=== PATIENT | female | born 1970 | race Caucasian/White ===

== ENCOUNTER → 2022-03-20 | Outpatient (CLI) | payer OTHER, SELFPAY ==
[2022-03-20 12:05] LABS: Absolute Lymphocyte Count 1.81 X10^3/uL (0.83-4.51); Absolute Neutrophil Count 2.8 X10^3/uL (2.0-7.7); Basophil# 0.01 X10^3/uL; Basophil% 0.2 % (0-1); Eosinophil# 0.06 X10^3/uL; Eosinophils% 1.2 % (0-5); Hematocrit 36.7 % (37-47); Hemoglobin 11.5 g/dL (12.0-15.0); Lymphocyte # 1.81 X10^3/ul (0.83-4.51); Lymphocyte % 35.5 % (19-41); Mean Corp Hgb Conc 31.3 g/dL (32-36); Mean Corpuscular Hgb 27.9 pg (27.0-32.0); Mean Corpuscular Volume 89.1 fL (81-99); Mean Platelet Vol. 12.2 fl (6.2-12.0); Monocyte% 7.8 % (0-10); NRBC Flagged by Analyzer 0 % (0-5); Neutrophil # 2.78 X10^3/uL (2.7-7.7); Neutrophil % 54.5 % (47-70); Platelet Count 174 K/mm3 (150-450); RBC Distribution Width SD 45.6 fl (35.1-43.9); Red Blood Count 4.12 M/mm3 (4.2-5.4); White Blood Count 5.1 K/mm3 (4.4-11.0)
[2022-03-20 12:14] LABS: Erythrocyte Sedimentation Rate 3 mm/hr (0-30)
[2022-03-20 12:29] LABS: ALB/GLOB Ratio 1.1 RATIO (0.9-2.4); AST(SGOT) 20 U/L (15-37); Alanine Aminotransfer ALT/SGPT 39 U/L (13-56); Albumin, Serum 3.8 g/dL (3.2-5.0); Alkaline Phosphatase 63 U/L (45-117); Anion Gap 7 (5-15); BUN 18 mg/dL (7-18); BUN/Creat Ratio 26.1 RATIO (10-20); CRP < 2.90 mg/L (0.0-3.0); Calcium,Total 8.7 mg/dL (8.5-10.1); Chloride 109 mmol/L (98-107); Creatinine, Serum 0.69 mg/dL (0.55-1.02); EST Glomerular Filtration Rate 96 mL/min (>60); Est Glom Filt Rate - Afr Amer 116 mL/min (>60); Globulin 3.5 g/dL (2.2-4.2); Glucose 93 mg/dL (74-106); Potassium 3.8 mmol/L (3.5-5.1); Protein, Total 7.3 g/dL (6.4-8.2); Rheumatoid Factor < 10.0 IU/mL (<15); Sodium Level 141 mmol/L (136-145)
[2022-03-20 13:03] LABS: Hepatitis B Surface Antibody Non-Reactive; Hepatitis B Surface Antigen Non-Reactive (Nonreactive); Hepatitis C Antibody Non-Reactive (Nonreactive)
[2022-03-21 15:42] LABS: ANTINUCLEAR ANTIBODIES DIRECT Negative (Negative)
[2022-03-23 08:40] LABS: CCP IgG Antibodies 2 units (0-19)
== END | disposition home or self-care (01) ==
LOC: MTLAB 09:49
PROVIDERS: PCP Internal Medicine; Referring Provider Internal Medicine Rheumatology; Visit Provider Internal Medicine Rheumatology
DX: M06.4 Inflammatory polyarthropathy (principal); E11.9 Type 2 diabetes mellitus without complications; I10 Essential (primary) hypertension; E78.5 Hyperlipidemia, unspecified; K21.9 Gastro-esophageal reflux disease without esophagitis; F41.9 Anxiety disorder, unspecified
CPT/HCPCS: 36415; 80053; 85025; 85652; 86038; 86140; 86200; 86431; 86706; 86803; 87340

== ENCOUNTER → 2022-08-07 | Outpatient (CLI) | payer OTHER, SELFPAY ==
[2022-08-07 17:42] LABS: Absolute Lymphocyte Count 1.93 X10^3/uL (0.83-4.51); Absolute Neutrophil Count 3.5 X10^3/uL (2.0-7.7); Basophil# 0.01 X10^3/uL; Basophil% 0.2 % (0-1); Eosinophil# 0.06 X10^3/uL; Hematocrit 33.4 % (37-47); Hemoglobin 10.6 g/dL (12.0-15.0); Lymphocyte # 1.93 X10^3/ul (0.83-4.51); Lymphocyte % 32.8 % (19-41); Mean Corp Hgb Conc 31.7 g/dL (32-36); Mean Corpuscular Hgb 29.5 pg (27.0-32.0); Mean Platelet Vol. 11.6 fl (6.2-12.0); Monocyte# 0.43 X10^3/uL; Monocyte% 7.3 % (0-10); NRBC Flagged by Analyzer 0 % (0-5); Neutrophil # 3.45 X10^3/uL (2.7-7.7); Neutrophil % 58.5 % (47-70); Platelet Count 198 K/mm3 (150-450); RBC Distribution Width CV 15.2 % (11.6-14.6); RBC Distribution Width SD 51.9 fl (35.1-43.9); Red Blood Count 3.59 M/mm3 (4.2-5.4); White Blood Count 5.9 K/mm3 (4.4-11.0)
[2022-08-07 18:05] LABS: ALB/GLOB Ratio 1.1 RATIO (0.9-2.4); AST(SGOT) 20 U/L (15-37); Alanine Aminotransfer ALT/SGPT 35 U/L (13-56); Albumin, Serum 3.6 g/dL (3.2-5.0); Alkaline Phosphatase 66 U/L (45-117); Anion Gap 4 (5-15); BUN 19 mg/dL (7-18); BUN/Creat Ratio 26.9 RATIO (10-20); Calcium,Total 9.2 mg/dL (8.5-10.1); Chloride 108 mmol/L (98-107); Creatinine, Serum 0.71 mg/dL (0.55-1.02); EST Glomerular Filtration Rate 93 mL/min (>60); Est Glom Filt Rate - Afr Amer 113 mL/min (>60); Globulin 3.2 g/dL (2.2-4.2); Glucose 116 mg/dL (74-106); Potassium 3.6 mmol/L (3.5-5.1); Protein, Total 6.8 g/dL (6.4-8.2); Sodium Level 140 mmol/L (136-145)
== END | disposition home or self-care (01) ==
LOC: MTLAB 16:21
PROVIDERS: PCP Internal Medicine; Referring Provider Internal Medicine Rheumatology; Visit Provider Internal Medicine Rheumatology
DX: M06.4 Inflammatory polyarthropathy (principal); Z79.899 Other long term (current) drug therapy
CPT/HCPCS: 36415; 80053; 85025

== ENCOUNTER → 2024-04-22 | Outpatient (CLI) | payer OTHER, SELFPAY ==
[2024-04-22 16:17] LABS: Absolute Lymphocyte Count 2.55 X10^3/uL (0.83-4.51); Absolute Neutrophil Count 2.8 X10^3/uL (2.0-7.7); Eosinophil# 0.08 X10^3/uL; Eosinophils% 1.4 % (0-5); Hematocrit 39.1 % (37-47); Hemoglobin 12.8 g/dL (12.0-15.0); Lymphocyte # 2.55 X10^3/ul (0.83-4.51); Lymphocyte % 43.5 % (19-41); Mean Corp Hgb Conc 32.7 g/dL (32-36); Mean Corpuscular Hgb 28.6 pg (27.0-32.0); Mean Corpuscular Volume 87.3 fL (81-99); Mean Platelet Vol. 11.6 fl (6.2-12.0); Monocyte# 0.47 X10^3/uL; NRBC Flagged by Analyzer 0 % (0-5); Neutrophil # 2.75 X10^3/uL (2.7-7.7); Neutrophil % 46.9 % (47-70); Platelet Count 183 K/mm3 (150-450); RBC Distribution Width CV 13.5 % (11.6-14.6); RBC Distribution Width SD 43.4 fl (35.1-43.9); Red Blood Count 4.48 M/mm3 (4.2-5.4); White Blood Count 5.9 K/mm3 (4.4-11.0)
[2024-04-22 16:48] LABS: Vitamin D,25 Hydroxy 45.3 ng/mL
[2024-04-22 17:33] LABS: ALB/GLOB Ratio 1.1 RATIO (0.9-2.4); AST(SGOT) 56 U/L (15-37); Alanine Aminotransfer ALT/SGPT 83 U/L (13-56); Albumin, Serum 3.9 g/dL (3.2-5.0); Alkaline Phosphatase 77 U/L (45-117); Anion Gap 3 (5-15); BUN 14 mg/dL (7-18); BUN/Creat Ratio 15.2 RATIO (10-20); Calcium,Total 9.3 mg/dL (8.5-10.1); Chloride 107 mmol/L (98-107); Creatinine, Serum 0.92 mg/dL (0.55-1.02); EST Glomerular Filtration Rate 68 mL/min (>60); Est Glom Filt Rate - Afr Amer 83 mL/min (>60); Estradiol 14.4 pg/mL; Follicle Stimulating Hormone 63.2 mIU/mL; Globulin 3.6 g/dL (2.2-4.2); Glucose 139 mg/dL (74-106); Potassium 3.9 mmol/L (3.5-5.1); Protein, Total 7.5 g/dL (6.4-8.2); Sodium Level 139 mmol/L (136-145); T4 Free Direct 0.82 ng/dL (0.76-1.46); Thyroid Stim Hormone (TSH) 1.29 uIU/mL (0.358-3.74)
== END | disposition home or self-care (01) ==
LOC: LAB 15:57
PROVIDERS: PCP Internal Medicine; Referring Provider Nurse Practitioner Family; Visit Provider Nurse Practitioner Family
DX: Z00.00 Encounter for general adult medical examination without abnormal findings (principal); D64.9 Anemia, unspecified; Z13.220 Encounter for screening for lipoid disorders; Z13.29 Encounter for screening for other suspected endocrine disorder; E28.39 Other primary ovarian failure; E55.9 Vitamin D deficiency, unspecified
CPT/HCPCS: 36415; 80053; 82306; 82670; 83001; 84439; 84443; 85025

== ENCOUNTER → 2025-03-10 | Outpatient (CLI) | payer OTHER, SELFPAY ==
[2025-03-10 16:49] LABS: Absolute Lymphocyte Count 2.57 X10^3/uL (0.83-4.51); Absolute Neutrophil Count 3.3 X10^3/uL (2.0-7.7); Basophil# 0.01 X10^3/uL; Basophil% 0.2 % (0-1); Eosinophil# 0.07 X10^3/uL; Eosinophils% 1.1 % (0-5); Hematocrit 36.3 % (37-47); Hemoglobin 11.8 g/dL (12.0-15.0); Lymphocyte # 2.57 X10^3/ul (0.83-4.51); Lymphocyte % 39.9 % (19-41); Mean Corp Hgb Conc 32.5 g/dL (32-36); Mean Corpuscular Hgb 28.2 pg (27.0-32.0); Mean Corpuscular Volume 86.6 fL (81-99); Mean Platelet Vol. 11.6 fl (6.2-12.0); Monocyte# 0.45 X10^3/uL; NRBC Flagged by Analyzer 0 % (0-5); Neutrophil # 3.32 X10^3/uL (2.7-7.7); Neutrophil % 51.5 % (47-70); Platelet Count 210 K/mm3 (150-450); RBC Distribution Width CV 13.2 % (11.6-14.6); RBC Distribution Width SD 41.2 fl (35.1-43.9); Red Blood Count 4.19 M/mm3 (4.2-5.4); White Blood Count 6.4 K/mm3 (4.4-11.0)
[2025-03-10 18:13] LABS: ALB/GLOB Ratio 1.6 RATIO (0.9-2.4); AST(SGOT) 28 U/L (<=31); Alanine Aminotransfer ALT/SGPT 41 U/L (<=34); Albumin, Serum 4.2 g/dL (3.5-5.0); Alkaline Phosphatase 82 U/L (35-104); Anion Gap 11 (5-15); BUN 16 mg/dL (4-19); BUN/Creat Ratio 19.5 RATIO (10-20); Calcium,Total 9.2 mg/dL (7.6-11.0); Carbon Dioxide 23.3 mmol/L (21.0-32.0); Chloride 105 mmol/L (98-108); Creatinine, Serum 0.82 mg/dL (0.70-1.20); EST Glomerular Filtration Rate 86 (>60); Globulin 2.6 g/dL (2.2-4.2); Glucose 133 mg/dL (70-99); Potassium 3.6 mmol/L (3.3-5.1); Protein, Total 6.8 g/dL (5.9-8.4); Sodium Level 139 mmol/L (133-145); Total Bilirubin 0.41 mg/dL (0.00-1.30); Vitamin B12 399 pg/mL (180-914)
[2025-03-11 13:10] LABS: Hemoglobin A1c 7.1 % (<=5.6)
[2025-03-16 10:08] LABS: HPV APTIMA, High Risk Negative (Negative)
== END | disposition home or self-care (01) ==
PROVIDERS: PCP Internal Medicine; Referring Provider Nurse Practitioner Family; Visit Provider Nurse Practitioner Family
DX: Z12.4 Encounter for screening for malignant neoplasm of cervix (principal); R53.83 Other fatigue; Z78.0 Asymptomatic menopausal state
CPT/HCPCS: 36415; 80053; 82306; 82607; 83036; 85025; 87624; 88175; G0145

== ENCOUNTER → 2025-04-09 | Outpatient (CLI) | payer OTHER, SELFPAY ==
--- OUTSIDE RECORDS SUMMARY | 2025-04-09 10:17 | XMS RPT_ITS | CCD ---
Author Organization [facility] Care Team Providers Care Check Processing Clerk Name Role Phone [place], Erica Unavailable Unavailable [place], Erica S Unavailable Unavailable [place], Erica S Unavailable Unavailable Unavailable Unavailable Primary Care Provider Unavailabl e [place] DO, Erica S. Primary Care Provider [place] DO, Erica S. Primary Care Provider [phone] ROYAL, ERICA S. Referring Unavailable ROYAL, ERICA S. Primary Care Unavailable ROYAL, ERICA S. Admitting Unavailable ROYAL, ERICA S. Primary Care Unavailable ROYAL, ERICA S. Admitting Unavailable ROYAL, ERICA S. Referring Unavailable ALECIA ESPARZA Attending Unavailable DIONNE ESCOBAR Referring Unavailable DIONNE ESCOBAR Attending Unavailable ROYAL, ERICA S. Primary Care Unavailable ROYAL, ERICA S. Primary Care Unavailable ROYAL, ERICA S. Admitting Unavailable ROYAL, ERICA S. Referring Unavailable ROYAL, ERICA S. Primary Care Unavailable ROYAL, ERICA S. Admitting Unavailable ROYAL, ERICA S. Referring Unavailable ROYAL, ERICA S. Primary Care Unavailable ROYAL, ERICA S. Admitting Unavailable ROYAL, ERICA S. Referring Unavailable JESSICA JOHNSON Attending Unavailable ALIREZA WEEKS MD Attending Unavailable [place] DO, Erica S Primary Care Provider [phone] [place], Erica Unavailable Cortez Armendariz Unavailable [phone] Arielle Barton Unavailable Brenda Amor Unavailable Unavailable Zack Jacobo Unavailable [place] DO, Erica S. Primary Care Provider ERICA SANFORD. Primary Care Unavailable DIONNE ESCOBAR Attending Unavailable DIONNE ESCOBAR Attending Unavailable ERICA SANFORD. Primary Care Unavailable [place], Dr. Erica Mcwilliams Primary Care Unavailabl e [place], Dr. Erica Mcwilliams Attending Unavailabl e [place], Dr. Erica Mcwilliams Attending Unavailabl e [place], Dr. Erica Mcwilliams Primary Care Unavailabl e Yelena Lopez, Dr. Rodas Admitting Unava ilable Yelena Lopez, Dr. Rodas Referring Unava ilable Marcello, Dr. Cort[place] Hansen Attending Un available [place], Dr. Erica Mcwilliams Primary Care Unavailabl e [place], Dr. Erica Mcwilliams Primary Care Unavailabl e [place], Dr. Erica Mcwilliams Attending Unavailabl e [place], Dr. Erica Mcwilliams Referring Unavailabl e [place], Dr. Erica Mcwilliams Primary Care Unavailabl e Adi Monge Attending Unavailable Adi Monge Referring Unavailable [place], Dr. Erica Mcwilliams Primary Care Unavailabl e [place], Dr. Erica Mcwilliams Attending Unavailabl e [place], Dr. Erica Mcwilliams Referring Unavailabl e [place], Dr. Erica Mcwilliams Primary Care Unavailabl e [place], Dr. Erica Mcwilliams Attending Unavailabl e [place], Dr. Erica Mcwilliams Referring Unavailabl e [place], Dr. Erica Mcwilliams Primary Care Unavailabl e [place], Dr. Adi Barrett Attending Unavailable [place], Dr. Erica Mcwilliams Referring Unavailabl e [place], Dr. Erica Mcwilliams Primary Care Unavailabl e Zack Jacobo Attending Unavailable [place], Dr. Erica Mcwilliams Referring Unavailabl e [place], Dr. Erica Mcwilliams Primary Care Unavailabl e MD ALIREZA WEEKS Attending Unavailable [place] Erica BAILON Primary Care Provider ERICA SANFORD Primary Care Unavailable SELF, SELF Referring Unavailable XANDER NUNEZ JR. Attending Unavaila ble XANDER NUNEZ JR. Attending Unavaila ble ERICA SANFORD Primary Care Unavailable SELF, SELF Referring Unavailable Erica Sanford DO Primary Care Provider [phone] ERICA SANFORD Primary Care Unavailable ERICA SANFORD Primary Care Unavailable ROYAL, ERICA S Primary Care Unavailable KAMRAN MORIN Attending Unavailable XANDER NUNEZ Referring Unavailable ROYAL, ERICA S Primary Care Unavailable ROYAL, ERICA S Primary Care Unavailable ROYAL, ERICA S Referring Unavailable ROYAL, ERICA S Primary Care Unavailable [place] DO, Erica S Primary Care Provider [phone] ROYAL, ERICA S Attending Unavailable ROYAL, ERICA S Primary Care Unavailable ROYAL, ERICA S Attending Unavailable ROYAL, ERICA S Primary Care Unavailable ROYAL, ERICA S Attending Unavailable ROYAL, ERICA S Referring Unavailable ROYAL, ERICA S Primary Care Unavailable Royal LORENZ, Dr. Maldonado Primary Care Provider Dr. Erica Sanford MD Referring Provider Julio TRANSLATOR DEAF-C, Ashlee Attending Provider [phone] Julio TRANSLATOR DEAF-C, Ashlee Referring Provider [phone] Julio, Ashlee Referring Unavailable Barkman, Ashlee Attending Unavailable [place], Erica Primary Care Unavailable [place], Erica Primary Care Unavailable Barkman, Ashlee Referring Unavailable Barkman, Ashlee Attending Unavailable [place], Erica Primary Care Unavailable Barkman, Ashlee Attending Unavailable Barkman, Ashlee Referring Unavailable Barkman, Ashlee Attending Unavailable [place], Erica Referring Unavailable [place], Erica Primary Care Unavailable Barkman, Ashlee Attending Unavailable [place], Erica Referring Unavailable [place], Erica Primary Care Unavailable Allergies Allergy Classification Reported Allergen(s) Allergy Type Date of Onset Reaction(s) Facility Penicillins (antibiotic) (4 sources) Penicillins; Translations: [Penicillins] Drug Allergy Unknown [facility] (20 sources) Penicillins; Translations: [Penicillins] Allergy to drug (finding) 3 Unknown [facility] (10 sources) Penicillins Propensity to adverse reactions to drug Unknown [facility] (9 sources) Penicillins Propensity to adverse reactions to drug 3 Unknown [facility] (2 sources) Penicillins Propensity to adverse reactions to drug 3 [facility] (1 source) Penicillins Drug Allergy 3 Unknown [facility] (2 sources) Penicillins Propensity to adverse reactions 5 PT UNSURE OF REACTION [facility] (1 source) Penicillins Drug allergy (disorder) [facility] Repository Medications Current Medications Medication Drug Class(es) Dates Sig (Normalized) Sig (Original) Apple Cider Vinegar (9 sources) take 1 capsule by mo uth once daily APPLE CIDER VINEGAR ORAL Take 1 capsule by mouth daily . 0 Active Ascorbic Acid (16 sources) Vitamin C ASCORBIC ACID OR AL Take by mouth daily . 0 Active Vitamin C TABS R efills: 0 Active Vitamin C TABS R efills: 0 DO Active atorvastatin 10 mg oral tablet (20 sources) HMG-CoA Reductase Inhibitor Start: 12-23-2024 End: 01-27-2026 take 1 tablet by mouth once daily Atorvastatin (Lipitor) 10 mg tablet Active 10 mg PO daily March 10, 2025 12:00am Start: 12-29-2023 End: 07-01-2024 take 1 tablet by mouth once daily atorvastatin (Lipitor) 10 mg tablet Indications: Mixed hyperlipidemia TAKE 1 TABLET BY MOUTH EVERY DAY 90 tablet 1 12/29/2023 07/01/2024 Discontinued (Med List Cleanup) Start: 01-03-2022 End: 05-30-2023 take 1 tablet by mouth once daily Atorvastatin Calcium 10 MG Oral Tablet TAKE 1 TABLET BY MOUTH EVERY DAY Quantity: 90 Refills: 1 Ordered: 31-Oct-2022 Erica Sanford DO Start : 03-Jan-2022 Active cholecalciferol 0.01 mg oral tablet (12 sources) Vitamin D cholecalciferol, vitamin D3, 400 unit Tab Take 1,000 Units by mouth daily . 0 Active cholecalciferol 5500 unt / vitamin k2 0.2 mg oral tablet (8 sources) Vitamin D Start: 04-22-2024 End: 03-10-2025 take 137.5-200 ug by mouth once daily Vitamin D3-Vitamin K2 (Dosokap) 137.5-200 mcg tablet Active 1 {tbl} PO daily March 10, 2025 12:00am vitamin D3-vitam in K2 (DosoKap) 137.5-200 mcg tablet Take by mouth. Active diclofenac sodium 0.01 mg/mg topical gel (11 sources) Nonsteroidal Anti-inflammatory Drug Start: 07-15-2023 End: 07-01-2024 diclofenac sodium (Voltaren) 1 % gel gel Indications: osteoarthritis Apply 1 Application topically 4 times a day as needed (Pain). 100 g 1 07/15/2023 07/01/2024 Discontinued (Med List Cleanup) Start: 01-16-2023 Diclofenac Sod ium 1 % External Gel apply 2 gram topically QID for pain Quantity: 1 Refills: 1 Ordered: 17-Jan-2023 Zack Jacobo MD Start : 16-Jan-2023 Active DICLOFENAC SODIU M 1% GEL ; Apply topically to affected area 4 times a day, As Needed Quantity: 0 Refills: 1 Ordered: 06-Feb-2023 Marion Barksdale Generic Substitution Allowed Comments: Source=Surescripts, Medication=DICLOFENAC SODIUM 1% GEL, OriginatingSource=[email or web address] OriginatingProvider=ZACK JACOBO, Duration=30, Refills=1, Date Last Modified/Filled=17-Jan-2023 Comment on above: Source=Surescripts, Medication=DICLOFENAC SODIUM 1% GEL, OriginatingSource=[email or web address] OriginatingProvider=ZACK JACOBO, Duration=30, Refills=1, Date Last Modified/Filled=17-Jan-2023 escitalopram 20 mg oral tablet (20 sources) Serotonin Reuptake Inhibitor Start: 2024 take 1 tablet by mouth once daily escitalopram (Lexapro) 20 mg tablet Indications: Depression, major, single episode, mild (CMS-HCC) Take 1 tablet (20 mg) by mouth once daily. 100 tablet 1 12/23/2024 Active Start: 04-22-2024 End: 12-23-2024 take 1 tablet by mouth once daily Escitalopram Oxalate 20 mg tablet Active 20 mg PO DAILY April 22, 2024 12:00am Start: 01-03-2022 End: 12-04-2023 take 1 tablet by mouth once daily escitalopram (Lexapro) 20 mg tablet Indications: Depression, major, single episode, mild (CMS-HCC) Take 1 tablet (20 mg) by mouth once daily. 90 tablet 1 12/04/2023 Active Start: 12-07-2021 take 1 tablet by sally th once daily Escitalopram Oxalate 10 MG Oral Tablet TAKE 1 TABLET BY MOUTH EVERY DAY Quantity: 90 Refills: 2 Ordered: 07-Dec-2021 Erica Sanford DO Start : 07-Dec-2021 Active Start: 04-17-2020 take 1 tablet by sally th once daily Escitalopram Oxalate 10 MG Oral Tablet TAKE 1 TABLET BY MOUTH EVERY DAY Quantity: 30 Refills: 5 Ordered: 10-Jun-2021 Erica Sanford DO Start : 17-Apr-2020 Active ESCITALOPRAM OXA LATE ORAL Take by mouth daily . 0 Active lisinopril 10 mg oral tablet (20 sources) Angiotensin Converting Enzyme Inhibitor Start: 12-23-2024 End: 01-27-2026 take 1 tablet by mouth once daily Lisinopril 10 mg tablet Active 10 mg PO daily March 10, 2025 12:00am Start: 01-03-2022 End: 12-04-2023 take 1 tablet by mouth once daily lisinopril 10 mg tablet Indications: Hypertension, unspecified type Take 1 tablet (10 mg) by mouth once daily. 90 tablet 1 05/30/2023 12/04/2023 Discontinued (Med List Cleanup) magnesium gluconate 550 mg oral tablet (12 sources) magnesium 30 mg tablet Take 250 mg by mouth daily . 0 Active melatonin 10 mg oral tablet (4 sources) melatonin 10 mg tablet Take by mouth once daily. Active meloxicam 15 mg oral tablet (20 sources) Nonsteroidal Anti-inflammatory Drug Start: take 1 tablet by mouth once daily meloxicam (Mobic) 15 mg tablet Indications: Polyarthropathy Take 1 tablet (15 mg) by mouth once daily. 30 tablet 1 12/23/2024 Active Start: 12-29-2023 End: 12-23-2024 take 1 tablet by mouth once daily meloxicam (Mobic) 15 mg tablet Indications: Polyarthropathy Take 1 tablet (15 mg) by mouth once daily. 30 tablet 1 11/01/2024 12/23/2024 Discontinued (Reorder) Start: 06-25-2023 take 1 tablet by sally th once daily meloxicam (Mobic) 15 mg tablet Indications: Polyarthropathy TAKE 1 TABLET BY MOUTH EVERY DAY 30 tablet 5 06/25/2023 Active Start: 04-16-2021 End: 06-14-2023 take 1 tablet by mouth once daily meloxicam (Mobic) 15 mg tablet Indications: Polyarthropathy Take 1 tablet (15 mg) by mouth once daily. 30 tablet 0 05/15/2023 06/14/2023 Active Meloxicam TABS T DONNIE 1 TABLET DAILY. Quantity: 0 Refills: 0 Ordered: 16-Oct-2020 DO Active Meloxicam TABS T DONNIE 1 TABLET DAILY. Refills: 0 DO Active Meloxicam TABS T DONNIE 1 TABLET DAILY. Refills: 0 Active 24 hr metFORMIN hydrochloride 500 mg extended release oral tablet (20 sources) Biguanide Start: 05-30-2023 End: 12-04-2023 take 1 tablet by mouth once daily metFORMIN XR 500 mg 24 hr tablet Indications: Type 2 diabetes mellitus with hyperglycemia, without long-term current use of insulin ([facility]) Take 1 tablet (500 mg) by mouth once daily. 90 tablet 1 05/30/2023 12/04/2023 Discontinued (Med List Cleanup) Start: 01-03-2022 End: 05-30-2023 take 1 tablet by mouth once daily metFORMIN HCl ER 500 MG Oral Tablet Extended Release 24 Hour TAKE 1 TABLET BY MOUTH EVERY DAY Quantity: 90 Refills: 1 Ordered: 31-Oct-2022 Erica Sanford DO Start : 03-Jan-2022 Active take 1 tablet by sally th once daily at breakfast metFORMIN (FORTAMET) 500 MG (OSM) 24 hr tablet Take 500 mg by mouth daily with breakfast . 0 Active Comment on above: Source=Surescripts, Medication=METFORMIN HCL ER 500 MG TABLET, OriginatingSource=[employer] OriginatingProvider=ERICA SANFORD, Duration=90, Refills=1, Date Last Modified/Filled=29-Nov-2022 Multiple Vitamin (Multi-Vitamin) tablet (2 sources) take 1 tablet by mouth once daily Multiple Vitamin (Multi-Vitamin) tablet Take 1 tablet by mouth daily. Active multivitamin (THERAGRAN) per tablet (9 sources) take 1 tablet by mouth once daily multivitamin (THERAGRAN) per tablet Take 1 tablet by mouth daily . 0 Active multivitamin tablet (8 sources) multivitamin tablet Take by mouth once daily. Active multivitamin tab let Take by mouth once daily. 0 Active MULTIVITAMIN WITH IRON ORAL (14 sources) MULTIVITAMIN WIT H IRON ORAL Take by mouth . 0 Active multivitamin with minerals (Daily Multivitamin-Minerals ) tablet (6 sources) take 1 tablet by mouth once daily multivitamin with minerals (Daily Multivitamin-Minerals) tablet Take 1 tablet by mouth daily (Airborne Everyday) . 0 Active multivitamin with minerals tablet (8 sources) take 1 tablet by mouth once daily multivitamin with minerals tablet Take 1 tablet by mouth daily (Airborne Everyday) . 0 Active omeprazole 40 mg delayed release oral capsule (20 sources) Proton Pump Inhibitor Start: 12-24-19 take 1 capsule by mouth once daily in the morning omeprazole (PriLOSEC) [address] capsule Indications: Gastroesophageal reflux disease without esophagitis Take 1 capsule (40 mg) by mouth once daily in the morning. 100 capsule 1 12/23/2024 Active Start: 04-22-2024 End: 12-23-2024 take 1 capsule by mouth once daily Omeprazole 40 mg capsule,delayed release(DR/EC) Active 40 mg PO DAILY April 22, 2024 12:00am Start: 05-15-2020 End: 12-04-2023 take 1 capsule by mouth once daily in the morning omeprazole (PriLOSEC) [address] capsule Indications: Gastroesophageal reflux disease without esophagitis Take 1 capsule (40 mg) by mouth once daily in the morning. 90 capsule 1 12/04/2023 Active take 40 mg by mouth once daily OMEPRAZOLE ORAL Take 40 mg by mouth daily . 0 Active OMEPRAZOLE ORAL Take by mouth daily . 0 Active PriLOSEC OTC TBE C Refills: 0 DO Active PriLOSEC OTC TBE C Refills: 0 Active psyllium seed (PSYLLIUM ORAL) (14 sources) psyllium seed (P SYLLIUM ORAL) Take by mouth . 0 Active semaglutide 0.25 mg or 0.5 mg (2 mg/3 mL) pen injector (5 sources) Start: 09-23-2024 End: 12-23-2024 inject 0.5 mg by subcutaneous injection every week semaglutide 0.25 mg or 0.5 mg (2 mg/3 mL) pen injector Indications: Type 2 diabetes mellitus with hyperglycemia, without long-term current use of insulin Inject 0.5 mg under the skin 1 (one) time per week. 12 mL 2 09/23/2024 12/23/2024 Discontinued (Side effects) Start: 09-23-2024 inject 0.5 mg by sub cutaneous injection every week semaglutide 0.25 mg or 0.5 mg (2 mg/3 mL) pen injector Indications: Type 2 diabetes mellitus with hyperglycemia, without long-term current use of insulin Inject 0.5 mg under the skin 1 (one) time per week. 12 mL 2 09/23/2024 Active Start: 08-20-2024 End: 09-23-2024 semaglutide 0.25 mg or 0.5 m g (2 mg/3 mL) pen injector Indications: Type 2 diabetes mellitus with hyperglycemia, without long-term current use of insulin Inject 0.25 mg under the skin 1 (one) time per week. 12 mL 2 08/20/2024 09/23/2024 Discontinued (Reorder) Start: 07-01-2024 semaglutide 0. 25 mg or 0.5 mg (2 mg/3 mL) pen injector Indications: Type 2 diabetes mellitus with hyperglycemia, without long-term current use of insulin Inject 0.25 mg under the skin 1 (one) time per week. 12 mL 2 07/01/2024 Active Vitamin D-Vitamin K (DosoKap) 5500-200 UNIT-MCG tablet (1 source) Start: 11-24-2023 take 1 tablet by mouth once daily Vitamin D-Vitamin K (DosoKap) 5500-200 UNIT-MCG tablet Indications: Vitamin D deficiency 1 po q day 30 tablet 11/24/2023 Active zinc gluconate 50 mg oral tablet (12 sources) take 1 tablet by mouth once daily zinc gluconate 50 mg tablet Take 50 mg by mouth daily . 0 Active Completed/Discontinued Medications Medication Drug Class(es) Dates Sig (Normalized) Sig (Original) Airborne PACK (2 sources) Airborne PACK Re fills: 0 Active Airborne PACK Re fills: 0 DO Active Airborne PACK (11 sources) Airborne PACK Qu antity: 0 Refills: 0 Ordered: 30-Nov-2020 DO Active B-12 LOZG (14 sources) B-12 LOZG Quanti ty: 0 Refills: 0 Ordered: 03-Jan-2022 DO Active Bupivacaine (4 sources) Amide Local Anesthetic Start: 04-16-2021 End: 04-16-2021 bupivacaine HCl (MARCAINE) 0.5 % (5 mg/mL) injection 1 mL Start: 04-16-2021 End: 04-16-2021 bupivacaine HCl (MARCAINE) 0 .5 % (5 mg/mL) injection 1 mL ergocalciferol 1.25 mg oral capsule (20 sources) Provitamin D2 Compound Vitamin D (Ergocalciferol) 1.25 MG (92768 UT) Oral Capsule Quantity: 0 Refills: 0 Ordered: 30-Nov-2020 DO Active folic acid 1 mg oral tablet (7 sources) take 2 tablets by mouth once daily Folic Acid 1 MG Oral Tablet TAKE 2 TABLET Daily Quantity: 180 Refills: 1 Ordered: 11-Apr-2022 DO Active Magnesium (20 sources) Magnesium CHEW Quantity: 0 Refills: 0 Ordered: 19-Jun-2021 DO Active magnesium sulfate 0.0277 meq/ml / potassium sulfate 0.0374 meq/ml / sodium sulfate 0.257 meq/ml oral solution (5 sources) Start: 04-24-20 Na Sulfate-K Sulfate-Mg Sulf 17.5-3.13-1.6 GM/177ML Oral Solution USE DIRECTED. Quantity: 1 Refills: 0 Ordered: 24-Apr-2023 Adi Monge DO Start : 24-Apr-2023 Active methotrexate 2.5 mg oral tablet (7 sources) Folate Analog Metabolic Inhibitor Methotrexate 2.5 MG Oral Tablet Quantity: 0 Refills: 0 Ordered: 11-Apr-2022 DO Active Multi-Vitamins TABS (2 sources) Multi-Vitamins T ABS Refills: 0 Active Multi-Vitamins T ABS Refills: 0 DO Active Multi-Vitamins TABS (20 sources) Multi-Vitamins T ABS 3 gummy's daily Quantity: 0 Refills: 0 Ordered: 26-Nov-2022 DO Active Multi-Vitamins T ABS Quantity: 0 Refills: 0 Ordered: 30-Nov-2020 DO Active Multiple Vitamins-Minerals (ZINC PO) (2 sources) End: 12-08-2023 take 50 mg by mouth once daily Multiple Vitamins-Minerals (ZINC PO) Take 50 mg by mouth daily. 12/08/2023 Discontinued take 50 mg by mouth once daily M ultiple Vitamins-Minerals (ZINC PO) Take 50 mg by mouth daily. Active Psyllium (20 sources) Metamucil CAPS Q uantity: 0 Refills: 0 Ordered: 30-Nov-2020 DO Active Metamucil CAPS R efills: 0 Active Metamucil CAPS R efills: 0 DO Active 1 ml triamcinolone acetonide 40 mg/ml injection (4 sources) Corticosteroid Start: 04-16-2021 End: 04-16-2021 triamcinolone acetonide (KENALOG-40) injection 40 mg Start: 04-16-2021 End: 04-16-2021 triamcinolone acetonide (JESSICA ALOG-40) injection 40 mg Start: 04-16-2021 End: 04-16-2021 triamcinolone acetonide (JESSICA ALOG-40) injection 40 mg Start: 04-16-2021 End: 04-16-2021 triamcinolone acetonide (JESSICA ALOG-40) injection 40 mg Vitamin C TABS (11 sources) Vitamin C TABS Q uantity: 0 Refills: 0 Ordered: 30-Nov-2020 DO Active Zinc (9 sources) Zinc 50 MG CAPS Quantity: 0 Refills: 0 Ordered: 19-Jun-2021 DO Active Problems Active Problems Problem Classification Problem Date Documented Da te Episodic/Chronic Anxiety disorders (16 sources) Anxiety; Translations: [Anxiety state, unspecified] Chronic Diabetes mellitus with complications (20 sources) Type 2 diabetes mellitus; Translations: [Diabetes mellitus without mention of complication, type II or unspecified type, not stated as uncontrolled] Onset: 3 Chronic Diabetes mellitus with complications (2 sources) Diabetes mellitus with complications 02-06-2023 Diabetes mellitus without complication (1 source) Type 2 diabetes mellitus without complications; Translations: [Type 2 diabetes mellitus without complications] Onset: 3 Chronic Diabetes mellitus without complication (20 sources) Hyperglycemia; Translations: [Other abnormal glucose] Onset: 4 12-08-2023 Episodic Disorders of lipid metabolism (20 sources) Hyperlipidemia; Translations: [Other and unspecified hyperlipidemia] Onset: 3 01-06-2023 Chronic Diverticulosis and diverticulitis (1 source) Diverticulosis of large intestine without perforation or abscess without bleeding; Translations: [Dvrtclos of lg int w/o perforation or abscess w/o bleeding] Onset: 3 Chronic Esophageal disorders (20 sources) Gastroesophageal reflux disease; Translations: [Esophageal reflux] Onset: 3 Chronic Essential hypertension (4 sources) Essential (primary) hypertension; Translations: [Hypertensive disorder] Onset: 3 09-01-2023 Chronic Intestinal obstruction without hernia (10 sources) Small bowel obstruction; Translations: [Unspecified intestinal obstruction] Onset: 3 02-06-2023 Episodic Malaise and fatigue (20 sources) Fatigue; Translations: [Other malaise and fatigue] Onset: 3 Resolved: 4 01-06-2023 Episodic Menopausal disorders (7 sources) Menopausal syndrome; Translations: [Menopausal and female climacteric states] Onset: 4 04-22-2024 Chronic Mood disorders (20 sources) Mild major depression, single episode; Translations: [Major depressive affective disorder, single episode, mild] Onset: 3 01-07-2023 Chronic Mood disorders (1 source) Mood disorders; Translations: [Depression, unspecified] Onset: 3 Nonspecific chest pain (7 sources) Chest pain; Translations: [Atypical chest pain] Episodic Nutritional deficiencies (14 sources) Vitamin D deficiency; Translations: [Vitamin D deficiency, unspecified] Onset: 4 12-08-2023 Chronic Osteoarthritis (20 sources) Osteoarthritis of knee; Translations: [Osteoarthrosis, localized, not specified whether primary or secondary, lower leg] Onset: 3 11-17-2023 Chronic Other bone disease and musculoskeletal deformities (3 sources) Disorder of skeletal system; Translations: [Disorder of bone, unspecified] Onset: 4 11-17-2023 Episodic Other circulatory disease (3 sources) Elevated blood pressure; Translations: [Elevated blood pressure reading without diagnosis of hypertension] Episodic Other connective tissue disease (20 sources) Heel pain; Translations: [Pain in limb] Onset: 0 Episodic Other connective tissue disease (4 sources) Pain in both feet; Translations: [Pain in right foot] Episodic Other connective tissue disease (1 source) Tendinitis of foot; Translations: [Other enthesopathies, not elsewhere classified] Episodic Other connective tissue disease (1 source) Plantar fasciitis of left foot; Translations: [Plantar fascial fibromatosis] Episodic Other connective tissue disease (1 source) Tendonitis of left foot; Translations: [Other enthesopathy of left foot and ankle] Episodic Other connective tissue disease (1 source) Pain in left foot; Translations: [Pain in left foot] Episodic Other connective tissue disease (4 sources) H/O: rheumatoid arthritis; Translations: [Personal history of other diseases of the musculoskeletal system and connective tissue] Onset: 4 11-17-2023 Episodic Other endocrine disorders (2 sources) Menarche; Translations: [History of Menarche] Chronic Other female genital disorders (4 sources) Polyp at cervical os; Translations: [Polyp at cervical os] Episodic Other gastrointestinal disorders (1 source) Dysphagia; Translations: [Dysphagia] Episodic Other gastrointestinal disorders (1 source) Altered bowel function; Translations: [Change in bowel habit] 12-04-2023 Episodic Other liver diseases (20 sources) Steatosis of liver; Translations: [Other chronic nonalcoholic liver disease] Onset: 3 01-06-2023 Chronic Other liver diseases (5 sources) Fatty (change of) liver, not elsewhere classified; Translations: [Fatty (change of) liver, not elsewhere classified] Onset: 3 Chronic Other liver diseases (4 sources) Large liver; Translations: [Hepatomegaly, not elsewhere classified] Onset: 4 11-17-2023 Episodic Other lower respiratory disease (2 sources) Solitary pulmonary nodule; Translations: [Pulmonary nodule] Episodic Other nervous system disorders (9 sources) Bilateral carpal tunnel syndrome; Translations: [Carpal tunnel syndrome, bilateral upper limbs] Onset: 3 01-07-2023 Chronic Other nervous system disorders (11 sources) Other chronic pain; Translations: [Other chronic pain] Onset: 3 Chronic Other nervous system disorders (3 sources) Abnormal reflex; Translations: [Abnormal reflex] Onset: 4 11-17-2023 Episodic Other non-traumatic joint disorders (10 sources) Polyarthropathy; Translations: [Polyarthritis, unspecified] Onset: 3 05-15-2023 Chronic Other non-traumatic joint disorders (2 sources) Polyarthritis, unspecified; Translations: [Polyarthritis, unspecified] Onset: 3 Chronic Other non-traumatic joint disorders (8 sources) Joint pain; Translations: [Pain in joint, site unspecified] Episodic Other non-traumatic joint disorders (2 sources) Knee pain; Translations: [Pain in right knee] Onset: 3 01-07-2023 Episodic Other non-traumatic joint disorders (3 sources) Pain of left wrist; Translations: [Pain in left wrist] Onset: 4 11-17-2023 Episodic Other nutritional; endocrine; and metabolic disorders (20 sources) Body mass index 30+ - obesity; Translations: [Body Mass Index 32.0-32.9, adult] Chronic Other nutritional; endocrine; and metabolic disorders (20 sources) Obesity; Translations: [Obesity, unspecified] Onset: 3 Chronic Other nutritional; endocrine; and metabolic disorders (1 source) Obesity, unspecified; Translations: [Obesity, unspecified] Onset: 3 Chronic Other nutritional; endocrine; and metabolic disorders (1 source) Body mass index (BMI) 35.0-35.9, adult; Translations: [Body mass index [BMI] 35.0-35.9, adult] Onset: 3 Chronic Other nutritional; endocrine; and metabolic disorders (2 sources) Obese class II; Translations: [Obesity, unspecified] Onset: 4 11-17-2023 Chronic Other screening for suspected conditions (not mental disorders or infectious disease) (20 sources) Patient encounter status; Translations: [Screening for other and unspecified cardiovascular conditions] Onset: 2 Episodic Residual codes; unclassified (20 sources) Hypoxia; Translations: [Idiopathic sleep related non-obstructive alveolar hypoventilation] Onset: 3 01-06-2023 Chronic Residual codes; unclassified (20 sources) H/O: ; Translations: [Personal history of other genital system and obstetric disorders] Episodic Comment on above: 01/31/1995-40 WEEKS, VAGINAL, MALE, #7 15oz07/10/1998-40 WEEKS, ,FEMALE, #8 2oz; Residual codes; unclassified (4 sources) FH: Rheumatoid arthritis; Translations: [Family history of arthritis] Onset: 4 11-17-2023 Episodic Spondylosis; intervertebral disc disorders; other back problems (8 sources) Degeneration of lumbar intervertebral disc; Translations: [Other intervertebral disc degeneration, lumbar region] Onset: 4 11-17-2023 Chronic Spondylosis; intervertebral disc disorders; other back problems (20 sources) Low back pain; Translations: [Lumbago] Onset: 3 01-06-2023 Episodic Thyroid disorders (20 sources) Thyroid nodule; Translations: [Nontoxic uninodular goiter] Onset: 3 01-06-2023 Chronic Unclassified (17 sources) Patient encounter status; Translations: [Screening for heart disease] 07-22-2024 Unclassified (2 sources) Primary hypertension 02-06-2023 Unclassified (2 sources) UNSP INTESTNL OBST, UNSP TO PARTIAL VERSUS COMPLETE OBST 02-06-2023 Comment on above: UNSP INTESTNL OBST, UNSP TO PARTIAL VERSUS COMPLETE OBST Unclassified (2 sources) Body mass index (BMI) of 35.0 to 35.9 in adult 02-07-2023 Unclassified (1 source) Patient encounter procedure 04-29-2022 Comment on above: YEARLY Unclassified (1 source) 4-6 WEEK FUV R KNEE 01-16-2023 Comment on above: 4-6 WEEK FUV R KNEE Unclassified (1 source) Rheumatoid arthritis without rheumatoid factor, oth site; Translations: [Rheumatoid arthritis without rheumatoid factor, oth site] Onset: 2 Unclassified (1 source) Low back pain, unspecified; Translations: [Low back pain, unspecified] Onset: 3 Past or Other Problems Problem Classification Problem Date Documented Da te Episodic/Chronic Abdominal pain (1 source) Abdominal pain; Translations: [Abdominal pain, unspecified site] Resolved: 02-06-2023 02-06-2023 Episodic Allergic reactions (1 source) Allergy status to penicillin; Translations: [Allergy status to penicillin] Onset: 02-09-2023 Episodic Deficiency and other anemia (1 source) Anemia, unspecified; Translations: [Anemia, unspecified] Onset: 04-22-2024 Episodic Fluid and electrolyte disorders (3 sources) Dehydration; Translations: [Dehydration] Onset: 02-09-2023 02-06-2023 Episodic Immunizations and screening for infectious disease (1 source) Encounter for immunization; Translations: [Encounter for immunization] Onset: 07-09-2022 Episodic Other aftercare (1 source) termite control service representative (current) use of oral hypoglycemic drugs; Translations: [termite control service representative (current) use of oral hypoglycemic drugs] Onset: 02-09-2023 Episodic Other aftercare (4 sources) [facility] (current) use of non-steroidal anti-inflammatories (NSAID); Translations: [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-steroidal anti-inflammatories (nsaid)] Onset: 11-17-2023 Episodic Other bone disease and musculoskeletal deformities (4 sources) Disorder of bone, unspecified; Translations: [Disorder of bone, unspecified] Onset: 11-17-2023 Episodic Other bone disease and musculoskeletal deformities (4 sources) Disorder of cartilage, unspecified; Translations: [Disorder of cartilage, unspecified] Onset: 11-17-2023 Episodic Other circulatory disease (20 sources) Prehypertension; Translations: [Elevated blood pressure reading without diagnosis of hypertension] Onset: 01-06-2023 01-06-2023 Episodic Other connective tissue disease (20 sources) Bilateral plantar fasciitis; Translations: [Plantar fascial fibromatosis] Onset: 07-19-2020 Episodic Other connective tissue disease (15 sources) Pain in right foot; Translations: [Pain in right foot] Onset: 12-04-2020 Episodic Other connective tissue disease (8 sources) Pain in right heel; Translations: [Pain in right foot] Onset: 01-06-2023 01-06-2023 Episodic Other connective tissue disease (4 sources) Personal history of other diseases of the musculoskeletal system and connective tissue; Translations: [Personal history of other diseases of the musculoskeletal system and connective tissue] Onset: 11-17-2023 Episodic Other gastrointestinal disorders (7 sources) Disorder of small intestine; Translations: [Disease of intestine, unspecified] Onset: 02-20-2023 02-20-2023 Episodic Other liver diseases (4 sources) Hepatomegaly, not elsewhere classified; Translations: [Hepatomegaly, not elsewhere classified] Onset: 11-17-2023 Episodic Other lower respiratory disease (20 sources) Dyspnea on exertion; Translations: [Shortness of breath] Onset: 01-06-2023 01-06-2023 Episodic Other lower respiratory disease (2 sources) Other forms of dyspnea; Translations: [Other forms of dyspnea] Onset: 12-04-2023 Episodic Other nervous system disorders (4 sources) Abnormal reflex; Translations: [Abnormal reflex] Onset: 11-17-2023 Episodic Other non-traumatic joint disorders (20 sources) Pain in right knee; Translations: [Pain in joint, lower leg] Onset: 01-07-2023 01-07-2023 Episodic Other non-traumatic joint disorders (8 sources) Pain in left wrist; Translations: [Pain in left wrist] Onset: 05-08-2023 Episodic Other non-traumatic joint disorders (9 sources) Pain in left knee; Translations: [Pain in joint, lower leg] Onset: 07-14-2023 07-14-2023 Episodic Other non-traumatic joint disorders (2 sources) Pain in unspecified knee; Translations: [Pain in unspecified knee] Onset: 11-20-2023 Episodic Residual codes; unclassified (4 sources) Family history of arthritis; Translations: [Family history of arthritis] Onset: 11-17-2023 Episodic Rheumatoid arthritis and related disease (20 sources) Rheumatoid arthritis; Translations: [Rheumatoid arthritis] Onset: 01-06-2023 Resolved: 01-07-2023 01-07-2023 Chronic Unclassified (1 source) BACK PAIN ABD PAIN VOMITTING 02-06-2023 Comment on above: BACK PAIN ABD PAIN V OMITTING Unclassified (1 source) BACK PAIN, ABD PAIN, VOMITTING 02-06-2023 Comment on above: BACK PAIN, ABD PAIN, VOMITTING Unclassified (5 sources) Onset: 11-20-2023 Resolved: 09-23-2024 11-20-2023 Unclassified (1 source) Low back pain, unspecified; Translations: [Low back pain, unspecified] Onset: 12-23-2024 NEGATED: Highlighted row has not occurred!Residual codes; unclassified (20 sources) Disease Episodic Results Test Name Value Interpretation Reference Range Facility PAP IG HPV APTIMA 16/18,45on 03-16-2025 ADEQ Comment Normal . [facility] Comment on above: Order Comment: Speci men Comment: [id number] Specimen Comment: No. of containers..01 ThinPrep Vial Result Comment: Sati sfactory for evaluation. Endocervical and/or squamous metaplastic cells (endocervical component) are present. Performed By: #### L 7400.0280 #### [facility] [address] [place], [address] COMM . Normal . [facility] Comment on above: Order Comment: Speci men Comment: [id number] Specimen Comment: No. of containers..01 ThinPrep Vial Performed By: #### L 7400.0280 #### [facility] [address] [place], [address] COMMENT TNP Normal . [facility] Comment on above: Order Comment: Speci men Comment: [id number] Specimen Comment: No. of containers..01 ThinPrep Vial Result Comment: The Thin Prep(R) Process Control Manager was unable to read this specimen. Therefore a manual review was performed. Performed By: #### L 7400.0280 #### [facility] [address] [place], [address] DIAG Comment Normal . [facility] Comment on above: Order Comment: Speci men Comment: [id number] Specimen Comment: No. of containers..01 ThinPrep Vial Result Comment: NEGA TIVE FOR INTRAEPITHELIAL LESION OR MALIGNANCY. Performed By: #### L 7400.0280 #### [facility] [address] [place], [address] HPV APTIMA, HR Negative Normal Negative [facility] Comment on above: Order Comment: Speci men Comment: [id number] Specimen Comment: No. of containers..01 ThinPrep Vial Result Comment: This nucleic acid amplification test detects fourteen high- risk HPV types (16,18,31,33,35,39,45,51,52,56,58,59,66,68) without differentiation. Performed By: #### L 7400.0280 #### [facility] [address] [place], [address] HPV Vandana Rfx Comment Normal . [facility] Comment on above: Order Comment: Speci men Comment: [id number] Specimen Comment: No. of containers..01 ThinPrep Vial Result Comment: Goyot prabhjot not met, HPV Genotype not performed. Performed at: - [facility] [id number] Bulk Pallet Builder: Yessica Kramer MD, Phone: [phone] Performed at: =G - [facility] [address] [facility], [place] [id number] Bulk Pallet Builder: Yessica Kramer MD, Phone: [phone] Performed By: #### L 7400.0280 #### [facility] [address] [place], [place], [address] PAPSMR Comment Normal . [facility] Comment on above: Order Comment: Speci men Comment: [id number] Specimen Comment: No. of containers..01 ThinPrep Vial Result Comment: The Pap smear is a screening test designed to aid in the detection of premalignant and malignant conditions of the uterine cervix. It is not a diagnostic procedure and should not be used as the sole means of detecting cervical cancer. Both false-positive and false-negative reports do occur. Performed By: #### L 7400.0280 #### [facility] [address] [place], [place], [id number] PERFORM Comment Normal . [facility] Comment on above: Order Comment: Speci men Comment: [id number] Specimen Comment: No. of containers..01 ThinPrep Vial Result Comment: Marie Herzog, Stockroom Inventory Clerk (ASCP) Performed By: #### L 7400.0280 #### [facility] [address] [place], [place], [address] Hemoglobin A1con 03-11-2025 HbA1c (Bld) [Mass fraction] 7.1 % High <=5.6 [facility] Comment on above: Order Comment: JEANNE Blake ORDER FROM 03-11-25 @ 3078 Result Comment: Norm al < 5.7 % Prediabetic 5.7 - 6.4 % Diabetic >or= 6.5 % Please note range changes. Performed By: #### L 3100.5125, L501.9520, L100.0100, L506.0400, L506.1000, L3300.1750, L500.4050 #### [facility] [address] [place], [place], [id number] Hemoglobin A1c percentageOrd ered By: Ashlee iKm on 03-11-2025 HbA1c (Bld) [Mass fraction] 7.1 % High <5.7 [facility] Comment on above: Normal < 5.7 % Predi abetic 5.7 - 6.4 % Diabetic >or= 6.5 % Please note range changes. Absolute lymphocyte countOrd ered By: Ashlee Kim on 03-10-2025 Lymphocytes Auto (Unsp spec) [#/Vol] 2.57 10*3/uL 0.83-4.51 [facility] Absolute neutrophil countOrd ered By: Ashlee Kim on 03-10-2025 Neutrophils (Bld) [#/Vol] 3.3 10*3/uL 2.0-7.7 [facility] Anion gap in Serum or Plasma Ordered By: Ashlee Kim on 03-10-2025 Anion gap [Moles/Vol] 11 mmol/L 5-15 [facility] Automated lymphocyte count a s percentage of total leukocytesOrdered By: Ashlee Kim on 03-10-2025 Lymphocytes/100 WBC Auto (Unsp spec) 39.9 % - [facility] BUN/creatinine ratioOrdered By: Ashlee Kim on 03-10-2025 Urea nitrogen/Creatinine [Mass ratio] 19.5 mg/mg 10-20 [facility] Basophil percentageOrdered B y: Ashlee Kim on 03-10-2025 Basophils/100 WBC (Bld) 0.2 % 0-1 [facility] Bilirubin, totalOrdered By: Ashlee Kim on 03-10-2025 Bilirubin [Mass/Vol] 0.41 mg/dL 0.00-1.30 [facility] CBC W/Diff, Automatedon 02-27 Absolute Lymph 2.57 X10 3/uL Normal 0.83-4.51 [facility] Comment on above: Performed By: #### L 3100.5125, L501.9520, L100.0100, L506.0400, L506.1000, L3300.1750, L500.4050 #### [facility] [address] [place], [address] Absolute Neut 3.3 X10 3/uL Normal 2.0-7.7 [facility] Comment on above: Performed By: #### L 3100.5125, L501.9520, L100.0100, L506.0400, L506.1000, L3300.1750, L500.4050 #### [facility] [address] [place], [address] Basophils/100 WBC (Bld) 0.2 % Normal 0-1 [facility] Comment on above: Performed By: #### L 3100.5125, L501.9520, L100.0100, L506.0400, L506.1000, L3300.1750, L500.4050 #### [facility] [address] [place], [address] Eosinophils/100 WBC (Bld) 1.1 % Normal 0-5 [facility] Comment on above: Performed By: #### L 3100.5125, L501.9520, L100.0100, L506.0400, L506.1000, L3300.1750, L500.4050 #### [facility] [address] [place], [address] Erythrocyte distribution width (RBC) [Ratio] 13.2 % Normal 11.6-14.6 [facility] Comment on above: Performed By: #### L 3100.5125, L501.9520, L100.0100, L506.0400, L506.1000, L3300.1750, L500.4050 #### [facility] [address] [place], [address] Hematocrit (Bld) [Volume fraction] 36.3 % Low 37-47 [facility] Comment on above: Performed By: #### L 3100.5125, L501.9520, L100.0100, L506.0400, L506.1000, L3300.1750, L500.4050 #### [facility] [address] [place], [address] Hemoglobin (Bld) [Mass/Vol] 11.8 g/dL Low 12.0-15.0 [facility] Comment on above: Performed By: #### L 3100.5125, L501.9520, L100.0100, L506.0400, L506.1000, L3300.1750, L500.4050 #### [facility] [address] [place], [address] IG% 0.300 Normal 0.0-0.9 [facility] Comment on above: Result Comment: IG% - Immature Granulocytes (promyelocytes, myelocytes and metamyelocytes) > 1% indicates that a LEFT SHIFT is Present. Performed By: #### L 3100.5125, L501.9520, L100.0100, L506.0400, L506.1000, L3300.1750, L500.4050 #### [facility] [address] [place], [address] Lymphocytes/100 WBC (Bld) 39.9 % Normal 19-41 [facility] Comment on above: Performed By: #### L 3100.5125, L501.9520, L100.0100, L506.0400, L506.1000, L3300.1750, L500.4050 #### [facility] [address] [place], [address] MCH (RBC) [Entitic mass] 28.2 pg Normal 27.0-32.0 [facility] Comment on above: Performed By: #### L 3100.5125, L501.9520, L100.0100, L506.0400, L506.1000, L3300.1750, L500.4050 #### [facility] [address] [place], [address] MCHC (RBC) [Mass/Vol] 32.5 g/dL Normal 32-36 [facility] Comment on above: Performed By: #### L 3100.5125, L501.9520, L100.0100, L506.0400, L506.1000, L3300.1750, L500.4050 #### [facility] [address] [place], [address] MCV (RBC) [Entitic vol] 86.6 fL Normal 81-99 [facility] Comment on above: Performed By: #### L 3100.5125, L501.9520, L100.0100, L506.0400, L506.1000, L3300.1750, L500.4050 #### [facility] [address] [place], [address] Monocytes/100 WBC (Bld) 7.0 % Normal 0-10 [facility] Comment on above: Performed By: #### L 3100.5125, L501.9520, L100.0100, L506.0400, L506.1000, L3300.1750, L500.4050 #### [facility] [address] [place], [address] Neutrophils/100 WBC (Bld) 51.5 % Normal 47-70 [facility] Comment on above: Performed By: #### L 3100.5125, L501.9520, L100.0100, L506.0400, L506.1000, L3300.1750, L500.4050 #### [facility] [address] [place], [address] Nucleated RBC (Bld) [#/Vol] 0 10*3/uL Normal 0-5 [facility] Comment on above: Performed By: #### L 3100.5125, L501.9520, L100.0100, L506.0400, L506.1000, L3300.1750, L500.4050 #### [facility] [address] [place], [address] Platelet mean volume (Bld) [Entitic vol] 11.6 fL Normal 6.2-12.0 [facility] Comment on above: Performed By: #### L 3100.5125, L501.9520, L100.0100, L506.0400, L506.1000, L3300.1750, L500.4050 #### [facility] [address] [place], [address] Platelets (Bld) [#/Vol] 210 10*3/uL Normal 150-450 [facility] Comment on above: Performed By: #### L 3100.5125, L501.9520, L100.0100, L506.0400, L506.1000, L3300.1750, L500.4050 #### [facility] [address] [place], [address] RBC (Bld) [#/Vol] 4.19 10*6/uL Low 4.2-5.4 [facility] Comment on above: Performed By: #### L 3100.5125, L501.9520, L100.0100, L506.0400, L506.1000, L3300.1750, L500.4050 #### [facility] [address] [place], [address] RDW SD 41.2 fl Normal 35.1-43.9 [facility] Comment on above: Performed By: #### L 3100.5125, L501.9520, L100.0100, L506.0400, L506.1000, L3300.1750, L500.4050 #### [facility] [address] [place], [address] WBC (Bld) [#/Vol] 6.4 10*3/uL Normal 4.4-11.0 [facility] Comment on above: Performed By: #### L 3100.5125, L501.9520, L100.0100, L506.0400, L506.1000, L3300.1750, L500.4050 #### [facility] [address] [place], [address] Carbon dioxide, total [Moles /volume] in Central venous bloodOrdered By: Ashlee Kim on 03-10-2025 CO2 [Moles/Vol] 23.3 mmol/L 21.0-32.0 [facility] Cervical or vaginal specimen microscopic examination by liquid based cytology (reportOrdered By: Ashlee Kim on 03-10-2025 Cytology report Cyto stain.thin prep Doc (Cvx/Vag) Comment . [facility] Comment on above: Criteria not met, HP V Genotype not performed.Performed at: - [facility] [id number] Director: Yessica Kramer MD, Phone: [phone] at: = - [facility] [id number] Director: Yessica Kramer MD, Phone: [phone] Cervical or vagninal specime n microscopic examination by cytology stain (reported asOrdered By: Ashlee Kim on 03-10-2025 Cytology report Cyto stain Doc (Cvx/Vag) Comment . [facility] Comment on above: The Pap smear is a s creening test designed to aid in thedetection of premalignant and malignant conditions of theuterine cervix. It is not a diagnostic procedure andshould not be used as the sole means of detecting cervicalcancer. Both false-positive and false-negative reports dooccur. Chloride assayOrdered By: Hortencia Kim on 03-10-2025 Chloride [Moles/Vol] 105 mmol/L 98-108 [facility] Comprehensive Metabolic Prof ilon 03-10-2025 Albumin [Mass/Vol] 4.2 g/dL Normal 3.5-5.0 [facility] Comment on above: Performed By: #### L 3100.5125, L501.9520, L100.0100, L506.0400, L506.1000, L3300.1750, L500.4050 #### [facility] [address] [place], [address] Albumin/Globulin [Mass ratio] 1.6 {ratio} Normal 0.9-2.4 [facility] Comment on above: Performed By: #### L 3100.5125, L501.9520, L100.0100, L506.0400, L506.1000, L3300.1750, L500.4050 #### [facility] [address] [place], [address] ALK PHOS 82 U/L Normal 35-104 [facility] Comment on above: Performed By: #### L 3100.5125, L501.9520, L100.0100, L506.0400, L506.1000, L3300.1750, L500.4050 #### [facility] [address] [place], [address] ALT [Catalytic activity/Vol] 41 U/L High <=34 [facility] Comment on above: Performed By: #### L 3100.5125, L501.9520, L100.0100, L506.0400, L506.1000, L3300.1750, L500.4050 #### [facility] [address] [place], [address] AST [Catalytic activity/Vol] 28 U/L Normal <=31 [facility] Comment on above: Performed By: #### L 3100.5125, L501.9520, L100.0100, L506.0400, L506.1000, L3300.1750, L500.4050 #### [facility] [address] [place], [address] Bilirubin [Mass/Vol] 0.41 mg/dL Normal 0.00-1.30 [facility] Comment on above: Performed By: #### L 3100.5125, L501.9520, L100.0100, L506.0400, L506.1000, L3300.1750, L500.4050 #### [facility] [address] [place], [address] BUN/CRE 19.5 RATIO Normal 10-20 [facility] Comment on above: Performed By: #### L 3100.5125, L501.9520, L100.0100, L506.0400, L506.1000, L3300.1750, L500.4050 #### [facility] [address] [place], [address] Calcium [Mass/Vol] 9.2 mg/dL Normal 7.6-11.0 [facility] Comment on above: Performed By: #### L 3100.5125, L501.9520, L100.0100, L506.0400, L506.1000, L3300.1750, L500.4050 #### [facility] [address] [place], [address] Chloride [Moles/Vol] 105 mmol/L Normal 98-108 [facility] Comment on above: Performed By: #### L 3100.5125, L501.9520, L100.0100, L506.0400, L506.1000, L3300.1750, L500.4050 #### [facility] [address] [place], [address] CO2 [Moles/Vol] 23.3 mmol/L Normal 21.0-32.0 [facility] Comment on above: Performed By: #### L 3100.5125, L501.9520, L100.0100, L506.0400, L506.1000, L3300.1750, L500.4050 #### [facility] [address] [place], [address] Creatinine [Mass/Vol] 0.82 mg/dL Normal 0.70-1.20 [facility] Comment on above: Performed By: #### L 3100.5125, L501.9520, L100.0100, L506.0400, L506.1000, L3300.1750, L500.4050 #### [facility] [address] [place], [address] GAP 11 Normal 5-15 [facility] Comment on above: Performed By: #### L 3100.5125, L501.9520, L100.0100, L506.0400, L506.1000, L3300.1750, L500.4050 #### [facility] [address] [place], [address] GFR/1.73 sq M.predicted among non-blacks MDRD (S/P/Bld) [Vol rate/Area] 86 mL/min/{1.73_m2} Normal >60 [facility] Comment on above: Result Comment: mL/m in/1.73m2 CKD-EPI Creatinine Equation (2020) Performed By: #### L 3100.5125, L501.9520, L100.0100, L506.0400, L506.1000, L3300.1750, L500.4050 #### [facility] [facility] [address] [place], [address] Globulin (S) [Mass/Vol] 2.6 g/dL Normal 2.2-4.2 [facility] Comment on above: Performed By: #### L 3100.5125, L501.9520, L100.0100, L506.0400, L506.1000, L3300.1750, L500.4050 #### [facility] [address] [place], [address] Glucose [Mass/Vol] 133 mg/dL High 70-99 [facility] Comment on above: Performed By: #### L 3100.5125, L501.9520, L100.0100, L506.0400, L506.1000, L3300.1750, L500.4050 #### [facility] [address] [place], [address] Potassium [Moles/Vol] 3.6 mmol/L Normal 3.3-5.1 [facility] Comment on above: Performed By: #### L 3100.5125, L501.9520, L100.0100, L506.0400, L506.1000, L3300.1750, L500.4050 #### [facility] [address] [place], [address] Sodium [Moles/Vol] 139 mmol/L Normal 133-145 [facility] Comment on above: Performed By: #### L 3100.5125, L501.9520, L100.0100, L506.0400, L506.1000, L3300.1750, L500.4050 #### [facility] [address] [place], [address] T PROT 6.8 g/dL Normal 5.9-8.4 [facility] Comment on above: Performed By: #### L 3100.5125, L501.9520, L100.0100, L506.0400, L506.1000, L3300.1750, L500.4050 #### [facility] [address] [place], [address] Urea nitrogen [Mass/Vol] 16 mg/dL Normal 4-19 [facility] Comment on above: Performed By: #### L 3100.5125, L501.9520, L100.0100, L506.0400, L506.1000, L3300.1750, L500.4050 #### [facility] [address] [place], [address] Detection in cervical specim en of any of human papilloma virus (HPV) 16, 18, 31, 33,Ordered By: Ashlee Kim on 03-10-2025 HPV 16+18+31+33+35+39+45+ 51+52+56+58+59+66+68 DNA Probe+sig amp Ql (Cvx) Negative Negative [facility] Comment on above: This nucleic acid am plification test detects fourteen high- risk HPV types (16,18,31,33,35,39,45,51,52,56,58,59,66,68)without differentiation. Eosinophil percentageOrdered By: Ashlee Kim on 03-10-2025 Eosinophils/100 WBC (Bld) 1.1 % 0-5 [facility] Erythrocyte distribution wid th ratioOrdered By: Ashlee Kim on 03-10-2025 Erythrocyte distribution width (RBC) [Ratio] 13.2 % 11.6-14.6 [facility] Erythrocyte distribution wid th standard deviationOrdered By: Ashlee Kim on 03-10-2025 Erythrocyte distribution width (RBC) [Ratio] 41.2 fl 35.1-43.9 [facility] Glomerular filtration rate ( GFR) estimation/1.73 sq m using serum, plasma, or whole bOrdered By: Ashlee Kim on 03-10-2025 GFR/1.73 sq M.predicted among non-blacks MDRD (S/P/Bld) [Vol rate/Area] 86 mL/min/{1.73_m2} >60 [facility] Comment on above: mL/min/1.73m2 CKD-EP I Creatinine Equation (2020) Hematocrit Auto (Bld) [Volum e fraction]Ordered By: Ashlee Kim on 03-10-2025 Hematocrit (Bld) [Volume fraction] 36.3 % Low 37-47 [facility] Hemoglobin measurementOrdere d By: Ashlee Kim on 03-10-2025 Hemoglobin (Bld) [Mass/Vol] 11.8 g/dL Low 12.0-15.0 [facility] Immature granulocytes/100 WB C Auto (Bld)Ordered By: Ashlee Kim on 03-10-2025 Immature granulocytes/100 WBC (Bld) 0.300 % 0.0-0.9 [facility] Comment on above: IG% - Immature Granu locytes (promyelocytes, myelocytes and metamyelocytes) > 1% indicates that a LEFT SHIFT is Present. Laboratory - Chemistry and C hemistry - challengeOrdered By: Ashlee Kim on 03-10-2025 AST [Catalytic activity/Vol] 28 U/L <32 [facility] - CytologyOrdered By: Ashlee Kim on 03-10-2025 Stockroom Inventory Clerk Cyto stain Nom (Cvx/Vag) [ID] Comment . [facility] Comment on above: Marie Herzog, Cytolog ist (ASCP) Laboratory - Miscellaneous t estsOrdered By: Ashlee Kim on 03-10-2025 Service comment (Unsp spec) [Interp] . . [facility] MCV (mean corpuscular volume ) determinationOrdered By: Ashlee Kim on 03-10-2025 MCV (RBC) [Entitic vol] 86.6 fL 81-99 [facility] Mean corpuscular hemoglobin (MCH) determinationOrdered By: Ashlee Kim on 03-10-2025 MCH (RBC) [Entitic mass] 28.2 pg 27.0-32.0 [facility] Mean corpuscular hemoglobin concentration (MCHC) determinationOrdered By: Ashlee Kim on 03-10-2025 MCHC (RBC) [Mass/Vol] 32.5 g/dL 32-36 [facility] Mean platelet volume determi nationOrdered By: Ashlee Kim on 03-10-2025 Platelet mean volume (Bld) [Entitic vol] 11.6 fL 6.2-12.0 [facility] Monocyte percentageOrdered B y: Ashlee Kim on 03-10-2025 Monocytes/100 WBC (Bld) 7.0 % 0-10 [facility] Neutrophil percentageOrdered By: Ashlee Kim on 03-10-2025 Neutrophils/100 WBC (Bld) 51.5 % 47-70 [facility] No Panel InformationOrdered By: Ashlee Kim on 03-10-2025 Pap Smear Specimen Adequacy Comment . [facility] Comment on above: Satisfactory for gloria luation. Endocervical and/or squamous metaplasticcells (endocervical component) are present. Nucleated red blood cell per centageOrdered By: Ashlee Kim on 03-10-2025 Nucleated RBC/100 WBC (Bld) [Ratio] 0 % 0-5 [facility] Affirmative Action Specialist Office Visit Reporton 03-10-2025 Affirmative Action Specialist Office Visit Report [facility] [address], [address] [place] [address] OFFICE VISIT Date of Service: 03/10/25 MR#: [id number] Acct: [id number] Name: CHRISTINE OAKES Rep #: [id number] : 1970 Provider: POOL Copeland Age/Sex: 54/F Location: [facility] Status: Signed Intake Vital Signs 04/22/24 15:05 03/10/25 15:16 Height 5 ft 8 in 5 ft 8 in Weight: 232 lb 8 oz BMI 35.3 BP 139/89 H Intake Visit Reasons: Post Menopausal Bleeding Funding Analyst Required: No Is patient in pain?: No Allergies Penicillins Adverse Reaction (Unknown, Verified 03/10/25 15:21) PT UNSURE OF REACTION Medications ???Medication ???Instructions ???Recorded ???Confirmed ???Type escitalopram oxalate 20 mg tablet 20 mg PO DAILY 04/22/24 03/10/25 History meloxicam 15 mg tablet 15 mg PO DAILY 04/22/24 03/10/25 H istory omeprazole 40 mg capsule,delayed 40 mg PO DAILY 04/22/24 03/10/25 H istory release atorvastatin 10 mg tablet (Lipitor) 10 mg PO QDAY 03/10/25 03/10/25 History cholecalciferol (vit D3) 137.5 mcg 1 tab PO QDAY 03/10/25 03/10/25 History (5,500 unit)-vit K2 200 mcg tablet (DosoKap) lisinopril 10 mg tablet 10 mg PO QDAY 03/10/25 03/10/25 Hi story Is last menstrual period known: No Post menopausal: Yes Patient : No : No Control Method: tubal/menopause Nurse's Note: pt bled for 5 days, very light and only noticed when wiping. no bleeding since then and no other complaints. 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 She reports she has not had a menses since December of 2022. She noticed about 4-5 days of bleeding from vagina. She reports the bleeding since stopped. Her last pap was 04/2022. She is not currently sexually active and does not associate this with it. Labs 2023 confirming post menopausal. History 2 Elective abortions Hx Para 2 Spontaneous abortions Hx # Term Pregnancies 2 Ectopic pregnancies Hx # Pregnancies Multiple births # of living children 2 ROS Const Constitutional: Reports system reviewed and no additional complaints, except as documented, as per HPI and fatigue (always tired); Denies body ache, chills or fever(s) Cardio Card: Denies palpitations Resp Resp: Denies cough or dyspnea GI GI: Denies abdominal pain : Reports system reviewed and no additional complaints, except as documented and as per HPI; Denies pelvic pain, vaginal discharge, vaginal dryness, vaginal odor or vaginal pruritus Exam Const General: cooperative, healthy appearing, comfortable, no acute distress, well groomed and well hydrated Nutritional Appearance: well nourished Orientation: alert, awake and oriented x3 Resp Effort Inspection: normal respiratory effort, able to speak in complete sentences and symmetric chest movement GI Inspection: normal to inspection Palpation: soft and no hepatosplenomegaly General: bladder normal to palpation External Female Exam: normal external appearance and normal appearance of the urethra Urethra: normal appearance of the urethra Speculum Exam - Vagina: normal appearance of the vagina, normal vaginal discharge, no lesions and nontender Speculum Exam - Cervix: normal appearance of the cervix, no lesions and no masses Bimanual Exam- Vagina Uterus: normal bimanual exam, uterine size normal, bladder normal to palpation, normal palpation and non-tender Bimanual Exam- Adnexa, other: normal adnexae, no masses, normal and non-tender Pelvic Support: normal Skin General: no rashes or lesions noted Neuro General: patient alert, patient awake, patient oriented x3 and moves all extremities Psych Appearance: grossly normal Mental Status: mental status grossly normal Affect: normal affect Speech and Movement: speech and movement normal Attitude: cooperative Coding Level of Care Code Established Pt Off vis,est,level 3 Patient Type Established Diagnoses Post-menopausal bleeding N95.0 Fatigue (more content not included)... Normal [facility] Platelet countOrdered By: Hortencia Kim on 03-10-2025 Platelets (Bld) [#/Vol] 210 10*3/uL 150-450 [facility] Potassium measurement (mass/ volume)Ordered By: Ashlee Kim on 03-10-2025 Potassium (Unsp spec) [Mass/Vol] 3.6 mmol/L 3.3-5.1 [facility] RBC Auto (Bld) [#/Vol]Ordere d By: Ashlee Kim on 03-10-2025 RBC (Bld) [#/Vol] 4.19 10*6/uL Low 4.2-5.4 [facility] Serum creatinine measurement (mass/volume)Ordered By: Ashlee Kim on 03-10-2025 Creatinine [Mass/Vol] 0.82 mg/dL 0.70-1.20 [facility] Serum globulin measurementOr dered By: Ashlee Kim on 03-10-2025 Globulin (S) [Mass/Vol] 2.6 g/dL 2.2-4.2 [facility] Serum glucose measurement (m ass/volume)Ordered By: Ashlee Kim on 03-10-2025 Glucose [Mass/Vol] 133 mg/dL High 70-99 [facility] Serum or plasma alanine bloom otransferase (ALT) measurementOrdered By: Ashlee Kim on 03-10-2025 ALT [Catalytic activity/Vol] 41 U/L High <35 [facility] Serum or plasma albumin reina urement (mass/volume)Ordered By: Ashlee Kim on 03-10-2025 Albumin [Mass/Vol] 4.2 g/dL 3.5-5.0 [facility] Serum or plasma albumin/glob ulin mass ratioOrdered By: Ashlee Kim on 03-10-2025 Albumin/Globulin [Mass ratio] 1.6 {ratio} 0.9-2.4 [facility] Serum or plasma alkaline anselmo sphatase measurementOrdered By: Ashlee Kim on 03-10-2025 ALP [Catalytic activity/Vol] 82 U/L 35-104 [facility] Serum or plasma calcium reina urement (mass/volume)Ordered By: Ashlee Kim on 03-10-2025 Calcium [Mass/Vol] 9.2 mg/dL 7.6-11.0 [facility] Serum or plasma urea nitroge n measurement (mass/volume)Ordered By: Ashlee Kim on 03-10-2025 Urea nitrogen [Mass/Vol] 16 mg/dL 4-19 [facility] Sodium levelOrdered By: Daylin Kim on 03-10-2025 Sodium [Moles/Vol] 139 mmol/L 133-145 [facility] Total proteinOrdered By: Tang Kim on 03-10-2025 Protein [Mass/Vol] 6.8 g/dL 5.9-8.4 [facility] Vitamin B12on 03-10-2025 Cobalamin (Vitamin B12) [Mass/Vol] 399 pg/mL Normal 180-914 [facility] Comment on above: Performed By: #### L 3100.5125, L501.9520, L100.0100, L506.0400, L506.1000, L3300.1750, L500.4050 #### [facility] [address] [place], [place], [id number] Vitamin B12 ser/plasOrdered By: Ashlee Kim on 03-10-2025 Cobalamin (Vitamin B12) [Mass/Vol] 399 pg/mL 180-914 [facility] Vitamin D,25 Hydroxyon 03-10 Vitamin D 25-OH 37.0 ng/mL Normal 30-100 [facility] Comment on above: Result Comment: Harriet min D Status Deficiency: <20 ng/mL (50nmol/L) Insufficiency: 20-30 ng/mL (50-75 nmol/L) Sufficiency: 30-100 ng/mL (75-250 nmol/L) Toxicity: >100 ng/mL (>250 nmol/L) Performed By: #### L 3100.5125, L501.9520, L100.0100, L506.0400, L506.1000, L3300.1750, L500.4050 #### [facility] [address] [place], [address] White blood cell (WBC) count Ordered By: Ashlee Kim on 03-10-2025 WBC (Bld) [#/Vol] 6.4 10*3/uL 4.4-11.0 [facility] ALBUMIN, RANDOM URINE W/CREA TININEon 12-24-2024 ALBUMIN, URINE 1.4 mg/dL Normal See Note: [facility] Comment on above: Order Comment: FASTI NG:UNKNOWN FASTING: UNKNOWN Result Comment: Refe shellyoli Range: Reference Range Not established Performed By: #### 6 517 #### [facility] [address], [address] [place], [place] [id number] Director Retail Brand Development: Gideon Vasquez MD ALBUMIN/CREATININE RATIO, RANDOM URINE 7 mg/g creat Normal <30 [facility] Comment on above: Order Comment: FASTI NG:UNKNOWN FASTING: UNKNOWN Result Comment: The ADA defines abnormalities in albumin excretion as follows: Albuminuria Category Result (mg/g creatinine) Normal to Mildly increased <30 Moderately increased 30-299 Severely increased > OR = 300 The ADA recommends that at least two of three specimens collected within a 3-6 month period be abnormal before considering a patient to be within a diagnostic category. Performed By: #### 6 517 #### [facility] [address], [address] [place], [place] [id number] Director Retail Brand Development: Gideon Vasquez MD Creatinine (U) [Mass/Vol] 215 mg/dL Normal 20-275 [facility] Comment on above: Order Comment: FASTI NG:UNKNOWN FASTING: UNKNOWN Performed By: #### 6 517 #### [facility] [address], [address] [place] [address] Director Retail Brand Development: Gideon Vasquez MD BASIC METABOLIC PANEL WITH A RONNIE Durán 12-19-2024 BUN/CREATININE RATIO SEE NOTE: Normal - [facility] Comment on above: Result Comment: Not Reported: BUN and Creatinine are within reference range. Performed By: #### 9 2498, 7600, 03663 #### [facility] of [address], [address] [place] [address] Director Retail Brand Development: Gideon Vasquez MD Calcium [Mass/Vol] 9.3 mg/dL Normal 8.6-10.4 [facility] Comment on above: Performed By: #### 9 2498, 7600, 40930 #### [facility] [address], [address] [place] [address] Director Retail Brand Development: Gideon Vasquez MD Chloride [Moles/Vol] 107 mmol/L Normal 98-110 [facility] Comment on above: Performed By: #### 9 2498, 7600, 77006 #### [facility] of [address], [address] [place] [address] Director Retail Brand Development: Gideon Vasquez MD CO2 [Moles/Vol] 24 mmol/L Normal 20-32 [facility] Comment on above: Performed By: #### 9 2498, 7600, 87194 #### [facility] of [address], [address] [place] [address] Director Retail Brand Development: Gideon Vasquez MD Creatinine [Mass/Vol] 0.81 mg/dL Normal 0.50-1.[address] [facility] Comment on above: Performed By: #### 9 2498, 7600, 42298 #### [facility] of [address], [address] [place] [address] Director Retail Brand Development: Gideon Vasquez MD ELECTROLYTE BALANCE 11 mmol/L (calc) Normal 7-17 [facility] Comment on above: Performed By: #### 9 2498, 7600, 34318 #### [facility] [address], [address] [place] [address] Director Retail Brand Development: Gideon Vasquez MD GFR/1.73 sq M.predicted among non-blacks MDRD (S/P/Bld) [Vol rate/Area] 87 mL/min/{1.73_m2} Normal > OR = 60 [facility] Comment on above: Performed By: #### 9 2498, 7600, 64013 #### [facility] [place] [address] Director Retail Brand Development: Gideon Vasquez MD Glucose [Mass/Vol] 127 mg/dL High 65-99 [facility] Comment on above: Result Comment: Fasting reference interval For someone without known diabetes, a glucose value >125 mg/dL indicates that they may have diabetes and this should be confirmed with a follow-up test. Performed By: #### 9 2497, 7600, 15059 #### [facility] [place] [address] Director Retail Brand Development: Gideon Vasquez MD Potassium [Moles/Vol] 3.9 mmol/L Normal 3.5-5.[address] [facility] [address] [facility] Comment on above: Performed By: #### 9 2497, 7600, 56822 #### [facility] [place] [address] Director Retail Brand Development: Gideon Vasquez MD Sodium [Moles/Vol] 142 mmol/L Normal 135-146 [facility] Comment on above: Performed By: #### 9 2497, 7600, 54599 #### [facility] [place] [address] Director Retail Brand Development: Gideon Vasquez MD Urea nitrogen [Mass/Vol] 18 mg/dL Normal 7-25 [facility] Comment on above: Performed By: #### 9 249, 7600, 47877 #### [facility] [place] [address] Director Retail Brand Development: Gideon Vasquez MD HEMOGLOBIN A1c WITH eAGon eAG (mmol/L) 7.7 mmol/L Normal [facility] Comment on above: Performed By: #### 9 249, 7600, 27113 #### [facility] [place] [address] Director Retail Brand Development: Gideon Vasquez MD HEMOGLOBIN A1c 6.5 % of total Hgb High <5.7 [facility] Comment on above: Result Comment: For someone without known diabetes, a hemoglobin A1c value of 6.5% or greater indicates that they may have diabetes and this should be confirmed with a follow-up test. For someone with known diabetes, a value <7% indicates that their diabetes is well controlled and a value greater than or equal to 7% indicates suboptimal control. A1c targets should be individualized based on duration of diabetes, age, comorbid conditions, and other considerations. Currently, no consensus exists regarding use of hemoglobin A1c for diagnosis of diabetes for children. Performed By: #### 9 637, 7600, 72649 #### [facility] [place] [address] Director Retail Brand Development: Gideon Vasquez MD Magnesium [Mass/Vol] 140 mg/dL Normal [facility]ues [facility] Comment on above: Performed By: #### 9 249, 7600, 11594 #### [facility] [place] [address] Director Retail Brand Development: Gideon Vasquez MD LIPID PANEL, STANDARD 11-28 Cholesterol [Mass/Vol] 254 mg/dL High <200 [facility] Comment on above: Performed By: #### 9 2497, 7600, 18767 #### [facility] [place] [address] Director Retail Brand Development: Gideon Vasquez MD Cholesterol in HDL [Mass/Vol] 46 mg/dL Low > OR = 50 [facility] Comment on above: Performed By: #### 9 883, 7600, 40270 #### [facility] [place] [address] Director Retail Brand Development: Gideon Vasquez MD Cholesterol in LDL [Mass/Vol] 173 mg/dL High [facility] Comment on above: Result Comment: Refe rence range: <100 Desirable range <100 mg/dL for primary prevention; <70 mg/dL for patients with CHD or diabetic patients with > or = 2 CHD risk factors. LDL-C is now calculated using the Chantell calculation, which is a validated novel method providing better accuracy than the Friedewald equation in the estimation of LDL-C. Clovis BURRIS et al. REBECCA. 2013;310(19): 8852-6844 (http://education.[employer]/faq/XMD412) Performed By: #### 9 9318, 7600, 77987 #### [facility] [address], [address] [place] [address] Director Retail Brand Development: Gideon Vasquez MD Cholesterol.total/Cho lesterol in HDL [Mass ratio] 5.5 {ratio} High <5.0 [facility] Comment on above: Performed By: #### 9 9008, 7600, 33724 #### [facility] [address], [address] [place] [address] Director Retail Brand Development: Gideon Vasquez MD NON HDL CHOLESTEROL 208 mg/dL (calc) High <130 [facility] Comment on above: Result Comment: For patients with diabetes plus 1 major ASCVD risk factor, treating to a non-HDL-C goal of <100 mg/dL (LDL-C of <70 mg/dL) is considered a therapeutic option. Performed By: #### 9 6148, 7600, 91321 #### [facility] [address], [address] [place] [address] Director Retail Brand Development: Gideon Vasquez MD Triglyceride [Mass/Vol] 193 mg/dL High <150 [facility] Comment on above: Performed By: #### 9 428, 7600, 03351 #### [facility] [place] [address] Director Retail Brand Development: Gideon Vasquez MD BI MAMMO BILATERAL SCREENING TOMOSYNTHESISon 07-22-2024 BI MAMMO BILATERAL SCREENING TOMOSYNTHESIS Interpreted By: Micheal Rosas, STUDY: BI MAMMO BILATERAL SCREENING TOMOSYNTHESIS; 07/22/2024 9:00 am ACCESSION NUMBER(S): [id number] ORDERING CLINICIAN: ERICA SANFORD INDICATION: Screening. COMPARISON: Digital mammograms dated 07/17/2023 FINDINGS: CC and MLO 2D digital mammograms and digital breast tomosynthesis images were obtained of the bilateral breasts. 3-D volume images were reconstructed in 4 views at an independent workstation as 1 mm slices through the breasts in both the CC and MLO projections. Density: There are scattered areas of fibroglandular density. No discrete mass or focal asymmetry is identified. No suspicious microcalcifications or foci of architectural distortion are seen. There has been no significant change. This study was interpreted with CAD. IMPRESSION: No mammographic evidence of malignancy. Based on the Tyrer-Cuzick model for breast cancer risk assessment, the patient's lifetime risk of breast cancer is 20.7%. Patients with over a 20% lifetime risk of developing breast cancer may benefit from additional screening with breast MRI or ultrasound. Please note that this estimate is based on responses provided on the patient questionnaire. For more information regarding high risk consultation, please call [phone]. BI-RADS CATEGORY: BI-RADS Category: 1 Negative. Recommendation: Annual Screening. Recommended Date: 1 Year. Laterality: Bilateral. MACRO: None Signed by: Micheal Rosas 07/22/2024 10:59 AM Dictation workstation: [id number] [facility] DBT Breast - bilateralon No mammographic evid ence of malignancy. Based on the Tyrer-Cuzick model for breast cancer risk assessment, the patient's lifetime risk of breast cancer is 20.7%. Patients with over a 20% lifetime risk of developing breast cancer may benefit from additional screening with breast MRI or ultrasound. Please note that this estimate is based on responses provided on the patient questionnaire. For more information regarding high risk consultation, please call [phone]. BI-RADS CATEGORY: BI-RADS Category: 1 Negative. Recommendation: Annual Screening. Recommended Date: 1 Year. Laterality: Bilateral. MACRO: None Signed by: Micheal Rosas 07/22/2024 10:59 AM Dictation workstation: [id number] Interpreted By: Micheal Nicholas, STUDY: BI MAMMO BILATERAL SCREENING TOMOSYNTHESIS; 07/22/2024 9:00 am ACCESSION NUMBER(S): [id number] ORDERING CLINICIAN: ERICA SANFORD INDICATION: Screening. COMPARISON: Digital mammograms dated 07/17/2023 FINDINGS: CC and MLO 2D digital mammograms and digital breast tomosynthesis images were obtained of the bilateral breasts. 3-D volume images were reconstructed in 4 views at an independent workstation as 1 mm slices through the breasts in both the CC and MLO projections. Density: There are scattered areas of fibroglandular density. No discrete mass or focal asymmetry is identified. No suspicious microcalcifications or foci of architectural distortion are seen. There has been no significant change. This study was interpreted with CAD. MMODAL Micheal Rosas MD - 07/22/2024 Interpreted By: Micheal Rosas, STUDY: BI MAMMO BILATERAL SCREENING TOMOSYNTHESIS; 07/22/2024 9:00 am ACCESSION NUMBER(S): [id number] ORDERING CLINICIAN: ERICA SANFORD INDICATION: Screening. COMPARISON: Digital mammograms dated 07/17/2023 FINDINGS: CC and MLO 2D digital mammograms and digital breast tomosynthesis images were obtained of the bilateral breasts. 3-D volume images were reconstructed in 4 views at an independent workstation as 1 mm slices through the breasts in both the CC and MLO projections. Density: There are scattered areas of fibroglandular density. No discrete mass or focal asymmetry is identified. No suspicious microcalcifications or foci of architectural distortion are seen. There has been no significant change. This study was interpreted with CAD. IMPRESSION: No mammographic evidence of malignancy. Based on the Tyrer-Cuzick model for breast cancer risk assessment, the patient's lifetime risk of breast cancer is 20.7%. Patients with over a 20% lifetime risk of developing breast cancer may benefit from additional screening with breast MRI or ultrasound. Please note that this estimate is based on responses provided on the patient questionnaire. For more information regarding high risk consultation, please call [phone]. BI-RADS CATEGORY: BI-RADS Category: 1 Negative. Recommendation: Annual Screening. Recommended Date: 1 Year. Laterality: Bilateral. MACRO: None Signed by: Micheal Rosas 07/22/2024 10:59 AM Dictation workstation: [id number] [facility] Work Phone: Radiology Study observation (narrative) [facility] Work Phone: DBT Breast - bilateralOrdere d By: Micheal Rosas on 07-22-2024 [facility] Work Phone: Calcidiolon 07-12-2024 25-hydroxyvitamin D3 [Mass/Vol] 51 ng/mL Normal 30-100 [facility] Comment on above: Order Comment: Defic iency: < 20 ng/mlInsufficiency: 20-29 ng/mlSufficiency: 30-100 ng/mlThis assay accurately quantifies the sum of Vitamin D3, 25-Hydroxy and Vitamin D2,25-Hydroxy. Performed By: #### 1 9123-9 #### KACY RUELAS ([id number]) [facility] ([facility]) [address] [place] [address] CBC W/Diff, Automatedon 03-30 Absolute Lymph 2.55 X10 3/uL Normal 0.83-4.51 [facility] Comment on above: Performed By: #### L 3100.5125, L501.9520, L100.0100, L506.0400, L506.1000, L3300.1750, L500.4050 #### [facility] [address] [place], [address] Absolute Neut 2.8 X10 3/uL Normal 2.0-7.7 [facility] Comment on above: Performed By: #### L 3100.5125, L501.9520, L100.0100, L506.0400, L506.1000, L3300.1750, L500.4050 #### [facility] [address] [place], [address] Basophils/100 WBC (Bld) 0.0 % Normal 0-1 [facility] Comment on above: Performed By: #### L 3100.5125, L501.9520, L100.0100, L506.0400, L506.1000, L3300.1750, L500.4050 #### [facility] [address] [place], [address] Eosinophils/100 WBC (Bld) 1.4 % Normal 0-5 [facility] Comment on above: Performed By: #### L 3100.5125, L501.9520, L100.0100, L506.0400, L506.1000, L3300.1750, L500.4050 #### [facility] [address] [place], [address] Erythrocyte distribution width (RBC) [Ratio] 13.5 % Normal 11.6-14.6 [facility] Comment on above: Performed By: #### L 3100.5125, L501.9520, L100.0100, L506.0400, L506.1000, L3300.1750, L500.4050 #### [facility] [address] [place], [address] Hematocrit (Bld) [Volume fraction] 39.1 % Normal 37-47 [facility] Comment on above: Performed By: #### L 3100.5125, L501.9520, L100.0100, L506.0400, L506.1000, L3300.1750, L500.4050 #### [facility] [address] [place], [address] Hemoglobin (Bld) [Mass/Vol] 12.8 g/dL Normal 12.0-15.0 [facility] Comment on above: Performed By: #### L 3100.5125, L501.9520, L100.0100, L506.0400, L506.1000, L3300.1750, L500.4050 #### [facility] [address] [place], [address] IG% 0.200 Normal 0.0-0.9 [facility] Comment on above: Result Comment: IG% - Immature Granulocytes (promyelocytes, myelocytes and metamyelocytes) > 1% indicates that a LEFT SHIFT is Present. Performed By: #### L 3100.5125, L501.9520, L100.0100, L506.0400, L506.1000, L3300.1750, L500.4050 #### [facility] [address] [place], [address] Lymphocytes/100 WBC (Bld) 43.5 % High 19-41 [facility] Comment on above: Performed By: #### L 3100.5125, L501.9520, L100.0100, L506.0400, L506.1000, L3300.1750, L500.4050 #### [facility] [address] [place], [address] MCH (RBC) [Entitic mass] 28.6 pg Normal 27.0-32.0 [facility] Comment on above: Performed By: #### L 3100.5125, L501.9520, L100.0100, L506.0400, L506.1000, L3300.1750, L500.4050 #### [facility] [address] [place], [address] MCHC (RBC) [Mass/Vol] 32.7 g/dL Normal 32-36 [facility] Comment on above: Performed By: #### L 3100.5125, L501.9520, L100.0100, L506.0400, L506.1000, L3300.1750, L500.4050 #### [facility] [address] [place], [address] MCV (RBC) [Entitic vol] 87.3 fL Normal 81-99 [facility] Comment on above: Performed By: #### L 3100.5125, L501.9520, L100.0100, L506.0400, L506.1000, L3300.1750, L500.4050 #### [facility] [address] [place], [address] Monocytes/100 WBC (Bld) 8.0 % Normal 0-10 [facility] Comment on above: Performed By: #### L 3100.5125, L501.9520, L100.0100, L506.0400, L506.1000, L3300.1750, L500.4050 #### [facility] [address] [place], [address] Neutrophils/100 WBC (Bld) 46.9 % Low 47-70 [facility] Comment on above: Performed By: #### L 3100.5125, L501.9520, L100.0100, L506.0400, L506.1000, L3300.1750, L500.4050 #### [facility] [address] [place], [address] Nucleated RBC (Bld) [#/Vol] 0 10*3/uL Normal 0-5 [facility] Comment on above: Performed By: #### L 3100.5125, L501.9520, L100.0100, L506.0400, L506.1000, L3300.1750, L500.4050 #### [facility] [address] [place], [address] Platelet mean volume (Bld) [Entitic vol] 11.6 fL Normal 6.2-12.0 [facility] Comment on above: Performed By: #### L 3100.5125, L501.9520, L100.0100, L506.0400, L506.1000, L3300.1750, L500.4050 #### [facility] [address] [place], [address] Platelets (Bld) [#/Vol] 183 10*3/uL Normal 150-450 [facility] Comment on above: Performed By: #### L 3100.5125, L501.9520, L100.0100, L506.0400, L506.1000, L3300.1750, L500.4050 #### [facility] [address] [place], [address] RBC (Bld) [#/Vol] 4.48 10*6/uL Normal 4.2-5.4 [facility] Comment on above: Performed By: #### L 3100.5125, L501.9520, L100.0100, L506.0400, L506.1000, L3300.1750, L500.4050 #### [facility] [address] [place], [address] RDW SD 43.4 fl Normal 35.1-43.9 [facility] Comment on above: Performed By: #### L 3100.5125, L501.9520, L100.0100, L506.0400, L506.1000, L3300.1750, L500.4050 #### [facility] [address] [place], [address] WBC (Bld) [#/Vol] 5.9 10*3/uL Normal 4.4-11.0 [facility] Comment on above: Performed By: #### L 3100.5125, L501.9520, L100.0100, L506.0400, L506.1000, L3300.1750, L500.4050 #### [facility] [address] [place], [address] Comprehensive Metabolic Prof [facility] 04-22-2024 Albumin [Mass/Vol] 3.9 g/dL Normal 3.2-5.0 [facility] Comment on above: Performed By: #### L 3100.5125, L501.9520, L100.0100, L506.0400, L506.1000, L3300.1750, L500.4050 #### [facility] [address] [place], [address] Albumin/Globulin [Mass ratio] 1.1 {ratio} Normal 0.9-2.4 [facility] Comment on above: Performed By: #### L 3100.5125, L501.9520, L100.0100, L506.0400, L506.1000, L3300.1750, L500.4050 #### [facility] [address] [place], [address] ALK P 77 U/L Normal 45-117 [facility] Comment on above: Performed By: #### L 3100.5125, L501.9520, L100.0100, L506.0400, L506.1000, L3300.1750, L500.4050 #### [facility] [address] [place], [address] ALT [Catalytic activity/Vol] 83 U/L High 13-56 [facility] Comment on above: Performed By: #### L 3100.5125, L501.9520, L100.0100, L506.0400, L506.1000, L3300.1750, L500.4050 #### [facility] [address] [place], [address] AST [Catalytic activity/Vol] 56 U/L High 15-37 [facility] Comment on above: Performed By: #### L 3100.5125, L501.9520, L100.0100, L506.0400, L506.1000, L3300.1750, L500.4050 #### [facility] [address] [place], [address] Bilirubin [Mass/Vol] 0.50 mg/dL Normal 0.20-1.00 [facility] Comment on above: Result Comment: For patients on eltrombopag therapy, use of Dimension [place] TBIL is not recommended. Performed By: #### L 3100.5125, L501.9520, L100.0100, L506.0400, L506.1000, L3300.1750, L500.4050 #### [facility] [address] [place], [address] BUN/CRE 15.2 RATIO Normal 10-20 [facility] Comment on above: Performed By: #### L 3100.5125, L501.9520, L100.0100, L506.0400, L506.1000, L3300.1750, L500.4050 #### [facility] [address] [place], [address] CA,Total 9.3 mg/dL Normal 8.5-10.1 [facility] Comment on above: Performed By: #### L 3100.5125, L501.9520, L100.0100, L506.0400, L506.1000, L3300.1750, L500.4050 #### [facility] [address] [place], [address] Chloride [Moles/Vol] 107 mmol/L Normal 98-107 [facility] Comment on above: Performed By: #### L 3100.5125, L501.9520, L100.0100, L506.0400, L506.1000, L3300.1750, L500.4050 #### [facility] [address] [place], [address] CO2 [Moles/Vol] 29.0 mmol/L Normal 21.0-32.0 [facility] Comment on above: Performed By: #### L 3100.5125, L501.9520, L100.0100, L506.0400, L506.1000, L3300.1750, L500.4050 #### [facility] [address] [place], [address] Creatinine [Mass/Vol] 0.92 mg/dL Normal 0.55-1.02 [facility] Comment on above: Result Comment: The validity of the calculated GFR GFRAA in patients over 70 years has not been determined. Clinical correlation is essential. Performed By: #### L 3100.5125, L501.9520, L100.0100, L506.0400, L506.1000, L3300.1750, L500.4050 #### [facility] [address] [place], [address] EST GFR - AA 83 mL/min Normal >60 [facility] Comment on above: Result Comment: Afri can [place]ian GFR Calc Performed By: #### L 3100.5125, L501.9520, L100.0100, L506.0400, L506.1000, L3300.1750, L500.4050 #### [facility] [address] [place], [address] GAP 3 Low 5-15 [facility] Comment on above: Performed By: #### L 3100.5125, L501.9520, L100.0100, L506.0400, L506.1000, L3300.1750, L500.4050 #### [facility] [address] [place], [address] GFR/1.73 sq M.predicted among non-blacks MDRD (S/P/Bld) [Vol rate/Area] 68 mL/min/{1.73_m2} Normal >60 [facility] Comment on above: Result Comment: Non- GFR Calc Performed By: #### L 3100.5125, L501.9520, L100.0100, L506.0400, L506.1000, L3300.1750, L500.4050 #### [facility] [address] [place], [address] Globulin (S) [Mass/Vol] 3.6 g/dL Normal 2.2-4.2 [facility] Comment on above: Performed By: #### L 3100.5125, L501.9520, L100.0100, L506.0400, L506.1000, L3300.1750, L500.4050 #### [facility] [address] [place], [address] Glucose [Mass/Vol] 139 mg/dL High 74-106 [facility] Comment on above: Result Comment: Fast ing Glucose result greater than or equal to 126 mg/dL suggests DIABETES MELLITUS per A.D.A. criteria. Performed By: #### L 3100.5125, L501.9520, L100.0100, L506.0400, L506.1000, L3300.1750, L500.4050 #### [facility] [address] [place], [address] Potassium [Moles/Vol] 3.9 mmol/L Normal 3.5-5.1 [facility] Comment on above: Performed By: #### L 3100.5125, L501.9520, L100.0100, L506.0400, L506.1000, L3300.1750, L500.4050 #### [facility] [address] [place], [address] Sodium [Moles/Vol] 139 mmol/L Normal 136-145 [facility] Comment on above: Performed By: #### L 3100.5125, L501.9520, L100.0100, L506.0400, L506.1000, L3300.1750, L500.4050 #### [facility] [address] [place], [address] T PROT 7.5 g/dL Normal 6.4-8.2 [facility] Comment on above: Performed By: #### L 3100.5125, L501.9520, L100.0100, L506.0400, L506.1000, L3300.1750, L500.4050 #### [facility] [address] [place], [address] Urea nitrogen [Mass/Vol] 14 mg/dL Normal 7-18 [facility] Comment on above: Performed By: #### L 3100.5125, L501.9520, L100.0100, L506.0400, L506.1000, L3300.1750, L500.4050 #### [facility] [address] [place], [place], [id number] Estradiolon 04-22-2024 ESTRADIOL 14.4 pg/mL Normal [facility] Comment on above: Result Comment: NORM AL REFERENCE RANGES FEMALE FOLLICULAR 21.4 - 164.8 pg/mL MID-CYCLE PEAK 49.9 - 367.2 pg/mL LUTEAL 40.2 - 259.0 pg/mL POST-MENOPAUSAL ON MHT <11.0 - 462.1 pg/mL NOT ON MHT <11.0 - 58.3 pg/mL MALE <11.0 - 52.5 pg/mL NOTE: [facility] HAS CONFIRMED THE DRUG FULVETRANT (FASLODEX) MAY CAUSE FALSELY ELEVATED ESTRADIOL RESULTS WHEN USING THIS TEST METHOD. IF PATIENT IS TAKING FULVESTRANT AN ALTERNATIVE METHOD SHOULD BE USED TO DETERMINE ESTRADIOL CONCENTRATION. Performed By: #### L 3100.5125, L501.9520, L100.0100, L506.0400, L506.1000, L3300.1750, L500.4050 #### [facility] [address] [place], [place], [id number] Follicle Stimulating Hormone on 04-22-2024 FSH 63.2 mIU/mL Normal [facility] Comment on above: Result Comment: NORMAL REFERENCE RANGES FEMALE FOLLICULAR 2.3 - 12.6 mIU/mL MID-CYCLE PEAK 5.2 - 17.5 mIU/mL LUTEAL 1.7 - 12.9 mIU/mL POST-MENOPAUSAL ON MHT 5.9 - 72.8 mIU/mL NOT ON MHT 12.7 - 132.2 mlU/mL MALE 0.7 - 10.8 mIU/mL Performed By: #### L 3100.5125, L501.9520, L100.0100, L506.0400, L506.1000, L3300.1750, L500.4050 #### [facility] [address] [place], [address] Affirmative Action Specialist Office Visit Reporton 04-22-2024 Affirmative Action Specialist Office Visit Report [facility] 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) Funding Analyst Required: No Is patient in pain?: No Allergies Penicillins Adverse Reaction (Unknown, Verified 04/22/24 15:07) PT UNSURE OF REACTION Medications ???Medication ???Instructions ???Recorded ???Confirmed ???Type cholecalciferol (vit D3) 137.5 mcg 1 tab PO DAILY 04/22/24 04/22/24 History (5,500 unit)-vit K2 200 mcg tablet (DosoKap) escitalopram oxalate 20 mg tablet 20 mg PO DAILY 04/22/24 04/22/24 History meloxicam 15 mg tablet 15 mg PO DAILY 04/22/24 04/22/24 History omeprazole 40 mg capsule,delayed 40 mg PO DAILY 04/22/24 04/22/24 History release Is last menstrual period known: Yes Last Menstrual Period: 01/27/23 Post menopausal: Yes Patient : No : No Current gender identity: female Control Method: none PFSH Medical History (Updated 04/22/24 @ 16:42 by POOL Mckinnon) Kidney stone delivery delivered Surgical History (Updated 04/22/24 @ 15:13 by Lauren Brannon) H/O tubal ligation Family History (Updated 04/22/24 @ 15:12 by Lauren Brannon) Father Hx of agent [place] exposure Social History (Updated 04/22/24 @ 15:15 by Lauren Brannon) housing: house number of children: 2 current occupational status: employed current occupation: [employer]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 Patient reports she has not had a period in over a year. She reports fatigue. She does not believe she is experience hot flashes however has noticed feeling blah and more instances of sweating. She has also noticed weight gain. Last PAP: 04/2022-negative History of abnormal PAP: None Last mammogram: : 10/2023; per patient report. History of abnormal mammogram: Negative. Colon cancer screening: Yes; last year colonoscopy 04/2023. Normal. Other preventative health care screenings: PCP: Dr. Sanford: . Female Reproductive History Last Menstrual Period: 01/27/23 Questions: metorrhagia: No, sexually active: Yes, dyspareunia: No and PCB: No ROS Const Constitutional: Denies chills, fatigue, fever(s), headache(s) or weight loss Eyes Eyes: Denies change in vision ENT ENT: Denies dizziness Resp Resp: Denies cough GI GI: Denies abdominal pain, constipation or nausea : Denies difficulty voiding, dysuria, hematuria, pelvic pain, prolapse symptoms, urinary incontinence, vaginal discharge, vaginal dryness, vaginal odor or vaginal pruritus Skin Skin/Breast: Denies alopecia or rash Neuro Neuro: Denies dizziness Psych Psych: Denies anxiety or depression Endo Endo: Denies cold intolerance, excessive sweating or heat intolerance Exam Const General: cooperative, healthy appearing, comfortable, no acute distress, well groomed and well hydrated Nutritional Appearance: well nourished Orientation: alert, awake and oriented x3 HENMT Head: normal to inspection and normocephalic Ears: hearing grossly normal bilaterally and external ears normal Nose: external nose normal Face and sinus: normal facial exam Eyes General: appearance normal, both eyes and all related structures Neck Neck: normal visual inspection, full ROM and no lymphadenopathy Thyroid: thyroid normal Chest Chest palpation inspection: normal inspection of the chest Breast inspection: normal inspection of the breasts and normal inspection of the axillae Breast palpation: normal palpation of the breasts, normal palpation of the axillae and no axillary lymphadenopathy Resp Effort Inspection: normal respiratory effort, able to speak in complete sentences and symmetric chest movement GI Inspection: normal to inspection Palpation: soft and no hepatosplenomegaly General: bladder normal to palpation External Female Exam: normal external appearance and normal appearance of the urethra Urethra: normal appearance of the urethra (more content not included)... Normal [facility] T4 Free Directon 04-22-2024 T4 FREE DIRECT 0.82 ng/dL Normal 0.76-1.46 [facility] Comment on above: Performed By: #### L 3100.5125, L501.9520, L100.0100, L506.0400, L506.1000, L3300.1750, L500.4050 #### [facility] [address] [place], [place], [id number] Thyroid Stim Hormone (TSH)on 04-22-2024 TSH 1.29 uIU/mL Normal 0.358-3.74 [facility] Comment on above: Performed By: #### L 3100.5125, L501.9520, L100.0100, L506.0400, L506.1000, L3300.1750, L500.4050 #### [facility] [address] [place], [place], [address] Vitamin D,25 Hydroxyon 04-22 Vitamin D 25-OH 45.3 ng/mL Normal [facility] Comment on above: Result Comment: Harriet min D 25(OH) Status Range Deficiency <20 ng/mL (50nmol/L) Insufficiency 20 - 30 ng/mL (50 - 75 nmol/L) Sufficiency 30 - 100 ng/mL (75 - 250 nmol/L) Toxicity >100 ng/mL (>250 nmol/L) Performed By: #### L 3100.5125, L501.9520, L100.0100, L506.0400, L506.1000, L3300.1750, L500.4050 #### [facility] [address] [place], [address] CBC W Auto Differential pane l (Bld)on 12-04-2023 Basophils (Bld) [#/Vol] 0.01 x10*3/uL Normal 0.00-0.10 [facility] Comment on above: Performed By: #### 1 9123-9 #### KACY RUELAS ([id number]) [facility] ([facility]) [address] [place] [address] Basophils/100 WBC (Bld) 0.2 % Normal 0.0-2.0 [facility] Comment on above: Performed By: #### 1 9123-9 #### KACY RUELAS ([id number]) [facility] ([facility]) [address] [place] [address] Eosinophils (Bld) [#/Vol] 0.10 x10*3/uL Normal 0.00-0.70 [facility] Comment on above: Performed By: #### 1 9123-9 #### KACY RUELAS ([id number]) [facility] ([facility]) [address] [place] [address] Eosinophils/100 WBC (Bld) 2.0 % Normal 0.0-6.0 [facility] Comment on above: Performed By: #### 1 9123-9 #### KACY RUELAS ([id number]) [facility] ([facility]) [address] [place] [address] Erythrocyte distribution width (RBC) [Ratio] 13.2 % Normal 11.5-14.5 [facility] Comment on above: Performed By: #### 1 9123-9 #### KACY RUELAS ([id number]) [facility] ([facility]) [address] [place] [address] Hematocrit (Bld) [Volume fraction] 38.5 % Normal 36.0-46.0 [facility] Comment on above: Performed By: #### 1 9123-9 #### KACY RUELAS ([id number]) [facility] ([facility]) [address] [place] [address] Hemoglobin (Bld) [Mass/Vol] 12.0 g/dL Normal 12.0-16.0 [facility] Comment on above: Performed By: #### 1 9123-9 #### KACY RUELAS ([id number]) [facility] ([facility]) [address] [place] [address] Immature granulocytes (Bld) [#/Vol] 0.01 x10*3/uL Normal 0.00-0.70 [facility] Comment on above: Performed By: #### 1 9123-9 #### KACY RUELAS ([id number]) [facility] ([facility]) [address] [place] [address] Immature granulocytes/100 WBC (Bld) 0.2 % Normal 0.0-0.9 [facility] Comment on above: Result Comment: [place] ture Granulocyte Count (IG) includes promyelocytes, myelocytes and metamyelocytes but does not include bands. Percent differential counts (%) should be interpreted in the context of the absolute cell counts (cells/UL). Performed By: #### 1 9123-9 #### KACY RUELAS ([id number]) [facility] ([facility]) [address] [place] [address] Lymphocytes (Bld) [#/Vol] 1.97 x10*3/uL Normal 1.20-4.80 [facility] Comment on above: Performed By: #### 1 9123-9 #### KACY RUELAS ([id number]) [facility] ([facility]) [address] [place] [address] Lymphocytes/100 WBC (Bld) 38.6 % Normal 13.0-44.0 [facility] Comment on above: Performed By: #### 1 9123-9 #### KACY RUELAS ([id number]) [facility] ([facility]) [address] [place] [address] MCH (RBC) [Entitic mass] 27.4 pg Normal 26.0-34.0 [facility] Comment on above: Performed By: #### 1 9123-9 #### KACY RUELAS ([id number]) [facility] ([facility]) [address] [place] [address] MCHC (RBC) [Mass/Vol] 31.2 g/dL Low 32.0-36.0 [facility] Comment on above: Performed By: #### 1 9123-9 #### KACY RUELAS ([id number]) [facility] ([facility]) [address] [place] [address] MCV (RBC) [Entitic vol] 88 fL Normal 80-100 [facility] Comment on above: Performed By: #### 1 9123-9 #### KACY RUELAS ([id number]) [facility] ([facility]) [address] [place] [address] Monocytes (Bld) [#/Vol] 0.34 x10*3/uL Normal 0.10-1.00 [facility] Comment on above: Performed By: #### 1 9123-9 #### KACY RUELAS ([id number]) [facility] ([facility]) [address] [place] [address] 23906 Monocytes/100 WBC (Bld) 6.7 % Normal 2.0-10.0 [facility] Comment on above: Performed By: #### 1 9123-9 #### KACY RUELAS ([id number]) [facility] ([facility]) [address] [place] [address] 06652 Neutrophils (Bld) [#/Vol] 2.67 x10*3/uL Normal 1.20-7.70 [facility] Comment on above: Result Comment: Perc ent differential counts (%) should be interpreted in the context of the absolute cell counts (cells/uL). Performed By: #### 1 9123-9 #### KACY RUELAS ([id number]) [facility] ([facility]) [address] [place] [address] 31323 Neutrophils/100 WBC (Bld) 52.3 % Normal 40.0-80.0 [facility] Comment on above: Performed By: #### 1 9123-9 #### KACY RUELAS ([id number]) [facility] ([facility]) [address] [place] [address] Nucleated RBC/100 WBC (Bld) [Ratio] 0.0 /100 WBCs Normal 0.0-0.0 [facility] Comment on above: Performed By: #### 1 9123-9 #### KACY RUELAS ([id number]) [facility] ([facility]) [address] [place] [address] 08645 Platelets (Bld) [#/Vol] 172 x10*3/uL Normal 150-450 [facility] Comment on above: Performed By: #### 1 9123-9 #### KACY RUELAS ([id number]) [facility] ([facility]) [address] [place] [address] RBC (Bld) [#/Vol] 4.38 x10*6/uL Normal 4.00-5.20 [place] Comment on above: Performed By: #### 1 9123-9 #### KACY RUELAS ([id number]) [facility] ([facility]) [address] [place] [address] WBC (Bld) [#/Vol] 5.1 x10*3/uL Normal 4.4-11.3 [facility] Comment on above: Performed By: #### 1 9123-9 #### KACY RUELAS ([id number]) [facility] ([facility]) [address] [place] [address] ANCA-ASSOCIATED VASCULITIS P ROFILE (ANCA,MPO,PR3)on 11-18-2023 Myeloperoxidase Ab Qn (S) 0 AU/mL Normal 0-19 [facility] Comment on above: Result Comment: INTE RPRETIVE INFORMATION: Myeloperoxidase Abs, IgG 19 AU/mL or Less ......... Negative 20-25 AU/mL .............. Equivocal 26 AU/mL or Greater ...... Positive Approximately 90% of patients with a P-ANCA pattern by IFA have antibodies specific for MPO. Performed By: #### 4 537-7 #### KACY RUELAS ([id number]) [facility] ([facility]) [address] [place] [address] Neutrophil cytoplasmic Ab pattern IF (S) [Interp] Not detected Normal None Detected [facility] Comment on above: Result Comment: INTE RPRETIVE INFORMATION: ANCA IFA Pattern Neutrophil Cytoplasmic Antibodies (C-ANCA = granular cytoplasmic staining, P-ANCA = perinuclear staining) are found in the serum of over 90 percent of patients with certain necrotizing systemic vasculitides, and usually in less than 5 percent of patients with collagen vascular disease or arthritis. Performed By: [facility] [address] [place] [address] 18315 Brick Loader: Bar Allen MD, PhD CLIA Number: [id number] Performed By: #### 4 537-7 #### KACY RUELAS ([id number]) [facility] ([facility]) [address] [place] [address] Neutrophil cytoplasmic IgG IF (S) [Titer] <1:20 Normal <1:20 [facility] Comment on above: Performed By: #### 4 537-7 #### KACY RUELAS ([id number]) [facility] ([facility]) [address] [place] [address] Proteinase 3 Ab Qn (S) 0 AU/mL Normal 0-19 [facility] Comment on above: Result Comment: INTE RPRETIVE INFORMATION: Serine Proteinase 3, IgG 19 AU/mL or Less ........ Negative 20-25 AU/mL ............. Equivocal 26 AU/mL or Greater ..... Positive Approximately 85% of patients with a C-ANCA pattern by IFA have antibodies specific for PR3. Performed By: #### 4 537-7 #### KACY RUELAS ([id number]) [facility] ([facility]) [address] [place] [address] Acute hepatitis 2000 panel ( S)on 11-18-2023 HAV IgM Ql (S) Non-Reactive Normal Nonreactive [facility] Comment on above: Result Comment: Biot in interference may cause falsely decreased results. Patients taking a Biotin dose of up to 5 mg/day should refrain from taking Biotin for 24 hours before sample collection. Providers may contact their local laboratory for further information. Performed By: #### 4 537-7 #### KACY RUELAS ([id number]) [facility] ([facility]) [facility] [place] [address] HBV core IgM Ql (S) Non-Reactive Normal Nonreactive [facility] Comment on above: Result Comment: Resu lts from patients taking biotin supplements or receiving high-dose biotin therapy should be interpreted with caution due to possible interference with this test. Providers may contact their local laboratory for further information. Performed By: #### 4 537-7 #### KACY RUELAS ([id number]) [facility] ([facility]) [facility] [place] [address] HBV surface Ag IA Ql Non-Reactive Normal Nonreactive [facility] Comment on above: Result Comment: Biot in interference may cause falsely decreased results. Patients taking a Biotin dose of up to 5 mg/day should refrain from taking Biotin for 24 hours before sample collection. Providers may contact their local laboratory for further information. Performed By: #### 4 537-7 #### KACY RUELAS ([id number]) [facility] ([facility]) [address] [place] [address] HCV Ab Ql (S) Non-Reactive Normal Nonreactive [facility] Comment on above: Result Comment: Resu lts from patients taking biotin supplements or receiving high-dose biotin therapy should be interpreted with caution due to possible interference with this test. Providers may contact their local laboratory for further information. Performed By: #### 4 537-7 #### KACY RUELAS ([id number]) [facility] ([facility]) [address] [place] [address] Angiotensin converting enzym lucy 11-18-2023 Angiotensin converting enzyme [Catalytic activity/Vol] 35 U/L Normal 16-85 [facility] Comment on above: Result Comment: Perf ormed By: [facility] [address] [place] [address] 00287 Brick Loader: Bar Allen MD, PhD CLIA Number: [id number] Performed By: #### 4 537-7 #### KACY RUELAS ([id number]) [facility] ([facility]) [address] [place] [address] Borrelia burgdorferi.VlsE1+p epC10 Abon 11-18-2023 Borrelia burgdorferi.VlsE1+pep C10 Ab 0.58 IV Normal <=0.90 [facility] Comment on above: Result Comment: When Borrelia burgdorferi VlsE1/pepC10 assay is negative further testing is not recommended and will not be performed. REFERENCE INTERVAL: B. burgdorferi VlsE1/pepC10 Abs, JACOB 0.90 IV or less..........Negative: VlsE1 and pepC10 antibodies to B. burgdorferi not detected. 0.91 - 1.09 IV...........Equivocal: Repeat testing in 10-14 days may be helpful. 1.10 IV or greater.......Positive: VlsE1 and pepC10 antibodies to B. burgdorferi detected. Performed By: [facility] [address] [place] [address] 96074 Brick Loader: Bar Allen MD, PhD CLIA Number: [id number] Performed By: #### 4 537-7 #### KACY RUELAS ([id number]) [facility] ([facility]) [address] [place] [address] 03252 C reactive proteinon 024 CRP [Mass/Vol] 0.24 mg/dL Normal <1.00 [facility] Comment on above: Performed By: #### 1 988-5 #### KACY RUELAS ([id number]) [facility] ([facility]) [address] [place] [address] 39498 CBC W Auto Differential pane l (Bld)on 11-18-2023 Basophils (Bld) [#/Vol] 0.00 x10*3/uL Normal 0.00-0.10 [facility] Comment on above: Performed By: #### 5 7021-8 #### KACY RUELAS ([id number]) [facility] ([facility]) [address] [place] [address] 33657 Basophils/100 WBC (Bld) 0.0 % Normal 0.0-2.0 [facility] Comment on above: Performed By: #### 5 7021-8 #### KACY RUELAS ([id number]) [facility] ([facility]) [address] [place] [address] 40447 Eosinophils (Bld) [#/Vol] 0.08 x10*3/uL Normal 0.00-0.70 [facility] Comment on above: Performed By: #### 5 7021-8 #### KACY RUELAS ([id number]) [facility] ([facility]) [address] [place] [address] 94977 Eosinophils/100 WBC (Bld) 1.8 % Normal 0.0-6.0 [facility] Comment on above: Performed By: #### 7021-8 #### KACY RUELAS ([id number]) [facility] ([facility]) [address] [place] [address] 88028 Erythrocyte distribution width (RBC) [Ratio] 13.2 % Normal 11.5-14.5 [facility] Comment on above: Performed By: #### 5 7021-8 #### KACY RUELAS ([id number]) [facility] ([facility]) [address] [place] [address] 12732 Hematocrit (Bld) [Volume fraction] 35.7 % Low 36.0-46.0 [facility] Comment on above: Performed By: #### 5 7021-8 #### KACY RUELAS ([id number]) [facility] ([facility]) [address] [place] [address] 45080 Hemoglobin (Bld) [Mass/Vol] 11.6 g/dL Low 12.0-16.0 [facility] Comment on above: Performed By: #### 5 7021-8 #### KACY RUELAS ([id number]) [facility] ([facility]) [address] [place] [address] 66666 Immature granulocytes (Bld) [#/Vol] 0.01 x10*3/uL Normal 0.00-0.70 [facility] Comment on above: Performed By: #### 5 7021-8 #### KACY RUELAS ([id number]) [facility] ([facility]) [address] [place] [address] 90993 Immature granulocytes/100 WBC (Bld) 0.2 % Normal 0.0-0.9 [facility] Comment on above: Result Comment: [place] ture Granulocyte Count (IG) includes promyelocytes, myelocytes and metamyelocytes but does not include bands. Percent differential counts (%) should be interpreted in the context of the absolute cell counts (cells/UL). Performed By: #### 5 7021-8 #### KACY RUELAS ([id number]) [facility] ([facility]) [address] [place] [address] Lymphocytes (Bld) [#/Vol] 1.78 x10*3/uL Normal 1.20-4.80 [facility] Comment on above: Performed By: #### 5 7021-8 #### KACY RUELAS ([id number]) [facility] ([facility]) [address] [place] [address] Lymphocytes/100 WBC (Bld) 40.1 % Normal 13.0-44.0 [facility] Comment on above: Performed By: #### 5 7021-8 #### KACY RUELAS ([id number]) [facility] ([facility]) [address] [place] [address] 50935 MCH (RBC) [Entitic mass] 28.2 pg Normal 26.0-34.0 [facility] Comment on above: Performed By: #### 5 7021-8 #### KACY RUELAS ([id number]) [facility] ([facility]) [address] [place] [address] 86192 MCHC (RBC) [Mass/Vol] 32.5 g/dL Normal 32.0-36.0 [facility] Comment on above: Performed By: #### 5 7021-8 #### KACY RUELAS ([id number]) [facility] ([facility]) [address] [place] [address] 45883 MCV (RBC) [Entitic vol] 87 fL Normal 80-100 [facility] Comment on above: Performed By: #### 5 7021-8 #### KACY RUELAS ([id number]) [facility] ([facility]) [address] [place] [address] 48597 Monocytes (Bld) [#/Vol] 0.32 x10*3/uL Normal 0.10-1.00 [facility] Comment on above: Performed By: #### 5 7021-8 #### KACY RUELAS ([id number]) [facility] ([facility]) [address] [place] [address] 47197 Monocytes/100 WBC (Bld) 7.2 % Normal 2.0-10.0 [facility] Comment on above: Performed By: #### 5 7021-8 #### KACY RUEALS ([id number]) [facility] ([facility]) [address] [place] [address] 23405 Neutrophils (Bld) [#/Vol] 2.25 x10*3/uL Normal 1.20-7.70 [facility] Comment on above: Result Comment: Perc ent differential counts (%) should be interpreted in the context of the absolute cell counts (cells/uL). Performed By: #### 5 7021-8 #### KACY RUELAS ([id number]) [facility] ([facility]) [address] [place] [address] 38012 Neutrophils/100 WBC (Bld) 50.7 % Normal 40.0-80.0 [facility] Comment on above: Performed By: #### 5 7021-8 #### KACY RUELAS ([id number]) [facility] ([facility]) [address] [place] [address] 29126 Nucleated RBC/100 WBC (Bld) [Ratio] 0.0 /100 WBCs Normal 0.0-0.0 [facility] Comment on above: Performed By: #### 5 7021-8 #### KACY RUELAS ([id number]) [facility] ([facility]) [address] [place] [address] 70821 Platelets (Bld) [#/Vol] 159 x10*3/uL Normal 150-450 [facility] Comment on above: Performed By: #### 5 7021-8 #### KACY RUELAS ([id number]) [facility] ([facility]) [address] [place] [address] 61154 RBC (Bld) [#/Vol] 4.11 x10*6/uL Normal 4.00-5.20 [place] Comment on above: Performed By: #### 5 7021-8 #### KACY RUELAS ([id number]) [facility] ([facility]) [facility] [place] [address] WBC (Bld) [#/Vol] 4.4 x10*3/uL Normal 4.4-11.3 [facility] Comment on above: Performed By: #### 5 7021-8 #### KACY RUELAS ([id number]) [facility] ([facility]) [address] [place] [address] 33369 Calcidiolon 11-18-2023 25-hydroxyvitamin D3 [Mass/Vol] 21 ng/mL Low 30-100 [facility] Comment on above: Order Comment: Defic iency: < 20 ng/ml Insufficiency: 20-29 ng/ml Sufficiency: 30-100 ng/ml This assay accurately quantifies the sum of Vitamin D3, 25-Hydroxy and Vitamin D2,25-Hydroxy. Performed By: #### 1 989-3 #### KACY RUELAS ([id number]) [facility] ([facility]) [address] [place] [address] 90522 Calcitriolon 11-18-2023 1,25-dihydroxyvitamin D3 [Mass/Vol] 55.5 pg/mL Normal 19.9-79.3 [facility] Comment on above: Result Comment: INTE RPRETIVE INFORMATION: Vitamin D, 1,25-Dihydroxy This test is primarily indicated during patient evaluation for hypercalcemia and renal failure. A normal result does not rule out Vitamin D deficiency. The recommended test for diagnosing Vitamin D deficiency is Vitamin D 25-hydroxy. Performed By: [facility] [address] [place] [address] 84164 Brick Loader: Bar Allen MD, PhD CLIA Number: [id number] Performed By: #### 4 537-7 #### KACY RUELAS ([id number]) [facility] ([facility]) [address] [place] [address] 52375 Cobalaminson 11-18-2023 Cobalamin (Vitamin B12) [Mass/Vol] 347 pg/mL Normal 211-911 [facility] Comment on above: Performed By: #### 2 132-9 #### KACY RUELAS ([id number]) [facility] ([facility]) [address] [place] [address] 42093 Comprehensive metabolic 2000 panelon 11-18-2023 Albumin BCP dye [Mass/Vol] 4.0 g/dL Normal 3.4-5.0 [facility] Comment on above: Performed By: #### 2 4323-8 #### KACY RUELAS ([id number]) [facility] ([facility]) [address] [place] [address] 47119 ALP [Catalytic activity/Vol] 64 U/L Normal 33-110 [facility] Comment on above: Performed By: #### 2 4323-8 #### KACY RUELAS ([id number]) [facility] ([facility]) [address] [place] [address] 12526 ALT With P-5'-P [Catalytic activity/Vol] 56 U/L High 7-45 [facility] Comment on above: Result Comment: Sandra ents treated with Sulfasalazine may generate falsely decreased results for ALT. Performed By: #### 2 4323-8 #### KACY RUELAS ([id number]) [facility] ([facility]) [address] [place] [address] 29160 Anion gap [Moles/Vol] 11 mmol/L Normal 10-20 [facility] Comment on above: Performed By: #### 2 4323-8 #### KACY RUELAS ([id number]) [facility] ([facility]) [address] [place] [address] 54293 AST With P-5'-P [Catalytic activity/Vol] 39 U/L Normal 9-39 [facility] Comment on above: Performed By: #### 2 4323-8 #### KACY RUELAS ([id number]) [facility] ([facility]) [address] [place] [address] 29886 Bilirubin [Mass/Vol] 0.5 mg/dL Normal 0.0-1.2 [place] Comment on above: Performed By: #### 2 4323-8 #### KACY RUELAS ([id number]) [facility] ([facility]) [facility] [place] [address] Calcium [Mass/Vol] 8.8 mg/dL Normal 8.6-10.3 [facility] Comment on above: Performed By: #### 2 4323-8 #### KACY RUELAS ([id number]) [facility] ([facility]) [address] [place] [address] 51936 Chloride [Moles/Vol] 107 mmol/L Normal 98-107 [place] Comment on above: Performed By: #### 2 4323-8 #### KACY RUELAS ([id number]) [facility] ([facility]) [address] [place] [address] 64038 CO2 [Moles/Vol] 25 mmol/L Normal 21-[address] [facility] Comment on above: Performed By: #### 2 4323-8 #### KACY RUELAS ([id number]) [facility] ([facility]) [address] [place] [address] 30249 Creatinine [Mass/Vol] 0.71 mg/dL Normal 0.50-1.05 [facility] Comment on above: Performed By: #### 2 4323-8 #### KACY RUELAS ([id number]) [facility] ([facility]) [address] [place] [address] 90620 GFR/1.73 sq M.predicted MDRD (S/P/Bld) [Vol rate/Area] mL/min/{1.73_m2} Normal >60 [facility] Comment on above: Result Comment: Calc ulations of estimated GFR are performed using the 2020 CKD-EPI Study Refit equation without the race variable for the IDMS-Traceable creatinine methods. https://jasn.asnjournals.org/content/early//ASN.372231 6955 Performed By: #### 2 4323-8 #### KACY RUELAS ([id number]) [facility] ([facility]) [address] [place] [address] 66853 Glucose [Mass/Vol] 138 mg/dL High 74-99 [facility] Comment on above: Performed By: #### 2 4323-8 #### KACY RUELAS ([id number]) [facility] ([facility]) [address] [place] [address] 98040 Potassium [Moles/Vol] 3.8 mmol/L Normal 3.5-5.3 [facility] Comment on above: Performed By: #### 2 4323-8 #### KACY RUELAS ([id number]) [facility] ([facility]) [address] [place] [address] 20999 Protein [Mass/Vol] 6.5 g/dL Normal 6.4-8.2 [facility] Comment on above: Performed By: #### 2 4323-8 #### KACY RUELAS ([id number]) [facility] ([facility]) [address] [place] [address] 63412 Performed By: #### 4 537-7 #### KACY RUELAS ([id number]) [facility] ([facility]) [address] [place] [address] 42824 Sodium [Moles/Vol] 139 mmol/L Normal 136-145 [facility] Comment on above: Performed By: #### 2 4323-8 #### KACY RUELAS ([id number]) [facility] ([facility]) [address] [place] [address] 32573 Urea nitrogen [Mass/Vol] 17 mg/dL Normal 6-23 [facility] Comment on above: Performed By: #### 2 4323-8 #### KACY RUELAS ([id number]) [facility] ([facility]) [address] [place] [address] 73302 Creatine kinaseon 11-18-2023 CK [Catalytic activity/Vol] 103 U/L Normal 0-215 [facility] Comment on above: Performed By: #### 2 157-6 #### KACY RUELAS ([id number]) [facility] ([facility]) [address] [place] [address] 81926 Cyclic citrullinated peptide Ab.IgGon 11-18-2023 Cyclic citrullinated peptide IgG Qn <1 Normal <3 [facility] Comment on above: Order Comment: THE T EST FOR ANTIBODIES SPECIFIC FOR CYCLICCITRULLINATED PEPTIDE (CCP) HAS SHOWN TO BEVALUABLE IN THE DIAGNOSIS OF RHEUMATOIDARTHRITIS. THE DIAGNOSTIC VALUE OFANTIBODIES TO CCP IN JUVENILE RHEUMATOIDARTHRITIS PATIENTS HAS NOT BEEN DETERMINED.ANTIBODIES TO CENTROMERE OR SS-A AND MYELOMAIGG MAY BE REACTIVE IN THIS ASSAY. Result Comment: NEGA TIVE < 3 U/ML POSITIVE >=3 U/ML Performed By: #### 4 537-7 #### KACY RUELAS ([id number]) [facility] ([facility]) [address] [place] [address] ESR Westergren method (Bld) [Velocity]on 11-18-2023 ESR (Bld) [Velocity] 7 mm/h Normal 0-30 [place] Comment on above: Performed By: #### 4 537-7 #### KACY RUELAS ([id number]) [facility] ([facility]) [address] [place] [address] HLAB27 TYPINGon 11-18-[address] [facility] Comment on above: Order Comment: This test was developed without FDA review. The test performancecharacteristics were defined and validated by the [facility],of Pathology, under the accreditation guidelines of JUDITH and CAP.Test performed at:[facility] CenterHistocompatibility [facility] Immunogenetics LaboratoryNorth [facility], [address] [place] [address] 66973SSBZ# [id number] Performed By: #### 1 9123-9 #### KACY RUELAS ([id number]) [facility] ([facility]) [address] [place] [address] 89824 HbA1c (Bld) [Mass fraction]o n 11-18-2023 Average glucose Estimated from glycated hemoglobin (Bld) [Mass/Vol] 146 mg/dL Normal Not Established [facility] Comment on above: Order Comment: Diagn osis of Diabetes-Adults Non-Diabetic: < or = 5.6% Increased risk for developing diabetes: 5.7-6.4% Diagnostic of diabetes: > or = 6.5% Monitoring of Diabetes Age (y)....................... Therapeutic Goal (%) Adults: >18.........................<7.0 Pediatrics: 13-18...................<7.5 Pediatrics: 7-12....................<8.0 Pediatrics: 0-6..................... 7.5-8.5 [place] [employer]. Diabetes Care 33(S1)Sep 2009 Performed By: #### 4 548-4 #### KACY RUELAS ([id number]) [facility] ([facility]) [address] [place] [address] Hemoglobin A1c/Hemoglobin.to kel 11-18-2023 HbA1c (Bld) [Mass fraction] 6.7 % High see below [facility] Comment on above: Order Comment: Diagn osis of Diabetes-Adults Non-Diabetic: < or = 5.6% Increased risk for developing diabetes: 5.7-6.4% Diagnostic of diabetes: > or = 6.5% Monitoring of Diabetes Age (y)....................... Therapeutic Goal (%) Adults: >18.........................<7.0 Pediatrics: 13-18...................<7.5 Pediatrics: 7-12....................<8.0 Pediatrics: 0-6..................... 7.5-8.5 [place] [employer]. Diabetes Care 33(S1)Sep 2009 Performed By: #### 4 548-4 #### KACY RUELAS ([id number]) [facility] ([facility]) [address] [place] [address] 70715 MISCELLANEOUS LAB TESTon SCAN RESULT See Scanned Result Normal [facility] Comment on above: Performed By: #### 1 9123-9 #### KACY RUELAS ([id number]) [facility] ([facility]) [address] [place] [address] 05264 Magnesiumon 11-18-2023 Magnesium [Mass/Vol] 1.74 mg/dL Normal 1.60-2.40 [place] Comment on above: Performed By: #### 1 9123-9 #### KACY RUELAS ([id number]) [facility] ([facility]) [address] [place] [address] 21448 Pyridoxal phosphateon 2023 Pyridoxal phosphate [Moles/Vol] 41.9 nmol/L Normal 20.0-125.0 [facility] Comment on above: Result Comment: INTE RPRETIVE INFORMATION: Vitamin B6 (Pyridoxal 5-Phosphate) Pyridoxal 5'-phosphate measured in a specimen collected following an 8-hour or overnight fast accurately indicates vitamin B6 nutritional status. Non-fasting specimen concentration reflects recent vitamin intake. This test was developed and its performance characteristics determined by [facility]. It has not been cleared or approved by the US Food and Drug Administration. This test was performed in a CLIA certified laboratory and is intended for clinical purposes. Performed By: [facility] [address] [place] [address] Brick Loader: Bar Allen MD, PhD CLIA Number: [id number] Performed By: #### 4 537-7 #### KACY RUELAS ([id number]) [facility] ([facility]) [address] [place] [address]492 SERUM PROTEIN ELECTROPHORESI S + IMMUNOFIXATIONon 11-18-2023 Albumin [Mass/Vol] 4.0 g/dL Normal 3.4-5.0 [facility] Comment on above: Performed By: #### 1 9123-9 #### KACY RUELAS ([id number]) [facility] ([facility]) [address] [place] [address] 88444 ALPHA 1 GLOBULIN 0.2 g/dL Normal 0.2-0.6 [facility] Comment on above: Performed By: #### 1 9123-9 #### KACY RUELAS ([id number]) [facility] ([facility]) [address] [place] [address] 35376 ALPHA 2 GLOBULIN 0.6 g/dL Normal 0.4-1.1 [facility] Comment on above: Performed By: #### 1 9123-9 #### KACY RUELAS ([id number]) [facility] ([facility]) [address] [place] [address] 56232 BETA GLOBULIN 0.8 g/dL Normal 0.5-1.2 [facility] Comment on above: Performed By: #### 1 9123-9 #### KACY RUELAS ([id number]) [facility] ([facility]) [address] [place] [address] GAMMA GLOBULIN 0.9 g/dL Normal 0.5-1.4 [facility] Comment on above: Performed By: #### 1 9123-9 #### KACY RUELAS ([id number]) [facility] ([facility]) [address] [place] [address] IMMUNOFIXATION COMMENT Detected [facility] Comment on above: Performed By: #### 1 9123-9 #### KACY RUELAS ([id number]) [facility] ([facility]) [address] [place] [address] PATH REVIEW - SERUM IMMUNOFIXATION Reviewed and approved by SUSAN ALCANTAR on 11/25/23 at 8:38 AM. [facility] Comment on above: Performed By: #### 1 9123-9 #### KACY RUELSA ([id number]) [facility] ([facility]) [address] [place] [address] PATH REVIEW-SERUM PROTEIN ELECTROPHORESIS Reviewed and approved by SUSAN ALCANTAR on 11/25/23 at 8:38 AM. [facility] Comment on above: Performed By: #### 1 9123-9 #### KACY RUELAS ([id number]) [facility] ([facility]) [address] [place] [address] 68293 PROTEIN ELECTROPHORESIS COMMENT Normal. Normal [facility] Comment on above: Performed By: #### 1 9123-9 #### KACY RUELAS ([id number]) [facility] ([facility]) [address] [place] [address] 10745 Thiamine pyrophosphateon Thiamine pyrophosphate (Bld) [Moles/Vol] 98 nmol/L Normal 70-180 [facility] Comment on above: Result Comment: INTE RPRETIVE INFORMATION: Vitamin B1, Whole Blood This assay measures the concentration of thiamine diphosphate (TDP), the primary active form of vitamin B1. Approximately 90 percent of vitamin B1 present in whole blood is TDP. Thiamine and thiamine monophosphate, which comprise the remaining 10 percent, are not measured. This test was developed and its performance characteristics determined by [facility]. It has not been cleared or approved by the US Food and Drug Administration. This test was performed in a CLIA certified laboratory and is intended for clinical purposes. Performed By: [facility] [address] [place] [address] Brick Loader: Bar Allen MD, PhD CLIA Number: [id number] Performed By: #### 4 537-7 #### KACY RUELAS ([id number]) [facility] ([facility]) [address] [place], [place] [id number] Tissue transglutaminase Ab.I gAon 11-18-2023 tTG IgA IA Qn (S) <1.0 Normal <15.0 [facility] Comment on above: Result Comment: Anila ac disease is unlikely. False negative Tissue Transglutaminase Antibody, IgA results can occur in approximately 10% of patients with celiac disease, patients already adhering to a gluten-free diet, or patients with IgA deficiency. Performed By: #### 4 537-7 #### KACY RUELAS ([id number]) [facility] ([facility]) [address] [place], [place] [id number] Urateon 11-18-2023 Urate [Mass/Vol] 5.2 mg/dL Normal 2.3-6.7 [facility] Comment on above: Result Comment: Shireen puncture immediately after or during the administration of Metamizole may lead to falsely low results. Testing should be performed immediately prior to Metamizole dosing. Performed By: #### 3 084-1 #### WOODRUFF SURAJ ([id number]) [facility] ([facility]) [address] [place] [address] Colonoscopyon 06-06-2023 Colonoscopy PATIENTNAME Patient Name: Christine Oakes EXAMDATE Procedure Date: 06/06/2023 8:11 AM PATIENTID PATIENTACCOUNTNUM PATIENTDOB Date of : 1970 ADMITTYPE Admit Type: Outpatient PATIENTROOM Site: [facility] Proc RM 1 ETHNICITY Ethnicity: Not or RACE Race: White PROVDR Attending MD: Adi Monge DO, [phone] ENDOPROCEDURENAME Procedure: Colonoscopy INDICATION Indications: Screening for colorectal malignant neoplasm PRIMARYPROVIDER Providers: Adi Monge DO (Doctor), Sushant Short RN (Nurse), Michela Manzo, Recreational Therapist EDREFPROVIDER Referring: Erica Sanford DO CURRENT_MEDS Medicines: Midazolam 5 mg IV, Meperidine 50 mg IV, Glucagon 1 mg IV COMPLIC Complications: No immediate complications. ENDOPROCEDURETEXT Procedure: Pre-Anesthesia Assessment: - Prior to the procedure, a History and Physical was performed, and patient medications and allergies were reviewed. The patient is competent. The risks and benefits of the procedure and the sedation options and risks were discussed with the patient. All questions were answered and informed consent was obtained. Patient identification and proposed procedure were verified by the physician in the pre-procedure area. Mental Status Examination: alert and oriented. Airway Examination: normal oropharyngeal airway and neck mobility. Respiratory Examination: clear to auscultation. CV Examination: normal. Prophylactic Antibiotics: The patient does not require prophylactic antibiotics. Prior Anticoagulants: The patient has taken no anticoagulant or antiplatelet agents. ASA Grade Assessment: II - A patient with mild systemic disease. After reviewing the risks and benefits, the patient was deemed in satisfactory condition to undergo the procedure. The anesthesia plan was to use moderate sedation / analgesia (conscious sedation). Immediately prior to administration of medications, the patient was re-assessed for adequacy to receive sedatives. The heart rate, respiratory rate, oxygen saturations, blood pressure, adequacy of pulmonary ventilation, and response to care were monitored throughout the procedure. The physical status of the patient was re-assessed after the procedure. After I obtained informed consent, the scope was passed under direct vision. Throughout the procedure, the patient's blood pressure, pulse, and oxygen saturations were monitored continuously. The pediatric colonoscope was introduced through the anus and advanced to the cecum, identified by appendiceal orifice and ileocecal valve. The colonoscopy was performed without difficulty. The patient tolerated the procedure well. The quality of the bowel preparation was excellent. The ileocecal valve, appendiceal orifice, and rectum were photographed. FINDING Findings: The perianal and digital rectal examinations were normal. Pertinent negatives include normal sphincter tone and no palpable rectal lesions. The entire examined colon appeared normal on direct and retroflexion views. SEDATION Moderate Sedation: Moderate (conscious) sedation was administered by the nurse and supervised by the endoscopist. The following parameters were monitored: oxygen saturation, heart rate, blood pressure, and response to care. Total physician intraservice time was 20 minutes. EBL Estimated Blood Loss: Estimated blood loss: none. IMPRESS Impression: - The entire examined colon is normal on direct and retroflexion views. - No specimens collected. ENDORECOMMENDATION Recommendation: - Patient has a contact number available for emergencies. The signs and symptoms of potential delayed complications were discussed with the patient. Return to normal activities tomorrow. Written discharge instructions were provided to the patient. - Resume previous diet. - Continue present medications. - Repeat colonoscopy in 10 years for screening purposes. CPT_CODES Procedure Code(s): --- Professional --- 54643, Colonoscopy, flexible; diagnostic, including collection of specimen(s) by brushing or washing, when performed (separate procedure) G0500, Moderate sedation services provided by the same physician or other qualified health team primary care physician performing a gastrointestinal endoscopic service that sedation supports, requiring the presence of an independent trained observer to assist in the monitoring of the patient's level of consciousness and physiological status; initial 15 minutes of intra-service time; patient age 5 years or older (additional time may be reported with 13539, as appropriate) ICD_CODES Diagnosis Code(s): --- Professional --- Z12.11, Encounter for screening for malignant neoplasm of colon CODINGSTMT CPT copyright 2020 [employer]. All rights reserved. The codes documented in this report are preliminary a (more content not included)... Normal [facility] - Chemistry and C hemistry - challengeon 06-06-2023 Glucose [Mass/Vol] 102 mg/dL above high threshold 74 - 99 [facility] Work Phone: No Panel Informationon 06-06 [email or web address] =[email or web address]} [facility] 120 Work Phone: POLO-WITHOUT REFLEX TO ENAon 05-16-2023 Nuclear Ab IF (S) [Titer] Negative Normal NEGATIVE [facility] Comment on above: Result Comment: The Antinuclear Antibody (POLO) test was performed using indirect immunofluorescence assay with HEp-2 cells slide. Performed By: #### B MP #### [place] [address] C Reactive Protein, Serumon 05-15-2023 CRP [Mass/Vol] 0.17 mg/dL [place] [address] Work Phone: Comment on above: SOURCE: REF VALUE< 1 .00 C-REACTIVE PROTEINon 023 C-REACTIVE PROTEIN 0.17 mg/dL Normal formerly [facility] Comment on above: Result Comment: REF VALUE < 1.00 Performed By: #### C RP ####[place] [address] CBC AND DIFFERENTIALon 05-15 % AUTOMATED IMMATURE GRAN 0.2 % Normal 0.0 - 0.9 [facility] Comment on above: Result Comment: [place] ture Granulocyte Count (IG) includes promyelocytes, myelocytes and metamyelocytes but does not include bands. Percent differential counts (%) should be interpreted in the context of the absolute cell counts (cells/L). Performed By: #### C BCDF ####[address] [address] Basophils (Bld) [#/Vol] 0.01 10*3/uL Normal 0.00 - 0.10 [facility] Comment on above: Performed By: #### C BCDF ####[address] [address] Basophils/100 WBC (Bld) 0.2 % Normal 0.0 - 2.0 [facility] Comment on above: Performed By: #### C BCDF ####[address] [address] Eosinophils (Bld) [#/Vol] 0.07 10*3/uL Normal 0.00 - 0.70 [facility] Comment on above: Performed By: #### C BCDF ####[address] [address] Eosinophils/100 WBC (Bld) 1.5 % Normal 0.0 - 6.0 [facility] Comment on above: Performed By: #### C BCDF ####[address] [address] Erythrocyte distribution width (RBC) [Ratio] 13.4 % Normal 11.5 - 14.5 [facility] Comment on above: Performed By: #### C BCDF ####[address] [address] Hematocrit (Bld) [Volume fraction] 37.5 % Normal 36.0 - 46.0 [facility] Comment on above: Performed By: #### C BCDF ####[address] [address] Hemoglobin (Bld) [Mass/Vol] 11.9 g/dL Low 12.0 - 16.0 [facility] Comment on above: Performed By: #### C BCDF ####[address] [address] Lymphocytes (Bld) [#/Vol] 1.66 10*3/uL Normal 1.20 - 4.80 [facility] Comment on above: Performed By: #### C BCDF ####[address] [address] Lymphocytes/100 WBC (Bld) 36.2 % Normal 13.0 - 44.0 [facility] Comment on above: Performed By: #### C BCDF ####[address] [address] MCHC (RBC) [Mass/Vol] 31.7 g/dL Low 32.0 - 36.0 [facility] Comment on above: Performed By: #### C BCDF ####[address] [address] MCV (RBC) [Entitic vol] 90 fL Normal 80 - 100 [facility] Comment on above: Performed By: #### C BCDF ####[address] [address] Monocytes (Bld) [#/Vol] 0.32 10*3/uL Normal 0.10 - 1.00 [facility] Comment on above: Performed By: #### C BCDF ####[address] [address] Monocytes/100 WBC (Bld) 7.0 % Normal 2.0 - 10.0 [facility] Comment on above: Performed By: #### C BCDF ####[address] [address] Neutrophils (Bld) [#/Vol] 2.52 10*3/uL Normal 1.20 - 7.70 [facility] Comment on above: Result Comment: Perc ent differential counts (%) should be interpreted in the context of the absolute cell counts (cells/L). Performed By: #### C BCDF ####[address] [address] Neutrophils/100 WBC (Bld) 54.9 % Normal 40.0 - 80.0 [facility] Comment on above: Performed By: #### C BCDF ####[address] [address] Platelets (Bld) [#/Vol] 177 10*3/uL Normal 150 - 450 [facility] Comment on above: Performed By: #### C BCDF ####[address] [address] RBC 4.15 x10E12/L Normal 4.00 - 5.20 [facility] Comment on above: Performed By: #### C BCDF ####[place] [address] [place] [address] WBC (Bld) [#/Vol] 4.6 10*3/uL Normal 4.4 - 11.3 [facility] Comment on above: Performed By: #### C BCDF ####[place] [address] [place] [address] Complete Blood Count + Diffe rentialon 05-15-2023 Basophils/100 WBC (Bld) 0.2 % 0.0 - 2.0 [place] [address] Work Phone: Erythrocyte distribution width (RBC) [Ratio] 13.4 % See Below [facility] [place] [address] Work Phone: Comment on above: Reference Range: 11. 5 - 14.5 Hematocrit (Bld) [Volume fraction] 37.5 % See Below [facility] [place] [address] Work Phone: Comment on above: Reference Range: 36. 0 - 46.0 Hemoglobin (Bld) [Mass/Vol] 11.9 g/dL below low threshold See Below [facility] [address] Work Phone: Comment on above: Reference Range: 12. 0 - 16.0 Lymphocytes/100 WBC (Bld) 36.2 % See Below [facility] [address] Work Phone: Comment on above: Reference Range: 13. 0 - 44.0 MCHC (RBC) [Mass/Vol] 31.7 g/dL below low threshold See Below [facility] [place] [address] Work Phone: Comment on above: Reference Range: 32. 0 - 36.0 MCV (RBC) [Entitic vol] 90 fL 80 - 100 [facility] 120 Work Phone: Monocytes/100 WBC (Bld) 7.0 % 2.0 - 10.0 [facility] 120 Work Phone: Neutrophils/100 WBC (Bld) 54.9 % See Below [facility] [employer] [address] Work Phone: Comment on above: Reference Range: 40. 0 - 80.0 Platelets (Bld) [#/Vol] 177 10*3/uL 150 - 450 [place] [address] Work Phone: RBC (Bld) [#/Vol] 4.15 {x10E12/L} See Below [place] [address] Work Phone: Comment on above: Reference Range: 4.0 0 - 5.20 WBC (Bld) [#/Vol] 4.6 10*3/uL 4.4 - 11.3 [place] [address] Work Phone: Comment on above: SOURCE: Complete Blood Count + Differential 0.01 {x10E9/L} See Below [facility] [employer] [address] Work Phone: Comment on above: Reference Range: 0.0 0 - 0.10 Complete Blood Count + Differential 0.07 {x10E9/L} See Below [facility] [employer] [employer] [address] Work Phone: Comment on above: Reference Range: 0.0 0 - 0.70 Complete Blood Count + Differential 0.32 {x10E9/L} See Below [facility] [employer] [address] Work Phone: Comment on above: Reference Range: 0.1 0 - 1.00 Complete Blood Count + Differential 1.66 {x10E9/L} See Below [facility] [employer] [place] [address] Work Phone: Comment on above: Reference Range: 1.2 0 - 4.80 Complete Blood Count + Differential 2.52 {x10E9/L} See Below [facility] [employer] [place] [address] Work Phone: Comment on above: Reference Range: 1.2 0 - 7.70 Percent differential counts (%) should be interpreted in the context of the absolute cell counts (cells/L). Complete Blood Count + Differential 1.5 % 0.0 - 6.0 [place] [address] Work Phone: Complete Blood Count + Differential 0.2 % 0.0 - 0.9 [place] [address] Work Phone: Comment on above: Immature Granulocyte Count (IG) includes promyelocytes, myelocytes and metamyelocytes but does not include bands. Percent differential counts (%) should be interpreted in the context of the absolute cell counts (cells/L). Laboratory - Serology - non- microon 05-15-2023 Nuclear Ab Hep2 substrate Ql (S) Negative NEGATIVE [place] [address] Work Phone: Comment on above: SOURCE: The Antinucl ear Antibody (POLO) test was performed using indirect immunofluorescence assay with HEp-2 cells slide. RHEUMATOID FACTORon 05-15-20 RHEUMATOID FACTOR <10 Normal 0 - 15 [facility] Comment on above: Performed By: #### R F #### [facility] [address] [place] [address] Lab Specimen Source Normal [facility] Comment on above: Performed By: #### R F #### [facility] [address] [place] [address] Performed By: #### T SH2 #### [place] [address] Performed By: #### C RP ####[place] [address] Performed By: #### E SRWS ####[place] [address] Performed By: #### C BCDF ####[place] [address] Performed By: #### B MP #### [place] [address] Rheumatoid Factor, Serum or Plasmaon 05-15-2023 Rheumatoid factor Nephelometry Qn (S) <10 0 - 15 [place] [address] Work Phone: Comment on above: SOURCE: SEDIMENTATION RATE, ERYTHROC YTEon 05-15-2023 SEDIMENTATION RATE, ERYTHROCYTE 8 mm/h Normal 0 - 20 [facility] Comment on above: Performed By: #### E SRWS ####[address] [address] Sedimentation Rate, Erythroc yteon 05-15-2023 ESR (Bld) [Velocity] 8 mm/h 0 - 20 [facility] 120 Work Phone: Comment on above: SOURCE: TSHon 05-15-2023 TSH Qn 2.14 m[IU]/L Normal 0.44 - 3.98 [facility] Comment on above: Result Comment: TSH testing is performed using different testing methodology at [facility] than at other [facility]. Direct result comparisons should only be made within the same method. Performed By: #### T SH2 #### [address] [address] TSH - Thyroid Stimulating Ho rmone, Serumon 05-15-2023 TSH Qn 2.14 m[IU]/L See Below [facility] 120 Work Phone: Comment on above: SOURCE: Reference Ra nge: 0.44 - 3.98 TSH testing is performed using different testing methodology at [facility] than at other [facility]. Direct result comparisons should only be made within the same method. ALBUMIN, URINE SPOTon 2022 ALBUMIN,URINE 10.7 mg/L Normal Not Established [facility] Comment on above: Performed By: #### A LBSP #### [facility] [address] [place] [address] ALBUMIN/CREAT RATIO 6.5 ug/mg brokerage purchase and sale clerk Normal 0.0 - 30.0 [facility] Comment on above: Performed By: #### A LBSP #### [facility] [address] [place] [address] CREATININE,URINE 165.0 mg/dL Normal 20.0 - 320.0 [facility] Comment on above: Performed By: #### A LBSP #### [facility] [address] [place] [address] CT Abdomen and Pelvis with I V Contraston 05-08-2023 CT Abdomen and Pelvis W contrast IV Normal -[employer] [facility] 120 Work Phone: HEMOGLOBIN A1Con 05-08-2023 Glucose [Mass/Vol] 143 mg/dL Normal [facility] Comment on above: Performed By: #### H BA1E #### [address] [address] HbA1c (Bld) [Mass fraction] 6.6 % Abnormal [facility] Comment on above: Result Comment: Diag nosis of Diabetes-Adults Non-Diabetic: < or = 5.6% Increased risk for developing diabetes: 5.7-6.4% Diagnostic of diabetes: > or = 6.5% . Monitoring of Diabetes Age (y) Therapeutic Goal (%) Adults: >18 <7.0 Pediatrics: 13-18 <7.5 7-12 <8.0 0- 6 7.5-8.5 [employer]. Diabetes Care 33(S1), Sep 2009. Performed By: #### H BA1E #### [address] [address] Hemoglobin A1Con 05-08-2023 Glucose [Mass/Vol] 143 mg/dL [facility] 120 Work Phone: HbA1c (Bld) [Mass fraction] 6.6 % Abnormal [facility] 120 Work Phone: Comment on above: Diagnosis of Diabete s-Adults Non-Diabetic: < or = 5.6% Increased risk for developing diabetes: 5.7-6.4% Diagnostic of diabetes: > or = 6.5%. Monitoring of Diabetes Age (y) Therapeutic Goal (%) Adults: >18 <7.0 Pediatrics: 13-18 <7.5 7-12 <8.0 0- 6 7.5-8.5 [employer]. Diabetes Care 33(S1), Sep 2009. LIPID PANEL (CORONARY RISK 2 )on 05-08-2023 Cholesterol [Mass/Vol] 172 mg/dL Normal 0 - 199 [facility] Comment on above: Result Comment: . AGE DESIRABLE BORDERLINE HIGH HIGH 0-19 Y 0 - 169 170 - 199 >/= 200 20-24 Y 0 - 189 190 - 224 >/= 225 >24 Y 0 - 199 200 - 239 >/= 240 All ranges are based on fasting samples. Specific therapeutic targets will vary based on patient-specific cardiac risk. . Pediatric guidelines reference:Pediatrics 2011, 128(S5). Adult guidelines reference: NCEP ATPIII Guidelines, REBECCA 2001, 258:2486-97 . Venipuncture immediately after or during the administration of Metamizole may lead to falsely low results. Testing should be performed immediately prior to Metamizole dosing. Performed By: #### L IPID #### [address] [address] Cholesterol in HDL [Mass/Vol] 41.0 mg/dL Normal [facility] Comment on above: Result Comment: . AGE VERY LOW LOW NORMAL HIGH 0-19 Y < 35 < 40 40-45 ---- 20-24 Y ---- < 40 >45 ---- >24 Y ---- < 40 40-60 >60 . Performed By: #### L IPID #### [address] [address] Cholesterol in LDL [Mass/Vol] 100 mg/dL High 0 - 99 [facility] Comment on above: Result Comment: . NEAR BORD AGE DESIRABLE OPTIMAL HIGH HIGH VERY HIGH 0-19 Y 0 - 109 --- 110-129 >/= 130 ---- 20-24 Y 0 - 119 --- 120-159 >/= 160 ---- >24 Y 0 - 99 100-129 130-159 160-189 >/=190 . Performed By: #### L IPID #### [address] [address] Cholesterol in VLDL [Mass/Vol] 31 mg/dL Normal 0 - 40 [facility] Comment on above: Performed By: #### L IPID #### [address] [address] Cholesterol.total/Cho lesterol in HDL [Mass ratio] 4.2 {ratio} Normal [facility] Comment on above: Result Comment: REF VALUES DESIRABLE < 3.4 HIGH RISK > 5.0 Performed By: #### L IPID #### [address] [address] Triglyceride [Mass/Vol] 153 mg/dL High 0 - 149 [facility] Comment on above: Result Comment: . AGE DESIRABLE BORDERLINE HIGH HIGH VERY HIGH 0 D-90 D 19 - 174 ---- ---- ---- 91 D- 9 Y 0 - 74 75 - 99 >/= 100 ---- 10-19 Y 0 - 89 90 - 129 >/= 130 ---- 20-24 Y 0 - 114 115 - 149 >/= 150 ---- >24 Y 0 - 149 150 - 199 200- 499 >/= 500 . Venipuncture immediately after or during the administration of Metamizole may lead to falsely low results. Testing should be performed immediately prior to Metamizole dosing. Performed By: #### L IPID #### [address] [address] Laboratory - Chemistry and C hemistry - challengeon 05-08-2023 Albumin Ql (U) 10.7 mg/L See Below [place] [address] Work Phone: Comment on above: Reference Range: Not Established Albumin/Creatinine DL <= 20 mg/L (U) [Mass ratio] 6.5 {ug/mg_crt} 0.0 - 30.0 [place] [address] Work Phone: Creatinine (U) [Mass/Vol] 165.0 mg/dL See Below [place] [address] Work Phone: Comment on above: Reference Range: 20. 0 - 320.0 Lipid Panelon 05-08-2023 Cholesterol [Mass/Vol] 172 mg/dL 0 - 199 [place] [address] Work Phone: Comment on above: . AGE DESIRABLE BORD NEYMAR HIGH HIGH 0-19 Y 0 - 169 170 - 199 >/= 200 20-24 Y 0 - 189 190 - 224 >/= 225 >24 Y 0 - 199 200 - 239 >/= 240 All ranges are based on fasting samples. Specific therapeutic targets will vary based on patient-specific cardiac risk.. Pediatric guidelines reference:Pediatrics 2011, 128(S5). Adult guidelines reference: NCEP ATPIII Guidelines, REBECCA 2001, 258:2486-97. Venipuncture immediately after or during the administration of Metamizole may lead to falsely low results. Testing should be performed immediately prior to Metamizole dosing. Cholesterol in HDL [Mass/Vol] 41.0 mg/dL [employer] Work Phone: Comment on above: . AGE VERY LOW LOW N ORMAL HIGH 0-19 Y < 35 < 40 40-45 ---- 20- 24 Y ---- < 40 >45 ---- >24 Y ---- < 40 40-60 >60. Cholesterol in LDL [Mass/Vol] 100 mg/dL above high threshold 0 - 99 [employer] Work Phone: Comment on above: . NEAR BORD AGE ANA RABLE OPTIMAL HIGH HIGH VERY HIGH 0-19 Y 0 - 109 --- 110-129 >/= 130 ---- 20-24 Y 0 - 119 --- 120-159 >/= 160 ---- >24 Y 0 - 99 100-129 130-159 160-189 >/=190. Cholesterol.total/Cho lesterol in HDL [Mass ratio] 4.2 {ratio} [employer] Work Phone: Comment on above: REF VALUESDESIRABLE < 3.4HIGH RISK > 5.0 Triglyceride [Mass/Vol] 153 mg/dL above high threshold 0 - 149 [employer] Work Phone: Comment on above: . AGE DESIRABLE BORD NEYMAR HIGH HIGH VERY HIGH 0 D-90 D 19 - 174 ---- ---- ----91 D- 9 Y 0 - 74 75 - 99 >/= 100 ---- 10-19 Y 0 - 89 90 - 129 >/= 130 ---- 20-24 Y 0 - 114 115 - 149 >/= 150 ---- >24 Y 0 - 149 150 - 199 200- 499 >/= 500. Venipuncture immediately after or during the administration of Metamizole may lead to falsely low results. Testing should be performed immediately prior to Metamizole dosing. Lipid Panel 31 mg/dL 0 - 40 [facility] 120 Work Phone: Radiologyon 05-08-2023 XR Wrist - bilateral 3 Views Normal [facility] Work Phone: WRIST COMPLT MIN 3 VIEWSon 0 05-08-2023 WRIST COMPLT MIN 3 VIEWS Patient Name: CHRISTINE OAKES STUDY: Left wrist 3 views. INDICATION: Pain after fall. COMPARISON: None. ACCESSION NUMBER(S): [id number] ORDERING CLINICIAN: ERICA SANFORD FINDINGS: No acute fracture or malalignment. There are mild degenerative changes in the carpometacarpal joint articulation of the 1st digit with joint space narrowing and subchondral sclerosis.. Soft tissues are within normal limits. IMPRESSION: 1. No acute fracture or dislocation. 2. Moderate arthrosis in the 1st digit carpometacarpal joint.. Electronically signed by: SHOLA DAVALOS MD [facility] Initial Visit (Gastroenterol ogy)on 04-24-2023 Initial Visit (Gastroenterology) Diagnoses/Problems Assessed Partial small bowel obstruction (560.9) (K56.600) Abnormal CT scan, colon (793.4) (R93.3) Orders Abnormal CT scan, colon Start: Na Sulfate-K Sulfate-Mg Sulf 17.5-3.13-1.6 GM/177ML Oral Solution (Suprep Bowel Prep Kit); USE DIRECTED Rx By: Adi Monge; Dispense: 0 Days ; #:1 X 2 x 177 ML Bottle; Refill: 0;For: Abnormal CT scan, colon; MERCEDES = N; Sent To: [id number] Colonoscopy Screening; Status:Hold For - Scheduling; Requested for:24Apr2023; Perform:[facility]; Due:23Jul2023;Ordered; For:Abnormal CT scan, colon; Ordered By:Adi Monge; Patient competent to provide consent? : Yes-pt mentally competent to provide consent CT Abdomen and Pelvis with IV Contrast; Status:Hold For - Scheduling; Requested for:[id number]; Perform: [facility]; Due:[id number];Ordered; For:Abnormal CT scan, colon; Ordered By:Adi Monge; Patient taking Metformin or Derivatives? : No Radiologist to Determine Optimal Study : Y What are the patient's signs and symptoms? : Abnormal CT scan with inflammatory changes small bowel and colon Chief Complaint NPV in office today for ER follow up for a SBO. Patient was seen at the ED for abdominal pain, nausea/ vomiting. Pt is taking Metamucil tablets every other day. History of Present IllnessKelly is a pleasant 52-year-old female was hospitalized in January with partial small bowel obstruction. CT scan showed inflammatory stranding throughout the ascending and transverse colon concerning for underlying inflammatory bowel disease. Patient improved with NG decompression there is no true transition point in the small bowel appeared to be edematous throughout the mid to distal small bowel. No prior history of bowel obstruction. No family history of inflammatory bowel disease. Has been asymptomatic since returning home. Denies diarrhea no rectal bleeding. No mucoid stools. Review of Systems Constitutional: no fever, no chills, not feeling tired and no recent weight loss. ENT: no lymphadenopathy. Cardiovascular: no shortness of breath and no chest pain. Respiratory: no cough. Gastrointestinal: as noted in HPI. Musculoskeletal: no joint swelling. Integumentary: no rashes, no skin lesions and was no jaundiced. All other systems have been reviewed and are negative for complaint. Active Problems Problems Arthralgia (719.40) (M25.50) BMI 34.0-34.9,adult (V85.34) (Z68.34) Depression, major, single episode, mild (296.21) (F32.0) Encounter for immunization (V03.89) (Z23) Encounter for routine gynecological examination (V72.31) (Z01.419) Encounter for screening mammogram for malignant neoplasm of breast (V76.12) (Z12.31) Fatty liver (571.8) (K76.0) GERD (gastroesophageal reflux disease) (530.81) (K21.9) Hyperlipidemia (272.4) (E78.5) Knee osteoarthritis (715.36) (M17.9) Low back pain (724.2) (M54.50) Nocturnal hypoxemia (327.24) (G47.34) Obesity (278.00) (E66.9) Pain of right heel (729.5) (M79.671) Prehypertension (796.2) (R03.0) Rheumatoid arthritis of other site with negative rheumatoid factor (714.0) (M06.0A) Screening for breast cancer (V76.10) (Z12.39) Screening for cervical cancer (V76.2) (Z12.4) Screening for heart disease (V81.2) (Z13.6) Shortness of breath on exertion (786.05) (R06.02) Thyroid nodule (241.0) (E04.1) Type 2 diabetes mellitus with hyperglycemia, without long-term current use of insulin (250.00,790.29) (E11.65) Past Medical History Problems History of (V13.29) 01/31/1995-40 WEEKS, VAGINAL, MALE, #7 15oz 03/30/1999-40 WEEKS, ,FEMALE, #8 2oz History of Menarche (V21.8) 17 History of Women's annual routine gynecological examination (V72.31) (Z01.419) 09/2020 Surgical History Problems History of section History of Thyroid biopsy History of Tubal ligation Family History Mother Family history of diabetes mellitus (V18.0) (Z83.3) FHx: hypertension (V17.49) (Z82.49) Father Family history of hypertension (V17.49) (Z82.49) FH: ALS (amyotrophic lateral sclerosis) (V17.2) (Z82.0) Sister Family history of asthma (V17.5) (Z82.5) Family history of migraine headaches (V17.2) (Z82.0) Grandparent Family history of malignant neoplasm (V16.9) (Z80.9) Family history of thyroid disease (V18.19) (Z83.49) Social History Problems Daily caffeine consumption, 2-3 servings a day Former smoker (V15.82) (Z87.891) No advance directives (V49.89) (Z78.9) Occasional alcohol use Sexually active Allergies Medication Penicillins Recorded By: Keli Herman; 03/22/2020 2:10:20 PM Current Meds Medication NameInstruction Atorvastatin Calcium 10 MG Oral TabletTAKE 1 TABLET BY MOUTH EVERY DAY Diclofenac Sodium 1 % External Gelapply 2 gram topically QID for pain Escitalopram Oxalate 20 MG Oral TabletTAKE 1 TABLET BY MOUTH EVERY DAY Lisinopril 10 MG Oral TabletTAKE 1 TABLET BY MOUTH EVERY DAY metFORMIN HCl ER 500 MG Oral Table (more content not included)... Normal [facility] Discharge [id number] Discharge Profile2 Discharge Orders: Anticipated Discharge Date: Anticipated Discharge [id number] Problem List: Admitting Dx: Small bowel obstruction: Catalog Name: Unspecified intestinal obstruction, unspecified as to partial versus complete obstruction Hospital Providers: Provider RoleProvider Name Arielle Fox AttendingAl Samir Steele DNAR: Code Status at Discharge: Full Code Activity: activity as tolerated. Diet: Dietdiabetic/carbohydrate counted Diabetic/Carbohydrate [id number]/Carb meal, 45gram/Carb snack (1999-) Hospital Course (Home Care/Gold Form): Hospital Course: Hospital Course: include significant abnormal lab values Please refer to history and physical details of admission. Patient presented to the emergency room on February 05 because of abdominal pain with nausea and vomiting 2 days prior to presentation. No fevers, chills or sweats. She has not been able to pass gas since the pain started. In the ER imaging was consistent with a small bowel obstruction. An NG tube was placed to low intermittent suction and surgery was notified. Patient was admitted to the medical service for further evaluation. Surgery saw the patient in the ER and was more worried about possible inflammatory reaction than a bowel obstruction. As mentioned she was placed on the medical service with surgical consultation. NG was in place and she was hooked up to low intermittent suction. Her hospital course was uncomplicated. Abdominal x-ray showed no obstruction. Inadvertently the NG was removed after she sneezed a couple times yesterday . It was decided to keep the NG out and we started on clears and advance her diet which she tolerated. She had a bowel movement this morning and is without any abdominal pain. She will be discharged home today. She will follow-up with her PCP. Provider FINAL REVIEW of Orders: Final Review: Final Review of Medication Reconciliation and Orders Completedby Physician Reviewing ProviderCortez Armendariz DO at 09-Feb-2023 09:06:43 Appointments: Follow-Up Appointment 01: Physician/Dept/ServiceDr. Sanford 2-4 weeks [id number] Catherine Miller. Phone [phone] Jered will call and make her own appointment. Electronic Signatures: Adeola Rosenthal (ANA) (Signed 09-Feb-2023 09:11) Authored: Discharge Orders, Appointments Cortez Armendariz () (Signed 09-Feb-2023 09:06) Authored: Discharge Orders, Hospital Course (Home Care/Gold Form), Provider FINAL REVIEW of Orders, Appointments, Gold Form - Smt Technician Summary Last Updated: 09-Feb-2023 09:11 by Adeola Rosenthal (ANA) Normal [facility] GLUCOSE-POCTon 02-09-2023 Glucose [Mass/Vol] 100 mg/dL High 74 - 99 formerly [facility] Comment on above: Performed By: #### G KAREN ####[place] [address] Order Reconciliationon 02-09 Order Reconciliation Page 1 Discharge Reconciliation Document Reconciliation Type: Discharge requested on behalf of Cortez Armendariz (Physician) done by Cortez Armendariz () Discharge - Reconciliation: 09-Feb-2023 08:55 by: Cortez Armendariz () Home Medications EnteredHOME MEDICATIONS AT DISCHARGE DateReconciliation Comment/ Additional Information atorvastatin 10 mg oral tablet 1 tab(s) orally once a day 06-Feb-2023 04:24 atorvastatin 10 mg oral tablet 1 tab(s) orally once a day 06-Feb-2023 04:24 atorvastatin 10 mg oral tablet is continued as atorvastatin 10 mg oral tablet DICLOFENAC SODIUM 1% GEL Apply topically to affected area 4 times a day, As Needed 06-Feb-2023 10:14 DICLOFENAC SODIUM 1% GEL Apply topically to affected area 4 times a day, As Needed 06-Feb-2023 10:14 DICLOFENAC SODIUM 1% GEL is continued as DICLOFENAC SODIUM 1% GEL escitalopram 20 mg oral tablet 1 tab(s) orally once a day 06-Feb-2023 04:24 escitalopram 20 mg oral tablet 1 tab(s) orally once a day 06-Feb-2023 04:24 escitalopram 20 mg oral tablet is continued as escitalopram 20 mg oral tablet lisinopril 10 mg oral tablet 1 tab(s) orally once a day 06-Feb-2023 04:23 lisinopril 10 mg oral tablet 1 tab(s) orally once a day 06-Feb-2023 04:23 lisinopril 10 mg oral tablet is continued as lisinopril 10 mg oral tablet meloxicam 15 mg oral tablet 1 tab(s) orally once a day 06-Feb-2023 04:23 meloxicam 15 mg oral tablet 1 tab(s) orally once a day 06-Feb-2023 04:23 meloxicam 15 mg oral tablet is continued as meloxicam 15 mg oral tablet METFORMIN HCL ER 500 MG TABLET 1 tab(s) orally once a day 06-Feb-2023 06:38 METFORMIN HCL ER 500 MG TABLET 1 tab(s) orally once a day 06-Feb-2023 06:38 METFORMIN HCL ER 500 MG TABLET is continued as METFORMIN HCL ER 500 MG TABLET omeprazole 40 mg oral delayed release capsule 1 cap(s) orally once a day 06-Feb-2023 04:23 omeprazole 40 mg oral delayed release capsule 1 cap(s) orally once a day 06-Feb-2023 04:23 omeprazole 40 mg oral delayed release capsule is continued as omeprazole 40 mg oral delayed release capsule Current OrdersDateHOME MEDICATIONS AT DISCHARGE DateReconciliation Comment/ Additional Information Acetaminophen Tablet (TYLENOL)DOSE = 650 mg Oral Every 4 Hours, PRN Headache 07-Feb-2023 08:54 Acetaminophen is not required Atorvastatin Tablet (LIPITOR)DOSE = 10 mg Oral Daily 06-Feb-2023 05:56 Atorvastatin is not required Dextrose 50% in Water Injectable DOSE = 12.5 gram(s) IntraVenous Push Every 30 Minutes, PRN Blood Glucose 41 - 70 mg/dl and UNCONSCIOUSClinician Notes: May repeat until Blood Glucose level reaches 100 milligrams/deciliter or greater. Push 2 - 3 aníbal 06-Feb-2023 15:38 Dextrose 50% in Water Injectable is not required Dextrose 50% in Water Injectable DOSE = 25 gram(s) IntraVenous Push Every 30 Minutes, PRN Blood Glucose 40mg/dl or LESSClinician Notes: May repeat until Blood Glucose level reaches 100 milligrams/deciliter or greater. Push 2 - 3 milliliters/minute if 06-Feb-2023 15:38 Dextrose 50% in Water Injectable is not required Enoxaparin SubCutaneous (LOVENOX)DOSE = 40 mg SubCutaneous Every 24 Hours 06-Feb-2023 05:57 Enoxaparin SubCutaneous is not required Escitalopram Tablet (LEXAPRO)DOSE = 20 mg Oral Daily 06-Feb-2023 05:56 Escitalopram is not required Glucagon Injectable DOSE = 1 mg IntraMuscular Every 30 Minutes, PRN Blood Glucose 70 mg/dl or less and no IV access.Clinician Notes: Until blood glucose is 100 mg/dl or greater. If patient DOES NOT HAVE secure IV access & Patient is Unconscious, NPO 06-Feb-2023 15:38 Glucagon Injectable is not required Insulin Lispro (HUMALOG) Carb/ISF Calculator Units of Insulin: 1Per Every 35 mg/dL Greater Than Target Glucose of: 150 With Meals and At Bedtime.Units of Insulin: 1 per Carbohydrates: 10 grams with All MealsOpen Task Form for Actual Insulin Dose 08-Feb-2023 12:34 Insulin Lispro (HUMALOG) Carb/ISF Calculator is not required Lisinopril Tablet (PRINIVIL, ZESTRIL)DOSE = 10 mg Oral Daily 06-Feb-2023 05:56 Lisinopril is not required metFORMIN (GLUCOPHAGE) TabletDOSE = 500 mg Oral Daily Before First MealNotes from Pharmacy: interchanged for metformin ER 500mg 06-Feb-2023 08:53 metFORMIN (GLUCOPHAGE) is not required Ondansetron Injectable (ZOFRAN)DOSE = 4 mg IntraVenous Push Every 4 Hours, PRN Nausea and/or Vomiting 06-Feb-2023 05:57 Ondansetron Injectable is not required Pantoprazole Enteric Coated Tablet (PROTONIX)DOSE = 40 mg Oral Daily 06-Feb-2023 05:56 Pantoprazole is not required Sodium Chloride 0.9% Infusion IV Bag Volume = 1,000 mL Run at: 100 mL/hr IntraVenous 06-Feb-2023 05:57 Sodium Chloride 0.9% Infusion is not required Sodium Chloride 0.9% Injectable Flush via Peripheral LineVolume = 10 mL IntraVenous Flush Every 8 Hours and as Needed 06-Feb-2023 05:57 Sodium Chloride 0.9% Injectable Flush is not required Home Medications Added During Discharge Reconciliation Discharge Disch (more content not included)... [facility] ABDOMEN AP VIEWon 02-08-2023 ABDOMEN AP VIEW Patient Name: CHRISTINE OAKES STUDY: ABDOMEN AP VIEW; 02/08/2023 6:34 am INDICATION: NG tube removed per patient . COMPARISON: Acute abdominal series 07 Feb 2023 ACCESSION NUMBER(S): [id number] ORDERING CLINICIAN: SAMIR ALVAREZ TECHNIQUE: Frontal supine view of the abdomen FINDINGS: The enteric tube is been removed Upright view shows no free air or small bowel air-fluid level No dilated gas-filled bowel IMPRESSION: Enteric tube has been removed. No other interval change Electronically signed by: SHANELL MATOS MD [facility] Clinical Event Noteon 2022 Clinical Event Note Clinical Event: Clinical Event Note: Details Patient did well overnight with decreasing NG output. On sneezing this morning the NG tube came out. She is passing flatus, but no stool. is currnetly tolerating liquid diet. FEels better. abd: soft nontender mild distension a/p ok for diet advancement as long as no nausea nor vomiting. if patient tolerates dinner should could be d/c to home from surgical perspective. I will sign off at this time. please call back if there are new development. she should follow up with Gastroenterology for further work up and evaluation as an outpatient. Electronic Signatures: Pranay Quevedo) (Signed 08-Feb-2023 14:46) Authored: Clinical Event Note Last Updated: 08-Feb-2023 14:46 by Pranay Quevedo) [facility] Daily Progress Note-Medicine on 02-08-2023 Daily Progress Note-Medicine Service: Medicine Review of Systems: Review of Systems: Constitutional: NEGATIVE: Fever, Chills ENMT: NEGATIVE: Nasal Discharge, Nasal Congestion, Ear Pain, Mouth Pain, Throat Pain Respiratory: NEGATIVE: Dry Cough, Productive Cough, Hemoptysis, Wheezing, Shortness of Breath Cardiac: NEGATIVE: Chest Pain, Dyspnea on Exertion, Orthopnea, Palpitations, Syncope Gastrointestinal: NEGATIVE: Nausea, Vomiting, Diarrhea, Constipation, Abdominal Pain Genitourinary: NEGATIVE: Discharge, Dysuria, Flank Pain, Frequency, Hematuria Musculoskeletal: NEGATIVE: Decreased ROM, Pain, Swelling, Stiffness, Weakness Neurological: NEGATIVE: Dizziness, Confusion, Headache, Seizures, Syncope Psychiatric: NEGATIVE: Mood Changes, Anxiety Subjective Data: DULL, CHRISTINE Dupree is a 52 year old Female who is Hospital Day # 4. Additional Information: Patient was getting her Accu-Chek done and she sneezed a couple times and the next thing she knew, the NG was out No abdominal pain no nausea or vomiting She is passing gas and she feels like she may have the urge to have a bowel movement soon Objective Data: Objective Information: T PRBPMAPSpO2 [id number]/543995% Date/Time02/08 7: 7: 7: 7: 7: 7:11 Range(36C - 36.6C ) (68 - 79 ) (12 - 16 ) (118 - 153 )/ (71 - 82 ) (87 - 87 ) (96% - 99% ) Pain reported at 02/07 21:15: 1 = Mild Physical Exam by System: Constitutional: Awake and alert; oriented x3 with no apparent distress or respiratory distress Head/Neck: Neck supple with no palpable lymphadenopathy, bruits or masses; trachea midline Respiratory/Thorax: Clear to auscultation bilaterally no active wheezes or rhonchi noted Cardiovascular: Regular rate and rhythm; normal S1-S2 with no murmur; no pitting edema 2+ pulses bilaterally Gastrointestinal: Soft, nontender, nondistended, positive bowel sounds; obese Neurological: Nonfocal; cranial nerves II through XII appear intact Psychological: Pleasant affect Recent Lab Results: Results: I have reviewed these laboratory results: Glucose_POCT Trending View [id number] 06:09:00 07-Feb-2023 23:48:00 07-Feb-2023 19:39:00 07-Feb-2023 19:05:00 Glucose-POCT99 74 108 H 63 L Radiology Results: Results: I have reviewed this radiology result: Impression: Enteric tube has been removed. No other interval change Xray Abdomen AP View [Feb 08 2023 7:02AM] Assessment and Plan: Admitting Dx: Small bowel obstruction: Entered Date: 06-Feb-2023 05:56 Code Status: Code StatusFull Code Assessment: 52-year-old female admitted for small bowel obstruction. NG inadvertently pulled out this morning. X-ray unremarkable. Patient has a history of type 2 diabetes, arthritis and obesity. PLAN: 1. We will start the patient on clear liquids 2. We will advance diet as tolerated 3. Antiemetics and pain control as needed 4. She is on sliding scale insulin along with metformin for her diabetes 5. Continue med from home including atorvastatin and Lexapro 6. DVT prophylaxis with SCDs and subcu enoxaparin 7. Ulcer prophylaxis with oral PPI 8. If she tolerates p.o. we can consider discharge tomorrow the Electronic Signatures: Cortez Armendariz () (Signed 08-Feb-2023 10:20) Authored: Service, Review of Systems, Subjective Data, Objective Data, Assessment and Plan, Note Completion Last Updated: 08-Feb-2023 10:20 by Cortez Armendariz () Normal [facility] GLUCOSE-POCTon 02-08-2023 Glucose [Mass/Vol] 130 mg/dL High 74 - 99 formerly [facility] Comment on above: Performed By: #### G KAREN ####[address] [address] Glucose [Mass/Vol] 105 mg/dL High 74 - 99 formerly [facility] Comment on above: Performed By: #### L IPAS #### [address] [address] Glucose [Mass/Vol] 66 mg/dL Low 74 - 99 formerly [facility] Comment on above: Result Comment: RN/Adri Jarrell NOTIFIED Performed By: #### L IPAS #### [address] [address] Glucose [Mass/Vol] 142 mg/dL High 74 - 99 formerly [facility] Comment on above: Performed By: #### L IPAS #### [address] [address] Glucose [Mass/Vol] 99 mg/dL Normal 74 - 99 formerly [facility] Comment on above: Performed By: #### G KAREN #### [address] [address] Glucose [Mass/Vol] 74 mg/dL Normal 74 - 99 formerly [facility] Comment on above: Performed By: #### L IPAS #### [address] [address] ABDOMEN, COMPLT ACUTE SERIES on 02-07-2023 ABDOMEN, COMPLT ACUTE SERIES Patient Name: CHRISTINE OAKES STUDY: ABDOMEN, COMPLT ACUTE SERIES; 02/07/2023 6:16 am INDICATION: SBO . COMPARISON: None. ACCESSION NUMBER(S): [id number] ORDERING CLINICIAN: SAMIR ALVAREZ TECHNIQUE: Abdomen supine and upright views Chest PA view FINDINGS: Nasogastric tube noted tip in the upper stomach. The stomach is decompressed. The the radiolucent side marker is near the gastroesophageal junction. ABDOMEN: The bowel gas pattern is nonobstructive with gas in nondistended small bowel loops and throughout the large bowel. No evidence of pneumoperitoneum. Osseous structures demonstrate no acute bony abnormalities. CHEST: Cardiomediastinal silhouette in normal in size and configuration. Small calcified nodule in the left midlung is well demonstrated on a CT performed in 2020 as a densely calcified granuloma. No other focal lung opacities. No acute osseous changes. IMPRESSION: 1. Nonobstructive bowel gas pattern. 2. No evidence of acute cardiopulmonary process. Electronically signed by: FABRICE VELARDE MD Normal [facility] BASIC METABOLIC PANELon 01-27 Anion gap [Moles/Vol] 9 mmol/L Low 10 - 20 [facility] Comment on above: Performed By: #### L IPAS #### [address] [address] Calcium [Mass/Vol] 8.0 mg/dL Low 8.6 - 10.3 formerly [facility] Comment on above: Performed By: #### L IPAS #### [address] [address] Chloride [Moles/Vol] 108 mmol/L High 98 - 107 [facility] Comment on above: Performed By: #### L IPAS #### [address] [address] Creatinine [Mass/Vol] 0.68 mg/dL Normal 0.50 - 1.05 [facility] Comment on above: Performed By: #### L IPAS #### [address] [address] eGFR FEMALE >90 Normal >90 [facility] Comment on above: Result Comment: CALC ULATIONS OF ESTIMATED GFR ARE PERFORMED USING THE 2020 CKD-EPI STUDY REFIT EQUATION WITHOUT THE RACE VARIABLE FOR THE IDMS-TRACEABLE CREATININE METHODS. https://jasn.asnjournals.org/content//ASN.239616 8109 Performed By: #### L IPAS #### [place] [id number] Glucose [Mass/Vol] 94 mg/dL Normal 74 - 99 formerly [facility] Comment on above: Performed By: #### L IPAS #### [place] [id number] HCO3 (Bld) [Moles/Vol] 24 mmol/L Normal 21 - 32 [facility] [facility] Comment on above: Performed By: #### L IPAS #### [place] [id number] Potassium [Moles/Vol] 3.3 mmol/L Low 3.5 - 5.3 [facility] Comment on above: Performed By: #### L IPAS #### [address] [address] Sodium [Moles/Vol] 138 mmol/L Normal 136 - 145 formerly [facility] Comment on above: Performed By: #### L IPAS #### [place] [id number] Urea nitrogen [Mass/Vol] 16 mg/dL Normal 6 - 23 [facility] Comment on above: Performed By: #### L IPAS #### [address] [address] CBCon 02-07-2023 Erythrocyte distribution width (RBC) [Ratio] 14.1 % Normal 11.5 - 14.5 [facility] Comment on above: Performed By: #### L IPAS #### [address] [address] Hematocrit (Bld) [Volume fraction] 34.5 % Low 36.0 - 46.0 [facility] Comment on above: Performed By: #### L IPAS #### [place] [id number] Hemoglobin (Bld) [Mass/Vol] 11.2 g/dL Low 12.0 - 16.0 [facility] Comment on above: Performed By: #### L IPAS #### [place] [id number] MCHC (RBC) [Mass/Vol] 32.5 g/dL Normal 32.0 - 36.0 [facility] Comment on above: Performed By: #### L IPAS #### [place] [id number] MCV (RBC) [Entitic vol] 89 fL Normal 80 - 100 [facility] Comment on above: Performed By: #### L IPAS #### [place] [id number] Platelets (Bld) [#/Vol] 179 10*3/uL Normal 150 - 450 [facility] Comment on above: Performed By: #### L IPAS #### [place] [address] RBC 3.89 x10E12/L Low 4.00 - 5.20 [facility] Comment on above: Performed By: #### L IPAS #### [place] [id number] WBC (Bld) [#/Vol] 6.1 10*3/uL Normal 4.4 - 11.3 [facility] Comment on above: Performed By: #### L IPAS #### [place] [id number] Daily Progress Note-Medicine on 02-07-2023 Daily Progress Note-Medicine Service: Medicine Review of Systems: Review of Systems: Constitutional: NEGATIVE: Fever, Chills ENMT: NEGATIVE: Nasal Discharge, Nasal Congestion, Ear Pain, Mouth Pain, Throat Pain Respiratory: NEGATIVE: Dry Cough, Productive Cough, Hemoptysis, Wheezing, Shortness of Breath Cardiac: NEGATIVE: Chest Pain, Dyspnea on Exertion, Orthopnea, Palpitations, Syncope Gastrointestinal: NEGATIVE: Nausea, Vomiting, Diarrhea, Constipation, Abdominal Pain Genitourinary: NEGATIVE: Discharge, Dysuria, Flank Pain, Frequency, Hematuria Musculoskeletal: NEGATIVE: Decreased ROM, Pain, Swelling, Stiffness, Weakness Neurological: NEGATIVE: Dizziness, Confusion, Headache, Seizures, Syncope Psychiatric: NEGATIVE: Mood Changes, Anxiety Subjective Data: DULL, CHRISTINE Dupree is a 52 year old Female who is Hospital Day # 3. Additional Information: Patient doing well voicing no complaints; no abdominal pain and no flatus as of yet Objective Data: Objective Information: T PRBPMAPSpO2 [id number]/7878% Date/Time02/07 15: 15: 15: 15: 15:32 Range(36C - 36.6C ) (67 - 81 ) (12 - 18 ) (118 - 145 )/ (71 - 95 ) (78% - 98% ) Pain reported at 02/06 20:00: 0 = None Physical Exam by System: Constitutional: Awake and alert; oriented x3 with no apparent distress or respiratory distress Head/Neck: Neck supple with no palpable lymphadenopathy, bruits or masses; trachea midline Respiratory/Thorax: Clear to auscultation bilaterally no active wheezes or rhonchi noted Cardiovascular: Regular rate and rhythm; normal S1-S2 with no murmur; no pitting edema 2+ pulses bilaterally Gastrointestinal: Soft, nontender, nondistended, hypoactive bowel sounds; obese Neurological: Nonfocal; cranial nerves II through XII appear intact Psychological: Pleasant affect Recent Lab Results: Results: I have reviewed these laboratory results: Glucose_POCT Trending View [id number] 11:58:00 07-Feb-2023 07:11:00 07-Feb-2023 00:39:00 06-Feb-2023 16:59:00 Glucose-POCT82 99 86 98 Complete Blood Count 07-Feb-2023 04:43:00 ResultValue White Blood Cell Count 6.1 Red Blood Cell Count 3.89 L HGB 11.2 L HCT 34.5 L MCV 89 MCHC 32.5 PLT 179 RDW-CV 14.1 Basic Metabolic Panel 07-Feb-2023 04:43:00 ResultValue Glucose, Serum 94 NA 138 K 3.3 L CL 108 H Bicarbonate, Serum 24 Anion Gap, Serum 9 L BUN 16 CREAT 0.68 GFR Female >90 Calcium, Serum 8.0 L Radiology Results: Results: I have reviewed this radiology result: Impression: 1. Nonobstructive bowel gas pattern. 2. No evidence of acute cardiopulmonary process. Xray Abdomen Complete Acute Series [Feb 07 2023 8:12AM] Assessment and Plan: Admitting Dx: Small bowel obstruction: Entered Date: 06-Feb-2023 05:56 Comorbidities: Comorbidityobesity Obesityobesity (BMI 35-39.9) BMI35.04 Code Status: Code StatusFull Code Assessment: 52-year-old female admitted for small bowel obstruction. Appears to be possibly inflammatory. Abdominal series today shows nonobstructive bowel gas pattern. NG is still pulling out fluid. Potassium is low. She does have a history of type 2 diabetes, arthritis and obesity. PLAN: 1. Continue NG decompression 2. N.p.o. except ice chips 3. Check labs in a.m. 4. IV fluids 5. Pain control as needed 6. Antiemetics as needed 7. For her diabetes she is on sliding scale insulin along with her metformin 8. She is also on atorvastatin, Lexapro 9. Consider abdominal film in a.m. 10. DVT prophylaxis with SCDs and subcu enoxaparin 11. Ulcer prophylaxis with oral PPI 12. We will replace her potassium Electronic Signatures: Cortez Armendariz) (Signed 07-Feb-2023 16:35) Authored: Service, Review of Systems, Subjective Data, Objective Data, Assessment and Plan, Note Completion Last Updated: 07-Feb-2023 16:35 by Cortez Armendariz () [facility] Daily Progress Note-Surgeryo n 02-07-2023 Daily Progress Note-Surgery Service: Surgery Subjective Data: CHRISTINE OAKES is a 52 year old Female who is Hospital Day # 3. Overnight Events: Patient had an uneventful night. Additional Information: PAtient doing well. decreased pain, no flatus. NGT 1400ml/24 hours abd: soft minimal tenderness in mid abdomen. a/p likely inflammatory process of small bowel. no flatus but feeling better. keep ng tube to lis. increase ambulation. no indication for surgical intervention. Objective Data: Objective Information: T PRBPMAPSpO2 [id number]/7878% Date/Time5/12 15: 15: 15: 15: 15:32 Range(36C - 36.6C ) (67 - 81 ) (12 - 18 ) (118 - 145 )/ (71 - 95 ) (78% - 98% ) Pain reported at 02/06 20:00: 0 = None Recent Lab Results: Results: CBC: 02/07/2023 04:43 \ Hgb / \ 11.2 L / WBC Plt 6.1 179 / Hct \ / 34.5 L \ RBC: 3.89 L MCV: 89 BMP: 02/07/2023 04:43 NA+ Cl- BUN / 138 108 H 16 / ------- Glucose -- 94 K+ HCO3- Creat \ 3.3 L 24 0.68 \ Calcium : 8.0 L Anion Gap : 9 L Assessment and Plan: Code Status: Code StatusFull Code Plan of Care Reviewed With: Plan of Care Reviewed With: patient Electronic Signatures: Pranay Quevedo) (Signed 07-Feb-2023 16:35) Authored: Service, Assessment/Plan Review, Subjective Data, Objective Data, Assessment and Plan, Note Completion Last Updated: 07-Feb-2023 16:35 by Pranay Quevedo) Normal [facility] GLUCOSE-POCTon 02-07-2023 Glucose [Mass/Vol] 108 mg/dL High 74 - 99 [facility] Comment on above: Performed By: #### G KAREN ####[address] [address] Glucose [Mass/Vol] 63 mg/dL Low 74 - 99 [facility] Comment on above: Performed By: #### G KAREN #### [address] [address] Glucose [Mass/Vol] 82 mg/dL Normal 74 - 99 [facility] Comment on above: Performed By: #### L IPAS #### [address] [address] Glucose [Mass/Vol] 99 mg/dL Normal 74 - 99 [facility] Comment on above: Performed By: #### L IPAS #### [address] [address] Glucose [Mass/Vol] 86 mg/dL Normal 74 - 99 [facility] Comment on above: Performed By: #### B MP #### [address] [address] Admission Risk Screen - Adul ton 02-06-2023 Admission Risk Screen - Adult Allergies: Allergies: penicillin: Unknown Patient Verification: New W ID Band Applied in my Departmentyes Patient Identity Verified Bypatient ID Band FULL Name, include Middle, spelling matches patient's ID used for verificationyes ID Band Matches Patient ID used for Verficationyes ID Band MRN Matches EMR MRNyes Visitor Restriction: Coronavirus Visitor Restriction: Reasonable restrictions to in-person visitors will be observed due to current coronavirus pandemic. Travel History: COVID-19 Screening Completedno exposure or symptoms Travel or Exposure Past 30 DaysNO travel to International locations in the past 30 days Ebola AlertFor Ebola-like Symptoms: Isolate Patient and Notify Provider/Sports Therapist For Contact: Notify Provider/Sports Therapist Advance Directive: Advance Directive/DNRno (1) Advance Directive Information Givenpatient/family declined [place] Fall Screen: History of falling (immediate or previous)no (0) Secondary Diagnosisno (0) Intravenous Therapy/ Heparin/Saline Lockyes (20) Gait/Transferringnormal/b edrest/wheelchair (0) Ambulatory Aidsnone/bedrest/nurse assist (0) Mental Statusoriented to own ability (0) Score: Low risk (<25). Moderate risk (25-44). High risk (>44).20 [place] InterventionsHIGH INTERVENTIONS *Low and Moderate Interventions Plus: * supervised toileting at all times Family Violence Screen: Are you or have you been threatened or abused physically, emotionally, or sexually by anyoneno Do you feel UNSAFE going back to the place where you are livingno Clinical assessment: Are there any apparent signs of injuries/behaviors that could be related to abuse/neglectno Social Service Consult for abuse/neglect needed this visitno Functional Screen: Functional Screen: In the recent/past 2-4 weeks, patient or family have noticedno issues that require a speech/language consult at this time AM-PAC- Basic Mobility/Daily Activity: Patient baseline bedboundno Turning from your back to your side while in a flat bed without using bedrailsnone Moving from lying on your back to sitting on the side of a flat bed without using bedrailsnone Moving to and from bed to chair (including a wheelchair)none Standing up from a chair using your arms (e.g. wheelchair or bedside chair) none To walk in hospital roomnone Climbing 3-5 steps with railingnone Basic Mobility - Total Score24 Learning Assessment (Patient): Patient is Able to be Assessed for Learningyes Factors Influencing Readiness to Learnnone Factors that Impact Ability to Learnnone Devices/Methods Used to Communicateglasses Learning Preferenceswritten material; verbal instruction; skill demonstration Cultural Considerationsnone Developmental Considerationsnone Faith Considerationsnone Learning Assessment (Other Learner): Other learner availableno Depression Screen: During the past month, have you often been bothered by feeling down, depressed or hopelessno During the past month, have you often had little interest or pleasure in doing thingsno Have you had any thoughts of harming anyone elseno (2) [place] Suicide: Risk Screen Not Applicable/Able to Answerable to be screened In the Past Month: Have you wished you were or could go to sleep and not wake upno(2) In the Past Month: Have you had any actual thoughts of killing yourself no(2) Lifetime: Have you ever done, started to do, or prepared to do anything to end your lifeno [place] Suicide Risknegative Adult Nutrition Screen: Have you recently lost weight without tryingno Have you been eating poorly because of a decreased appetiteno Malnutrition Screening Tool Score0 Malnutrition Screening Tool RiskMST = 0 or 1 Not at risk. Eating well with little or no weight loss Nutrition Consult needed this visitno Can Patient Participate in Room Serviceyes Patient requires Paper Dishes/Plastic Utensilsno Pain Screen: Pain Scalenumerical 0-10 Pain Scale Educationteaching provided Current Pain Level0 = None Acceptable Pain Level5 = Moderate Expression of Pain (nonverbal)anxious, guarding Chronic Painyes Chronic Lower Extremity pain locationleg cramping Spiritual Screen: Are there any cultural, spiritual, holiness practices/values/needs that are important for us to knowno CAGE: Is this an injured [place] a [place] Center [place] [place]/[place]/ [place] no (1) Vaccinations: Vaccination - Influenza Vaccination Screen: Is it flu season (between and December 27)No Vaccination - Pneumonia Vaccination Screen: Patient has received a previous pneumonia vaccine:no/unknown... Immunocompetent persons with underlying chronic conditions or reside in correction care facilitiesnone of these conditions Persons with Functional or Anatomic Asplenianone of these conditions Immunocompromised Personsnone of these conditions Pneu (more content not included)... Normal [facility] BASIC METABOLIC PANELon 05- Anion gap [Moles/Vol] 18 mmol/L Normal 10 - 20 [facility] Comment on above: Performed By: #### B MP #### [address] [address] Calcium [Mass/Vol] 10.3 mg/dL Normal 8.6 - 10.3 [facility] Comment on above: Performed By: #### B MP #### [address] [address] Chloride [Moles/Vol] 100 mmol/L Normal 98 - 107 [facility] Comment on above: Performed By: #### B MP #### [address] [address] Creatinine [Mass/Vol] 0.89 mg/dL Normal 0.50 - 1.05 [facility] Comment on above: Performed By: #### B MP #### [address] [address] GFR/1.73 sq M.predicted among non-blacks MDRD (S/P/Bld) [Vol rate/Area] 79 mL/min/{1.73_m2} Normal >90 [facility] Comment on above: Result Comment: CALC ULATIONS OF ESTIMATED GFR ARE PERFORMED USING THE 2020 CKD-EPI STUDY REFIT EQUATION WITHOUT THE RACE VARIABLE FOR THE IDMS-TRACEABLE CREATININE METHODS. https://jasn.asnjournals.org/content//ASN.340044 8615 Performed By: #### B MP #### [place] [id number] Glucose [Mass/Vol] 150 mg/dL High 74 - 99 [facility] Comment on above: Performed By: #### B MP #### [place] [id number] HCO3 (Bld) [Moles/Vol] 22 mmol/L Normal 21 - 32 [facility] Comment on above: Performed By: #### B MP #### [place] [id number] Potassium [Moles/Vol] 3.8 mmol/L Normal 3.5 - 5.3 [facility] Comment on above: Performed By: #### B MP #### [place] [id number] Sodium [Moles/Vol] 136 mmol/L Normal 136 - 145 [facility] Comment on above: Performed By: #### B MP #### [place] [id number] Urea nitrogen [Mass/Vol] 23 mg/dL Normal 6 - 23 [facility] Comment on above: Performed By: #### B MP #### [place] [id number] CBC AND DIFFERENTIALon 02-06 % AUTOMATED IMMATURE GRAN 0.2 % Normal 0.0 - 0.9 [facility] Comment on above: Result Comment: [place] ture Granulocyte Count (IG) includes promyelocytes, myelocytes and metamyelocytes but does not include bands. Percent differential counts (%) should be interpreted in the context of the absolute cell counts (cells/L). Performed By: #### C BCDF ####[place] [id number] Basophils (Bld) [#/Vol] 0.01 10*3/uL Normal 0.00 - 0.10 [facility] Comment on above: Performed By: #### C BCDF ####[address] [address] Basophils/100 WBC (Bld) 0.1 % Normal 0.0 - 2.0 [facility] Comment on above: Performed By: #### C BCDF ####[address] [address] Eosinophils (Bld) [#/Vol] 0.05 10*3/uL Normal 0.00 - 0.70 [facility] Comment on above: Performed By: #### C BCDF ####[address] [address] Eosinophils/100 WBC (Bld) 0.4 % Normal 0.0 - 6.0 [facility] Comment on above: Performed By: #### C BCDF ####[address] [address] Erythrocyte distribution width (RBC) [Ratio] 13.7 % Normal 11.5 - 14.5 [facility] Comment on above: Performed By: #### C BCDF ####[address] [address] Hematocrit (Bld) [Volume fraction] 41.5 % Normal 36.0 - 46.0 [facility] Comment on above: Performed By: #### C BCDF ####[address] [address] Hemoglobin (Bld) [Mass/Vol] 13.6 g/dL Normal 12.0 - 16.0 [facility] Comment on above: Performed By: #### C BCDF ####[address] [address] Lymphocytes (Bld) [#/Vol] 3.67 10*3/uL Normal 1.20 - 4.80 [facility] Comment on above: Performed By: #### C BCDF ####[address] [address] Lymphocytes/100 WBC (Bld) 28.5 % Normal 13.0 - 44.0 [facility] Comment on above: Performed By: #### C BCDF ####[address] [address] MCHC (RBC) [Mass/Vol] 32.8 g/dL Normal 32.0 - 36.0 [facility] Comment on above: Performed By: #### C BCDF ####[address] [address] MCV (RBC) [Entitic vol] 86 fL Normal 80 - 100 [facility] Comment on above: Performed By: #### C BCDF ####[address] [address] Monocytes (Bld) [#/Vol] 0.71 10*3/uL Normal 0.10 - 1.00 [facility] Comment on above: Performed By: #### C BCDF ####[address] [address] Monocytes/100 WBC (Bld) 5.5 % Normal 2.0 - 10.0 [facility] Comment on above: Performed By: #### C BCDF ####[address] [address] Neutrophils (Bld) [#/Vol] 8.40 10*3/uL High 1.20 - 7.70 [facility] Comment on above: Result Comment: Perc ent differential counts (%) should be interpreted in the context of the absolute cell counts (cells/L). Performed By: #### C BCDF ####[address] [address] Neutrophils/100 WBC (Bld) 65.3 % Normal 40.0 - 80.0 [facility] Comment on above: Performed By: #### C BCDF ####[address] [address] Platelets (Bld) [#/Vol] 254 10*3/uL Normal 150 - 450 [facility] Comment on above: Performed By: #### C BCDF ####[address] [address] RBC 4.81 x10E12/L Normal 4.00 - 5.20 [facility] Comment on above: Performed By: #### C BCDF ####[place] [address] [place] [address] WBC (Bld) [#/Vol] 12.9 10*3/uL High 4.4 - 11.3 [facility] Comment on above: Performed By: #### C BCDF ####[place] [address] [place] [address] CHEST, ABDOMEN RADIOGRAPH FO R OG/NG PLACEMENTon 02-06-2023 CHEST, ABDOMEN RADIOGRAPH FOR OG/NG PLACEMENT Patient Name: CHRSITINE OAKES STUDY: CHEST, ABDOMEN RADIOGRAPH FOR OG/NG PLACEMENT; 02/06/2023 4:43 am INDICATION: ng placement . COMPARISON: CT scan of the abdomen pelvis 02/06/2023. ACCESSION NUMBER(S): [id number] ORDERING CLINICIAN: STORM ANG FINDINGS: Enteric tube terminates in the left upper quadrant with side hole below the GE junction. The right lateral abdomen and pelvis are excluded from the field of view limiting evaluation. Fluid-filled dilated loops of bowel seen on CT are suboptimally visualized by plain radiography. Contrast within the collecting system likely relates to prior CT. Visualized lungs are clear. Dextroconvex scoliosis. IMPRESSION: 1. Enteric tube terminates in the left upper quadrant with side hole just below the GE junction. 2. Fluid-filled dilated loops of bowel seen on CT are suboptimally visualized by plain radiography. Please refer to separate report of CT for additional detail. Electronically signed by: MINNIE HART MD [facility] CT ABDOMEN AND PELVIS W IV C ONTRASTon 02-06-2023 CT ABDOMEN AND PELVIS W IV CONTRAST Patient Name: CHRISTINE OAKES STUDY: CT ABDOMEN AND PELVIS W IV CONTRAST; 02/06/2023 1:44 am INDICATION: abd pain . COMPARISON: CT abdomen pelvis 02/21/2015 ACCESSION NUMBER(S): [id number] ORDERING CLINICIAN: STORM ANG TECHNIQUE: Axial CT images of the abdomen and pelvis with coronal and sagittal reconstructed images obtained after intravenous administration of 90 mL Omnipaque 350 FINDINGS: LOWER CHEST: No acute abnormality of the lung bases. ABDOMEN: LIVER: Subcentimeter hypodensity in the right hepatic lobe is too small to characterize. Otherwise, the liver demonstrates a normal attenuation and contour. BILE DUCTS: Normal caliber. GALLBLADDER: No calcified gallstones. No wall thickening. PORTAL VEIN: Patent SPLEEN: Unremarkable. PANCREAS: Unremarkable. ADRENALS: Unremarkable. KIDNEYS, URETERS and URINARY BLADDER: Symmetric renal enhancement. No hydronephrosis or perinephric fluid collection. 4 mm nonobstructing stone in the lower aspect of the right kidney. Bladder is within normal limits REPRODUCTIVE ORGANS: No pelvic masses. ABDOMINAL WALL: Within normal limits. PERITONEUM: Small volume ascites. No free air. BOWEL: The stomach is distended with fluid. No gastric wall thickening. There are dilated loops of proximal and mid small bowel with adjacent inflammatory stranding and transition point in the mid abdomen. The distal small bowel is decompressed. The colon is decompressed. There are scattered colonic diverticula. Prominence of submucosal fat throughout the colon. Nondilated appendix. VESSELS: No aortic aneurysm. RETROPERITONEUM: No pathologically enlarged retroperitoneal lymph nodes. BONES: No acute osseous abnormality. IMPRESSION: The stomach is distended with fluid along with dilated loops of proximal and mid small bowel throughout the abdomen. There is inflammatory stranding surrounding loops of small bowel with a transition point in the mid abdomen. Findings are compatible with small bowel obstruction. Scattered colonic diverticulosis. No CT evidence of acute diverticulitis. Prominence of submucosal fat throughout the colon which may be seen with chronic inflammatory processes. 4 mm nonobstructing stone in the lower aspect of the right kidney. Electronically signed by: JADYN CARBALLO MD [facility] Consult-Surgeryon 02-06-2023 Consult-Surgery Service: Service: Surgery Consult: Consult requested by (Attending Name): Storm Ang Reason: SBO History of Present Illness: Admission Reason: SBO HPI: CHRISTINE OAKES is a 52yo female who presents to the emergency department with abdominal pain. Pain began 2 days ago. Pain is crampy and wavelike in nature. She has had similar episodes of pain in the past, but nothing severe or lasting long enough to require medical attention. She had associated nausea and last night began vomiting. She has not passed flatus since onset of pain. However, she did have a bowel movement yesterday evening. She has never had a colonoscopy. She has no family history of GI malignancy. Her previous abdominal surgery is limited to a section in 1998. In the ED, labs were relatively normal but CT scan showed small bowel obstruction. Nasogastric tube was placed with 1 L output thus far. Review Family/Social History and ROS: Review Family/Social History and ROS: Medical history: Diabetes, on metformin Arthritis Obesity with BMI 36 Plantar's fasciitis Surgical history: section Family History: No family history of GI malignancy. Social History: Non-smoker (quit over a decade ago). No alcohol or drug use. 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 . ROS: Constitutional: +chills yesterday Cardiovascular: No chest pain Respiratory: No cough or shortness of breath Gastrointestinal: +abdominal pain, nausea, vomiting, obstipation Genitourinary: no dysuria Musculoskeletal: +back pain, knee pain Integumentary: no rashes Neurological: no confusion Endocrine: no heat or cold intolerance Heme/Lymph: no easy bruising or bleeding Allergies: penicillin: Unknown Objective: Physical Exam by System: Constitutional: No acute distress, converses pleasantly Eyes: Pupils equal, round Respiratory/Thorax: No labored breathing, on room air Cardiovascular: NSR Gastrointestinal: Soft, difficult to tell if distended as she is obese but not tympanic, moderately tender to palpation throughout, Pfannenstiel scar consistent with previous , no other surgical scars, NGT in place to low wall suction with thick light brown output (1L thus far) Extremities: No peripheral edema Neurological: Alert, oriented x3 Psychological: Normal affect Skin: Warm, dry Recent Lab Results: Results: I have reviewed these laboratory results: Lactate, Level 05-Feb-2023 23:41:00 ResultValue Lactate, Level 1.0 Complete Blood Count + Differential 05-Feb-2023 22:18:00 ResultValue White Blood Cell Count 12.9 H Red Blood Cell Count 4.81 HGB 13.6 HCT 41.5 MCV 86 MCHC 32.8 PLT 254 RDW-CV 13.7 Neutrophil % 65.3 Immature Granulocytes % 0.2 Lymphocyte % 28.5 Monocyte % 5.5 Eosinophil % 0.4 Basophil % 0.1 Neutrophil Count 8.40 H Lymphocyte Count 3.67 Monocyte Count 0.71 Eosinophil Count 0.05 Basophil Count 0.01 Basic Metabolic Panel 05-Feb-2023 22:18:00 ResultValue Glucose, Serum 150 H NA 136 K 3.8 CL 100 Bicarbonate, Serum 22 Anion Gap, Serum 18 BUN 23 CREAT 0.89 GFR Female 79 Calcium, Serum 10.3 Radiology Results: Results: I have reviewed this radiology result: Impression: Enteric tube terminates in the left upper quadrant with side hole just below the GE junction. Xray Abdomen AP View [Feb 06 2023 5:05AM] Impression: The stomach is distended with fluid along with dilated loops of proximal and mid small bowel throughout the abdomen. There is inflammatory stranding surrounding loops of small bowel with a transition point in the mid abdomen. Findings are compatible with small bowel obstruction. Scattered colonic diverticulosis. No CT evidence of acute diverticulitis. Prominence of submucosal fat throughout the colon which may be seen with chronic inflammatory processes. 4 mm non-obstructing stone in the lower aspect of the right kidney. CT Abdomen and Pelvis with IV Contrast [Feb 06 2023 2:18AM] Assessment: Ms. Oakes is a 52-year-old female with small bowel obstruction. Reviewing her scan, it looks as though the transition is in an area of inflamed small bowel. I think it is less likely that this is adhesive in nature. I recommend keeping her NPO with NGT decompression and electrolyte optimization. I suspect that this will unlikely require surgery. Would defer management of the underlying suspected inflammatory etiology of this to hospitalist service. Electronic Signatures: Arielle Barton) (Signed 06-Feb-2023 06:56) Authored: Service, History of Present Illness, Review Family/Social History and ROS, Allergies, Objective, Assessment/Recommendation s, Note Completion Last Updated: 06-Feb-2023 06:56 by Arielle Barton) [facility] Discharge Planning [id number] 0 02-06-2023 Discharge Planning Note2 Discharge Planning: Needs Prior to Discharge (ex. Home Care Orders, IV/O2 prescriptions) none Discharge Barriersnone Planned Dispositionhome Discharge Destinationhome [facility] PCP/Next Provider Follow Up Scheduledyes Elizabeth of Choice Explainedyes Anticipated Discharge [id number] Discharge Planning 02-06-23, 0, Care Transitions/TCC Note: Spoke with patient and verified contact information and insurance. Explained Care Transitions and Nurse Busgirl role to navigate patient through the discharge planning process and help with any discharge needs. Patient in agreement. Patient lives in home with her spouse. She is independent in all her care, personal and she drives. She does not use any assistive devices and denies any falls. She has diabetes and takes medication for it. She denies any home 02, cpap, or dialysis. She has SBO and has NG tube in. Her nursing ampac score is 24/24. She declines all formal services when she is discharged to home. CT to follow. Charo Ospina RN, BSN /TCC 02-07-23, 0910, TCC Note: Spoke with patient this am. Says she was up ambulating in hallway today and continues to decline services. CT to follow. Charo Ospina RN, BSN /TCC 02/08/23 1205- Care Transition Note: Met with pt in room, role of TCC explained. Pt confirms her plan is home and she is without needs. NG removed, pt on clear liquid diet, to d/c tomorrow if tolerates diet. AMPAC per nursing is 24. Plan to d/c home with no other anticipated needs. CT will follow. Angella Short RN- TCC Assessment: Discharge Planning Assessment [id number] Discharge Planning Assessment Completed byCharo Ospina RN, BSN /TCC Primary Contact Name and NumberCrescencio Oakes, spouse, Prior Level of Functioningindependent Lives Withspouse(1) Living Arrangementshouse(1) Stated Reason for AdmissionSBO(1) Arrived Fromemergency department (1) PCPrEica Oliver [facility] Recent Falls/ Injury/ Need Assist with Ambulationdenies DME Supplier Name/Numbernone Home Care Agency/Support Servicesnone Diabetic/Supplies Needednone Hemodialysis Schedulenone Resource/Environmental Concernsnone(1) [facility] Services Anticipated at Transitionnone(1) PCP Last Date Seen1 month ago Insurance[place] Anticipated Changes Related to Illnessnone Equipment Needed After Dischargenone Anticipated Discharge Facility/Level of Care Needs.Home Medication Adherence/Afford/Obtainye s O2 LPMnone Home O2 Suppliernone Electronic Signatures: Angella Short (RN) (Signed 08-Feb-2023 12:42) Authored: Discharge Planning Karli Ospina (COOR) (Signed 07-Feb-2023 09:23) Authored: Discharge Planning, Assessment Last Updated: 08-Feb-2023 12:42 by Angella Short (RN) References: 1. Data Referenced From Patient Profile - Adult v2 06-Feb-2023 14:42 Normal [facility] GLUCOSE-POCTon 02-06-2023 Glucose [Mass/Vol] 98 mg/dL Normal 74 - 99 [facility] Comment on above: Performed By: #### B MP #### [place] [address] HEPATIC FUNCTION PANELon Albumin [Mass/Vol] 4.6 g/dL Normal 3.4 - 5.0 formerly [facility] Comment on above: Performed By: #### L IPAS #### [place] [id number] ALP [Catalytic activity/Vol] 79 U/L Normal 33 - 110 [facility] Comment on above: Performed By: #### L IPAS #### [address] [address] ALT [Catalytic activity/Vol] 26 U/L Normal 7 - 45 [facility] Comment on above: Result Comment: Sandra ents treated with Sulfasalazine may generate falsely decreased results for ALT. Performed By: #### L IPAS #### [place] [address] AST [Catalytic activity/Vol] 18 U/L Normal 9 - 39 [facility] Comment on above: Performed By: #### L IPAS #### [address] [address] Bilirubin [Mass/Vol] 0.7 mg/dL Normal 0.0 - 1.2 [facility] Comment on above: Performed By: #### L IPAS #### [address] [address] Bilirubin.indirect [Mass/Vol] 0.1 mg/dL Normal 0.0 - 0.3 [facility] Comment on above: Performed By: #### L IPAS #### [address] [address] Protein [Mass/Vol] 7.8 g/dL Normal 6.4 - 8.2 [facility] Comment on above: Performed By: #### L IPAS #### [address] [address] LACTATEon 02-06-2023 Lactate [Moles/Vol] 1.0 mmol/L Normal 0.4 - 2.0 [facility] Comment on above: Result Comment: Shireen puncture immediately after or during the administration of Metamizole may lead to falsely low results. Testing should be performed immediately prior to Metamizole dosing. Performed By: #### L ACT #### [address] [address] Lactate [Moles/Vol] 2.6 mmol/L High 0.4 - 2.0 [facility] Comment on above: Result Comment: Shireen puncture immediately after or during the administration of Metamizole may lead to falsely low results. Testing should be performed immediately prior to Metamizole dosing. Performed By: #### B MP #### [place] [id number] LIPASEon 02-06-2023 Lipase [Catalytic activity/Vol] 26 U/L Normal 9 - 82 [facility] Comment on above: Result Comment: Shireen puncture immediately after or during the administration of Metamizole may lead to falsely low results. Testing should be performed immediately prior to Metamizole dosing. S-ikvmod-c-benzoquinone imine (metabolite of Acetaminophen) will generate erroneously low results in samples for patients that have taken toxic doses of acetaminophen. Performed By: #### L IPAS #### [place] [id number] Order Reconciliationon 02-06 Order Reconciliation Page 1 Admission Reconciliation Document Reconciliation Type: Admission requested on behalf of Samir Davis (Physician) done by Samir Davis) Admission - Reconciliation: 06-Feb-2023 05:56 by: Samir Davis) Home MedicationsEnteredLast Dose TakenReconciled with current Order Reconciliation Comment/ Additional Information atorvastatin 10 mg oral tablet 1 tab(s) orally once a [id number] Atorvastatin Tablet (LIPITOR)DOSE = 10 mg Oral Dailyatorvastatin 10 mg oral tablet continued as the inpatient order Atorvastatin escitalopram 20 mg oral tablet 1 tab(s) orally once a [id number] Escitalopram Tablet (LEXAPRO)DOSE = 20 mg Oral Dailyescitalopram 20 mg oral tablet continued as the inpatient order Escitalopram lisinopril 10 mg oral tablet 1 tab(s) orally once a [id number] Lisinopril Tablet (PRINIVIL, ZESTRIL)DOSE = 10 mg Oral Dailylisinopril 10 mg oral tablet continued as the inpatient order Lisinopril meloxicam 15 mg oral tablet 1 tab(s) orally once a [id number] Reviewed and Held metFORMIN 500 mg oral tablet 1 tab(s) orally once a [id number] metFORMIN (GLUCOPHAGE) - PEDS TabletDOSE = 500 mg Oral DailyCa mg/DOSE x 1 = 500 mg/Dose (Daily Total is 500 mg)metFORMIN 500 mg oral tablet continued as the inpatient order metFORMIN (GLUCOPHAGE) - PEDS omeprazole 40 mg oral delayed release capsule 1 cap(s) orally once a day 06-Feb-2023 Pantoprazole Enteric Coated Tablet (PROTONIX)DOSE = 40 mg Oral Dailyomeprazole 40 mg oral delayed release capsule continued as the inpatient order Pantoprazole Normal [facility] Patient Profile - Adult v2on 02-06-2023 Patient Profile - Adult v2 Profile: Initial Info: How to be Addressedkelly Spoken Language PreferredEnglish (1) Stated Reason for AdmissionSBO Wants Family/Rep Notified of Admissionyes, primary contact Notify PCPnotify PCP Informed of Patient Visiting Rightsyes Arrived Fromemergency department Patient Belongingsremains with patient Patient Belongings Remaining with Patientclothing; phone central office equipment installer, blanket Medications Brought to Hospitalno General Health: Weight in kg104.4 kilogram(s)(2) Weight in cdl285.1 pound(s) Weight Methodactual (measured) (2) Scale Typebed (2) Height in cm172.6 centimeter(s)(2) Height in feet5 feet Height in inches7.99 inch(es) Height Methodstated BMI (kg/m2)35.044 square meter RSP Based Care: How would you like to participate in your careto be kept informed What is the number one concern for you during this hospitalizationGetting infection resolved so NG tube can come out and have a BM What is the most important thing we can do to support you during this hospitalizationJust keep me comfortable Is there anything we need to know to best care for youno Substance: Smoking Statusnever smoker (3) Alcohol Usedenies(3) Drug Usedenies (3) Health Mgmt: Symptoms/Conditions Managed at Homeendocrine; cardiovascular; RA Are You no (3) Are You Currently Breastfeedingno (3) Cardiovascular Symptoms/Conditionshypert ension Cardiovascular Management Strategiesmedication therapy Cardiovascular Managementmanaged Endocrine Symptoms/Conditionsdiabet es Endocrine Management Strategiesmedication therapy Endocrine Managementmanaged Relationship/Environ: Resource/Environmental Concernsnone Primary Source of Support/Comfortspouse Lives Withspouse Living Arrangementshouse Services Anticipated at Transitionnone Anticipated Transition [place] Significant IndicatorsComplete Information Review: Allergies, Home Meds and Significant Events have been Reviewed and Verified with Patient/Familyyes ALLERGY, INTOLERANCE, ADVERSE EVENT: Allergies: penicillin: Drug, Unknown, Active Electronic Signatures: Donavan Rizo (JIMENA) (Signed 06-Feb-2023 14:46) Authored: Initial Info, General Health, RSP Based Care, Substance, Health Mgmt, Relationship/Environ, Additional Information Last Updated: 06-Feb-2023 14:46 by Donavan Rizo (JIMENA) References: 1. Data Referenced From Triage - ED 05-Feb-2023 22:04 2. Data Referenced From 1. Vital Signs 06-Feb-2023 12:55 3. Data Referenced From History and Physical 06-Feb-2023 05:57 Normal [facility] Provider Note - ED v3on 05-1 Provider Note - ED v3 Provider Note: Chart Review: ED NOTES ED NOTES: HPI: Is a 52-year-old female presents with a chief complaint of epigastric pain into her back associated with nausea vomiting. Symptoms started last night but did not have any emesis until this evening. 2 episodes at home prior to arrival. Very nauseous on evaluation. Does report a history of GERD and takes omeprazole. Stated had a similar occurrence this past November. No fevers or chills. No anterior chest pain or radiating symptoms to the extremity neck or jaw. No difficulty breathing. ROS: All systems are negative other than as noted in HPI. Physical Exam Constitutional: Well developed, No acute distress EYES: Sclera non-icteric. Conjunctiva not injected. No discharge. HENT: Moist mucous membranes. Posterior oropharynx non-erythematous, no tonsillar exudates. TMs clear bilaterally, canals normal. No cervical LAD. Neck supple without meningismus. CV: Regular rate and rhythm, Resp: No respiratory distress. Lungs clear bilaterally. GI: Normoactive bowel sounds. Soft, epigastric tenderness, no masses or organomegaly appreciated. :. MSK: No gross deformities appreciated. Moves all extremities Neuro: Alert, age appropriate. Normal muscle tone. Moving all extremities. Skin: No rashes. HISTORY OF PRESENTING ILLNESS CHRISTINE is a 52 year old Female and was seen by me at 05-Feb-2023 21:52. Triage Information: Most recent Vital Sign Value Date Temp (F): 98 02-05-2023 22:04 Temp (C): 36.6 02-05-2023 22:04 Heart Rate (beats/min): 84 02-05-2023 22:04 Respirations (breaths/min): 20 02-05-2023 22:04 SpO2 (%): 100 02-05-2023 22:04 BP Systolic (mm Hg): 133 02-05-2023 22:04 BP Diastolic (mm Hg): 95 02-05-2023 22:04 PAST MEDICAL HISTORY ALLERGIES/INTOLERANCES: Allergy Allergen: penicillin Type: Drug Reaction: Unknown HEALTH HISTORY: No documented data. OUTPATIENT MEDICATIONS: Home Medications Review Status for Reconciliation: Incomplete Med Status: Incomplete Medication History No documented data. SIGNIFICANT EVENTS: Past Medical History Description:Diabetes Description:KIDNEY STONES CRITICAL CARE RESULTS: Recent Lab Results: I have reviewed these laboratory results: Lactate, Level Trending View [id number] 23:41:00 05-Feb-2023 22:18:00 Lactate, Level1.0 2.6 H Urinalysis with Culture if Indicated 05-Feb-2023 23:01:00 ResultValue Color, Urine Harmony Reference Range: STRAW,YELLOW Appearance, Urine HAZY Specific Randolph, Urine 1.040 H pH, Urine 5.0 Protein, Urine 100(2+) A Glucose, Urine NEGATIVE Blood, Urine NEGATIVE Ketones, Urine 80(2+) A Bilirubin, Urine NEGATIVE Urobilinogen, Urine 2.0 H Nitrite, Urine Negative Leukocyte Esterase, Urine NEGATIVE Urinalysis, Microscopic 05-Feb-2023 23:01:00 ResultValue White Cells 14 A Red Blood Cells 7 A Epithelial Cells, Squamous 16 Bacteria, Urine 1+ A Mucous 4+ Calcium Oxalate Crystals 4+ A Hepatic Function Panel 05-Feb-2023 22:18:00 ResultValue Aspartate Transaminase, Serum 18 ALB 4.6 T Bili 0.7 Bilirubin, Serum Direct - Conjugated 0.1 ALKP 79 Alanine Aminotransferase, Serum 26 T Pro 7.8 Complete Blood Count + Differential 05-Feb-2023 22:18:00 ResultValue White Blood Cell Count 12.9 H Red Blood Cell Count 4.81 HGB 13.6 HCT 41.5 MCV 86 MCHC 32.8 PLT 254 RDW-CV 13.7 Neutrophil % 65.3 Immature Granulocytes % 0.2 Lymphocyte % 28.5 Monocyte % 5.5 Eosinophil % 0.4 Basophil % 0.1 Neutrophil Count 8.40 H Lymphocyte Count 3.67 Monocyte Count 0.71 Eosinophil Count 0.05 Basophil Count 0.01 Basic Metabolic Panel 05-Feb-2023 22:18:00 ResultValue Glucose, Serum 150 H NA 136 K 3.8 CL 100 Bicarbonate, Serum 22 Anion Gap, Serum 18 BUN 23 CREAT 0.89 GFR Female 79 Calcium, Serum 10.3 Lipase, Serum 05-Feb-2023 22:18:00 ResultValue Lipase, Serum 26 Troponin I, High Sensitivity 05-Feb-2023 22:18:00 ResultValue Troponin I, High Sensitivity 3 Radiology Results: Impression: The stomach is distended with fluid along with dilated loops of proximal and mid small bowel throughout the abdomen. There is inflammatory stranding surrounding loops of small bowel with a transition point in the mid abdomen. Findings are compatible with small bowel obstruction. Scattered colonic diverticulosis. No CT evidence of acute diverticulitis. Prominenceof submucosal fat throughout the colon which may be seen with chronic inflammatory processes. 4 mm nonobstructing stone in the lower aspect of the right kidney. CT Abdomen and Pelvis with IV Contrast [Feb 06 2023 2:18AM] VITAL SIGNS: T PRBP SpO2O2(LPM) %FiO2 Method 06-Feb-2023 01:15:00-7519761/74 98 room air, no respiratory support 05-Feb-2023 22:54:00-5102661/88 97 room air, no respiratory support 05-Feb-2023 22:04:[id number]/95 100 room air, no re (more content not included)... Normal [facility] Risk Screen - Adult Emergenc yon 02-06-2023 Risk Screen - Adult Emergency Preferred Language: Preferred Language: Preferred Language for Discussing Health Care (patient/designee)Polish Patient Preferred Pharmacy: Patient Preferred Pharmacy Statement: I have reviewed and updated the patient's preferred pharmacy selection for today's visit. Advanced Directives: Advance Directive/DNRno Family Violence Adult: Abuse Screen: Are you or have you been threatened or abused physically, emotionally, or sexually by anyoneno Learning Assessment (Patient): Learning Assessment (Patient): Patient is Able to be Assessed for Learningyes Factors Influencing Readiness to Learnacuteness of illness; pain Factors that Impact Ability to Learnnone Devices/Methods Used to Communicatenone Learning Preferencesverbal instruction Cultural Considerationsnone Developmental Considerationsnone Faith Considerationsnone Learning Assessment (Other Learner): Learning Assessment (Other Learner): Other learner availableno Pressure Injury/TB/Substance: Pressure Injury: Do you have a coughno Smoking Statusnever smoker Alcohol Usedenies Drug Usedenies Admission Risk Screen: Significant IndicatorsComplete CAGE: CAGE: Is this an injured patient at a [place] Center [place] [place]/[place]/ [place]): no Electronic Signatures: Renuka Whipple (JIMENA PRN) (Signed 05-Feb-2023 22:27) Authored: Preferred Language, Patient Preferred Pharmacy, Advanced Directives, Family Violence Adult, Learning Assessment (Patient), Learning Assessment (Other Learner), Pressure Injury/TB/Substance, Pressure Injury, CAGE Last Updated: 05-Feb-2023 22:27 by Renuka Whipple (RN PRN) Normal [facility] TROPONIN I, HIGH SENSITIVITY on 02-06-2023 TROPONIN I, HIGH SENSITIVITY 3 ng/L Normal 0 - 13 [facility] Comment on above: Result Comment: . Less than 99th percentile of normal range cutoff- Female and children under 18 years old <14 ng/L; Male <21 ng/L: Negative Repeat testing should be performed if clinically indicated. . Female and children under 18 years old 14-50 ng/L; Male 21-50 ng/L: Consistent with possible cardiac damage and possible increased clinical risk. Serial measurements may help to assess extent of myocardial damage. . >50 ng/L: Consistent with cardiac damage, increased clinical risk and myocardial infarction. Serial measurements may help assess extent of myocardial damage. . NOTE: Children less than 1 year old may have higher baseline troponin levels and results should be interpreted in conjunction with the overall clinical context. . NOTE: Troponin I testing is performed using a different testing methodology at [facility] than at other [facility]. Direct result comparisons should only be made within the same method. Performed By: #### B #### [facility] [address] [place] [address] Triage - EDon 02-06-2023 Triage - ED Quick Triage: Are You no Have You Given In The Last 6 Weeksno Are You Currently Breastfeedingno The patient and/or guardian verbally acknowledges placement for services into the following (when Urgent Care Service hours are operating):emergency department Chart Review: PRIMARY ASSESSMENT CHRISTINE Joon DULL's primary assessment is Within Defined Limits. The airway is open and patent. Breathing spontaneous and unlabored with clear breath sounds bilaterally. Circulation is normal with good peripheral pulses. Skin is warm and dry and color is normal for race. ARRIVAL INFORMATION Means of Arrival: wheelchair Mode of Arrival: private vehicle Arrival From: home Accompanied By: self and spouse/significant other Language: Spoken Language Preferred: Polish Reading Language Preferred: Polish Funding Analyst Requested: no parts interpreter was requested MDRO: History of MDRO: no Present on Arrival: Device Present on Arrival to ED: no CHIEF COMPLAINT CHRISTINE Joon SCOTTL is a Female patient with a chief complaint of abdominal pain (PT TO ED WITH C/O UPPER ABD PAIN THAT GOES INTO THE BACK SINCE LAST NIGHT, WITH N/V TODAY. NO FEVERS. NO URINARY SYMPTOMS.). Triage Date/Time: 05-Feb-2023 21:46 JUDE: 3 Pain Rating (0-10): 8 = Severe Pain location: ABD AND UPPER BACK Vital Signs: Temperature: 98.0F ( 36.6C) taken temporal Blood Pressure: 133/95 Mean: Heart Rate: 84 Respiratory Rate: 20 Pulse Oximetry: 100% on room air, no respiratory support. Height: 5 feet 8.00 inches. 172.7 CM Weight: 227.9 pounds. Calculated 103.4 kg. (scale measurement) Calculated BMI (kg/m2): 34.668 Calculated BSA (m2) 2.23 Dwight Coma Scale: Best Eye Response: (E4) spontaneous Best Motor Response: (M6) obeys commands Best Verbal Response: (V5) oriented Guille Score: 15 Cough lasting greater than 3 weeks: no Patient immunocompromised related to: N/A Allergies: yes Last menstrual period: 03-Feb-2023 Patient has homicidal thoughts: no Symptoms Are POSITIVE For: nausea and vomiting. Symptoms Are Negative For: anorexia, constipation, diaphoresis, diarrhea, distention, fever and rectal blood. Risk Screens Suicide Risk Screen In the Past Month: Have you wished you were or wished you could go to sleep and not wake up no In the Past Month: Have you had any actual thoughts of killing yourself no In Your Lifetime: Have you ever done anything, started to do anything, or prepared to do anything to end your life no Patterson Fall Scale Screening Has the patient fallen before (or is the patient in the ED as a result of a fall) has not had a fall Does the patient have an impaired gait does not have impaired gait Is the patient cognitively impaired not cognitively impaired Interventions: Patterson Fall Interventions: LOW INTERVENTIONS: *patient oriented to surroundings and call system, * patient/family falls education completed and documented, *patients fall status communicated during bedside handoff, *whiteboard updated, *mode of toileting discussed with patient, *bed in low position with brakes locked, *call light in reach, * non-skid footwear PAST MEDICAL HISTORY Immunization History: Last Known Tetanus Immunization: Unknown TRAVEL HISTORY Travel History Coronavirus Screening: positive for symptoms Travel Exposure History: NO travel to International locations in the past 30 days PAIN Pain Scale Used: GAURANG Pain Rating (0-10): 8 = Severe Past Medical History: Past Medical History Reviewedyes KIDNEY STONES: Past Medical History, Active Diabetes: Past Medical History, Active Electronic Signatures: Renuka Whipple (RN PRN) (Signed 06-Feb-2023 07:01) Authored: Quick Triage, Chart Review Myrna Castro) (Signed 05-Feb-2023 22:08) Entered: Risk Screens, Pain, Arrival, ABCD, Immunizations, Travel History, Chart Review, Scores, Past Medical History Authored: Quick Triage, Risk Screens, Pain, Arrival, ABCD, Immunizations, Travel History, Chart Review, Scores, Past Medical History Last Updated: 06-Feb-2023 07:01 by Renuka Whipple (RN PRN) Normal [facility] UA MICROSCOPICon 02-06-2023 BACTERIA 1+ /HPF Abnormal [facility] Comment on above: Performed By: #### U AMIC ####[place] [address] CA OXALATE CRYSTAL 4+ /HPF Abnormal [facility] Comment on above: Performed By: #### U AMIC ####[place] [address] Mucus Ql (Urine sed) 4+ /LPF Normal [facility] Comment on above: Performed By: #### U AMIC ####[place] [address] RBC 7 /HPF Abnormal 0-5 [facility] Comment on above: Performed By: #### U AMIC ####[place] [address] SQUAMOUS EPITH. CELLS 16 /HPF Normal [facility] Comment on above: Performed By: #### [place] ####[place] [address] WBC 14 /HPF Abnormal 0-5 [facility] Comment on above: Performed By: #### U AMIC ####[place] [address] URINALYSIS WITH CULTURE IF I NDICATEDon 02-06-2023 Appearance (U) HAZY Normal CLEAR [facility] Comment on above: Performed By: #### U [place] ####[place] [address] Bilirubin Ql (U) Negative Normal NEGATIVE [facility] Comment on above: Performed By: #### [place] ####[place] [address] Color (U) Harmony Normal STRAW,YELLOW [facility] Comment on above: Performed By: #### [place] ####[place] [address] Glucose Ql (U) Negative Normal NEGATIVE [facility] Comment on above: Performed By: #### U [place]FX ####[place] [address] Hemoglobin Ql (U) Negative Normal NEGATIVE [facility] Comment on above: Performed By: #### U [place]FX ####[place] [address] Ketones Ql (U) 80(2+) Abnormal NEGATIVE [facility] Comment on above: Performed By: #### U ARFX ####[place] [id number] Leukocyte esterase Test strip Ql (U) Negative Normal NEGATIVE [facility] Comment on above: Performed By: #### [place] ####[place] [address] Nitrite Ql (U) Negative Normal NEGATIVE [facility] Comment on above: Performed By: #### U [place]FX ####[place] [address] pH (U) 5.0 [pH] Normal 5.0 - 8.0 [facility] Comment on above: Performed By: #### U [place] ####[place] [address] Protein Ql (U) 100(2+) Abnormal NEGATIVE [facility] Comment on above: Performed By: #### U ARFX ####[place] [address] Specific gravity (U) [Rel density] 1.040 High 1.005 - 1.035 [facility] Comment on above: Performed By: #### U ARFX ####[place] [id number] Urobilinogen (U) [Mass/Vol] 2.0 mg/dL High 0.0 - 1.9 [facility] Comment on above: Result Comment: Due to a manufacturing issue, low positive urobilinogen results may be falsely positive. Correlate with urine bilirubin and additional clinical/laboratory findings to assess the risk of hemolytic anemia or liver disease. If clinically indicated, repeat testing with an alternate method is available by contacting the laboratory within 24 hours. . Some pigments and medications may cause a false positive urobilinogen. Performed By: #### U ARFX ####[address] [address] URINE CULTURE,BACTERIALon URINE CULTURE,BACTERIAL PATIENT: CHRISTINE OAKES LOCATION: [address]#: [id number] : 74 AGE: SEX: F ORDERED BY: STORM ANG SOURCE: URINE COLLECTED: 02/05/23 23:01 ANTIBIOTICS AT [facility].: RECEIVED : 02/06/23 12:09 SITE: R E S U L T S URINE CULTURE,BACTERIAL FINAL 02/07/23 08:30 MIXED URETHRAL JOSE RAMON. Normal [facility] Comment on above: Performed By: #### L IPAS #### [address] [address] Established Visit (Orthopaed ic Surgery)on 01-16-2023 Established Visit (Orthopaedic Surgery) Diagnoses/Problems Assessed Rheumatoid arthritis of other site with negative rheumatoid factor (714.0) (M06.0A) Knee osteoarthritis (715.36) (M17.9) Orders Knee osteoarthritis Orthopedic Point of Care Ultrasound; Status:Complete - Retrospective Authorization; Done: 16Jan2023 12:00AM Radiologist to Determine Optimal Study : Y What are the patient's signs and symptoms? : PAIN L KNEE Patient Discussion/Summary Assessment: Right knee varus arthritis Plan: - Reviewed Xray findings with patient - Reviewed Ultrasound findings with patient - Voltaren Gel OTC information given, use as directed - PT/OT Script Given - NSAIDs [id number] - Bracing will defer for this visit but consider at a future visit - MRI will consider at a future visit - F/U 4 to 6 weeks Chief Complaint Patient is been seen today for right knee pain. OA varus arthritis. Onset 3 months Date of injury-no Pain- 10/08, 06/08 at night Pain Meds taken - Tylenol and Meloxicam Ice/Heat applied -heat Brace worn - OTC AND WEARS NEEDED Last Xray- today Last Injection - NONE History of Present Illness 52 yo with right knee pain. 01/13/23 xrays show varus OA changes. No acute trauma reported. Active Problems Problems Arthralgia (719.40) (M25.50) BMI 34.0-34.9,adult (V85.34) (Z68.34) Depression, major, single episode, mild (296.21) (F32.0) Encounter for immunization (V03.89) (Z23) Encounter for routine gynecological examination (V72.31) (Z01.419) Encounter for screening mammogram for malignant neoplasm of breast (V76.12) (Z12.31) Fatty liver (571.8) (K76.0) GERD (gastroesophageal reflux disease) (530.81) (K21.9) Hyperlipidemia (272.4) (E78.5) Knee osteoarthritis (715.36) (M17.9) Low back pain (724.2) (M54.50) Nocturnal hypoxemia (327.24) (G47.34) Obesity (278.00) (E66.9) Pain of right heel (729.5) (M79.671) Prehypertension (796.2) (R03.0) Rheumatoid arthritis of other site with negative rheumatoid factor (714.0) (M06.0A) Screening for breast cancer (V76.10) (Z12.39) Screening for cervical cancer (V76.2) (Z12.4) Screening for heart disease (V81.2) (Z13.6) Shortness of breath on exertion (786.05) (R06.02) Thyroid nodule (241.0) (E04.1) Type 2 diabetes mellitus with hyperglycemia, without long-term current use of insulin (250.00,790.29) (E11.65) Past Medical History Problems History of (V13.29) 01/31/1995-40 WEEKS, VAGINAL, MALE, #7 15oz 03/30/1999-40 WEEKS, ,FEMALE, #8 2oz History of Menarche (V21.8) 17 History of Women's annual routine gynecological examination (V72.31) (Z01.419) 09/2020 Surgical History Problems History of section History of Thyroid biopsy History of Tubal ligation Family History Mother Family history of diabetes mellitus (V18.0) (Z83.3) FHx: hypertension (V17.49) (Z82.49) Father Family history of hypertension (V17.49) (Z82.49) FH: ALS (amyotrophic lateral sclerosis) (V17.2) (Z82.0) Sister Family history of asthma (V17.5) (Z82.5) Family history of migraine headaches (V17.2) (Z82.0) Grandparent Family history of malignant neoplasm (V16.9) (Z80.9) Family history of thyroid disease (V18.19) (Z83.49) Social History Problems Daily caffeine consumption, 2-3 servings a day Former smoker (V15.82) (Z87.891) No advance directives (V49.89) (Z78.9) Occasional alcohol use Sexually active Allergies Medication Penicillins Recorded By: Keli Herman; 03/22/2020 2:10:20 PM Current Meds Medication NameInstruction Atorvastatin Calcium 10 MG Oral TabletTAKE 1 TABLET BY MOUTH EVERY DAY Escitalopram Oxalate 20 MG Oral TabletTAKE 1 TABLET BY MOUTH EVERY DAY Lisinopril 10 MG Oral TabletTAKE 1 TABLET BY MOUTH EVERY DAY Meloxicam 15 MG Oral TabletTAKE 1 TABLET BY MOUTH EVERY DAY metFORMIN HCl ER 500 MG Oral Tablet Extended Release 24 HourTAKE 1 TABLET BY MOUTH EVERY DAY Multi-Vitamins TABS3 gummy's daily Omeprazole 40 MG Oral Capsule Delayed ReleaseTAKE 1 CAPSULE BY MOUTH EVERY DAY IN THE MORNING Vitals Vital Signs Recorded: [id number] 10:32AM Jtzsmwdvamt42.2 F Rdvqpk348 lb 6 oz BMI Aptgncjvaz67.71 kg/m2 BSA Calculated2.16 Tobacco Useb) No Falls Screening (Age 18+)b) One or more falls in the last year Physical Exam Right knee Exam On examination is a otherwise healthy female in no acute distress. Examination of the knee reveals the following: Inspection: In the standing position, knee alignment is normal without any noticeable genu valgum or genu varum. There is no obvious muscle atrophy around the knee. Walking gait is antalgic In the supine position, there is no obvious leg length discrepancy, difference in alignment, deformity, erythema or ecchymoses. Palpation: No increase in warmth. mild swelling. Min tenderness to the lateral joint line. Mod tenderness to the medial joint line. Min pain with patellofemoral compression. Dorsalis pedis pulse is palpable with brisk capillar (more content not included)... Normal [facility] No Panel Informationon 01-16 Please click on the link to view the study images Normal [facility] 300 Work Phone: Tobacco Screening.on 023 Fall risk assessment b) One or more fall s in the last year [facility] 300 Work Phone: Tobacco use status CPHS b) No [facility] 300 Work Phone: KNEE 1 OR 2 VIEWSon 01-14-20 23 KNEE 1 OR 2 VIEWS Patient Name: CHRISTINE OAKES STUDY: KNEE; 1 OR 2 VIEWS; 01/13/2023 11:50 am INDICATION: Acute on chronic pain. COMPARISON: None ACCESSION NUMBER(S): [id number] ORDERING CLINICIAN: ERICA SANFORD FINDINGS: Two views right knee. Mild productive degenerative changes of the right knee medial compartment. Trace effusion. No fracture or dislocation. No osseous lesion. IMPRESSION: Mild right knee osteoarthrosis predominantly involving the medial compartment. Electronically signed by: BETTY LOPEZ MD [facility] Radiologyon 01-13-2023 XR Knee 1 or 2 Views Normal [facility] 300 Work Phone: CYCLIC CITRULLINATED PEPTIDE AB IGGon 11-28-2022 Cyclic Citrullinated Peptide Ab, IgG 4 Normal 0-19 [facility] Comment on above: Result Comment: INTE RPRETIVE INFORMATION: Cyclic Citrullinated Peptide Antibody, IgG 19 Units or less ................... Negative 20-39 Units ........................ Weak Positive 40-59 Units ........................ Moderate Positive 60 Units or greater ................ Strong Positive Anti-cyclic citrullinated peptide (anti-CCP), IgG antibodies are present in about 69-83 percent of patients with rheumatoid arthritis (RA) and have specificities of 93-95 percent. These autoantibodies may be present in the preclinical phase of disease, are associated with future RA development, and may predict radiographic joint destruction. Patients with weak positive results should be monitored and testing repeated. Performed By: [facility] [address] [place] [id number] Brick Loader: Bar Allen MD, PhD Performed By: #### 1 [id number] #### [facility] [address] [place] [address] Director Retail Brand Development: Clovis Perez MD RFon 11-28-2022 Rheumatoid Factor Negative Normal [facility] Comment on above: Result Comment: This test is a screen, if positive refer to quantitative test. Performed By: #### 1 [id number], [id number] #### [facility] [address] [address] Director Retail Brand Development: Clovis Perez MD ANAon 11-27-2022 Anti-Nuclear Antibody Negative Normal [facility] Comment on above: Result Comment: This test is a screen, if positive refer to the quantitative test. Performed using the [employer] HEp-2000? IgG Fluorescent POLO-Ro Test System. Performed By: #### 1 95802, [id number] #### [facility] [address] [address] Director Retail Brand Development: Clovis Perez MD CBCNDon 11-26-2022 Erythrocyte distribution width (RBC) [Ratio] 13.7 % Normal 11.5-14.5 [facility] Comment on above: Performed By: #### 1 28075, [id number], [id number] #### [facility] [address] [place] [address] Director Retail Brand Development: Clovis Perez MD Hematocrit (Bld) [Volume fraction] 37.7 % Normal 36.0-46.0 [facility] Comment on above: Performed By: #### 1 62261, [id number], [id number] #### [facility] [address] [place] [address] Director Retail Brand Development: Clovis Perez MD Hemoglobin (Bld) [Mass/Vol] 12.5 g/dL Normal 12.0-16.0 [facility] Comment on above: Performed By: #### 1 00812, [id number], [id number] #### [facility] [address] [place] [address] Director Retail Brand Development: Clovis Perez MD Instr WBC ND 3.8 Normal [facility] Comment on above: Performed By: #### 1 95155, [id number], [id number] #### [facility] [address] [place] [address] Director Retail Brand Development: Clovis Perez MD MCH (RBC) [Entitic mass] 29.3 pg Normal 27.0-34.0 [facility] Comment on above: Performed By: #### 1 18956, [id number], [id number] #### [facility] [address] [place] [address] Director Retail Brand Development: Clovis Perez MD MCHC (RBC) [Mass/Vol] 33.1 g/dL Normal 32.0-37.0 [facility] Comment on above: Performed By: #### 1 69671, [id number], [id number] #### [facility] [address] [place] [address] Director Retail Brand Development: Clovis Perez MD MCV (RBC) [Entitic vol] 88.6 fL Normal 80.0-100.0 [facility] Comment on above: Performed By: #### 1 39951, 635324, [id number] #### [facility] [address] [place] [address] Director Retail Brand Development: Clovis Perez MD Platelet 166 x10 Normal 150-450 [facility] Comment on above: Performed By: #### 1 06307, 019257, [id number] #### [facility] [address] [place] [address] Director Retail Brand Development: Clovis Perez MD Platelet mean volume (Bld) [Entitic vol] 9.3 fL Normal 7.4-10.4 [facility] Comment on above: Performed By: #### 1 55437, [id number], [id number] #### [facility] [address] [place] [address] [id number] Director Retail Brand Development: Clovis Perez MD RBC 4.26 x10 Normal 4.20-5.40 [facility] Comment on above: Result Comment: Note : RBC morphology is normal unless otherwise stated. Evaluation performed only if differential is requested. Performed By: #### 1 69971, [id number], [id number] #### [facility] [address] [place] [address] Director Retail Brand Development: Clovis Perez MD WBC 3.8 x10 Low 4.5-11.0 [facility] Comment on above: Performed By: #### 1 82310, 993732, [id number] #### [facility] [address] [place] [address] Director Retail Brand Development: Clovis Perez MD CRP QUANTon 11-26-2022 C-Reactive Protein, Quantitative 1.7 mg/dL High 0.0-0.9 [facility] Comment on above: Result Comment: ?- C RP testing for cardiovascular risk assessment should not be performed while there is an indication of active infection, systemic inflammation, or trauma. Performed By: #### 1 39157, [id number], [id number] #### [facility] [address] [place] [address] Director Retail Brand Development: Clovis Perez MD Initial Visit (Rheumatology) on 11-26-2022 Initial Visit (Rheumatology) Diagnoses/Problems Assessed Arthralgia (719.40) (M25.50) Knee osteoarthritis (715.36) (M17.9) Orders Arthralgia POLO-WITH REFLEX TO BALBIR; Status:Active; Requested for:26Nov2022; Perform:Lab Services - Lab To Draw (Blood Test); Due:24Feb2023;Ordered; For:Arthralgia; Ordered By:Alireza Weeks; C Reactive Protein, Serum; Status:Active; Requested for:26Nov2022; Perform:Lab Services - Lab To Draw (Blood Test); Due:24Feb2023;Ordered; For:Arthralgia; Ordered By:Alireza Weeks; Citrulline Antibody; Status:Active; Requested for:26Nov2022; Perform:Lab Services - Lab To Draw (Blood Test); Due:24Feb2023;Ordered; For:Arthralgia; Ordered By:Alireza Weeks; Complete Blood Count; Status:Active; Requested for:26Nov2022; Perform:Lab Services - Lab To Draw (Blood Test); Due:24Feb2023;Ordered; For:Arthralgia; Ordered By:Alireza Weeks; Rheumatoid Factor, Serum or Plasma; Status:Active; Requested for:26Nov2022; Perform:Lab Services - Lab To Draw (Blood Test); Due:24Feb2023;Ordered; For:Arthralgia; Ordered By:Alireza Weeks; Sedimentation Rate, Erythrocyte; Status:Active; Requested for:26Nov2022; Perform:Lab Services - Lab To Draw (Blood Test); Due:24Feb2023;Ordered; For:Arthralgia; Ordered By:Alireza Weeks; Provider Impressions A/P: 52 yo female with right knee pain. She was diagnosed with RA in 2021 and used MTX for almost 6 months, but she stopped it due to oral stomatitis. Her symptoms don?t look like RA. Today, she reports only right knee pain. Her physical exam revealed only tenderness in her right knee medial joint line, no other joint problem. Overall, she has only likely OA. -will see her ESR, CRP, CCP and RF -Previous CBC showed anemia, will repeat her CBC -Will use Tylenol and NSAID as needed -Recommended her weight loss and regular exercise Chief Complaint New patient. C/O R knee pain. VANESSA CRUZ History of Present Illness 52 yo female with knee pain and joint pain. She was dx plantar fasciitis Jun 2020, MRI showed plantar fasciitis Last year, she was diagnosed with RA and MTX was started. She had left wrist, right knee and heel pain at that time. She used MTX 17.5 mg weekly between 01/18 to 08/20. She stopped MTX because of oral stomatitis. She endorses intermittent LBP, but does not look like inflammatory LBP. Today, she reports only right knee pain. She denies AM stiffness, malar rash, oral ulcer, dry eyes or dry mouth, psoriasis, Her nephew and cousin have RA, mother has arthritis? Review of Systems ROS negative except as mentioned at HPI Active Problems Problems BMI 34.0-34.9,adult (V85.34) (Z68.34) Depression, major, single episode, mild (296.21) (F32.0) Encounter for immunization (V03.89) (Z23) Encounter for routine gynecological examination (V72.31) (Z01.419) Encounter for screening mammogram for malignant neoplasm of breast (V76.12) (Z12.31) Fatty liver (571.8) (K76.0) GERD (gastroesophageal reflux disease) (530.81) (K21.9) Hyperlipidemia (272.4) (E78.5) Low back pain (724.2) (M54.50) Nocturnal hypoxemia (327.24) (G47.34) Obesity (278.00) (E66.9) Pain of right heel (729.5) (M79.671) Prehypertension (796.2) (R03.0) Rheumatoid arthritis of other site with negative rheumatoid factor (714.0) (M06.0A) Screening for breast cancer (V76.10) (Z12.39) Screening for cervical cancer (V76.2) (Z12.4) Screening for heart disease (V81.2) (Z13.6) Shortness of breath on exertion (786.05) (R06.02) Thyroid nodule (241.0) (E04.1) Type 2 diabetes mellitus with hyperglycemia, without long-term current use of insulin (250.00,790.29) (E11.65) Past Medical History Problems History of (V13.29) 01/31/1995-40 WEEKS, VAGINAL, MALE, #7 15oz 03/30/1999-40 WEEKS, ,FEMALE, #8 2oz History of Menarche (V21.8) 17 History of Women's annual routine gynecological examination (V72.31) (Z01.419) 09/2020 Surgical History Problems History of section History of Thyroid biopsy History of Tubal ligation Family History Mother Family history of diabetes mellitus (V18.0) (Z83.3) FHx: hypertension (V17.49) (Z82.49) Father Family history of hypertension (V17.49) (Z82.49) FH: ALS (amyotrophic lateral sclerosis) (V17.2) (Z82.0) Sister Family history of asthma (V17.5) (Z82.5) Family history of migraine headaches (V17.2) (Z82.0) Grandparent Family history of malignant neoplasm (V16.9) (Z80.9) Family history of thyroid disease (V18.19) (Z83.49) Social History Problems Daily caffeine consumption, 2-3 servings a day Former smoker (V15.82) (Z87.891) No advance directives (V49.89) (Z78.9) Occasional alcohol use Sexually active Allergies Medication Penicillins Recorded By: Keli Herman; 03/22/2020 2:10:20 PM Current Meds Medication NameInstruction Atorvastatin Calcium 10 MG Oral TabletTAKE 1 TABLET BY MOUTH EVERY DAY Escitalopram Oxalate 20 MG Oral TabletTAKE 1 TABLET BY MOUTH EVERY DAY Lisinopril 10 MG Oral TabletTAKE 1 TABLET BY MOUTH EVERY (more content not included)... Normal [facility] SED RATEon 11-26-2022 Sed Rate Westergren 14 mm/hr Normal 0-30 [facility] Comment on above: Performed By: #### 1 [id number], [id number], [id number] #### [facility] [address] [place] [address] Director Retail Brand Development: Clovis Perez MD Tobacco Screening.on 023 Fall risk assessment b) One or more fall s in the last year [facility] [place] Work Phone: Tobacco use status [facility] b) No [facility] [facility] Work Phone: Office Visiton 10-31-2022 Follow-up visit Diagnoses/Problems Type 2 diabetes mellitus with hyperglycemia, without long-term current use of insulin (250.00,790.29) (E11.65) Hyperlipidemia (272.4) (E78.5) Depression, major, single episode, mild (296.21) (F32.0) BMI 34.0-34.9,adult (V85.34) (Z68.34) Rheumatoid arthritis of other site with negative rheumatoid factor (714.0) (M06.0A) Orders Depression, major, single episode, mild Renew: Escitalopram Oxalate 20 MG Oral Tablet; TAKE 1 TABLET BY MOUTH EVERY DAY Hyperlipidemia Renew: Atorvastatin Calcium 10 MG Oral Tablet; TAKE 1 TABLET BY MOUTH EVERY DAY Rheumatoid arthritis of other site with negative rheumatoid factor Start: Meloxicam 15 MG Oral Tablet; TAKE 1 TABLET BY MOUTH EVERY DAY Type 2 diabetes mellitus with hyperglycemia, without long-term current use of insulin Renew: metFORMIN HCl ER 500 MG Oral Tablet Extended Release 24 Hour; TAKE 1 TABLET BY MOUTH EVERY DAY Unlinked Stop: Meloxicam TABS Patient Discussion/Summary Please refer to rheumatology for evaluation and treatment of rheumatoid arthritis. She is transferring care Please schedule a 6-month follow-up visit in 6 months lab will include a hemoglobin A1c and urine microalbumin with diagnosis of diabetes mellitus type 2 and also a fasting lipid profile with diagnosis of hyperlipidemia Chief Complaint Pt is here today for a 6 month check up, review labs. This note was generated by using [employer] software. It may contain errors in wording, punctuate, or spelling. She is here today for her 6-month checkup. She is accompanied by her 2 grandchildren. 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 She states she is enjoying life now. She states it gets rather hectic however and she is going to try to get into routine exercise. Her blood pressure is excellent today. We did conduct a review of systems. We also went over the results of her recent lab test and her hemoglobin A1c came back looking good at 5.9. We talked about her rheumatoid arthritis. She states that she did not make it to her last appointment with rheumatology and she also decided to stop the methotrexate because she was having several side effects including cold sores or canker sores in her mouth. She states that she is now feeling some joint pain and particularly in her right knee. We talked about going back to rheumatology and she would like to be referred in the system. In the meantime I did give her a short-term refill on meloxicam we talked about taking concomitant Tylenol and also using one of the topical liniments such as IcyHot or Bengay. I also told her not to take any other NSAIDs with this medication. She also states she has been doing well on her medication for depression and we are providing refills on several meds. We did not do a lot of lab because I assumed that she would have lab work through her back winder and by the time she sees her new back winder I am sure she will have several labs so we will just continue with hemoglobin A1c and we will also check a urine microalbumin and cholesterol profile just prior to her next visit. Review of SystemsDenies fatigue. Denies shortness of breath at rest but when going up stairs. Denies coughing, wheezing Denies chest pain, palpitations, leg edema Denies nausea, vomiting, diarrhea, heartburn, abdominal pain, or black or bloody stools Denies significant joint pain . No back pain Denies feelings of significant anxiety or depression Active Problems Depression, major, single episode, mild (296.21) (F32.0) Encounter for immunization (V03.89) (Z23) Encounter for routine gynecological examination (V72.31) (Z01.419) Encounter for screening mammogram for malignant neoplasm of breast (V76.12) (Z12.31) Fatty liver (571.8) (K76.0) GERD (gastroesophageal reflux disease) (530.81) (K21.9) Hyperlipidemia (272.4) (E78.5) Low back pain (724.2) (M54.50) Nocturnal hypoxemia (327.24) (G47.34) Obesity (278.00) (E66.9) Pain of right heel (729.5) (M79.671) Prehypertension (796.2) (R03.0) Rheumatoid arthritis of other site with negative rheumatoid factor (714.0) (M06.0A) Screening for breast cancer (V76.10) (Z12.39) Screening for cervical cancer (V76.2) (Z12.4) Screening for heart disease (V81.2) (Z13.6) Shortness of breath on exertion (786.05) (R06.02) Thyroid nodule (241.0) (E04.1) Type 2 diabetes mellitus with hyperglycemia, without long-term current use of insulin (250.00,790.29) (E11.65) Past Medical History History of (V13.29) 01/31/1995-40 WEEKS, VAGINAL, MALE, #7 15oz 03/30/1999-40 WEEKS, ,FEMALE, #8 2oz History of Menarche (V21.8) 17 History of Women's annual routine gynecological examination (V72.31) (Z01.419) 09/2020 Surgical History History of section History of Thyroid biopsy History of Tubal ligation Social History Daily caffeine consumption, 2-3 servings a day Former sm (more content not included)... Normal [facility] Screening.on 023 Tobacco use status CPHS b) No [employer] Phone: HEMOGLOBIN A1Con 10-24-2022 Glucose [Mass/Vol] 123 mg/dL Normal [facility] Comment on above: Performed By: #### H BA1E #### [facility] [address] [place] [address] HbA1c (Bld) [Mass fraction] 5.9 % Abnormal [facility] Comment on above: Result Comment: Diag nosis of Diabetes-Adults Non-Diabetic: < or = 5.6% Increased risk for developing diabetes: 5.7-6.4% Diagnostic of diabetes: > or = 6.5% . Monitoring of Diabetes Age (y) Therapeutic Goal (%) Adults: >18 <7.0 Pediatrics: 13-18 <7.5 7-12 <8.0 0- 6 7.5-8.5 [place] [employer]. Diabetes Care 33(S1), Sep 2009. Performed By: #### H BA1E #### [facility] [address] [place] [address] Hemoglobin A1Con 10-24-2022 Glucose [Mass/Vol] 123 mg/dL [facility] [employer] Phone: HbA1c (Bld) [Mass fraction] 5.9 % Abnormal [facility] Work Phone: Comment on above: Diagnosis of Diabete s-Adults Non-Diabetic: < or = 5.6% Increased risk for developing diabetes: 5.7-6.4% Diagnostic of diabetes: > or = 6.5%. Monitoring of Diabetes Age (y) Therapeutic Goal (%) Adults: >18 <7.0 Pediatrics: 13-18 <7.5 7-12 <8.0 0- 6 7.5-8.5 [place] [employer]. Diabetes Care 33(S1), Sep 2009. Absolute lymphocyte counton 08-07-2022 Lymphocytes Auto (Unsp spec) [#/Vol] 1.93 10*3/uL 0.83-4.51 [facility] Work Phone: Basophil percentageon 2021 Basophils/100 WBC (Bld) 0.2 % 0-1 [facility] Work Phone: Bilirubin [Mass/Vol] 0.40 mg/dL 0.20-1.00 [facility] Work Phone: Comment on above: For patients on eltr ombopag therapy, use of Dimension [place] TBIL is not recommended. Chloride [Moles/Vol] 108 mmol/L 98-107 [facility] Work Phone: Eosinophils/100 WBC (Bld) 1.0 % 0-5 [facility] Work Phone: Glucose [Mass/Vol] 116 mg/dL 74-106 [facility] Work Phone: Comment on above: Fasting Glucose resu lt from 100 to 125 mg/dL suggests IMPAIRED HOMEOSTASIS per A.D.A. criteria. Neutrophils (Bld) [#/Vol] 3.5 10*3/uL 2.0-7.7 [facility] Work Phone: Neutrophils/100 WBC (Bld) 58.5 % 47-70 [facility] Work Phone: Potassium [Moles/Vol] 3.6 mmol/L 3.5-5.1 [facility] Work Phone: Protein [Mass/Vol] 6.8 g/dL 6.4-8.2 [facility] Work Phone: [phone] Sodium [Moles/Vol] 140 mmol/L 136-145 [facility] Work Phone: [phone] WBC (Bld) [#/Vol] 5.9 10*3/uL 4.4-11.0 [facility] Work Phone: [phone] Blood erythrocytes count (nu mber/volume)on 08-07-2022 RBC (Bld) [#/Vol] 3.59 10*6/uL 4.2-5.4 [facility] Work Phone: [phone] Blood hemoglobin measurement (mass/volume)on 08-07-2022 Hemoglobin (Bld) [Mass/Vol] 10.6 g/dL 12.0-15.0 [facility] Work Phone: [phone] Blood lymphocytes/100 leukoc yteson 08-07-2022 Lymphocytes/100 WBC (Bld) 32.8 % 19-41 [facility] Work Phone: [phone] Blood monocytes/100 leukocyt eson 08-07-2022 Monocytes/100 WBC (Bld) 7.3 % 0-10 [facility] Work Phone: [phone] Blood platelet mean volumeon 08-07-2022 Platelet mean volume (Bld) [Entitic vol] 11.6 fL 6.2-12.0 [facility] Work Phone: [phone] Determination of erythrocyte mean corpuscular volume (MCV)on 08-07-2022 MCV (RBC) [Entitic vol] 93.0 fL 81-99 [facility] Work Phone: [phone] Hematocrit Auto (Bld) [Volum e fraction]on 08-07-2022 Hematocrit (Bld) [Volume fraction] 33.4 % 37-47 [facility] Work Phone: [phone] Laboratory - Chemistry and C hemistry - challengeon 08-07-2022 ALP [Catalytic activity/Vol] 66 U/L 45-117 [facility] Work Phone: ALT [Catalytic activity/Vol] 35 U/L 13-56 [facility] Work Phone: [phone] CO2 [Moles/Vol] 28.0 mmol/L 21.0-32.0 [facility] Work Phone: [phone] Globulin (S) [Mass/Vol] 3.2 g/dL 2.2-4.2 [facility] Work Phone: [phone] Urea nitrogen/Creatinine [Mass ratio] 26.9 mg/mg 10-20 [facility] Work Phone: [phone] Laboratory - Hematology and Cell countson 08-07-2022 Erythrocyte distribution width (RBC) [Entitic vol] 51.9 fL 35.1-43.9 [facility] Work Phone: [phone] Erythrocyte distribution width (RBC) [Ratio] 15.2 % 11.6-14.6 [facility] Work Phone: [phone] Immature granulocytes/100 WBC (Bld) 0.200 % 0.0-0.9 [facility] Work Phone: [phone] Comment on above: IG% - Immature Granu locytes (promyelocytes, myelocytes and metamyelocytes) > 1% indicates that a LEFT SHIFT is Present. MCH (RBC) [Entitic mass] 29.5 pg 27.0-32.0 [facility] Work Phone: [phone] Nucleated RBC/100 WBC (Bld) [Ratio] 0 % 0-5 [facility] Work Phone: [phone] MCHC Auto (RBC) [Mass/Vol]on 08-07-2022 MCHC (RBC) [Mass/Vol] 31.7 g/dL 32-36 [facility] Work Phone: [phone] Panel Informationon 08-07 Estimated GFR (MDRD) Amer 113 mL/min >60 [facility] Work Phone: [phone] Comment on above: GFR Calc Estimated GFR (MDRD) Non-Af Amer 93 mL/min >60 [facility] Work Phone: [phone] Comment on above: Non- GFR Calc Platelets bldon 08-07-2022 Platelets (Bld) [#/Vol] 198 10*3/uL 150-450 [facility] Work Phone: Serum or plasma albumin reina urement (mass/volume)on 08-07-2022 Albumin [Mass/Vol] 3.6 g/dL 3.2-5.0 [facility] Work Phone: Serum or plasma albumin/glob ulin mass ratioon 08-07-2022 Albumin/Globulin [Mass ratio] 1.1 {ratio} 0.9-2.4 [facility] Work Phone: Serum or plasma calcium reina urement (mass/volume)on 08-07-2022 Calcium [Mass/Vol] 9.2 mg/dL 8.5-10.1 [facility] Work Phone: Serum or plasma creatinine m easurement (mass/volume)on 08-07-2022 Creatinine [Mass/Vol] 0.71 mg/dL 0.55-1.02 [facility] Work Phone: Comment on above: The validity of the calculated GFR & GFRAA in patients over 70 years has not been determined. Clinical correlation is essential. Serum or plasma urea nitroge n measurement (mass/volume)on 08-07-2022 Urea nitrogen [Mass/Vol] 19 mg/dL 7-18 [facility] Work Phone: Thin prep Papanicolaou smear with manual screeningon 08-07-2022 Thin prep Papanicolaou smear with manual screening 20 U/L 15-37 [facility] Work Phone: Thin prep Papanicolaou smear with manual screening 4 5-15 [facility] Work Phone: Mamm - Screening Mammogram w / Tomosynthesison 07-09-2022 MG Breast Screening Normal [facility] Work Phone: CBC AND DIFFERENTIALon 06-11 Basophils (Bld) [#/Vol] 0.00 10*3/uL Normal 0.00 - 0.10 [facility] Comment on above: Performed By: #### C BCDF #### [address] [address] Basophils/100 WBC (Bld) 0.1 % Normal 0.0 - 2.0 [facility] Comment on above: Performed By: #### C BCDF #### [address] [address] Eosinophils (Bld) [#/Vol] 0.10 10*3/uL Normal 0.00 - 0.70 [facility] Comment on above: Performed By: #### C BCDF #### [address] [address] Eosinophils/100 WBC (Bld) 1.5 % Normal 0.0 - 6.0 [facility] Comment on above: Performed By: #### C BCDF #### [address] [address] Erythrocyte distribution width (RBC) [Ratio] 15.9 % High 11.5 - 14.5 [facility] Comment on above: Performed By: #### C BCDF #### [address] [address] Hematocrit (Bld) [Volume fraction] 34.4 % Low 36.0 - 46.0 [facility] Comment on above: Performed By: #### C BCDF #### [address] [address] Hemoglobin (Bld) [Mass/Vol] 11.4 g/dL Low 12.0 - 16.0 [facility] Comment on above: Performed By: #### C BCDF #### [address] [address] Lymphocytes (Bld) [#/Vol] 2.10 10*3/uL Normal 1.20 - 4.80 [facility] Comment on above: Performed By: #### C BCDF #### [address] [address] Lymphocytes/100 WBC (Bld) 40.3 % Normal 13.0 - 44.0 [facility] Comment on above: Performed By: #### C BCDF #### [address] [address] MCHC (RBC) [Mass/Vol] 33.1 g/dL Normal 32.0 - 36.0 [facility] Comment on above: Performed By: #### C BCDF #### [address] [address] MCV (RBC) [Entitic vol] 87 fL Normal 80 - 100 [facility] Comment on above: Performed By: #### C BCDF #### [address] [address] Monocytes (Bld) [#/Vol] 0.40 10*3/uL Normal 0.10 - 1.00 [facility] Comment on above: Performed By: #### C BCDF #### [address] [address] Monocytes/100 WBC (Bld) 6.9 % Normal 2.0 - 10.0 [facility] Comment on above: Performed By: #### C BCDF #### [address] [address] Neutrophils (Bld) [#/Vol] 2.60 10*3/uL Normal 1.20 - 7.70 [facility] Comment on above: Result Comment: Perc ent differential counts (%) should be interpreted in the context of the absolute cell counts (cells/L). Performed By: #### C BCDF #### [address] [address] Neutrophils/100 WBC (Bld) 51.2 % Normal 40.0 - 80.0 [facility] Comment on above: Performed By: #### C BCDF #### [address] [address] NUCLEATED RBC 0.1 /100 WBC Normal [facility] Comment on above: Performed By: #### C BCDF #### [address] [address] Platelets (Bld) [#/Vol] 196 10*3/uL Normal 150 - 450 [facility] Comment on above: Performed By: #### C BCDF #### [address] [address] RBC 3.96 x10E12/L Low 4.00 - 5.20 [facility] Comment on above: Performed By: #### C BCDF #### [address] [address] WBC (Bld) [#/Vol] 5.1 10*3/uL Normal 4.4 - 11.3 [facility] Comment on above: Performed By: #### C BCDF #### [address] [address] COMPREHENSIVE PANELon 2021 Albumin [Mass/Vol] 3.9 g/dL Normal 3.4 - 5.0 [facility] Comment on above: Performed By: #### C MP #### [address] [address] ALP [Catalytic activity/Vol] 58 U/L Normal 33 - 110 [facility] Comment on above: Performed By: #### C MP #### [address] [address] ALT [Catalytic activity/Vol] 21 U/L Normal 7 - 45 [facility] Comment on above: Result Comment: Sandra ents treated with Sulfasalazine may generate falsely decreased results for ALT. Performed By: #### C MP #### [address] [address] Anion gap [Moles/Vol] 10 mmol/L Normal 10 - 20 [facility] Comment on above: Performed By: #### C MP #### [address] [address] AST [Catalytic activity/Vol] 17 U/L Normal 9 - 39 [facility] Comment on above: Performed By: #### C MP #### [address] [address] Bilirubin [Mass/Vol] 0.6 mg/dL Normal 0.0 - 1.2 [facility] Comment on above: Performed By: #### C MP #### [address] [place] [address] Calcium [Mass/Vol] 8.9 mg/dL Normal 8.6 - 10.3 [facility] Comment on above: Performed By: #### C MP #### [address] [address] Chloride [Moles/Vol] 107 mmol/L Normal 98 - 107 [facility] Comment on above: Performed By: #### C MP #### [address] [address] Creatinine [Mass/Vol] 0.83 mg/dL Normal 0.50 - 1.05 [facility] Comment on above: Performed By: #### C MP #### [address] [address] GFR/1.73 sq M.predicted among non-blacks MDRD (S/P/Bld) [Vol rate/Area] 86 mL/min/{1.73_m2} Normal >90 [facility] Comment on above: Result Comment: CALC ULATIONS OF ESTIMATED GFR ARE PERFORMED USING THE 2020 CKD-EPI STUDY REFIT EQUATION WITHOUT THE RACE VARIABLE FOR THE IDMS-TRACEABLE CREATININE METHODS. https://jasn.asnjournals.org/content//ASN.799032 0123 Performed By: #### C MP #### [address] [address] Glucose [Mass/Vol] 115 mg/dL High 74 - 99 [facility] Comment on above: Performed By: #### C MP #### [address] [address] HCO3 (Bld) [Moles/Vol] 28 mmol/L Normal 21 - 32 [facility] Comment on above: Performed By: #### C MP #### [address] [address] Potassium [Moles/Vol] 4.2 mmol/L Normal 3.5 - 5.3 [facility] Comment on above: Performed By: #### C MP #### [address] [address] Protein [Mass/Vol] 6.5 g/dL Normal 6.4 - 8.2 [facility] Comment on above: Performed By: #### C MP #### [address] [address] Sodium [Moles/Vol] 141 mmol/L Normal 136 - 145 [facility] Comment on above: Performed By: #### C MP #### [address] [address] Urea nitrogen [Mass/Vol] 20 mg/dL Normal 6 - 23 [facility] Comment on above: Performed By: #### C MP #### [address] [address] Complete Blood Count + Diffe cleo 06-11-2022 Basophils/100 WBC (Bld) 0.1 % 0.0 - 2.0 [facility] Phone: Erythrocyte distribution width (RBC) [Ratio] 15.9 % above high threshold See Below [facility] Phone: Comment on above: Reference Range: 11. 5 - 14.5 Hematocrit (Bld) [Volume fraction] 34.4 % below low threshold See Below [facility] Phone: Comment on above: Reference Range: 36. 0 - 46.0 Hemoglobin (Bld) [Mass/Vol] 11.4 g/dL below low threshold See Below [facility] Phone: Comment on above: Reference Range: 12. 0 - 16.0 Lymphocytes/100 WBC (Bld) 40.3 % See Below [facility] Phone: Comment on above: Reference Range: 13. 0 - 44.0 MCHC (RBC) [Mass/Vol] 33.1 g/dL See Below [facility] Phone: Comment on above: Reference Range: 32. 0 - 36.0 MCV (RBC) [Entitic vol] 87 fL 80 - 100 [facility] Phone: Monocytes/100 WBC (Bld) 6.9 % 2.0 - 10.0 [facility] [employer] Phone: Neutrophils/100 WBC (Bld) 51.2 % See Below [facility] [employer] Phone: Comment on above: Reference Range: 40. 0 - 80.0 Platelets (Bld) [#/Vol] 196 10*3/uL 150 - 450 [facility] Phone: RBC (Bld) [#/Vol] 3.96 {x10E12/L} below low threshold See Below [facility] [employer] Phone: Comment on above: Reference Range: 4.0 0 - 5.20 WBC (Bld) [#/Vol] 5.1 10*3/uL 4.4 - 11.3 [facility] Phone: Complete Blood Count + Differential 0.00 {x10E9/L} See Below [facility] [employer] Phone: Comment on above: Reference Range: 0.0 0 - 0.10 Complete Blood Count + Differential 0.10 {x10E9/L} See Below [facility] [employer] Phone: Comment on above: Reference Range: 0.0 0 - 0.70 Complete Blood Count + Differential 0.40 {x10E9/L} See Below [facility] [employer] Phone: Comment on above: Reference Range: 0.1 0 - 1.00 Complete Blood Count + Differential 2.10 {x10E9/L} See Below [facility] [employer] Phone: Comment on above: Reference Range: 1.2 0 - 4.80 Complete Blood Count + Differential 2.60 {x10E9/L} See Below [facility] Phone: Comment on above: Reference Range: 1.2 0 - 7.70 Percent differential counts (%) should be interpreted in the context of the absolute cell counts (cells/L). Complete Blood Count + Differential 1.5 % 0.0 - 6.0 [facility] [employer] Work Phone: Complete Blood Count + Differential 0.1 {/100_WBC} [facility] Work Phone: Laboratory - Chemistry and C hemistry - challengeon 06-11-2022 Albumin BCP dye [Mass/Vol] 3.9 g/dL 3.4 - 5.0 [facility] [employer] Phone: ALP [Catalytic activity/Vol] 58 U/L 33 - 110 [facility] [employer] Phone: ALT With P-5'-P [Catalytic activity/Vol] 21 U/L 7 - 45 [facility] [employer] Phone: Comment on above: Patients treated wit h Sulfasalazine may generate falsely decreased results for ALT. Anion gap [Moles/Vol] 10 mmol/L 10 - 20 [facility] [employer] Phone: AST With P-5'-P [Catalytic activity/Vol] 17 U/L 9 - 39 [facility] [employer] Phone: Bilirubin [Mass/Vol] 0.6 mg/dL 0.0 - 1.2 [facility] [employer] Work Phone: Calcium [Mass/Vol] 8.9 mg/dL 8.6 - 10.3 [facility] [employer] Work Phone: Chloride [Moles/Vol] 107 mmol/L 98 - 107 [facility] [employer] Phone: CO2 [Moles/Vol] 28 mmol/L 21 - 32 [facility] [employer] Work Phone: Creatinine [Mass/Vol] 0.83 mg/dL See Below [facility] [employer] Work Phone: Comment on above: Reference Range: 0.5 0 - 1.05 Glucose [Mass/Vol] 115 mg/dL above high threshold 74 - 99 [facility] [employer] Work Phone: Potassium [Moles/Vol] 4.2 mmol/L 3.5 - 5.3 [facility] [employer] Work Phone: Protein [Mass/Vol] 6.5 g/dL 6.4 - 8.2 [facility] [employer] Work Phone: Sodium [Moles/Vol] 141 mmol/L 136 - 145 [facility] [employer] Work Phone: Urea nitrogen [Mass/Vol] 20 mg/dL 6 - 23 [facility] [employer] Work Phone: No Panel Informationon 06-11 86 {mL/min/1.73m2} >90 [facility] [employer] Work Phone: Comment on above: CALCULATIONS OF ASHER MATED GFR ARE PERFORMED USING THE 2020 CKD-EPI STUDY REFIT EQUATION WITHOUT THE RACE VARIABLE FOR THE IDMS-TRACEABLE CREATININE METHODS.https://jasn.asnjournals.org/content// N.9362297049 LMPon 04-29-2022 Last menstrual period start date [id number] [employer] [address] [employer] Work Phone: [phone] Laboratory - Cytologyon Cytology report Cyto stain.thin prep Doc (Cvx/Vag) [facility] [place] [address] [employer] Work Phone: [phone] Tobacco Screening.on 022 Tobacco use status CPHS b) No [facility] [employer] Work Phone: ALT - Alanine Aminotransfera se, Serumon 04-09-2022 ALT With P-5'-P [Catalytic activity/Vol] 18 U/L 7 - 45 [facility] Work Phone: Comment on above: Patients treated wit h Sulfasalazine may generate falsely decreased results for ALT. Hemoglobin A1Con 04-09-2022 Glucose [Mass/Vol] 131 mg/dL [facility] [employer] Phone: HbA1c (Bld) [Mass fraction] 6.2 % Abnormal [facility] [employer] Phone: Comment on above: Diagnosis of Diabete s-Adults Non-Diabetic: < or = 5.6% Increased risk for developing diabetes: 5.7-6.4% Diagnostic of diabetes: > or = 6.5%. Monitoring of Diabetes Age (y) Therapeutic Goal (%) Adults: >18 <7.0 Pediatrics: 13-18 <7.5 7-12 <8.0 0- 6 7.5-8.5 [place] [employer]. Diabetes Care 33(S1), Sep 2009. Laboratory - Chemistry and C hemistry - challengeon 04-09-2022 Albumin Ql (U) <7.0 See Below [facility]EVERVOGUE.COMBanner [facility]assen Medical CenterFOREVERVOGUE.COMWill [employer] Phone: Comment on above: Reference Range: Not Established Albumin/Creatinine DL <= 20 mg/L (U) [Mass ratio] SEE COMMENT 0.0 - 30.0 [facility] [employer] Phone: Comment on above: One or more analytes used in this calculation is outside of the analytical measurement range.Calculation cannot be performed. Anion gap [Moles/Vol] 9 mmol/L below low threshold 10 - 20 [facility] Phone: AST With P-5'-P [Catalytic activity/Vol] 16 U/L 9 - 39 [facility] [employer] Phone: Calcium [Mass/Vol] 9.1 mg/dL 8.6 - 10.3 [facility] [employer] Phone: Chloride [Moles/Vol] 107 mmol/L 98 - 107 [facility] Work Phone: CO2 [Moles/Vol] 26 mmol/L 21 - 32 [facility] [employer] Work Phone: Creatinine (U) [Mass/Vol] 130.0 mg/dL See Below [facility] [employer] Phone: Comment on above: Reference Range: 20. 0 - 320.0 Creatinine [Mass/Vol] 0.77 mg/dL See Below [facility] [employer] Phone: Comment on above: Reference Range: 0.5 0 - 1.05 Glucose [Mass/Vol] 96 mg/dL 74 - 99 [facility] [employer] Phone: Potassium [Moles/Vol] 4.3 mmol/L 3.5 - 5.3 [facility] [employer] Phone: Sodium [Moles/Vol] 138 mmol/L 136 - 145 [facility] [employer] Phone: Urea nitrogen [Mass/Vol] 20 mg/dL 6 - 23 [facility] [employer] Phone: Lipid Panelon 04-09-2022 Cholesterol [Mass/Vol] 151 mg/dL 0 - 199 [facility] [employer] Phone: Comment on above: . AGE DESIRABLE BORD NEYMAR HIGH HIGH 0-19 Y 0 - 169 170 - 199 >/= 200 20-24 Y 0 - 189 190 - 224 >/= 225 >24 Y 0 - 199 200 - 239 >/= 240 All ranges are based on fasting samples. Specific therapeutic targets will vary based on patient-specific cardiac risk.. Pediatric guidelines reference:Pediatrics 2011, 128(S5). Adult guidelines reference: NCEP ATPIII Guidelines, REBECCA 2001, 258:2486-97. Venipuncture immediately after or during the administration of Metamizole may lead to falsely low results. Testing should be performed immediately prior to Metamizole dosing. Cholesterol in HDL [Mass/Vol] 39.0 mg/dL Abnormal [employer] Phone: Comment on above: . AGE VERY LOW LOW N ORMAL HIGH 0-19 Y < 35 < 40 40-45 ---- 20- 24 Y ---- < 40 >45 ---- >24 Y ---- < 40 40-60 >60. Cholesterol in LDL [Mass/Vol] 91 mg/dL 0 - 99 [employer] Phone: Comment on above: . NEAR BORD AGE ANA RABLE OPTIMAL HIGH HIGH VERY HIGH 0-19 Y 0 - 109 --- 110-129 >/= 130 ---- 20-24 Y 0 - 119 --- 120-159 >/= 160 ---- >24 Y 0 - 99 100-129 130-159 160-189 >/=190. Cholesterol.total/Cho lesterol in HDL [Mass ratio] 3.9 {ratio} [employer] Phone: Comment on above: REF VALUESDESIRABLE < 3.4HIGH RISK > 5.0 Triglyceride [Mass/Vol] 104 mg/dL 0 - 149 [employer] Phone: Comment on above: . AGE DESIRABLE BORD NEYMAR HIGH HIGH VERY HIGH 0 D-90 D 19 - 174 ---- ---- ----91 D- 9 Y 0 - 74 75 - 99 >/= 100 ---- 10-19 Y 0 - 89 90 - 129 >/= 130 ---- 20-24 Y 0 - 114 115 - 149 >/= 150 ---- >24 Y 0 - 149 150 - 199 200- 499 >/= 500. Venipuncture immediately after or during the administration of Metamizole may lead to falsely low results. Testing should be performed immediately prior to Metamizole dosing. Lipid Panel 21 mg/dL 0 - 40 [employer] Phone: No Panel Informationon 04-09 >90 >90 [employer] Phone: Comment on above: CALCULATIONS OF ASHER MATED GFR ARE PERFORMED USING THE 2020 CKD-EPI STUDY REFIT EQUATION WITHOUT THE RACE VARIABLE FOR THE IDMS-TRACEABLE CREATININE METHODS.https://jasn.asnjournals.org/content// N.7154891507 MR FOOT LEFT WITHOUT CONTRAS Ton 02-01-2022 MR FOOT LEFT WITHOUT CONTRAST EXAMINATION: MR FOOT LEFT WITHOUT CONTRAST HISTORY: ORDERING SYSTEM PROVIDED HISTORY: chronic plantar fasciitis, TECHNOLOGIST PROVIDED HISTORY: Illness/Other Reason for exam: chronic plantar fasciitis, Plantar fasciitis of left foot Encounter Type: Initial Additional signs and symptoms: chronic plantar fasciitis, Plantar fasciitis of left foot ORDERING SYSTEM PROVIDED DIAGNOSIS CODES: M72.2 Plantar fasciitis of left foot COMPARISON: Plain radiograph 07/10/2021. TECHNIQUE: Multiplanar, multisequence imaging of the left foot was performed without contrast FINDINGS: There is mild fusiform thickening and intermediate signal involving the Achilles tendon suggesting tendinosis. Moderate amount of fluid is present within the retrocalcaneal bursa. Edema involving Kager's fat pad is nonspecific. The plantar fascia is thickened with intermediate signal. Inferior calcaneal spur is noted. No discrete tear identified. There is mild surrounding soft tissue edema along the plantar aspect of the plantar fascia. Laterally, the peroneal tendons demonstrate normal thickness and signal without tendinosis or tear. The superficial peroneal retinaculum is intact. There is mild peroneal tenosynovitis. The lateral ligamentous structures are intact. Medially, the medial flexor tendons demonstrate normal thickness and signal without tendinosis or tear. The deep deltoid ligament is intact. The spring ligament is intact. Lisfranc ligament is intact. Anteriorly, the anterior extensor tendons demonstrate normal thickness and signal without tendinosis or tear. There is patchy marrow edema involving the cuboid bone without discrete fracture. Findings suggest possible stress response due to altered biomechanics. The remaining bone marrow signal is normal. A small subtalar effusion is present a decompresses posteriorly. The talar dome is congruent. The midfoot is congruent. The plantar musculature demonstrates normal bulk and signal. Soft tissues are unremarkable. IMPRESSION: 1. Chronic plantar fasciitis without acute tear. 2. Achilles tendinosis without tear. 3. Mild peroneal tenosynovitis. 4. Probable reactive edema involving the cuboid bone, potentially of altered biomechanics. Workstation ID: [id number] Dictated by: TISHA NEWTON on FriFebruary 01, 2022 3:53:47 PM EDT Transcribed by: TISHA NEWTON on FriFebruary 01, 2022 3:53:47 PM EDT Finalized by: TISHA NEWTON on FriFebruary 01, 2022 3:53:47 PM EDT Normal [facility] Comment on above: Order Comment: Injur y/Trauma or Illness?:Illness/Other How long have you had these symptoms (acute/chronic)?:Chronic Reason for exam?:chronic plantar fasciitis, Plantar fasciitis of left foot Type of Exam?:Initial Additional signs and symptoms?:chronic plantar fasciitis, Plantar fasciitis of left foot No Panel Informationon 01-08 Normal [facility] [employer] Phone: Tobacco Screening.on 022 Tobacco use status [facility] b) No [facility] Phone: Hemoglobin A1Con 12-29-2021 Glucose [Mass/Vol] 140 mg/dL [facility]UP[facility] Phone: HbA1c (Bld) [Mass fraction] 6.5 % Abnormal [facility] Phone: Comment on above: Diagnosis of Diabete s-Adults Non-Diabetic: < or = 5.6% Increased risk for developing diabetes: 5.7-6.4% Diagnostic of diabetes: > or = 6.5%. Monitoring of Diabetes Age (y) Therapeutic Goal (%) Adults: >18 <7.0 Pediatrics: 13-18 <7.5 7-12 <8.0 0- 6 7.5-8.5 [place] [employer]. Diabetes Care 33(S1), Sep 2009. Laboratory - Chemistry and C hemistry - challengeon 12-29-2021 Anion gap [Moles/Vol] 12 mmol/L 10 - 20 [facility] [place] [facility] Phone: Calcium [Mass/Vol] 8.7 mg/dL 8.6 - 10.3 [facility] Phone: Chloride [Moles/Vol] 108 mmol/L above high threshold 98 - 107 [facility] Phone: CO2 [Moles/Vol] 24 mmol/L 21 - 32 [facility] Phone: Creatinine [Mass/Vol] 0.68 mg/dL See Below [facility] [employer] Phone: Comment on above: Reference Range: 0.5 0 - 1.05 Glucose [Mass/Vol] 126 mg/dL above high threshold 74 - 99 [facility] Phone: Potassium [Moles/Vol] 3.5 mmol/L 3.5 - 5.3 [facility] Phone: Sodium [Moles/Vol] 140 mmol/L 136 - 145 [facility] Phone: Urea nitrogen [Mass/Vol] 16 mg/dL 6 - 23 [facility] Phone: No Panel Informationon 12-29 >90 >90 [facility] [employer] Phone: Comment on above: CALCULATIONS OF ASHER MATED GFR ARE PERFORMED USING THE 2020 CKD-EPI STUDY REFIT EQUATION WITHOUT THE RACE VARIABLE FOR THE IDMS-TRACEABLE CREATININE METHODS.https://jasn.asnjournals.org/content// N.6449069184 Tobacco Screening.on 021 Fall risk assessment a) No falls within the last year [facility] Phone: Tobacco use status [facility] b) No [facility] [employer] Phone: Mamm - Screening Mammogram w / Tomosynthesison 06-29-2021 MG Breast Screening Normal [facility] [employer] Phone: Laboratory - Hematology and Cell countson 06-19-2021 Erythrocyte distribution width (RBC) [Ratio] 15.3 % above high threshold See Below [facility] [employer] Phone: Comment on above: Reference Range: 11. 5 - 14.5 Hematocrit (Bld) [Volume fraction] 36.9 % See Below [facility] [employer] Phone: Comment on above: Reference Range: 36. 0 - 46.0 Hemoglobin (Bld) [Mass/Vol] 12.0 g/dL See Below [facility] [employer] Phone: Comment on above: Reference Range: 12. 0 - 16.0 MCHC (RBC) [Mass/Vol] 32.7 g/dL See Below [facility] [employer] Phone: Comment on above: Reference Range: 32. 0 - 36.0 MCV (RBC) [Entitic vol] 86 fL 80 - 100 [facility] [employer] Phone: Platelets (Bld) [#/Vol] 199 10*3/uL 150 - 450 [facility] [employer] Phone: RBC (Bld) [#/Vol] 4.29 {x10E12/L} See Below [facility] [employer] Phone: Comment on above: Reference Range: 4.0 0 - 5.20 WBC (Bld) [#/Vol] 5.1 10*3/uL 4.4 - 11.3 [facility] [employer] Phone: TSH - Thyroid Stimulating Ho rmgilberto, Serumon 06-19-2021 TSH Qn 1.37 m[IU]/L See Below [facility] [employer] Phone: Comment on above: Reference Range: 0.4 4 - 3.98 TSH testing is performed using different testing methodology at [facility] than at other [facility]. Direct result comparisons should only be made within the same method. Tobacco Screening.on 021 Tobacco use status [facility] b) No [facility] [employer] Phone: Hemoglobin A1Con 05-02-2021 Glucose [Mass/Vol] 128 mg/dL [facility] [employer] Phone: HbA1c (Bld) [Mass fraction] 6.1 % [facility] [employer] Phone: Comment on above: Diagnosis of Diabete s-Adults Non-Diabetic: < or = 5.6% Increased risk for developing diabetes: 5.7-6.4% Diagnostic of diabetes: > or = 6.5%. Monitoring of Diabetes Age (y) Therapeutic Goal (%) Adults: >18 <7.0 Pediatrics: 13-18 <7.5 7-12 <8.0 0- 6 7.5-8.5 [place] [employer]. Diabetes Care 33(S1), Sep 2009. Laboratory - Chemistry and C hemistry - challengeon 05-02-2021 Anion gap [Moles/Vol] 8 mmol/L below low threshold 10 - 20 [facility] [employer] Phone: Calcium [Mass/Vol] 9.4 mg/dL 8.6 - 10.3 [facility] [employer] Work Phone: Chloride [Moles/Vol] 106 mmol/L 98 - 107 [facility] [employer] Work Phone: CO2 [Moles/Vol] 29 mmol/L 21 - 32 [facility] [employer] Work Phone: Creatinine [Mass/Vol] 0.81 mg/dL See Below [facility] [employer] Phone: Comment on above: Reference Range: 0.5 0 - 1.05 Glucose [Mass/Vol] 114 mg/dL above high threshold 74 - 99 [facility] [employer] Work Phone: Potassium [Moles/Vol] 4.3 mmol/L 3.5 - 5.3 [facility] Phone: Sodium [Moles/Vol] 139 mmol/L 136 - 145 [facility] CenterFOREV[facility]COMWill [employer] Work Phone: Urea nitrogen [Mass/Vol] 22 mg/dL 6 - 23 [facility]COMWill [employer] Phone: No Panel Informationon 05-02 >60 >60 [facility] [employer] Phone: Comment on above: CALCULATIONS OF ASHER MATED GFR ARE PERFORMED USING THE MDRD STUDY EQUATION FOR THE IDMS-TRACEABLE CREATININE METHODS. CLIN CHEM 2007;53:766-72 Coronavirus 2019 RNA by PCR, Screening Asymptomticon 12-09-2020 Coronavirus 2019 RNA by PCR, Screening Asymptomtic NOT DETECTED Normal See Below [facility] [employer] Phone: Comment on above: SOURCE: Nasal, Nasop haryngealReference Range: Not Detected.This assay is designed to detect the N, ORF1ab and/or S genes of SARS-CoV-2 via nucleic acid amplification. A Negative (NOT DETECTED) result does not preclude 2019-nCoV infection since the adequacy of sample collection and/or low viral burden may result in presence of viral nucleic acids below the clinical sensitivity of this test method. Negative (NOT DETECTED) result should not be used as the sole basis for treatment or other patient management decisions. Rather negative results should be combined with clinical observations, patient history, and epidemiological information to make patient management decisions.Fact sheet for providers: https://www.fda.gov/media/139632/downloadFact sheet for patients: https://www.fda.gov/media/837510/downloadThis test has received FDA Emergency Use Authorization (EUA) and has been verified by [facility] ([facility]). This test is only authorized for the duration of time that circumstances exist to justify the authorization of the emergency use of in vitro diagnostic tests for the detection of SARS-CoV-2 virus and/or diagnosis of COVID-19 infection under section 564(b)(1) of the Act, 21 U.S.C. 360bbb-3(b)(1), unless the authorization is terminated or revoked sooner. [facility] is certified under CLIA-88 as qualified to perform high complexity testing. Testing is performed in the [facility] laboratories located at [address] [place] [address]. Otheron 11-30-2020 Name CHRISTINE OAKESWally Pathologist: ANDREW HUTCHINSONate of Procedure: 11/30/2020ate Received: 11/30/2020ate Reported 12/04/2020ubmitting Physician: SANDY VALLEJO, DOLocation: [facility] Copy To/Referring/Attending:YESI VALLEJO, Other External # FINAL DIAGNOSISA. CERVIX, POLYP, BIOPSY:-- ENDOCERVICAL POLYP. Electronically Signed Out By CASSY REID MD/LASHONDABy the signature on this report, the individual or group listed as making theFinal Interpretation/Diagnosis certifies that they have reviewed this case. Clinical History:Fixative (A): FORMALINClinical Diagnosis History: Polyp at cervical os - (N84.1)Specimens Submitted As:A: CERVICAL POLYP Gross Description:Received in formalin, labeled with the patient's name and hospital number andcervical polyp, are 2 wedge shaped fragments of mucosa covered soft tissue,measuring 0.4 x 0.4 x 0.2 and 0.5 x 0.3 x 0.2 cm. The deep surfaces are inkedblue. The specimen is submitted in toto in one cassette.CJNcjn/12/01/2020 [facility] [address] [place] [address]-[facility]-[employer] Work Phone: Otheron 11-22-2020 Name CHRISTINE OAKESWallyAccession #: [id number] Procedure: 11/22/2020 Date Reported: 11/24/2020ate Received: 11/22/2020ate of / Sex 1970 (Age: 50) / FRace: CAUCASIANSubmitting Physician: ERICA S. ROYAL, D.O.Other External # FINAL CYTOLOGICAL INTERPRETATIONA. FINE NEEDLE ASPIRATION THYROID - LEFT LOBE: CYTOLOGIC FINDINGS CONSISTENT WITH A BENIGN FOLLICULAR NODULE. Ancillary Testing:Specimen does not meet the diagnostic criteria for molecular testing. SeeThyroid Fine Needle Aspiration Cytology interpretation above.This case signed out at:[facility] [address] [place], [place] [address]Wghdw(s) initially screened by a Senior Grant Writer at [place] [address]Electronically Signed Out By NOELLE GRIFFITH MDBy the signature on this report, the individual or group listed as making theFinal Interpretation/Diagnosis certifies that they have reviewed this case.Slide(s) initially screened by a Senior Grant Writer at [facility] Clinical HistoryOther Clinical Conditions:Thyroid Molecular Testing RequestedPhysician Contact Number: Clinical Diagnosis History Left Thyroid Nodule Source of SpecimenA: FINE NEEDLE ASPIRATION THYROID - LEFT LOBE Specimen Submitted as:A: FINE NEEDLE ASPIRATION THYROID - LEFT LOBE Pap stain Non-Electric Accounting Machine Operator, Pap stain Non-Electric Accounting Machine Operator, Pap stain Non-Electric Accounting Machine Operator, Pap stainNon-Electric Accounting Machine Operator, Diff-Quik stain Non-Electric Accounting Machine Operator, Diff-Quik stain Non-Electric Accounting Machine Operator, Diff-Quik stainNon-Electric Accounting Machine Operator, Diff-Quik stain Non-Electric Accounting Machine Operator, Pap non-salad maker ThinPrep slideGross DescriptionRECEIVED 8 DIRECT SMEARS ( 4 AIR-DRIED AND 4 SPRAY-FIXED) AND 30cc OF PALE PINKCLEAR CYTOLYT WITH PARTICLES. Note: A co-collected specimen for possible Thyroid Molecular testing wasalso received. [facility] of Tksfpgjgr1513 [address] Simpson StreetProlifiq Software Work Phone: [place] Guidance for fine needle aspiration of Thyroid gland Interpreted by: MICHEAL ROSAS11/22/20 13:13MRN: [id number] Name: CHRISTINE OAKES STUDY:US BIOPSY THYROID; 11/22/2020 11:20 am INDICATION:LEFT LOBE NODULE. COMPARISON:11/14/2020 ORDERING CLINICIAN:ERICA SANFORD FINDINGS:A detailed discussion of the procedure was performed with thepatient. Informed consent was obtained by Dr. Rosas. The patient was placed in the supine position with the neck in anextended position. Ultrasound of the thyroid was performed anddemonstrated a solitary nodule in the lower pole of the leftthyroid, similar to that seen on prior ultrasound.. The nodule in theleft lobe of the thyroid was selected for biopsy. The patient wasprepped and draped in normal sterile fashion. 1% lidocaine wasutilized for local anesthesia. Subsequently, four passes were madeinto the left thyroid nodule using 25 gauge spinal needles underdirect ultrasound guidance. Images document the tip of the needlewithin the nodule. Slides were prepared and sent to pathology forevaluation. There were no immediate complications. The procedure wasperformed by Dr. Rosas. The patient was monitored throughout the procedure by the nurse,including blood pressure, heart rate, EKG, and pulse oximetry. IMPRESSION:Successful ultrasound-guided fine-needle aspiration biopsy of thethyroid.Electronically signed by: MICHEAL ROSAS 11/22/20 13:13 Normal [facility] Work Phone: Otheron 11-14-2020 US Thyroid gland Interpreted by: ELICEO EDGAR11/14/20 10:22MRN: [id number] Name: TYLERLou CHRISTINE STUDY:US THYROID; 11/14/2020 7:17 am INDICATION:NODULE Nontoxic single thyroid nodule. COMPARISON:None. ORDERING CLINICIAN:ERICA SANFORD TECHNIQUE:Multiple ultrasonographic images of the thyroid gland were obtained. FINDINGS: RIGHT LOBE:The right lobe measures 5.2 x 1 x 1.4 cm and is normal inechogenicity. No nodule is seen. LEFT LOBE:The left lobe measures 5.7 x 1.4 x 1.4 cm. A heterogeneous nodule isseen, in the inferior pole with a well-defined margin and a cysticcomponent at the superior aspect. This nodule measures 2 x 1.1 x 1.9cm. ISTHMUS:The isthmus measures approximately 3 mm and is homogeneous inechotexture and without any identifiable nodules. IMPRESSION:Mild enlargement of both lobes of the thyroid.Dominant nodule inferior pole of the left lobe.Electronically signed by: AZAM EDGAR 11/14/20 10:22 Normal [facility] Center[facility] Work Phone: CT Chest without Contraston 10-30-2020 CT Chest WO contrast Interpreted by: VIVIANA ANDRADE10/30/20 13:46MRN: [id number] Name: CHRISTINE OAKES STUDY:CT CHEST WO CONTRAST; 10/30/2020 7:42 am INDICATION:NODULE Solitary pulmonary nodule. COMPARISON:04/10/2020. ORDERING CLINICIAN:ERICA SANFORD TECHNIQUE:Helical data acquisition of the chest was obtained without IVcontrast material. Images were reformatted in axial, coronal, andsagittal planes. FINDINGS:Back spaceCalcified granuloma measuring about 7 mm again seen in the left upperlobe. Previously noted posterior left lower lobe nodule opacity hasresolved. No new nodules. No adenopathy. There does appear to be someheterogeneity of the thyroid gland with probable left thyroid nodule.Fatty infiltration of the liver. There is slight diverticulosis. Nosuspicious osseous lesions. IMPRESSION:1. Resolution of left lower lobe nodule. Changes of old healedgranulomas disease. No new nodules. No adenopathy.2. Fatty infiltration of the liver.3. Probable left thyroid nodule. Further evaluation with thyroidultrasound is advisedElectronically signed by: MAURIZIO ANDRADE 10/30/20 13:46 Normal [facility] Work Phone: Imm/Pathon 10-16-2020 Cytology report Cyto stain.thin prep Doc (Cvx/Vag) Date of Procedure: 10/16/2020 Pathologist: [facility], CytologyDate Reported: 10/22/2020ate Received: 10/17/2020ubmitting Physician: ERICA SANFORD D.O. FINAL CYTOLOGICAL INTERPRETATIONA. THINPREP PAP CERVICAL: Specimen Adequacy: SATISFACTORY FOR EVALUATION. Quality Indicator: Absence of endocervical/transformati on zone component. General Categorization: NEGATIVE FOR INTRAEPITHELIAL LESION OR MALIGNANCY. Ancillary Testing: Specimen does not meet the requisition-stated criteria for HPV testing.See Pap test interpretation above. This specimen has been analyzed by the Waypoint Health InnovatoinsPrep Imaging System ([employer]an automated imaging and review system, which assists the laboratory inevaluating cells on ThinPrep Pap tests. Following automated imaging, selectedfields from every slide were reviewed by a marketing assistant and/or pathologist.Electronicall y Signed Out By [facility], Cytology//[facility] By the signature on this report, the individual or group listed as making theFinal Interpretation/Diagnosis certifies that they have reviewed this case.Educational Note:Cervical cytology is a screening procedure primarily for squamous cancers andprecursors and has associated false-negative and false-positive results asevidenced by published data. Your patient's test should be interpreted in thiscontext, together with patient's history and clinical findings. Regularsampling and follow-up of unexplained clinical signs and symptoms arerecommended to minimize false negative results. Clinical HistoryDate of Last Menstrual Period: unknownOther Clinical Conditions:HPV Reflex for ASC-US only - Include HPV Genotype AnnualClinical Diagnosis History: Vaginal Pap smear - (Z12.72) Source of SpecimenA: THINPREP PAP CERVICAL [facility] [address] [place], [place] [address]Shutl Work Phone: IGP W/hpv Rfx [id number] 04-09 Diagnosis: See Ref Lab Report Normal [facility] Comment on above: Performed By: #### 1 [id number] #### HUY [employer] [address] [address] [place] Mamm Screen w/CAD if perf ormed bilaton 04-08-2019 [place] Mamm Screen w/CAD if performed bilat Exam Date/Time: 04/08/2019 08:14 EDT Reason for Exam: SCREENING;Screening Report STUDY: [place] Mamm Screen w/CAD if performed bilat; 04/08/2019 8:14 am ACCESSION NUMBER(S): [id number] ORDERING CLINICIAN: Erica Sanford INDICATION: Screening. COMPARISON: 03/31/2017 and 03/15/2016 FINDINGS: The breast tissue is heterogeneously dense, which may obscure small masses. No suspicious masses or calcifications are identified. CAD was utilized IMPRESSION: No mammographic evidence of malignancy. BI-RADS CATEGORY: Category: 2 - Benign Finding. Recommendation: Normal Interval Follow-up, Over Age 40. Recall Interval: 12 Months. Breast Density: Heterogeneous. For any future breast imaging appointments, please call [phone]). FINAL REPORT Dictated: 04/08/2019 9:27 am Azam Edgar MD Signed (Electronic Signature): 04/08/2019 9:27 am Signed by: Azam Edgar MD Technologist: LOPEZ Assessment: BI-RADS Category 2-Benign finding Recommendation: Normal interval follow-up Normal [facility] Glu Fastingon 07-01-2018 Glucose [Mass/Vol] 110 mg/dL High 70-99 [facility] Comment on above: Performed By: #### 2 [id number] #### HUY [employer] [address] [place] [address] OstD6bbl 07-01-2018 HbA1c (Bld) [Mass fraction] 5.9 % Normal 4.0-6.3 [facility] Comment on above: Performed By: #### 3 [id number] #### HUY Chemistry Manual Subsection [address] [place] [address] Lipid Profileon 07-01-2018 Cholesterol [Mass/Vol] 226 mg/dL High 120-200 [facility] Comment on above: Performed By: #### 3 [id number] #### HUY [employer] [address] [place] [address] Cholesterol in HDL [Mass/Vol] 46 mg/dL Normal [facility] Comment on above: Performed By: #### 3 [id number] #### HUY [employer] [address] [place] [address] Cholesterol in LDL [Mass/Vol] 158 mg/dL High 0-130 [facility] Comment on above: Performed By: #### 3 [id number] #### HUY [employer] [address] [place] [address] Cholesterol in VLDL [Mass/Vol] 22 mg/dL Normal [facility] Comment on above: Performed By: #### 3 [id number] #### HUY [employer] [address] [place] [address] Triglyceride [Mass/Vol] 110 mg/dL Normal 0-150 [facility] Comment on above: Result Comment: AGE DESIRABLE BORDELINE HIGH 91 D - 9 Y 0 - 74 75 - 99 > 100 10 - 19 Y 0 - 89 90 - 129 > 130 20 - 24 Y 0 - 114 115 - 149 > 150 > 25 Y 0 - 149 150 - 199 200 - 499 Performed By: #### 3 [id number] #### HUY [employer] [address] [place] [address] Pathology ([facility])on 03-31-2018 Pathology ([facility]) FINAL GYNECOLOGIC CYTOLOGY [id number] ADEQUACYSatisfactory for Evaluation. Endocervical cells/transformation zone componentpresent.GENERAL CATEGORIZATIONNegative for Intraepithelial Lesion or MalignancyCLINICAL HISTORYComment: No LMP provided.SPECIMEN(A) SCREENING CERVICAL/ENDOCERVICAL THIN PREP VIALPerformed at [facility], [address] [place] [id number] by: Signed Out by: JULISA ART Senior Grant Writer Reported: 04/17/[address] [facility] Healthcare Comment on above: Performed By: #### G YN ####[facility] [address] [place] [address] Vital Signs Date Time Vital Sign Value Performing Clinician Facility 03-10-2025 15:16-0400 Body height 172.[address] Erica Sanford MD Work Phone: [facility] 12-23-2024 08:40-0400 Body height 170.2 cm Erica Sanford DO Work Phone: [facility] 12-23-2024 08:40-0400 Body mass index (BMI) [Ratio] 35.64 kg/m2 Ercia Sanford DO Work Phone: [facility] 12-23-2024 08:40-0400 Body weight 103.24 kg Erica Sanford DO Work Phone: [facility] 12-23-2024 08:40-0400 Diastolic blood pressure 70 mm[Hg] Erica Sanford DO Work Phone: [facility] 12-23-2024 08:40-0400 Heart rate 68 /min Erica Sanford DO Work Phone: [facility] 12-23-2024 08:40-0400 SaO2% (BldA) [Mass fraction] 98 % Erica [place] DO Work Phone: [facility] 12-23-2024 08:40-0400 Systolic blood pressure 132 mm[Hg] Erica [place] DO Work Phone: [phone] [place] [address] 09-23-2024 07:53-0500 Body height 170.2 cm Erica [place] DO Work Phone: [phone] [place] [address] 09-23-2024 07:53-0500 Body mass index (BMI) [Ratio] 35.54 kg/m2 Erica [place] DO Work Phone: 2(921)[phone] [address] 09-23-2024 07:53-0500 Body weight 102.97 kg Erica [place] DO Work Phone: 3(219)385-716151 [place] [address] 09-23-2024 07:53-0500 Diastolic blood pressure 60 mm[Hg] Erica [place] DO Work Phone: 1(390)864-148451 [place] [address] 09-23-2024 07:53-0500 Heart rate 70 /min Erica [place] DO Work Phone: 1(394)874-441751 [place] [address] 09-23-2024 07:53-0500 SaO2% (BldA) [Mass fraction] 98 % Erica [place] DO Work Phone: 4(570)950-532151 [place] [address] 09-23-2024 07:53-0500 Systolic blood pressure 114 mm[Hg] Erica [place] DO Work Phone: 2(360)[phone] [place] [address] 07-22-2024 09:21-0400 Body height 170.2 cm [facility] 07-22-2024 09:21-0400 Body mass index (BMI) [Ratio] 36.58 kg/m2 [facility] 07-22-2024 09:21-0400 Body weight 105.96 kg [facility] 07-01-2024 11:52-0400 Body height 170.2 cm Erica [place] DO Work Phone: 2(417)004-881151 [place] [address] 07-01-2024 11:52-0400 Body mass index (BMI) [Ratio] 36.59 kg/m2 Erica [place] DO Work Phone: [facility] 07-01-2024 11:52-0400 Body weight 105.96 kg Erica [place] DO Work Phone: [facility] 07-01-2024 11:52-0400 Diastolic blood pressure 76 mm[Hg] Erica [place] DO Work Phone: [facility] 07-01-2024 11:52-0400 Heart rate 78 /min Erica [place] DO Work Phone: [facility] 07-01-2024 11:52-0400 SaO2% (BldA) [Mass fraction] 100 % Erica [place] DO Work Phone: [facility] 07-01-2024 11:52-0400 Systolic blood pressure 118 mm[Hg] Erica [place] DO Work Phone: [facility] 12-08-2023 16:17-0400 Body height 172.7 cm Xander Nunez Jr., DO Work Phone: [employer] 12-08-2023 16:17-0400 Body mass index (BMI) [Ratio] 35.13 kg/m2 Xander Nunez Jr., DO Work Phone: [employer] 12-08-2023 16:17-0400 Body temperature 98.71 [degF] Xander Nunez Jr., DO Work Phone: [employer] 12-08-2023 16:17-0400 Body weight 104.8 kg Xander Nunez Jr., DO Work Phone: [employer] 12-08-2023 16:17-0400 Diastolic blood pressure 80 mm[Hg] Xander Nunez Jr., DO Work Phone: [employer] 12-08-2023 16:17-0400 Heart rate 69 /min Xander Nunez Jr. DO Work Phone: [facility] 12-08-2023 16:17-0400 SaO2% (BldA) [Mass fraction] 98 % Xander Nunez Jr., DO Work Phone: [facility] 12-08-2023 16:17-0400 Systolic blood pressure 128 mm[Hg] Xander Nunez Jr., DO Work Phone: [facility] 12-04-2023 08:04-0500 Body height 170.2 cm Erica [place] DO Work Phone: [facility] 12-04-2023 08:04-0500 Body mass index (BMI) [Ratio] 36.15 kg/m2 Erica [place] DO Work Phone: [facility] 12-04-2023 08:04-0500 Body weight 104.69 kg Erica [place] DO Work Phone: [facility] 12-04-2023 08:04-0500 Diastolic blood pressure 60 mm[Hg] Erica [place] DO Work Phone: [facility] 12-04-2023 08:04-0500 Heart rate 67 /min Erica [place] DO Work Phone: [facility] 12-04-2023 08:04-0500 SaO2% (BldA) [Mass fraction] 100 % Erica [place] DO Work Phone: [facility] 12-04-2023 08:04-0500 Systolic blood pressure 120 mm[Hg] Erica [place] DO Work Phone: [facility] 11-17-2023 07:28-0500 Body height 172.7 cm Xander Nunez Jr., DO Work Phone: [facility] 11-17-2023 07:28-0500 Body mass index (BMI) [Ratio] 35.12 kg/m2 Xander Nunez Jr., DO Work Phone: [facility] 11-17-2023 07:28-0500 Body temperature 97 [degF] Xander Nunez Jr., DO Work Phone: [employer] 11-17-2023 07:28-0500 Body weight 104.78 kg Xander Nunez Jr., DO Work Phone: [employer] [facility] 11-17-2023 07:28-0500 Diastolic blood pressure 74 mm[Hg] Xander Nunez Jr., DO Work Phone: [employer] 11-17-2023 07:28-0500 Heart rate 78 /min Xander Nunez Jr., DO Work Phone: [employer] [facility] 11-17-2023 07:28-0500 SaO2% (BldA) [Mass fraction] 98 % Xander Nunez Jr., DO Work Phone: [employer] [facility] 11-17-2023 07:28-0500 Systolic blood pressure 132 mm[Hg] Xander Nunez Jr., DO Work Phone: [facility] 05-30-2023 08:15-0400 Body height 172.7 cm Erica [place] DO Work Phone: [facility] 05-30-2023 08:15-0400 Body mass index (BMI) [Ratio] 34.97 kg/m2 Erica [place] DO Work Phone: [facility] 05-30-2023 08:15-0400 Body weight 104.33 kg Erica [place] DO Work Phone: [facility] 05-30-2023 08:15-0400 Diastolic blood pressure 78 mm[Hg] Erica [place] DO Work Phone: [facility] 05-30-2023 08:15-0400 Heart rate 77 /min Erica [place] DO Work Phone: [facility] 05-30-2023 08:15-0400 SaO2% (BldA) [Mass fraction] 98 % Erica [place] DO Work Phone: [facility] 05-30-2023 08:15-0400 Systolic blood pressure 128 mm[Hg] Erica [place] DO Work Phone: [facility] 05-15-2023 08:04-0400 Body height 172.7 cm Erica [place] DO Work Phone: [facility] 05-15-2023 08:04-0400 Body mass index (BMI) [Ratio] 35.11 kg/m2 Erica [place] DO Work Phone: [facility] 05-15-2023 08:04-0400 Body weight 104.74 kg Erica [place] DO Work Phone: [facility] 05-15-2023 08:04-0400 Diastolic blood pressure 80 mm[Hg] Erica [place] DO Work Phone: [facility] 05-15-2023 08:04-0400 Heart rate 74 /min Erica [place] DO Work Phone: [facility] 05-15-2023 08:04-0400 SaO2% (BldA) [Mass fraction] 97 % Erica [place] DO Work Phone: [facility] 05-15-2023 08:04-0400 Systolic blood pressure 120 mm[Hg] Erica [place] DO Work Phone: [facility] 04-24-2023 09:32-0400 Body height 170.18 cm Erica S [place] Work Phone: [facility] [address] Work Phone: 04-24-2023 09:32-0400 Body mass index (BMI) [Ratio] 35.94 kg/m2 Erica S [place] Work Phone: [facility] [address] Work Phone: 04-24-2023 09:32-0400 Body surface area Derived from formula 2.14 m2 Erica S [place] Work Phone: [facility] [address] Work Phone: 04-24-2023 09:32-0400 Body weight 104.1 kg Erica S [place] Work Phone: [facility] [address] Work Phone: 02-09-2023 09:21-0400 Body temperature 97.34 [degF] Erica [place] Other Phone: [facility] 02-09-2023 09:21-0400 Diastolic blood pressure 86 mm[Hg] Erica [place] Other Phone: [facility] 02-09-2023 09:21-0400 Heart rate 60 /min Erica [place] Other Phone: [facility] 02-09-2023 09:21-0400 Respiratory rate 16 /min Erica [place] Other Phone: [facility] 02-09-2023 09:21-0400 SaO2% (BldA) [Mass fraction] 98 % Erica [place] Other Phone: [facility] 02-09-2023 09:21-0400 Systolic blood pressure 131 mm[Hg] Erica [place] Other Phone: [facility] 01-16-2023 10:32-0400 Body mass index (BMI) [Ratio] 36.71 kg/m2 Erica S [place] Work Phone: [facility] 300 Work Phone: 01-16-2023 10:32-0400 Body surface area Derived from formula 2.16 m2 Erica S [place] Work Phone: [facility] 300 Work Phone: 01-16-2023 10:32-0400 Body temperature 97.2 [degF] Erica S [place] Work Phone: [facility] 300 Work Phone: 01-16-2023 10:32-0400 Body weight 106.31 kg Erica Mcwilliams [place] Work Phone: [facility] 300 Work Phone: 01-07-2023 09:54-0400 Body height 172.7 cm Erica [place] DO Work Phone: [facility] 01-07-2023 09:54-0400 Body mass index (BMI) [Ratio] 34.67 kg/m2 Erica [place] DO Work Phone: [facility] 01-07-2023 09:54-0400 Body weight 103.42 kg Erica [place] DO Work Phone: [facility] 01-07-2023 09:54-0400 Diastolic blood pressure 78 mm[Hg] Erica [place] DO Work Phone: [facility] 01-07-2023 09:54-0400 Heart rate 82 /min Erica [place] DO Work Phone: [facility] 01-07-2023 09:54-0400 Systolic blood pressure 132 mm[Hg] Erica [place] DO Work Phone: [facility] 11-26-2022 13:49-0500 Body height 170.18 cm Erica S [place] Work Phone: GP-Ugkbruiiqbpo-Yrq [place] Work Phone: 11-26-2022 13:49-0500 Body mass index (BMI) [Ratio] 35.24 kg/m2 Erica S [place] Work Phone: PX-Hqwqhzjuvoxb-Rwr [place] Work Phone: 11-26-2022 13:49-0500 Body surface area Derived from formula 2.13 m2 Erica S [place] Work Phone: OB-Yhgsefaazqxa-Yjz [place] Work Phone: 11-26-2022 13:49-0500 Body temperature 96.2 [degF] Erica Sanford Work Phone: HN-Zozzgyangkxi-Pfs [facility] Work Phone: 11-26-2022 13:49-0500 Body weight 102.06 kg Erica Sanford Work Phone: LJ-Khfptozqqmtc-Opw [place] Work Phone: 11-26-2022 13:49-0500 Diastolic blood pressure 88 mm[Hg] Erica Sanford Work Phone: QS-Ojeddtiihjlb-Nhf [place] Work Phone: 11-26-2022 13:49-0500 Heart rate 74 /min Erica Sanford Work Phone: CX-Olniqctmatlx-Dsb [place] Work Phone: 11-26-2022 13:49-0500 Systolic blood pressure 143 mm[Hg] Erica Sanford Work Phone: JX-Bojtyfzddnjb-Sun [facility] Work Phone: 11-26-2022 13:49-0500 8 1 Erica Sanford Work Phone: EN-Txsujflzhysl-Oll [facility] Work Phone: Comment on above: [employer] 10-31-2022 08:50-0500 Body height 172.72 cm Erica Sanford Work Phone: [facility] Work Phone: 10-31-2022 08:50-0500 Body mass index (BMI) [Ratio] 34.52 kg/m2 Erica Sanford Work Phone: [facility] Work Phone: 10-31-2022 08:50-0500 Body surface area Derived from formula 2.16 m2 Erica Sanford Work Phone: [facility] Work Phone: 10-31-2022 08:50-0500 Body weight 102.97 kg Erica Sanford Work Phone: [facility] [employer] [facility] Work Phone: 10-31-2022 08:50-0500 Diastolic blood pressure 80 mm[Hg] Erica Sanford Work Phone: [facility] Work Phone: 10-31-2022 08:50-0500 Heart rate 71 /min Erica Mcwilliams [place] Work Phone: [facility] Work Phone: 10-31-2022 08:50-0500 SaO2% (BldA) [Mass fraction] 98 % Erica Sanford Work Phone: [facility] Work Phone: 10-31-2022 08:50-0500 Systolic blood pressure 128 mm[Hg] Erica Mcwilliams [place] Work Phone: [facility] Work Phone: 04-29-2022 09:47-0400 Body height 172.72 cm Erica Sanford Work Phone: [place] [address] [place] Work Phone: 04-29-2022 09:47-0400 Body mass index (BMI) [Ratio] 32.55 kg/m2 Erica Mcwilliams [place] Work Phone: [place] [address] [place] Work Phone: 04-29-2022 09:47-0400 Body surface area Derived from formula 2.1 m2 Erica Mcwilliams [place] Work Phone: [place] [address] [place] Work Phone: 04-29-2022 09:47-0400 Body weight 97.1 kg Erica Mcwilliams [place] Work Phone: [place] [address] [place] Work Phone: 04-29-2022 09:47-0400 Diastolic blood pressure 70 mm[Hg] Erica Sanford Work Phone: [address] Work Phone: 04-29-2022 09:47-0400 Systolic blood pressure 118 mm[Hg] Erica Sanford Work Phone: [address] Work Phone: 04-11-2022 07:47-0400 Body height 172.72 cm Erica Sanford Work Phone: [facility] [employer] [facility] Work Phone: 04-11-2022 07:47-0400 Body mass index (BMI) [Ratio] 32.17 kg/m2 Erica Mcwilliams [place] Work Phone: [facility] Work Phone: 04-11-2022 07:47-0400 Body surface area Derived from formula 2.09 m2 Erica Mcwilliams [employer] Phone: [facility] Work Phone: 04-11-2022 07:47-0400 Body weight 95.96 kg Erica Sanford [employer] Phone: [facility] Work Phone: 04-11-2022 07:47-0400 Diastolic blood pressure 80 mm[Hg] Erica Sanford Work Phone: [facility] Work Phone: 04-11-2022 07:47-0400 Heart rate 75 /min Erica Sanford Work Phone: [facility] [employer] [facility] Work Phone: 04-11-2022 07:47-0400 SaO2% (BldA) [Mass fraction] 97 % Erica S [place] Work Phone: [facility] Work Phone: 04-11-2022 07:47-0400 Systolic blood pressure 120 mm[Hg] Erica Mcwilliams [place] Work Phone: [facility] Work Phone: 02-05-2022 07:14-0400 Body temperature 97 [degF] Dionne Reston DPM Work Phone: [facility] 02-05-2022 07:14-0400 Diastolic blood pressure 78 mm[Hg] Dionne Shawn DPM Work Phone: [facility] 02-05-2022 07:14-0400 Heart rate 74 /min Dionne Reston DPM Work Phone: [facility] 02-05-2022 07:14-0400 Systolic blood pressure 119 mm[Hg] Dionne Shawn DPM Work Phone: [facility] 01-24-2022 10:50-0400 Body mass index (BMI) [Ratio] 33.91 kg/m2 Jessica Johnson RD [facility] 01-24-2022 10:50-0400 Body weight 101.15 kg Jessica Alex WATKINS [facility] 01-21-2022 12:31-0400 Body temperature 97.59 [degF] Dionne Shawn DPM Work Phone: [facility] 01-21-2022 12:31-0400 Diastolic blood pressure 79 mm[Hg] Dionne Reston DPM Work Phone: [facility] 01-21-2022 12:31-0400 Heart rate 77 /min Dionne Reston DPM Work Phone: [facility] 01-21-2022 12:31-0400 Systolic blood pressure 122 mm[Hg] Dionne Reston DPM Work Phone: [facility] 01-17-2022 09:59-0400 Diastolic blood pressure 84 mm[Hg] Alecia Esparza RN [facility] 01-17-2022 09:59-0400 Heart rate 78 /min Aleciarica Fulleroneyda RN [facility] 01-17-2022 09:59-0400 Respiratory rate 16 /min Aleciarica Esparza RN [facility] 01-17-2022 09:59-0400 Systolic blood pressure 141 mm[Hg] Alecia Esparza JIMENA [facility] 01-03-2022 07:17-0400 Body height 172.72 cm Erica Mcwilliams [employer] Work Phone: [facility] Work Phone: 01-03-2022 07:17-0400 Body mass index (BMI) [Ratio] 34.52 kg/m2 Erica S [employer] Work Phone: [facility] Work Phone: 01-03-2022 07:17-0400 Body surface area Derived from formula 2.16 m2 Erica S [employer] Phone: [facility] Work Phone: 01-03-2022 07:17-0400 Body weight 102.97 kg Erica Mcwilliams [employer] Phone: [facility] Work Phone: 01-03-2022 07:17-0400 Diastolic blood pressure 84 mm[Hg] Erica Mcwilliams [employer] Phone: [facility] Work Phone: 01-03-2022 07:17-0400 Heart rate 70 /min Erica Mcwilliams [employer] Work Phone: [facility] Work Phone: 01-03-2022 07:17-0400 SaO2% (BldA) [Mass fraction] 96 % Erica S [place] Work Phone: [facility] Work Phone: 01-03-2022 07:17-0400 Systolic blood pressure 128 mm[Hg] Erica Sanford Work Phone: [employer] [facility] Work Phone: 08-20-2021 07:12-0500 Body temperature 96.8 [degF] Dionne Reston DPM Work Phone: [facility] 08-20-2021 07:12-0500 Diastolic blood pressure 88 mm[Hg] Dionne Reston DPM Work Phone: [facility] 08-20-2021 07:12-0500 Heart rate 71 /min Dionne Shawn DPM Work Phone: [facility] 08-20-2021 07:12-0500 Systolic blood pressure 135 mm[Hg] Dionne Shawn DPM Work Phone: [facility] 07-05-2021 10:22-0400 Body height 172.72 cm Erica Sanford Work Phone: [facility] Work Phone: 07-05-2021 10:22-0400 Body mass index (BMI) [Ratio] 34.53 kg/m2 Erica Sanford Work Phone: [facility] [employer] Work Phone: 07-05-2021 10:22-0400 Body surface area Derived from formula 2.16 m2 Erica Sanford Work Phone: [facility] [employer] Work Phone: 07-05-2021 10:22-0400 Body temperature 97.1 [degF] Erica Mcwilliams [place] Work Phone: [facility] Work Phone: 07-05-2021 10:22-0400 Body weight 102.99 kg Erica Sanford Work Phone: [facility] [employer] [facility] Work Phone: 07-05-2021 10:22-0400 Diastolic blood pressure 82 mm[Hg] Erica Sanford Work Phone: [facility] Work Phone: 07-05-2021 10:22-0400 Heart rate 69 /min Erica Sanford Work Phone: [facility] Work Phone: 07-05-2021 10:22-0400 SaO2% (BldA) [Mass fraction] 98 % Erica Sanford Work Phone: [facility] Work Phone: 07-05-2021 10:22-0400 Systolic blood pressure 130 mm[Hg] Erica Sanford Work Phone: [facility] Work Phone: 06-19-2021 09:06-0400 Body height 172.7 cm Dionne Reston DPM Work Phone: [facility] 06-19-2021 09:06-0400 Body mass index (BMI) [Ratio] 31.47 kg/m2 Dionne Reston DPM Work Phone: [facility] 06-19-2021 09:06-0400 Body temperature 96.1 [degF] Dionne Shawn DPM Work Phone: [facility] 06-19-2021 09:06-0400 Body weight 93.89 kg Dionne Shawn DPM Work Phone: [facility] 06-19-2021 09:06-0400 Diastolic blood pressure 89 mm[Hg] Dionne Shawn DPM Work Phone: [facility] 06-19-2021 09:06-0400 Heart rate 63 /min Dionne Reston DPM Work Phone: [facility] 06-19-2021 09:06-0400 Systolic blood pressure 141 mm[Hg] Dionne Shawn DPM Work Phone: [facility] 06-19-2021 07:39-0400 Body height 172.72 cm Erica Sanford Work Phone: [facility] Work Phone: 06-19-2021 07:39-0400 Body mass index (BMI) [Ratio] 33.82 kg/m2 Erica Mcwilliams [place] Work Phone: [facility] Work Phone: 06-19-2021 07:39-0400 Body surface area Derived from formula 2.14 m2 Erica Mcwilliams [place] Work Phone: [facility] Work Phone: 06-19-2021 07:39-0400 Body temperature 97.1 [degF] Erica Mcwilliams [place] Work Phone: [facility] Work Phone: 06-19-2021 07:39-0400 Body weight 100.9 kg Erica Sanford Work Phone: [facility] Work Phone: 06-19-2021 07:39-0400 Diastolic blood pressure 86 mm[Hg] Erica Sanford Work Phone: [facility] Work Phone: 06-19-2021 07:39-0400 Systolic blood pressure 138 mm[Hg] Erica Mcwilliams [place] Work Phone: [facility] Work Phone: 04-16-2021 07:06-0400 Body temperature 97.3 [degF] Dionne Shawn DPM Work Phone: [facility] 04-16-2021 07:06-0400 Diastolic blood pressure 72 mm[Hg] Dionne Shawn DPM Work Phone: [facility] 04-16-2021 07:06-0400 Heart rate 72 /min Dionne Reston DPM Work Phone: [facility] 04-16-2021 07:06-0400 Systolic blood pressure 127 mm[Hg] Dionne Shawn DPM Work Phone: [facility] 01-01-2021 08:04-0400 Body height 172.7 cm Dionne Shawn DPM Work Phone: [facility] 01-01-2021 08:04-0400 Body mass index (BMI) [Ratio] 31.47 kg/m2 Dionne Reston DPM Work Phone: [facility] 01-01-2021 08:04-0400 Body weight 93.89 kg Dionne Shawn DPM Work Phone: [facility] 12-25-2020 09:43-0400 BMI (Body Mass Index) 32.6 kg/m2 [facility] Work Phone: 12-25-2020 09:43-0400 Body Temperature 96.9 [degF] [facility] Work Phone: 12-25-2020 09:43-0400 Body weight 97.24 kg [facility] Work Phone: 12-25-2020 09:43-0400 BP Diastolic 74 mm[Hg] [facility] Work Phone: 12-25-2020 09:43-0400 BP Systolic 122 mm[Hg] [facility] Work Phone: 12-25-2020 09:43-0400 BSA (Body Surface Area) 2.11 m2 [facility] Work Phone: 12-25-2020 09:43-0400 Height 172.72 cm [facility] Work Phone: 12-25-2020 09:43-0400 Pulse (Heart Rate) 63 /min [facility] Work Phone: 12-25-2020 09:43-0400 Pulse Oximetry 98 % [facility] Work Phone: 11-30-2020 11:52-0500 BMI (Body Mass Index) 32.68 kg/m2 [facility] Work Phone: 11-30-2020 11:52-0500 Body Temperature 95.7 [degF] [facility] Work Phone: Comment on above: Method: Temporal 11-30-2020 11:52-0500 Body weight 97.5 kg [facility] Work Phone: 11-30-2020 11:52-0500 BP Diastolic 84 mm[Hg] [facility] Work Phone: Comment on above: Location: [place]; Position: Sitting 11-30-2020 11:52-0500 BP Systolic 120 mm[Hg] [facility] Work Phone: Comment on above: Location: [place]; Position: Sitting 11-30-2020 11:52-0500 BSA (Body Surface Area) 2.11 m2 [facility] Work Phone: 11-30-2020 11:52-0500 Height 172.72 cm [facility] Work Phone: 11-27-2020 09:45-0500 BMI (Body Mass Index) 32.84 kg/m2 [facility] Work Phone: 11-27-2020 09:45-0500 Body Temperature 97.1 [degF] [facility] Work Phone: 11-27-2020 09:45-0500 Body weight 97.98 kg [facility] Work Phone: 11-27-2020 09:45-0500 BP Diastolic 86 mm[Hg] [facility] Work Phone: Comment on above: Location: E; 11-27-2020 09:45-0500 BP Systolic 132 mm[Hg] [facility] Work Phone: Comment on above: [place] [facility] [place] 11-27-2020 09:45-0500 BSA (Body Surface Area) 2.11 m2 [facility] Work Phone: 11-27-2020 09:45-0500 Height 172.72 cm [facility] Work Phone: 11-27-2020 09:45-0500 Pulse (Heart Rate) 80 /min [facility] Work Phone: 11-27-2020 09:45-0500 Pulse Oximetry 98 % [facility] Work Phone: 11-06-2020 11:53-0500 BMI (Body Mass Index) 33.06 kg/m2 [facility] Work Phone: 11-06-2020 11:53-0500 Body Temperature 96.8 [degF] [facility] Work Phone: 11-06-2020 11:53-0500 Body weight 98.63 kg [facility] Work Phone: 11-06-2020 11:53-0500 BP Diastolic 76 mm[Hg] [facility] Work Phone: 11-06-2020 11:53-0500 BP Systolic 126 mm[Hg] [facility] Work Phone: 11-06-2020 11:53-0500 BSA (Body Surface Area) 2.12 m2 [facility] Work Phone: 11-06-2020 11:53-0500 Height 172.72 cm [facility] Work Phone: 11-06-2020 11:53-0500 Pulse (Heart Rate) 70 /min [facility] Work Phone: 11-06-2020 11:53-0500 Pulse Oximetry 98 % [facility] Work Phone: 10-16-2020 10:05-0500 BMI (Body Mass Index) 32.61 kg/m2 [facility] Work Phone: 10-16-2020 10:05-0500 Body Temperature 97.3 [degF] [facility] Work Phone: 10-16-2020 10:05-0500 Body weight 97.27 kg [facility] Work Phone: 10-16-2020 10:05-0500 BP Diastolic 80 mm[Hg] [facility] Work Phone: 10-16-2020 10:05-0500 BP Systolic 128 mm[Hg] [facility] Work Phone: 10-16-2020 10:05-0500 BSA (Body Surface Area) 2.11 m2 [facility] Work Phone: 10-16-2020 10:05-0500 Height 172.72 cm [facility] Work Phone: 10-16-2020 10:05-0500 Pulse (Heart Rate) 71 /min [facility] Work Phone: 10-16-2020 10:05-0500 Pulse Oximetry 98 % [facility] Work Phone: Encounters Encounter Date Encounter Type Care Provider Facility Start: 03-31-2025 ambulatory [facility] Start: 03-10-2025 End: 03-10-2025 Patient encounter procedure Ashlee Kim [facility] Work Phone: Start: 03-10-2025 End: 03-10-[address] Erica Sanford MD Work Phone: [facility] Work Phone: Start: 03-10-2025 End: 03-10-2025 ambulatory [facility] Facility[facility] Start: 12-23-2024 End: 12-23-2024 Office outpatient visit 25 minutes Erica Astro Work Phone: [facility] Comment on above: Mixed hyperlipidemia (Primary Dx); Depression, major, single episode, mild (CMS-HCC); Polyarthropathy; Gastroesophageal reflux disease without esophagitis; Type 2 diabetes mellitus with hyperglycemia, without long-term current use of insulin; Chronic midline low back pain without sciatica Start: 12-23-2024 End: 12-23-2024 ambulatory [facility] Ambulatory Start: 09-23-2024 End: 09-23-2024 Office outpatient visit 15 minutes [employer] Work Phone: [facility] Comment on above: Mixed hyperlipidemia (Primary Dx); Type 2 diabetes mellitus with hyperglycemia, without long-term current use of insulin Start: 09-23-2024 End: 09-23-2024 ambulatory [facility] Ambulatory Start: 07-22-2024 End: 07-22-2024 Subsequent hospital visit by physician Shashank Valdez [facility] Comment on above: Encounter for screen ing mammogram for malignant neoplasm of breast Start: 07-22-2024 End: 07-22-2024 ambulatory [facility] Start: 07-12-2024 End: 07-12-2024 ambulatory [facility] Start: 07-01-2024 End: 07-01-2024 Office outpatient visit 15 minutes [facility] DO Work Phone: [facility] Comment on above: Vitamin D deficiency (Primary Dx); Type 2 diabetes mellitus with hyperglycemia, without long-term current use of insulin; Encounter for screening mammogram for malignant neoplasm of breast Start: 07-01-2024 End: 07-01-2024 ambulatory [facility] Ambulatory Start: 05-14-2024 Encounter for genera l adult medical examination without abnormal findings [facility] Start: 04-22-2024 End: 04-22-2024 ambulatory [facility] Facility:[facility] Start: 04-22-2024 End: 04-22-2024 ambulatory [facility] Facility[facility] Start: 12-08-2023 ambulatory [facility] Start: 12-08-2023 End: 12-08-2023 Office outpatient visit 15 minutes Xander Nunez DO Work Phone: [facility] Comment on above: Vitamin D deficiency (Primary Dx); Hepatomegaly; Hepatic steatosis; Hyperglycemia; Primary osteoarthritis of both wrists; Primary osteoarthritis of both knees; Primary osteoarthritis of both hands; Primary osteoarthritis of both feet; Osteoarthritis of carpometacarpal (CMC) joint of both thumbs; Lumbar degenerative disc disease; Elevated hemoglobin A1c; 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 Comment on above: Bowel habit changes (Primary Dx); Type 2 diabetes mellitus with hyperglycemia, without long-term current use of insulin (CMS/HCC); Depression, major, single episode, mild (CMS/HCC); Gastroesophageal reflux disease without esophagitis; Shortness of breath on exertion; LOMELI (dyspnea on exertion); Prehypertension Start: 11-20-2023 End: 11-20-2023 ambulatory [facility] Start: 11-18-2023 End: 11-18-2023 ambulatory [facility] Start: 11-17-2023 ambulatory X[facility] CURI[facility] Start: 11-17-2023 End: 11-17-2023 Office outpatient new 45 minutes Xander Nunez DO Work Phone: [facility] Rhe[facility] Comment on above: Dorsalgia (Primary D x); Bilateral chronic knee pain; Abnormal reflexes of lower extremity; Wrist pain, left; Primary osteoarthritis of both wrists; Primary osteoarthritis of both knees; Primary osteoarthritis of both hands; Primary osteoarthritis of both feet; Osteoarthritis of carpometacarpal (CMC) joint of both thumbs; Lumbar degenerative disc disease; Disorder of bone and cartilage; FDC current use of non-steroidal anti-inflammatories (NSAID); History of rheumatoid arthritis; Fatigue, unspecified type; Family history of rheumatoid arthritis; Hepatomegaly; Hepatic steatosis Start: 06-06-2023 Chart Update Erica Oj Bebeto kirk Work Phone: [facility] G[facility] [address] Work Phone: Start: 05-30-2023 End: 05-30-2023 Office outpatient visit 25 minutes Erica Sanford DO Work Phone: [facility] [employer] [facility] Comment on above: Polyarthropathy (Ashley chip Dx); Hypertension, unspecified type; Type 2 diabetes mellitus with hyperglycemia, without long-term current use of insulin (CMS/HCC); Prehypertension; Depression, major, single episode, mild (CMS/HCC); Encounter for screening mammogram for malignant neoplasm of breast Start: 05-15-2023 End: 05-15-2023 Office outpatient visit 25 minutes Erica Sanford DO Work Phone: [facility] Comment on above: Prehypertension (Ashley chip Dx); Polyarthropathy; Other fatigue; Fatty liver; Mixed hyperlipidemia; Type 2 diabetes mellitus with hyperglycemia, without long-term current use of insulin (CMS/HCC) Start: 05-13-2023 Chart Update Erica kirk Work Phone: [facility] Work Phone: Start: 05-08-[address] Erica Horne cility:[id number] Start: 04-24-2023 Office outpatient ne w 45 minutes Erica Sanford Work Phone: [facility] 120 Work Phone: Start: 04-24-[address] Erica Horne cility:[id number] Start: 02-22-2023 ambulatory ERICA SANFORD [facility] Ambulatory Start: 02-12-2023 Refill Dionne espinal DPM Work Phone: [facility] Start: 02-06-2023 End: 02-09-2023 Evaluation and management of inpatient Dr. Samir Lopez Facility:[id number] Start: 02-05-2023 End: 02-09-2023 Evaluation and management of inpatient Cortez Armendariz [facility] [address] 01 Start: 01-16-2023 Office outpatient ne w 60 minutes Erica Sanford Work Phone: [facility] 300 Work Phone: Start: 01-16-[address] Erica Horne cility:[id number] Start: 01-13-[address] Erica Horne cility:[id number] Start: 01-07-2023 End: 01-07-2023 Office outpatient visit 15 minutes Erica Sanfodr DO Work Phone: [facility] Comment on above: Chronic pain of righ t knee (Primary Dx); Rheumatoid arthritis with positive rheumatoid factor, involving unspecified site ([facility]); Type 2 diabetes mellitus with hyperglycemia, without long-term current use of insulin ([facility]); Bilateral carpal tunnel syndrome; Depression, major, single episode, mild ([facility]/HCC) Start: 11-26-2022 Office outpatient ne w 45 minutes Erica Sanford Work Phone: [facility] Work Phone: Start: 11-26-2022 End: 11-27-2022 ambulatory ALIREZA WEEKS MD Facility:[id number] Start: 10-31-[address] Erica Horne cility:[id number] Start: 10-31-2022 Office outpatient vi sit 25 minutes Erica Sanford Work Phone: [facility] Work Phone: Start: 10-17-[address] Erica Horne cility:[id number] Start: 10-17-2022 EPV, Provider: Erica Sanford, Status: Pen, Time: 7:40 AM Erica Sanford Work Phone: [facility] Work Phone: Start: 10-15-2022 Rx Renewal Erica kirk Work Phone: [facility] Work Phone: Start: 08-07-2022 End: 08-07-2022 ambulatory [facility] Work Phone: Start: 08-07-2022 End: 08-07-2022 Patient encounter procedure [facility] Start: 07-09-2022 Chart Update Erica kirk Work Phone: [facility] Work Phone: Start: 07-09-[address] Erica Horne cility:[id number] Start: 06-12-2022 Rx Renewal Erica Mcwilliams Bebeto kirk Work Phone: [facility] Work Phone: Start: 05-07-2022 Chart Update Erica Tate yelena Work Phone: [facility] Work Phone: Start: 05-06-2022 Rx Renewal Erica kirk Work Phone: [facility] [employer] [facility] Work Phone: Start: 04-29-2022 Periodic preventive med est patient 40-64yrs Erica Sanford Work Phone: [facility] Work Phone: Start: 04-11-2022 End: 04-15-2022 ambulatory ERICA SANFORD [facility] Start: 04-11-2022 End: 04-11-2022 Nutrition therapy Erica Sanford DO Work Phone: [facility] Comment on above: Uncontrolled type 2 diabetes mellitus with hyperglycemia (HCC) (Primary Dx) Start: 04-11-2022 EPV, Provider: Erica Sanford, Status: Pen, Time: 7:40 AM Erica Sanford Work Phone: [facility] Work Phone: Start: 04-11-2022 Office outpatient vi sit 25 minutes Erica Sanford Work Phone: [facility] [employer] [facility] Work Phone: Start: 04-09-2022 Chart Update Erica kirk Work Phone: [facility] Work Phone: Start: 03-22-2022 ambulatory DIONNE PHIPPS [facility] Ambulatory Start: 02-19-2022 End: 02-23-2022 [facility] Start: 02-19-2022 End: 02-19-2022 Nutrition therapy Erica Sanford DO Work Phone: [facility] Comment on above: Controlled type 2 di abetes mellitus with hyperglycemia, unspecified whether correction insulin use (HCC) (Primary Dx) Start: 02-12-2022 End: 02-16-2022 ambulatory [facility] Start: 02-12-2022 End: 02-12-2022 Nutrition therapy Waltham Oj Royal BAILON Work Phone: [facility] Comment on above: Type 2 diabetes damaris itus with hyperglycemia, unspecified whether correction insulin use (HCC) (Primary Dx) Start: 02-05-2022 End: 02-05-2022 Office outpatient visit 15 minutes Dionnejoon Escobar DPM Work Phone: [facility] Comment on above: Plantar fasciitis, b ilateral (Primary Dx); Bilateral foot pain Start: 02-01-2022 End: 02-02-2022 ambulatory [facility] Start: 01-30-2022 Rx Renewal Erica Mcwilliams Bebeto kirk Work Phone: [facility] Work Phone: Start: 01-24-2022 End: 01-28-2022 [facility] Start: 01-24-2022 End: 01-24-2022 Nutrition therapy Erica Sanford DO Work Phone: [facility] Comment on above: Uncontrolled type 2 diabetes mellitus with hyperglycemia (HCC) Start: 01-21-2022 End: 01-21-2022 Office outpatient visit 15 minutes Dionnejoon Gusmanr DPM Work Phone: [facility] Comment on above: Plantar fasciitis of left foot (Primary Dx); Tendinitis of left foot; Left foot pain Start: 01-17-2022 End: 01-21-2022 ambulatory [facility] Start: 01-17-2022 End: 01-17-2022 Nutrition therapy Erica Sanford Work Phone: [facility] Comment on above: Uncontrolled type 2 diabetes mellitus with hyperglycemia (HCC) Start: 01-14-2022 AUDIT Erica kirk Work Phone: [employer] Work Phone: Start: 01-11-2022 Chart Update Erica kirk Work Phone: [employer] [facility] Work Phone: Start: 01-03-2022 Office outpatient vi sit 25 minutes Erica Sanford Work Phone: [employer] Phone: Start: 12-31-2021 Chart Update Erica kirk Work Phone: [employer] Work Phone: Start: 12-07-2021 Rx Change Erica Tate al Work Phone: [employer] Work Phone: Start: 11-26-2021 Rx Change Erica Tate al Work Phone: [employer] Work Phone: Start: 09-30-2021 Rx Renewal Erica Tate al Work Phone: [employer] [facility] Phone: Start: 09-25-2021 End: 09-25-2021 Patient encounter procedure Dionne Escobar DPM Work Phone: [facility] Comment on above: Plantar fasciitis, b ilateral (Primary Dx) Start: 08-20-2021 End: 08-20-2021 Office outpatient visit 15 minutes Dionne Escobar DPM Work Phone: [facility] Comment on above: Plantar fasciitis, b ilateral (Primary Dx); Bilateral foot pain; Extensor tendinitis of foot Start: 07-05-2021 Office outpatient vi sit 15 minutes Erica Sanford Work Phone: [employer] [employer] Work Phone: Start: 07-02-2021 Chart Update Erica kirk Work Phone: [facility] [employer] [facility] Work Phone: Start: 06-19-2021 Office outpatient vi sit 25 minutes Erica Sanford Work Phone: [email or web address] [employer] [facility] Work Phone: Start: 06-19-2021 End: 06-19-2021 Office outpatient visit 15 minutes Dionne Escobar DPM Work Phone: [facility] Comment on above: Plantar fasciitis, b ilateral (Primary Dx); Bilateral foot pain Start: 05-02-2021 Chart Update Erica kirk Work Phone: [facility] [employer] [facility] Work Phone: Start: 04-16-2021 End: 04-16-2021 Office outpatient visit 15 minutes Dionne Escobar DPM Work Phone: [facility] Comment on above: Plantar fasciitis, b ilateral (Primary Dx); Bilateral foot pain Start: 04-06-2021 End: 04-06-2021 Chart abstracting Dionne Escobar DPM Work Phone: [facility] Comment on above: Heel pain, unspecifi ed laterality; Plantar fasciitis, bilateral; Right foot pain; Gastroesophageal reflux disease, unspecified whether esophagitis present; Obesity, unspecified classification, unspecified obesity type, unspecified whether serious comorbidity present Start: 03-12-2021 Rx Renewal Erica kirk Work Phone: [facility] Work Phone: Start: 12-25-2020 Patient encounter procedure Erica Sanford -[facility] Work Phone: Start: 12-12-2020 Patient encounter procedure Erica Sanford -[facility] Work Phone: Start: 12-11-2020 Patient encounter procedure Erica Sanford -[facility] Work Phone: Start: 11-30-2020 Patient encounter procedure Erica Sanford -[facility] Work Phone: Start: 11-27-2020 Patient encounter procedure Erica Sanford -[facility] Work Phone: Start: 11-06-2020 Patient encounter procedure Erica Sanford -[facility] Work Phone: Start: 10-19-2020 Patient encounter procedure Erica Sanford -[facility] Work Phone: Start: 10-16-2020 Patient encounter procedure Erica Sanford -[facility] Work Phone: Start: 05-15-2020 Patient encounter procedure Erica Sanford -[facility] Work Phone: Start: 04-17-2020 Patient encounter procedure Erica Sanford [facility] Work Phone: Start: 03-23-2020 Patient encounter procedure Erica Sanford -[facility] Work Phone: Menarche Erica Mcwilliams [place] Work Phone: [facility] Work Phone: Comment on above: 15; Patient encounter procedure Erica Mcwilliams [place] Work Phone: [facility] Work Phone: Comment on above: 09/2020; Patient encounter status Fidelina Sanford Work Phone: [address] Work Phone: Procedures Date Procedure Procedure Detail Performing Clinician Start: 03-10-2025 Liquid based cervica l cytology screening Dr. Erica Sanford MD Work Phone: Comment on above: NEGATIVE FOR INTRAEP ITHELIAL LESION OR MALIGNANCY. Test not performedTh e Thin Prep(R) Process Control Manager was unable to read this specimen.Therefore a manual review was performed. Start: 03-10-2025 Vitamin D, 25-hydrox y measurement Dr. Erica Sanford MD Work Phone: Comment on above: Vitamin D StatusDefi ciency: <20 ng/mL (50nmol/L)Insufficiency: 20-30 ng/mL (50-75 nmol/L)Sufficiency: 30-100 ng/mL (75-250 nmol/L)Toxicity: >100 ng/mL (>250 nmol/L) Start: 12-18-2024 Lipid 1996 panel - S tai or Plasma Erica [place] DO Work Phone: Start: 07-22-2024 End: 07-22-2024 Screening digital breast tomosynthesis bi Erica Sanford DO Work Phone: Start: 12-04-2023 FOLLOW UP IN PHYSICA L THERAPY KAMRAN MORIN Start: 12-04-2023 CBC W Auto Different ial panel - Blood ERICA ROYAL Start: 11-20-2023 AMB REFERRAL TO PHYS ICAL THERAPY KAMRAN MORIN Start: 11-18-2023 ANCA-ASSOCIATED VASC ULITIS PROFILE (ANCA,MPO,PR3) ERICA ROYAL Start: 11-18-2023 Angiotensin converti ng enzyme [Enzymatic activity/volume] in Serum or Plasma [facility] Start: 11-18-2023 C-reactive protein KIMB ERLY ROYAL Start: 11-18-2023 CBC W Auto Different ial panel - Blood ERICA ROYAL Start: 11-18-2023 CITRULLINE ANTIBODY, IGG ERICA ROYAL Start: 11-18-2023 Comprehensive metabo lic 2000 panel - Serum or Plasma ERICA ROYAL Start: 11-18-2023 Creatine kinase [Enz ymatic activity/volume] in Serum or Plasma ERICA ROYAL Start: 11-18-2023 Cyanocobalamin vitamin b-12 ERICA ROYAL Start: 11-18-2023 Hemoglobin A1c/Hemoglobin.total in Blood ERICA ROYAL Start: 11-18-2023 HEPATITIS PANEL, ACUTE REICA ROYAL Start: 11-18-2023 HLAB27 TYPING ERICA ROYAL Start: 11-18-2023 LYME AB MODIFIED 2-T IER TESTING, 1ST TIER ERICA ROYAL Start: 11-18-2023 Magnesium [Mass/volu me] in Serum or Plasma ERICA ROYAL Start: 11-18-2023 MISCELLANEOUS LAB TEST ERICA ROYAL Start: 11-18-2023 PROTEIN ELECTROPHORE SIS + IMMUNOFIXATION, SERUM ERICA ROYAL Start: 11-18-2023 PROTEIN, TOTAL SPE KIMB ERLY ROYAL Start: 11-18-2023 SEDIMENTATION RATE, AUTOMATED ERICA ROYAL Start: 11-18-2023 TISSUE TRANSGLUTAMINASE, IGA ERICA ROYAL Start: 11-18-2023 Urate [Mass/volume] in Serum or Plasma ERICA ROYAL Start: 11-18-2023 VITAMIN B1, WHOLE BLOOD ERICA ROYAL Start: 11-18-2023 VITAMIN B6 ERICA R OYAL Start: 11-18-2023 VITAMIN D 1,25 DIHYDROXY ERICA ROYAL Start: 11-18-2023 VITAMIN D 25-HYDROXY,TOTAL ERICA ROYAL Start: 07-17-2023 Mammography Erica R oyal DO Work Phone: Start: 06-06-2023 End: 06-06-2023 Colonoscopy Erica S [place] Work Phone: Start: 05-08-2023 Lipid 1996 panel - S tai or Plasma Erica [place] DO Work Phone: Start: 02-06-2023 End: 02-06-2023 EKG impression Storm W Ashia Start: 07-09-2022 Mammography Erica R oyal DO Work Phone: Start: 04-29-2022 Microscopic observat ion [Identifier] in Cervix by Cyto stain Erica [place] DO Work Phone: Start: 04-09-2022 Lipid 1996 panel - S tai or Plasma Erica [place] DO Work Phone: Start: 11-27-2020 Complete PFT with Pr e/Post Bronchodialator Erica [place] Start: 11-20-2020 Ultrasound Bx Thyroid K imberly [place] Start: 11-06-2020 Basic metabolic 1998 panel - Serum or Plasma Erica [place] Start: 11-06-2020 Hemoglobin glycosylated a1c Erica [place] Start: 10-17-2020 Echocardiography Shelia ly [place] Start: 10-16-2020 Microscopic observat ion [Identifier] in Cervix by Cyto stain.thin prep Erica [place] Start: 10-10-2020 Ct thorax w/o contra st material Erica [place] Biopsy of thyroid Erica R oyal section Erica Ro yal Ligation of fallopian tube K imberly [place] Plan of Treatment Date Care Activity Detail Author Start: 06-06-2033 Screening for malign ant neoplasm of colon [facility] Start: 12-18-2025 Lipid panel Lipid Panel [facility] Start: 07-22-2025 Screening for malign ant neoplasm of breast Mammogram [facility] Start: 06-25-2025 End: 12-23-2025 Hemoglobin A1c/Hemoglobin.total in Blood Hemoglobin A1C Lab Routine Type 2 diabetes mellitus with hyperglycemia, without long-term current use of insulin Expected: 06/25/2025 (Approximate), Expires: 12/23/2025 [facility] Work Phone: Comment on above: Expected: 06/25/2025 (Approximate), Expires: 12/23/2025 Start: 06-25-2025 End: 12-23-2025 Lipid 1996 panel - Serum or Plasma Lipid Panel Lab Routine Mixed hyperlipidemia Expected: 06/25/2025 (Approximate), Expires: 12/23/2025 [facility] Work Phone: Comment on above: Expected: 06/25/2025 (Approximate), Expires: 12/23/2025 Start: 04-29-2025 Screening for malign ant neoplasm of cervix [facility] Start: 03-20-2025 Hemoglobin A1c measurement Diabetes: Hemoglobin A1C [facility] Start: 03-10-2025 CBC W Auto Different ial panel - Blood [facility] Start: 03-10-2025 Cobalamin (Vitamin B 12) [Mass/volume] in Serum or Plasma [facility] Start: 03-10-2025 Comprehensive metabo lic 2000 panel - Serum or Plasma [facility] Start: 03-10-2025 Vitamin D, 25-hydrox y measurement [facility] Start: 12-23-2024 End: 12-23-2025 Comprehensive metabolic 2000 panel - Serum or Plasma Comprehensive Metabolic Panel Lab Routine Type 2 diabetes mellitus with hyperglycemia, without long-term current use of insulin Expected: 12/23/2024 (Approximate), Expires: 12/23/2025 [facility] Work Phone: Comment on above: Expected: 12/23/2024 (Approximate), Expires: 12/23/2025 Start: 12-23-2024 End: 12-23-2025 Microalbumin/Creatinine [Mass Ratio] in Urine Albumin-Creatinine Ratio, Urine Random Lab Routine Type 2 diabetes mellitus with hyperglycemia, without long-term current use of insulin Expected: 12/23/2024 (Approximate), Expires: 12/23/2025 [facility] Service Area Work Phone: Comment on above: Expected: 12/23/2024 (Approximate), Expires: 12/23/2025 Start: 12-22-2024 End: 09-23-2025 Basic metabolic 2000 panel - Serum or Plasma Basic Metabolic Panel Lab Routine Type 2 diabetes mellitus with hyperglycemia, without long-term current use of insulin Expected: 12/22/2024 (Approximate), Expires: 09/23/2025 [facility] Work Phone: Comment on above: Expected: 12/22/2024 (Approximate), Expires: 09/23/2025 Start: 12-22-2024 End: 09-23-2025 Hemoglobin A1c/Hemoglobin.total in Blood Hemoglobin A1C Lab Routine Type 2 diabetes mellitus with hyperglycemia, without long-term current use of insulin Expected: 12/22/2024 (Approximate), Expires: 09/23/2025 [facility] Work Phone: Comment on above: Expected: 12/22/2024 (Approximate), Expires: 09/23/2025 Start: 12-22-2024 End: 09-23-2025 Lipid 1996 panel - Serum or Plasma Lipid Panel Lab Routine Mixed hyperlipidemia Expected: 12/22/2024 (Approximate), Expires: 09/23/2025 [facility] Work Phone: Comment on above: Expected: 12/22/2024 (Approximate), Expires: 09/23/2025 Start: 09-23-2024 End: 09-23-2025 Microalbumin/Creatinine [Mass Ratio] in Urine Albumin-Creatinine Ratio, Urine Random Lab Routine Type 2 diabetes mellitus with hyperglycemia, without long-term current use of insulin Expected: 09/23/2024 (Approximate), Expires: 09/23/2025 [facility] Work Phone: Comment on above: Expected: 09/23/2024 (Approximate), Expires: 09/23/2025 Start: 08-05-2024 End: 08-05-2024 Patient encounter procedure 08/05/2024 8:00 AM EST Office Visit [place] [address] [address] Erica Sanford DO [address] [place] [id number] [facility] Start: 07-17-2024 Screening for malign ant neoplasm of breast Mammogram [facility] Start: 07-01-2024 End: 07-01-2025 25-hydroxyvitamin D3 [Mass/volume] in Serum or Plasma Vitamin D 25-Hydroxy,Total (for eval of Vitamin D levels) Lab Routine Vitamin D deficiency Expected: 07/01/2024 (Approximate), Expires: 07/01/2025 [facility] Service Area Work Phone: Comment on above: Expected: 07/01/2024 (Approximate), Expires: 07/01/2025 Start: 07-01-2024 End: 08-31-2025 DBT Breast - bilateral BI mammo bilateral screening tomosynthesis Imaging Routine Encounter for screening mammogram for malignant neoplasm of breast Expected: 07/01/2024 (Approximate), Expires: 08/31/2025 [facility] Work Phone: Comment on above: Expected: 07/01/2024 (Approximate), Expires: 08/31/2025 Start: 06-06-2024 Screening for malign ant neoplasm of colon [facility]CRE[facility] Start: 05-30-2024 COVID-19 Vaccine ( season) COVID-19 Vaccine () [facility] Start: 05-30-2024 COVID-19 Vaccine () COVID-19 Vaccine () [facility] Start: 05-30-2024 COVID-19 Vaccine () COVID-19 Vaccine () [facility] Start: 05-30-2024 Influenza vaccination Influenza Vacc ine (#1) [facility] Start: 05-08-2024 Lipid panel Lipid Panel [facility] Start: 05-08-2024 Urine screening for protein Diabetes: Urine Protein Screening [facility] Start: 02-16-2024 Hemoglobin A1c measurement Diabetes: Hemoglobin A1C [facility] Start: 01-01-2024 End: 01-01-2024 ambulatory 01/01/2024 8:15 AM EDT Treatment [facility] [address] [place] [phone] Kamran Morin, PT [address] [facility] [place] [address] [facility] Start: 12-26-2023 End: 12-26-2023 ambulatory 12/26/2023 8:30 AM EDT Treatment [facility] [address] [place] [phone] Jessica Mclaughlin, NEONATAL NURSE [address] [place] [address] [facility] [place] Start: 12-25-2023 End: 12-25-2023 ambulatory 12/25/2023 8:30 AM EDT Treatment [facility] [place] [address] Jessica Mclaughlin, NEONATAL NURSE [address] [place] [address] [facility] Start: 12-19-2023 End: 12-19-2023 ambulatory 12/19/2023 8:30 AM EDT Treatment [facility] [place] [address] Jessica Mclaughlin, NEONATAL NURSE [address] [place] [address] [facility] Start: 12-18-2023 End: 12-18-2023 ambulatory 12/18/2023 8:30 AM EDT [facility] [place] [address] Jessica Mclaughlin, NEONATAL NURSE [address] [place] [address] [facility] Start: 12-10-2023 End: 12-10-2023 ambulatory [facility] Start: 12-08-2023 End: 12-08-2023 Patient encounter procedure 12/08/2023 4:30 PM EDT Office Visit [facility] [address] [place] [address] Herbert Alonzo, Xander Rosales, DO [address] [place] [address] [facility] Start: 12-04-2023 End: 12-03-2024 CBC W Auto Differential panel - Blood CBC and Auto Differential Lab Routine LOMELI (dyspnea on exertion) Expected: 12/04/2023 (Approximate), Expires: 12/03/2024 [facility] Work Phone: Comment on above: Expected: 12/04/2023 (Approximate), Expires: 12/03/2024 Start: 12-04-2023 End: 12-03-2024 ECG 12 lead (Ancillary Performed) ECG 12 lead (Ancillary Performed) ECG Routine LOMELI (dyspnea on exertion) Expected: 12/04/2023 (Approximate), Expires: 12/03/2024 [facility] Work Phone: Comment on above: Expected: 12/04/2023 (Approximate), Expires: 12/03/2024 Start: 12-04-2023 End: 12-03-2025 Heart Transthoracic Transthoracic Echo (TTE) Complete Echocardiography Routine LOMELI (dyspnea on exertion) Expected: 12/04/2023 (Approximate), Expires: 12/03/2025 [facility] Work Phone: Comment on above: Expected: 12/04/2023 (Approximate), Expires: 12/03/2025 Start: 12-04-2023 End: 12-03-2024 XR Chest 2 Views XR chest 2 views Imaging Routine LOMELI (dyspnea on exertion) Expected: 12/04/2023 (Approximate), Expires: 12/03/2024 [facility] Service Area Work Phone: Comment on above: Expected: 12/04/2023 (Approximate), Expires: 12/03/2024 Start: 12-04-2023 End: 12-04-2023 ambulatory 12/04/2023 9:15 AM EST Treatment [facility] [place] [address] [place] [phone] Jessica Mclaughlin, NEONATAL NURSE [address] [facility] [place] [address] [facility] [place] Start: 11-28-2023 End: 05-30-2024 Basic metabolic 2000 panel - Serum or Plasma Basic Metabolic Panel Lab Routine Hypertension, unspecified type Expected: 11/28/2023 (Approximate), Expires: 05/30/2024 [facility] Service Area Work Phone: Comment on above: Expected: 11/28/2023 (Approximate), Expires: 05/30/2024 Start: 11-28-2023 End: 05-30-2024 Hemoglobin A1c/Hemoglobin.total in Blood Hemoglobin A1C Lab Routine Type 2 diabetes mellitus with hyperglycemia, without long-term current use of insulin ([facility]) Expected: 11/28/2023 (Approximate), Expires: 05/30/2024 [facility] Work Phone: Comment on above: Expected: 11/28/2023 (Approximate), Expires: 05/30/2024 Start: 11-17-2023 End: 11-17-2024 ANCA INIT SCRN (ANCA, PR3AB, MPO) ANCA INIT SCRN (ANCA, PR3AB, MPO) Lab Routine Dorsalgia Bilateral chronic knee pain Abnormal reflexes of lower extremity Wrist pain, left Primary osteoarthritis of both wrists Primary osteoarthritis of both knees Primary osteoarthritis of both hands Primary osteoarthritis of both feet Osteoarthritis of carpometacarpal (CMC) joint of both thumbs Lumbar degenerative disc disease 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) History of rheumatoid arthritis Fatigue, unspecified type Family history of rheumatoid arthritis Hepatomegaly Hepatic steatosis Expected: 11/17/2023 (Approximate), Expires: 11/17/2024 [facility] Comment on above: Expected: 11/17/2023 (Approximate), Expires: 11/17/2024 Start: 11-17-2023 End: 11-17-2024 Angiotensin converting enzyme [Enzymatic activity/volume] in Serum or Plasma ANGIOTENSIN CONVERTING ENZYME Lab Routine Dorsalgia Bilateral chronic knee pain Abnormal reflexes of lower extremity Wrist pain, left Primary osteoarthritis of both wrists Primary osteoarthritis of both knees Primary osteoarthritis of both hands Primary osteoarthritis of both feet Osteoarthritis of carpometacarpal (CMC) joint of both thumbs Lumbar degenerative disc disease Disorder of bone and cartilage FDC current use of non-steroidal anti-inflammatories (NSAID) History of rheumatoid arthritis Fatigue, unspecified type Family history of rheumatoid arthritis Hepatomegaly Hepatic steatosis Expected: 11/17/2023 (Approximate), Expires: 11/17/2024 [facility] Comment on above: Expected: 11/17/2023 (Approximate), Expires: 11/17/2024 Start: 11-17-2023 End: 11-17-2024 C-reactive protein C REACTIVE PROTEIN Lab Routine Dorsalgia Bilateral chronic knee pain Abnormal reflexes of lower extremity Wrist pain, left Primary osteoarthritis of both wrists Primary osteoarthritis of both knees Primary osteoarthritis of both hands Primary osteoarthritis of both feet Osteoarthritis of carpometacarpal (CMC) joint of both thumbs Lumbar degenerative disc disease 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) History of rheumatoid arthritis Fatigue, unspecified type Family history of rheumatoid arthritis Hepatomegaly Hepatic steatosis Expected: 11/17/2023 (Approximate), Expires: 11/17/2024 [facility] Comment on above: Expected: 11/17/2023 (Approximate), Expires: 11/17/2024 Start: 11-17-2023 End: 11-17-2024 CK CK Lab Routine Dorsalgia Bilateral chronic knee pain Abnormal reflexes of lower extremity Wrist pain, left Primary osteoarthritis of both wrists Primary osteoarthritis of both knees Primary osteoarthritis of both hands Primary osteoarthritis of both feet Osteoarthritis of carpometacarpal (CMC) joint of both thumbs Lumbar degenerative disc disease Disorder of bone and cartilage FDC current use of non-steroidal anti-inflammatories (NSAID) History of rheumatoid arthritis Fatigue, unspecified type Family history of rheumatoid arthritis Hepatomegaly Hepatic steatosis Expected: 11/17/2023 (Approximate), Expires: 11/17/2024 [facility] Comment on above: Expected: 11/17/2023 (Approximate), Expires: 11/17/2024 Start: 11-17-2023 End: 11-17-2024 Complete blood count with white cell differential, automated CBC, EDIF, PLATELET Lab Routine Dorsalgia Bilateral chronic knee pain Abnormal reflexes of lower extremity Wrist pain, left Primary osteoarthritis of both wrists Primary osteoarthritis of both knees Primary osteoarthritis of both hands Primary osteoarthritis of both feet Osteoarthritis of carpometacarpal (CMC) joint of both thumbs Lumbar degenerative disc disease Disorder of bone and cartilage FDC current use of non-steroidal anti-inflammatories (NSAID) History of rheumatoid arthritis Fatigue, unspecified type Family history of rheumatoid arthritis Hepatomegaly Hepatic steatosis Expected: 11/17/2023 (Approximate), Expires: 11/17/2024 [facility] Comment on above: Expected: 11/17/2023 (Approximate), Expires: 11/17/2024 Start: 11-17-2023 End: 11-17-2024 Comprehensive metabolic 2000 panel - Serum or Plasma COMPREHENSIVE METABOLIC PANEL Lab Routine Dorsalgia Bilateral chronic knee pain Abnormal reflexes of lower extremity Wrist pain, left Primary osteoarthritis of both wrists Primary osteoarthritis of both knees Primary osteoarthritis of both hands Primary osteoarthritis of both feet Osteoarthritis of carpometacarpal (CMC) joint of both thumbs Lumbar degenerative disc disease Disorder of bone and cartilage FDC current use of non-steroidal anti-inflammatories (NSAID) History of rheumatoid arthritis Fatigue, unspecified type Family history of rheumatoid arthritis Hepatomegaly Hepatic steatosis Expected: 11/17/2023 (Approximate), Expires: 11/17/2024 [facility] Comment on above: Expected: 11/17/2023 (Approximate), Expires: 11/17/2024 Start: 11-17-2023 End: 11-17-2024 Cyanocobalamin vitamin b-12 VITAMIN B12 Lab Routine Dorsalgia Bilateral chronic knee pain Abnormal reflexes of lower extremity Wrist pain, left Primary osteoarthritis of both wrists Primary osteoarthritis of both knees Primary osteoarthritis of both hands Primary osteoarthritis of both feet Osteoarthritis of carpometacarpal (CMC) joint of both thumbs Lumbar degenerative disc disease Disorder of bone and cartilage FDC current use of non-steroidal anti-inflammatories (NSAID) History of rheumatoid arthritis Fatigue, unspecified type Family history of rheumatoid arthritis Hepatomegaly Hepatic steatosis Expected: 11/17/2023 (Approximate), Expires: 11/17/2024 [facility] Comment on above: Expected: 11/17/2023 (Approximate), Expires: 11/17/2024 Start: 11-17-2023 End: 11-17-2024 CYCLIC CITRULLINATE PEPTIDE AB CYCLIC CITRULLINATE PEPTIDE AB Lab Routine Dorsalgia Bilateral chronic knee pain Abnormal reflexes of lower extremity Wrist pain, left Primary osteoarthritis of both wrists Primary osteoarthritis of both knees Primary osteoarthritis of both hands Primary osteoarthritis of both feet Osteoarthritis of carpometacarpal (CMC) joint of both thumbs Lumbar degenerative disc disease 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) History of rheumatoid arthritis Fatigue, unspecified type Family history of rheumatoid arthritis Hepatomegaly Hepatic steatosis Expected: 11/17/2023 (Approximate), Expires: [facility]17/2024 [facility] Comment on above: Expected: 11/17/2023 (Approximate), Expires: 11/17/2024 Start: 11-17-2023 End: 11-17-2024 HEPATITIS A, B, C HEPATITIS A, B, C Lab Routine Dorsalgia Bilateral chronic knee pain Abnormal reflexes of lower extremity Wrist pain, left Primary osteoarthritis of both wrists Primary osteoarthritis of both knees Primary osteoarthritis of both hands Primary osteoarthritis of both feet Osteoarthritis of carpometacarpal (CMC) joint of both thumbs Lumbar degenerative disc disease Disorder of bone and cartilage FDC current use of non-steroidal anti-inflammatories (NSAID) History of rheumatoid arthritis Fatigue, unspecified type Family history of rheumatoid arthritis Hepatomegaly Hepatic steatosis Expected: 11/17/2023 (Approximate), Expires: 11/17/2024 [facility] Comment on above: Expected: 11/17/2023 (Approximate), Expires: 11/17/2024 Start: 11-17-2023 End: 11-17-2024 HLA-B27 HLA-B27 Lab Routine Dorsalgia Bilateral chronic knee pain Abnormal reflexes of lower extremity Wrist pain, left Primary osteoarthritis of both wrists Primary osteoarthritis of both knees Primary osteoarthritis of both hands Primary osteoarthritis of both feet Osteoarthritis of carpometacarpal (CMC) joint of both thumbs Lumbar degenerative disc disease 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) History of rheumatoid arthritis Fatigue, unspecified type Family history of rheumatoid arthritis Hepatomegaly Hepatic steatosis Expected: 11/17/2023 (Approximate), Expires: 11/17/2024 [facility] Comment on above: Expected: 11/17/2023 (Approximate), Expires: 11/17/2024 Start: 11-17-2023 End: 11-17-2024 ROSHNI AND PE, SERUM ROSHNI AND PE, SERUM Lab Routine Dorsalgia Bilateral chronic knee pain Abnormal reflexes of lower extremity Wrist pain, left Primary osteoarthritis of both wrists Primary osteoarthritis of both knees Primary osteoarthritis of both hands Primary osteoarthritis of both feet Osteoarthritis of carpometacarpal (CMC) joint of both thumbs Lumbar degenerative disc disease Disorder of bone and cartilage FDC current use of non-steroidal anti-inflammatories (NSAID) History of rheumatoid arthritis Fatigue, unspecified type Family history of rheumatoid arthritis Hepatomegaly Hepatic steatosis Expected: 11/17/2023 (Approximate), Expires: 11/17/2024 [facility] Comment on above: Expected: 11/17/2023 (Approximate), Expires: 11/17/2024 Start: 11-17-2023 End: 11-17-2024 LYME DISEASE SEROLOGY WITH REFLEX LYME DISEASE SEROLOGY WITH REFLEX Lab Routine Dorsalgia Bilateral chronic knee pain Abnormal reflexes of lower extremity Wrist pain, left Primary osteoarthritis of both wrists Primary osteoarthritis of both knees Primary osteoarthritis of both hands Primary osteoarthritis of both feet Osteoarthritis of carpometacarpal (CMC) joint of both thumbs Lumbar degenerative disc disease Disorder of bone and cartilage FDC current use of non-steroidal anti-inflammatories (NSAID) History of rheumatoid arthritis Fatigue, unspecified type Family history of rheumatoid arthritis Hepatomegaly Hepatic steatosis Expected: 11/17/2023 (Approximate), Expires: 11/17/2024 [facility] Comment on above: Expected: 11/17/2023 (Approximate), Expires: 11/17/2024 Start: 11-17-2023 End: 11-17-2024 Magnesium [Mass/volume] in Serum or Plasma MAGNESIUM Lab Routine Dorsalgia Bilateral chronic knee pain Abnormal reflexes of lower extremity Wrist pain, left Primary osteoarthritis of both wrists Primary osteoarthritis of both knees Primary osteoarthritis of both hands Primary osteoarthritis of both feet Osteoarthritis of carpometacarpal (CMC) joint of both thumbs Lumbar degenerative disc disease 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) History of rheumatoid arthritis Fatigue, unspecified type Family history of rheumatoid arthritis Hepatomegaly Hepatic steatosis Expected: 11/17/2023 (Approximate), Expires: 11/17/2024 [facility] Comment on above: Expected: 11/17/2023 (Approximate), Expires: 11/17/2024 Start: 11-17-2023 End: 11-17-2024 RED CELL FOLATE RED CELL FOLATE Blood Bank Routine Dorsalgia Bilateral chronic knee pain Abnormal reflexes of lower extremity Wrist pain, left Primary osteoarthritis of both wrists Primary osteoarthritis of both knees Primary osteoarthritis of both hands Primary osteoarthritis of both feet Osteoarthritis of carpometacarpal (CMC) joint of both thumbs Lumbar degenerative disc disease Disorder of bone and cartilage FDC current use of non-steroidal anti-inflammatories (NSAID) History of rheumatoid arthritis Fatigue, unspecified type Family history of rheumatoid arthritis Hepatomegaly Hepatic steatosis Expected: 11/17/2023 (Approximate), Expires: 11/17/2024 [facility] Comment on above: Expected: 11/17/2023 (Approximate), Expires: 11/17/2024 Start: 11-17-2023 End: 11-17-2024 SEDIMENTATION RATE, AUTOMATED SEDIMENTATION RATE, AUTOMATED Lab Routine Dorsalgia Bilateral chronic knee pain Abnormal reflexes of lower extremity Wrist pain, left Primary osteoarthritis of both wrists Primary osteoarthritis of both knees Primary osteoarthritis of both hands Primary osteoarthritis of both feet Osteoarthritis of carpometacarpal (CMC) joint of both thumbs Lumbar degenerative disc disease 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) History of rheumatoid arthritis Fatigue, unspecified type Family history of rheumatoid arthritis Hepatomegaly Hepatic steatosis Expected: 11/17/2023 (Approximate), Expires: 11/17/2024 [facility] Comment on above: Expected: 11/17/2023 (Approximate), Expires: 11/17/2024 Start: 11-17-2023 End: 11-17-2024 T-TRANSGLUTAMINASE IGA AB T-TRANSGLUTAMINASE IGA AB Lab Routine Dorsalgia Bilateral chronic knee pain Abnormal reflexes of lower extremity Wrist pain, left Primary osteoarthritis of both wrists Primary osteoarthritis of both knees Primary osteoarthritis of both hands Primary osteoarthritis of both feet Osteoarthritis of carpometacarpal (CMC) joint of both thumbs Lumbar degenerative disc disease 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) History of rheumatoid arthritis Fatigue, unspecified type Family history of rheumatoid arthritis Hepatomegaly Hepatic steatosis Expected: 11/17/2023 (Approximate), Expires: 11/17/2024 [employer] Comment on above: Expected: 11/17/2023 (Approximate), Expires: 11/17/2024 Start: 11-17-2023 End: 11-17-2024 Urate [Mass/volume] in Serum or Plasma URIC ACID Lab Routine Dorsalgia Bilateral chronic knee pain Abnormal reflexes of lower extremity Wrist pain, left Primary osteoarthritis of both wrists Primary osteoarthritis of both knees Primary osteoarthritis of both hands Primary osteoarthritis of both feet Osteoarthritis of carpometacarpal (CMC) joint of both thumbs Lumbar degenerative disc disease Disorder of bone and cartilage FDC current use of non-steroidal anti-inflammatories (NSAID) History of rheumatoid arthritis Fatigue, unspecified type Family history of rheumatoid arthritis Hepatomegaly Hepatic steatosis Expected: 11/17/2023 (Approximate), Expires: 11/17/2024 [facility] Comment on above: Expected: 11/17/2023 (Approximate), Expires: 11/17/2024 Start: 11-17-2023 End: 11-17-2024 VITAMIN B1 VITAMIN B1 Lab Routine Dorsalgia Bilateral chronic knee pain Abnormal reflexes of lower extremity Wrist pain, left Primary osteoarthritis of both wrists Primary osteoarthritis of both knees Primary osteoarthritis of both hands Primary osteoarthritis of both feet Osteoarthritis of carpometacarpal (CMC) joint of both thumbs Lumbar degenerative disc disease 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) History of rheumatoid arthritis Fatigue, unspecified type Family history of rheumatoid arthritis Hepatomegaly Hepatic steatosis Expected: 11/17/2023 (Approximate), Expires: 11/17/2024 [facility] Comment on above: Expected: 11/17/2023 (Approximate), Expires: 11/17/2024 Start: 11-17-2023 End: 11-17-2024 VITAMIN B6 VITAMIN B6 Lab Routine Dorsalgia Bilateral chronic knee pain Abnormal reflexes of lower extremity Wrist pain, left Primary osteoarthritis of both wrists Primary osteoarthritis of both knees Primary osteoarthritis of both hands Primary osteoarthritis of both feet Osteoarthritis of carpometacarpal (CMC) joint of both thumbs Lumbar degenerative disc disease Disorder of bone and cartilage FDC current use of non-steroidal anti-inflammatories (NSAID) History of rheumatoid arthritis Fatigue, unspecified type Family history of rheumatoid arthritis Hepatomegaly Hepatic steatosis Expected: 11/17/2023 (Approximate), Expires: 11/17/2024 [employer] Comment on above: Expected: 11/17/2023 (Approximate), Expires: 11/17/2024 Start: 11-17-2023 End: 11-17-2024 VITAMIN D (25-HYDROXY,TOTAL) VITAMIN D (25-HYDROXY,TOTAL) Lab Routine Dorsalgia Bilateral chronic knee pain Abnormal reflexes of lower extremity Wrist pain, left Primary osteoarthritis of both wrists Primary osteoarthritis of both knees Primary osteoarthritis of both hands Primary osteoarthritis of both feet Osteoarthritis of carpometacarpal (CMC) joint of both thumbs Lumbar degenerative disc disease 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) History of rheumatoid arthritis Fatigue, unspecified type Family history of rheumatoid arthritis Hepatomegaly Hepatic steatosis Expected: 11/17/2023 (Approximate), Expires: 11/17/2024 [facility] Comment on above: Expected: 11/17/2023 (Approximate), Expires: 11/17/2024 Start: 11-17-2023 End: 11-17-2024 VITAMIN D, (1,25 DIHYDROXY) VITAMIN D, (1,25 DIHYDROXY) Lab Routine Dorsalgia Bilateral chronic knee pain Abnormal reflexes of lower extremity Wrist pain, left Primary osteoarthritis of both wrists Primary osteoarthritis of both knees Primary osteoarthritis of both hands Primary osteoarthritis of both feet Osteoarthritis of carpometacarpal (CMC) joint of both thumbs Lumbar degenerative disc disease Disorder of bone and cartilage FDC current use of non-steroidal anti-inflammatories (NSAID) History of rheumatoid arthritis Fatigue, unspecified type Family history of rheumatoid arthritis Hepatomegaly Hepatic steatosis Expected: 11/17/2023 (Approximate), Expires: 11/17/2024 [employer] Comment on above: Expected: 11/17/2023 (Approximate), Expires: 11/17/2024 Start: 08-08-2023 Hemoglobin A1c measurement Diabetes: Hemoglobin A1C [facility] Start: 07-09-2023 Screening for malign ant neoplasm of breast Mammogram [facility] Start: 06-06-2023 COLON, Provider: Adi Monge, Status: Pen, Time: 9:00 AM COLON, Provider: Adi Monge, Status: Pen, Time: 9:00 AM [facility] Work Phone: Start: 05-30-2023 COVID-19 VACCINE ( season) COVID-19 VACCINE ( season) [facility] [employer] Start: 05-30-2023 End: 07-30-2024 DBT Breast - bilateral BI mammo bilateral screening tomosynthesis Imaging Routine Encounter for screening mammogram for malignant neoplasm of breast Expected: 05/30/2023 (Approximate), Expires: 07/30/2024 [facility] [place] [facility] Work Phone: Comment on above: Expected: 05/30/2023 (Approximate), Expires: 07/30/2024 Start: 05-30-2023 Influenza vaccination [facility] Start: 05-19-2023 DTaP/Tdap/Td Vaccine s (2 - Td or Tdap) DTaP/Tdap/Td Vaccines (2 - Td or Tdap) [facility] [place] [facility] Start: 05-19-2023 Tetanus vaccination [facility] Start: 05-15-2023 End: 05-15-2024 C reactive protein [Mass/volume] in Serum or Plasma C-reactive protein Lab Routine Polyarthropathy Expected: 05/15/2023 (Approximate), Expires: 05/15/2024 [facility] [place] [facility] Work Phone: Comment on above: Expected: 05/15/2023 (Approximate), Expires: 05/15/2024 Start: 05-15-2023 End: 05-15-2024 CBC W Auto Differential panel - Blood CBC and Auto Differential Lab Routine Polyarthropathy Expected: 05/15/2023 (Approximate), Expires: 05/15/2024 [facility] [place] [facility] Work Phone: Comment on above: Expected: 05/15/2023 (Approximate), Expires: 05/15/2024 Start: 05-15-2023 End: 05-15-2024 Erythrocyte sedimentation rate Sedimentation Rate Lab Routine Polyarthropathy Expected: 05/15/2023 (Approximate), Expires: 05/15/2024 [facility] Service Area Work Phone: Comment on above: Expected: 05/15/2023 (Approximate), Expires: 05/15/2024 Start: 05-15-2023 End: 05-15-2024 Nuclear Ab [Presence] in Serum by Hep2 substrate POLO Lab Routine Polyarthropathy Expected: 05/15/2023 (Approximate), Expires: 05/15/2024 [facility] [place] [facility] Work Phone: Comment on above: Expected: 05/15/2023 (Approximate), Expires: 05/15/2024 Start: 05-15-2023 End: 05-15-2024 Rheumatoid factor [Units/volume] in Serum by Nephelometry Rheumatoid factor Lab Routine Polyarthropathy Expected: 05/15/2023 (Approximate), Expires: 05/15/2024 [facility] [place] [facility] Work Phone: Comment on above: Expected: 05/15/2023 (Approximate), Expires: 05/15/2024 Start: 05-15-2023 End: 05-15-2024 Thyrotropin [Units/volume] in Serum or Plasma TSH Lab Routine Polyarthropathy Expected: 05/15/2023 (Approximate), Expires: 05/15/2024 [facility] [place] [facility] Work Phone: Comment on above: Expected: 05/15/2023 (Approximate), Expires: 05/15/2024 Start: 05-15-2023 EPV, Provider: Erica Sanford, Status: Pen, Time: 8:00 AM EPV, Provider: Erica Sanford, Status: Pen, Time: 8:00 AM [facility] Work Phone: Start: 05-15-2023 End: 05-15-2023 Patient encounter procedure 05/15/2023 8:00 AM EDT Office Visit [facility] [address] [place] [address] [phone] Erica Sanford S, DO [address] [place] [address] [place] [address] [facility] Start: 04-30-2023 Patient encounter procedure [facility] Start: 04-09-2023 Lipid panel Lipid Panel [facility] [place] [facility] Start: 04-09-2023 Urine screening for protein Diabetes: Urine Protein Screening [facility] [place] [facility] Start: 02-27-2023 FUV, Provider: Zack Jacobo, Status: Pen, Time: 10:00 AM FUV, Provider: Zack Jacobo, Status: Pen, Time: 10:00 AM [facility] Work Phone: Start: 02-27-2023 Patient encounter procedure [facility] Start: 02-08-2023 End: 02-09-2024 Insulin Lispro (HUMALOG) Carb/ISF Calculator . ; Units of Insulin: 1Per Every 35 mg/dL Greater Than Target Glucose of: 150 With Meals and At Bedtime.Units of Insulin: 1 per Carbohydrates: 10 grams with All MealsOpen Task Form for Actual Insulin Dose to Be AdministeredDO NOT USE AT MIDNIGHT AND 3AM Start: 08-Feb-2023 End: 08-Feb-2024 Ordered: 08-Feb-2023 Cortez Armendariz Intent Comments: Open Task Form for Actual Insulin Dose to Be AdministeredDO NOT USE AT MIDNIGHT AND 3AM [facility] Comment on above: Open Task Form for Actual Insulin Dose to Be AdministeredDO NOT USE AT MIDNIGHT AND 3AM Start: 02-06-2023 End: 02-07-2024 [facility] Comment on above: Until blood glucose is 100 mg/dl or greater. If patient DOES NOT HAVE secure IV access & Patient is Unconscious, NPO or is unable to eat or drink. May repeat until Blo od Glucose level reaches 100 milligrams/deciliter or greater. Push 2 - 3 milliliters/minute; if patient has secure IV access & Patient is Unconscious, NPO or is unable to eat or drink Start: 02-06-2023 End: 02-07-2024 [facility] Start: 01-30-2023 JUAN, Provider : Shannan King, Status: Pen, Time: 12:15 PM JUAN, Provider: Shannan King, Status: Yobani, Time: 12:15 PM [facility] 300 Work Phone: Start: 01-22-2023 Hemoglobin A1c measurement Diabetes: Hemoglobin A1C [facility] [place] [facility] Start: 01-07-2023 End: 01-08-2024 XR Knee - right 1 or 2 Views XR knee right 1-2 views Imaging Routine Chronic pain of right knee Expected: 01/07/2023 (Approximate), Expires: 01/08/2024 [facility] Service Area Work Phone: Comment on above: Expected: 01/07/2023 (Approximate), Expires: 01/08/2024 Start: 11-26-2022 NPV, Provider: Alireza Weeks, Status: Pen, Time: 2:00 PM NPV, Provider: Alireza Weeks, Status: Pen, Time: 2:00 PM [facility] Work Phone: Start: 2022 Administration of he rpes zoster vaccine Zoster Vaccines (1 of 2) [facility] Start: 2022 Screening for malign ant neoplasm of colon Flexible sigmoidoscopy [facility] Start: 2022 Zoster vaccine hzv l saulo for subcutaneous use ZOSTER (SHINGLES) VACCINE (1 of 2) [facility] Start: 2022 Zoster Vaccines (1 of 2) Zoste r Vaccines (1 of 2) [facility] [place] [facility] Start: 10-17-2022 EPV, Provider: Erica Sanford, Status: Pen, Time: 7:40 AM EPV, Provider: Erica Sanford, Status: Pen, Time: 7:40 AM [facility] Work Phone: Start: 05-30-2022 Influenza vaccination Sequenti al Influenza Vaccine (#1) [facility] Start: 04-18-2022 End: 04-18-2022 Nutrition therapy 04/18/2022 [facility] Start: 04-11-2022 End: 04-11-2022 Nutrition therapy 04/11/2022 [facility] Start: 04-04-2022 EPV, Provider: Erica Sanford, Status: Pen, Time: 7:00 AM EPV, Provider: Erica Sanford, Status: Pen, Time: 7:00 AM [facility] Work Phone: Start: 02-21-2022 End: 02-21-2022 Nutrition therapy 02/21/2022 [facility] Start: 02-19-2022 End: 02-19-2022 Nutrition therapy 02/19/2022 Nutrition [facility] Start: 02-14-2022 End: 02-14-2022 Nutrition therapy 02/14/2022 Nutrition [facility] Start: 02-12-2022 End: 02-12-2022 Nutrition therapy 02/12/2022 [facility] Start: 02-05-2022 End: 02-05-2022 Patient encounter procedure 02/05/2022 Office Visit Podiatry Dionne Escobar, DPM [address] [place] [address] [facility] Pod[facility] Start: 02-01-2022 End: 02-01-2022 Patient encounter procedure 02/01/2022 Appointment Radiology Dionne Escobar, DPM [address] [place] [address] [facility] MRI Start: 01-24-2022 End: 01-24-2022 Nutrition therapy 01/24/2022 Nutrition Nutrition Jessica Johnson, [facility] Start: 01-21-2022 End: 01-21-2022 Patient encounter procedure 01/21/2022 Office Visit Podiatry Dionne Escobar, DPM [address] [place] [address] [facility] Podiat[facility] Start: 01-03-2022 EPV, Provider: Erica Sanford, Status: Pen, Time: 7:20 AM EPV, Provider: Erica Sanford, Status: Pen, Time: 7:20 AM [facility] Work Phone: Start: 11-19-2021 End: 11-19-2021 Patient encounter procedure 11/19/2021 Office Visit Podiatry Dionne Escobar, DPM [address] [place] [address] [facility] Podiat[facility] Start: 09-08-2021 COVID-19 Vaccine (4 - Booster for Pfizer series) COVID-19 Vaccine (4 - Booster for Pfizer series) [facility] [place] [facility] Start: 09-08-2021 COVID-19 Vaccine (4 - Pfizer series) COVID-19 Vaccine (4 - Pfizer series) [facility] [place] [facility] Start: 07-16-2021 End: 07-16-2021 Patient encounter procedure 07/16/2021 Office Visit Podiatry Dionne Escobar, BILLY [address] [place] [address] [phone] [facility] Pod[facility] Start: 07-09-2021 End: 07-09-2021 Patient encounter procedure 07/09/2021 Appointment Radiology Dionne Escobar, BILLY [address] [place] [address] [facility] Start: 07-05-2021 FUV, Provider: Erica Sanford, Status: Pen, Time: 10:20 AM FUV, Provider: Erica Sanford, Status: Pen, Time: 10:20 AM [facility] Work Phone: Start: 06-19-2021 EPV, Provider: Erica Sanford, Status: Pen, Time: 7:40 AM EPV, Provider: Erica Sanford, Status: Pen, Time: 7:40 AM [facility] Work Phone: Start: 05-30-2021 Influenza vaccination Sequenti al Influenza Vaccine (#1) [facility] Start: 05-06-2021 Hemoglobin A1c measurement A1C [facility] Start: 04-16-2021 End: 04-16-2021 Patient encounter procedure 04/16/2021 Office Visit Podiatry Dionne Escobar, DPM [address] [place] [address] [phone] [facility] Start: 02-22-2021 Ultrasound Bx Thyroid [facility] Work Phone: Start: 10-17-2020 Echocardiography Echocardiogram MP[facility] Work Phone: Start: 2012 Lipid panel LIPID SCREENING [facility] Start: 2012 Screening for malign ant neoplasm of breast [facility] Start: 2012 Screening mammography Mammogram [facility] Start: 1993 Screening for malign ant neoplasm of cervix [facility] [place] [facility] Start: 1991 Hepatitis A Vaccines (1 of 2 - Risk 2-dose series) Hepatitis A Vaccines (1 of 2 - Risk 2-dose series) [facility] [place] [facility] Start: 1991 Hepatitis B vaccination HEP B VACCINE (1 of 3 - 19+ 3-dose series) [facility] Start: 1991 Hepatitis B Vaccines (1 of 3 - 19+ 3-dose series) Hepatitis B Vaccines (1 of 3 - 19+ 3-dose series) [facility] [place] [facility] Start: 1991 Pneumococcal vaccination Pneum ococcal Vaccine (1 of 2 - PCV) [facility] [place] [facility] Start: 1990 Hepatitis C screening Hepatitis C Sc reening [facility] Start: 1987 HIV screening [facility] Start: 1984 COVID-19 Vaccine (1) COVID-19 Vaccin e (1) [facility] Start: 1984 Depression screening using PHQ-9 (Patient Health Questionnaire 9) score [facility] Start: 1982 Diabetic foot examination [facility] Start: 1982 Glaucoma screening [facility] Start: 1982 Microalbumin measurement, urine, quantitative Urine Microalbumin [facility] Start: 1982 Ophthalmic examinati on and evaluation [facility] Start: 1982 Urine screening for protein Urine Microalbumin [facility] Start: 1978 Pneumococcal Vaccine : Ped or At-Risk (1 - PCV) Pneumococcal Vaccine: Ped or At-Risk (1 - PCV) [facility] Start: 1978 Pneumococcal Vaccine : Pediatrics (0 to 5 Years) and At-Risk Patients (6 to 64 Years) (1 - PCV) Pneumococcal Vaccine: Pediatrics (0 to 5 Years) and At-Risk Patients (6 to 64 Years) (1 - PCV) [facility] [place] [facility] Start: 1978 Pneumococcal Vaccine : Pediatrics (0 to 5 Years) and At-Risk Patients (6 to 64 Years) (1 of 2 - PCV) Pneumococcal Vaccine: Pediatrics (0 to 5 Years) and At-Risk Patients (6 to 64 Years) (1 of 2 - PCV) [facility] [place] [facility] Start: 1975 History and physical examination, annual for health maintenance Wellness Visit [facility] Start: 1973 Hepatitis A Vaccines (1 of 2 - Risk 2-dose series) Hepatitis A Vaccines (1 of 2 - Risk 2-dose series) [facility] [place] [facility] Start: 1973 MMR Vaccines (1 of 1 - Standard series) MMR Vaccines (1 of 1 - Standard series) [facility] [place] [facility] Start: 1972 Hemoglobin A1c measurement A1C [facility] Start: 1972 Hepatitis B Vaccines (1 of 3 - 3-dose series) Hepatitis B Vaccines (1 of 3 - 3-dose series) [facility] [place] [facility] Start: 1972 Hepatitis C screening HEPATITI S C VIRUS SCREENING [facility] Start: 1972 HIV screening HIV Screening [facility] Start: 1972 Screening for malign ant neoplasm of cervix Pap Smear [facility] Start: 1972 Screening for malign ant neoplasm of colon [facility] Start: 1972 Tetanus vaccination Tetanus: Every 1 0yrs [facility] Start: 1972 Yearly Adult Physical Yearly Adult P hysical [facility] [place] [facility] Alanine aminotransfe rase [Enzymatic activity/volume] in Serum or Plasma [facility] Albumin [Mass/volume ] in Serum or Plasma [facility] Alkaline phosphatase [Enzymatic activity/volume] in Serum or Plasma [facility] Anion gap in Serum o r Plasma [facility] Bilirubin, total measurement [facility] BUN/Creatinine ratio [facility] Calcium [Mass/volume ] in Serum or Plasma [facility] Carbon dioxide, tota l [Moles/volume] in Central venous blood [facility] Creatinine [Mass/vol ume] in Serum or Plasma [facility] Erythrocyte mean corpuscular volume determination [facility] Glucose [Mass/volume ] in Serum or Plasma [facility] Hematocrit [Volume Fraction] of Blood [facility] Hemoglobin [Mass/vol ume] in Blood [facility] Leukocytes [#/volume ] in Blood [facility] Mean corpuscular hemoglobin concentration determination [facility] Mean corpuscular hemoglobin determination [facility] Measurement of renal function [facility] MR Foot Left Without Contrast MR Foot Left Without Contrast Imaging Routine Plantar fasciitis, bilateral Ordered: 06/25/2021 [place] Work Phone: Comment on above: Ordered: 06/25/2021 End: 01-21-2023 MR Foot Left Without Contrast MR Foot Left Without Contrast Imaging Routine Plantar fasciitis of left foot 1 Occurrences starting 01/21/2022 until 01/21/2023 [facility] Work Phone: Comment on above: 1 Occurrences starti ng 01/21/2022 until 01/21/2023 MR Foot Right Withou t Contrast MR Foot Right Without Contrast Imaging Routine Plantar fasciitis, bilateral Ordered: 06/25/2021 [place] Comment on above: Ordered: 06/25/2021 Neutrophil count [facility] Neutrophil percent differential count [facility] Platelets [#/volume] in Blood [facility] Potassium measurement [facility] Red blood cell count [facility] Red cell distributio n width determination [facility] Serum chloride measurement [facility] Sodium measurement [facility] Total protein measurement [facility] Urea nitrogen [Mass/volume] in Serum or Plasma [facility] US [facility] Work Phone: [facility] NEGATED: Highlighted row has been ruled out! Planned Goals not documented [facility] Work Phone: Immunizations Immunization Date Immunization Notes Care Provider Coleen leo 07-14-2021 Pfizer-BioNTech COVID-19 Vacc 30 MCG/0.3ML Intramuscular Suspension EricaTendr Phone: [email or web address] Work Phone: 06-19-2021 influenza, injectabl e, quadrivalent, preservative free; Translations: [Flulaval Quadrivalent 0.5 ML Intramuscular Suspension Prefilled Syringe] Ercia Mcwilliams [place] Work Phone: [facility] Work Phone: Comment on above: Series: 06-19-2021 influenza, seasonal, injectable Erica [place] DO Work Phone: [facility] [place] [facility] Work Phone: 06-19-2021 influenza virus vaccine, unspecified formulation Erica [place] DO Work Phone: [facility] [place] [facility] Work Phone: 11-14-2020 Pfizer-BioNTech COVID-19 Vacc 30 MCG/0.3ML Intramuscular Suspension [facility] Work Phone: Comment on above: Series: 10-24-2020 Pfizer-BioNTech COVID-19 Vacc 30 MCG/0.3ML Intramuscular Suspension [place] [facility] Work Phone: Comment on above: Series: 05-30-2020 influenza, injectabl e, quadrivalent, preservative free Erica [place] [facility] Work Phone: Comment on above: Series: 05-30-2020 influenza, seasonal, injectable Erica S Work Phone: [facility] Work Phone: Comment on above: Series: 05-30-2020 influenza, seasonal, injectable Erica [place] [facility] Work Phone: 05-19-2013 tetanus toxoid, redu jenn diphtheria toxoid, and acellular pertussis vaccine, adsorbed [facility] Work Phone: Comment on above: Series: Payers Date Payer Category Payer Self-pay 2023 Unknown [id number] 2022 Managed Care (Private) [employer] [id number] 2022 Unknown [id number] 2021 Private Health Insurance [id number] 2021 Private Health Insurance [id number] 2020 Unknown 2020 Unknown [id number] [id number]. [id number] 2020 Unknown [id number] 2008 Unknown [id number] 1972 Unknown [id number] 2..840.1.547958.3.579.2. 1972 Unknown [id number] 2.840.1.733020.3.579.2 1972 Unknown [id number] 2.840.1.754167.3.579.2 1972 Unknown [id number] 2.16840.1.284227.3.579.2 1972 Unknown [id number] 2.16840.1.264214.3.579.2 1972 Unknown [id number] 2.16840.1.627417.3.579.2. 903 1972 Unknown [id number] 2.16.840.1.692185.3.579.2. 159 1972 Unknown [id number] 2.16.840.1.321827.3.579.2. 903 1972 Unknown [id number] 2.16.840.1.482277.3.579.2. 903 1972 Unknown [id number] 2.16.840.1.788607.3.579.2. 1069 1972 Unknown [id number] 2.16.840.1.300011.3.579.2. 1069 1972 Unknown [id number] 2.16.840.1.664615.3.579.2. 1069 1972 Unknown [id number] 2.16.840.1.095054.3.579.2. 9 1972 Unknown [id number] 2.16.840.1.738690.3.579.2. 1069 1972 Unknown [id number] 2.16.840.1.132336.3.579.2. 356 1972 Unknown [id number] 2.16.840.1.896867.3.579.2. 356 1972 Unknown [id number] 2.16.840.1.758596.3.579.2. 356 1972 Unknown [id number] 2.16.840.1.056989.3.579.2. 356 1972 Unknown [id number] 2.16.840.1.744570.3.579.2. 356 1972 Unknown [id number] 2.16.840.1.977709.3.579.2. 983 1972 Unknown [id number] 2.16.840.1.519283.3.579.2. 983 1972 Unknown [id number] 2.16.840.1.703023.3.579.2. 1245 1972 Unknown [id number] 2.16.840.1.512676.3.579.2. 1245 1972 Unknown [id number] 2.16.840.1.607434.3.579.2. 1245 1972 Unknown [id number] 2.16.840.1.566033.3.579.2. 1243 1972 Unknown [id number] 2.16.840.1.395683.3.579.2. 1243 1972 Unknown [id number] 2.16.840.1.131784.3.579.2. 1243 1972 Unknown [id number] 2.16.840.1.682823.3.579.2. 1244 1972 Unknown [id number] 2.16.840.1.665985.3.579.2. 1244 1972 Unknown [id number] 2.16.840.1.521848.3.579.2. 1244 Unknown [id number] 2.16.840.1.429532.3.579.2. 462 Unknown [id number] 2.16.840.1.960986.3.579.2. 462 Unknown [id number] 2.16.840.1.271800.3.579.2. 462 Unknown [id number] 2.16.840.1.855027.3.579.2. 462 Unknown [id number] 2.16.840.1.863279.3.579.2. 462 Social History Date Type Detail Facility Start: 01-17-2022 End: 11-20-2023 Occasional alcohol use Occasional alcohol use [facility] Work Phone: Start: 04-06-2021 End: 04-22-2024 Tobacco smoking status NHIS Former smoker [facility] Start: 04-06-2021 End: 12-08-2023 Alcohol intake Lifetime non-drinker (finding) [facility] Start: 1970 Sex Assigned At Not [facility] file [facility] Start: 04-16-2021 End: 05-15-2023 Tobacco use and exposure [facility] Start: 01-07-2022 End: 12-23-2024 Exposure to SARS-CoV-2 (event) Not sure [facility] End: 07-01-2011 History of tobacco use Current smoker [facility] Start: 01-17-2022 History SDOH Alcohol Frequency 1 [facility] Start: 01-17-2022 History SDOH Alcohol Std Drinks 0 [facility] Start: 01-17-2022 History SDOH Social Connections Phone 5 [facility] Start: 01-17-2022 History SDOH Social Connections Get Together 4 [facility] Start: 01-17-2022 History SDOH Social Connections Membership 2 [facility] Start: 01-17-2022 History SDOH Social Connections Living 3 [facility] Start: 01-17-2022 Education 13 [facility] End: 07-01-2011 History of tobacco use Cigarette Smoker [facility] Start: 1970 Sex Assigned At Female [facility] Start: 01-07-2023 End: 11-20-2023 Tobacco use panel [facility] [place] [facility] Work Phone: Tobacco smoking consumption unknown [facility] Do you belong to any clubs or organizations such as gnosticism groups, unions, fraternal or athletic groups, or school groups? No [facility] Are you now , , , , never or living with a partner? [facility] How often to you hav e a drink containing alcohol? Never [facility] How many standard drinks containing alcohol do you have on a typical day? Patient does not drink [facility] How hard is it for y ou to pay for the very basics like food, housing, medical care, and heating Somewhat hard [facility] Do you feel stress - tense, restless, nervous, or anxious, or unable to sleep at night because your mind is troubled all the time - these days [OSQ] To some extent [facility] (I/We) worried wheth er (my/our) food would run out before (I/we) got money to buy more. Never true [facility] Start: 06-26-2021 Gender identity Identifies as female gender (finding) [facility] Start: 06-26-2021 Sexual orientation Heterosexual (robby radha) [facility] History of tobacco use Passive smoker [facility] Work Phone: Start: 05-15-2023 End: 09-23-2024 Alcohol intake Ex-drinker (finding) [facility] [place] [facility] Work Phone: NEGATED: Highlighted row - - [facility] Work Phone: Goals Date Patient Goal Desired Activity /State Personal health goal Personal health goal Functional Status Date Assessment Result Facility Functional observable [facility] NEGATED: Highlighted row Functional performance Functional status health issues are not documented Disease [facility] Work Phone: Mental Status Date Assessment Result Facility 02-09-2023 Cognitive functi ons [id number] [facility] NEGATED: Highlighted row Cognitive function [Interpretation] Cognitive status health issues are not documented Disease [facility] Work Phone: Clinical Notes 06-29-2020 to 03-10-2025 Note Date & Type Note Facility 03-10-2025 Evaluation note Diagnosis Onset Date Resolution Fatigue acute March 10 3:14pm Post-menopausal bleeding acute March 10, 2025 3:14pm [facility] Work Phone: [phone] Evaluation + Plan note* Assessment & Plan Note - Erica Sanford DO - 12/23/2024 9:17 AM EDTAssociated Problem(s): Low back pain -As we discussed she has had an x-ray of her low back back in December 2021 which showed mild arthritis -She is going to try home exercises and call if she is not doing better [facility] Work Phone: [phone] Evaluation + Plan note* Assessment & Plan Note - Erica Sanford DO - 12/23/2024 9:17 AM EDTAssociated Problem(s): Depression, major, single episode, mild ([facility]) -Doing well with her current medical regimen and we are providing refills today [facility] Work Phone: [phone] Miscellaneous Notes* Assessment & Plan Note - Erica Sanford DO - 12/23/2024 9:17 AM EDTAssociated Problem(s): Low back pain -As we discussed she has had an x-ray of her low back back in December 2021 which showed mild arthritis -She is going to try home exercises and call if she is not doing better * Assessment & Plan Note - Erica Sanford DO - 12/23/2024 9:17 AM EDT Associated Problem(s): Depression, major, single episode, mild ([facility]) -Doing well with her current medical regimen and we are providing refills today * Assessment & Plan Note - Erica Safnord DO - 12/23/2024 9:16 AM EDT Associated Problem(s): GERD (gastroesophageal reflux disease) -Acid reflux appears to be under adequate control and we are providing refills on medicine today * Assessment & Plan Note - Erica Sanford DO - 12/23/2024 9:16 AM EDT Associated Problem(s): Type 2 diabetes mellitus with hyperglycemia, without long-term current use of insulin -Hemoglobin A1c has improved at 6.5 but she has gone off of the Ozempic because of side effects. Wetalked about the possibility of starting something new but she will think about it for now -She will get a urine microalbumin study today before leaving and have agreed to contact her with results -We will otherwise see her back in 6 months for reevaluation * Assessment & Plan Note - Erica Sanford DO - 12/23/2024 9:16 AM EDT Associated Problem(s): Hyperlipidemia -She will go back on atorvastatin and we will be checking a fasting lipid profile just prior to hernext follow-up visit documented in this [facility] Work Phone: [phone] Evaluation + Plan note* Assessment & Plan Note - Erica Sanford DO - 12/23/2024 9:16 AM EDTAssociated Problem(s): GERD (gastroesophageal reflux disease) -Acid reflux appears to be under adequate control and we are providing refills on medicine today [facility] Work Phone: [phone] Evaluation + Plan note* Assessment & Plan Note - Erica Sanford DO - 12/23/2024 9:16 AM EDTAssociated Problem(s): Type 2 diabetes mellitus with hyperglycemia, without long-term current use of insulin -Hemoglobin A1c has improved at 6.5 but she has gone off of the Ozempic because of side effects. Wetalked about the possibility of starting something new but she will think about it for now -She will get a urine microalbumin study today before leaving and have agreed to contact her with results -We will otherwise see her back in 6 months for reevaluation [facility] Work Phone: [phone] Evaluation + Plan note* Assessment & Plan Note - Erica Sanford DO - 12/23/2024 9:16 AM EDTAssociated Problem(s): Hyperlipidemia -She will go back on atorvastatin and we will be checking a fasting lipid profile just prior to hernext follow-up visit [facility] Work Phone: [phone] History of Present illness Narrative* Erica Sanford DO - 12/23/2024 8:40 AM EDT Subjective Patient ID: Christine Oakes is a 54 y.o. female who presents for Follow-up (3 MO CK). HPI She is here today for follow-up. She tried the Ozempic for a while but she had continual nausea andshe really did not like that feeling. She did manage to lose about 7 pounds but she would like to try her diet and exercise without additional medication. We did briefly discussed trying different forms of the semaglutide's if she is interested in the future. We also went over the results of her lab work. Her hemoglobin A1c came back at 6.5 which has improved. Unfortunately her cholesterol is very high and I do strongly recommend she get back on cholesterol medication. She is agreeable and we will send a prescription in for atorvastatin. We also discussed putting her on lisinopril because of the diabetes. She has been on this in the past and tolerated well. She will stop on the way out today to get a urine microalbumin and I will contact her with the results. She also states that sometimes she has low back pain and we are reminded that she has had kidney stone disease in the past. Her last CT scan was done May 08, 2023 which showed 1 kidney stone. She really does not have features of passing a kidney stone today. We are reminded that she had an x-rayof her low back on January 08, 2022 which showed some mild degenerative disc disease. We talked aboutrepeating an x-ray and possibly physical therapy referral but she states she would like to try somehome exercises first and will call if her condition is worsening as opposed to getting better. She also has had a cough from a respiratory infection several weeks ago but she does feel like it is on i ts way out and she will call if it does not resolve. We will summarize everything in a problem based format. We discussed her previous diagnosis of rheumatoid arthritis and she has seen a back winder. The first time was impressed that she is not within the condition but the 2 subsequent visits indicated that she does not have rheumatoid arthritis Review of Systems Constitutional: Positive for fatigue. Respiratory: Negative for shortness of breath and wheezing. Resolving cough Cardiovascular: Negative for chest pain, palpitations and leg swelling. Gastrointestinal: Negative for abdominal pain, blood in stool, diarrhea, nausea and vomiting. Musculoskeletal: Negative for arthralgias and back pain. Objective Physical Exam Vitals and nursing note reviewed. Constitutional: General: She is not in acute distress. Appearance: Normal appearance. HENT: Head: Normocephalic and atraumatic. Eyes: Conjunctiva/sclera: Conjunctivae normal. Cardiovascular: Rate and Rhythm: Normal rate and regular rhythm. Heart sounds: Normal heart sounds. Pulmonary: Effort: No respiratory distress. Breath sounds: No wheezing. Abdominal: Palpations: Abdomen is soft. Tenderness: There is no abdominal tenderness. There is no guarding. Musculoskeletal: General: No swelling. Normal range of motion. Skin: General: Skin is warm and dry. Neurological: General: No focal deficit present. Mental Status: She is alert and oriented to person, place, and time. Psychiatric: Behavior: Behavior normal. Recent Results (from the past 4 weeks) Lipid Panel Collection Time: 12/18/24 10:55 AM Result Value Ref Range CHOLESTEROL, TOTAL 254 (H) <200 mg/dL HDL CHOLESTEROL 46 (L) > OR = 50 mg/dL TRIGLYCERIDES 193 (H) <150 mg/dL LDL-CHOLESTEROL 173 (H) mg/dL (calc) CHOL/HDLC RATIO 5.5 (H) <5.0 (calc) NON HDL CHOLESTEROL 208 (H) <130 mg/dL (calc) Basic Metabolic Panel Collection Time: 12/18/24 10:55 AM Result Value Ref Range GLUCOSE 127 (H) 65 - 99 mg/dL UREA NITROGEN (BUN) 18 7 - 25 mg/dL CREATININE 0.81 0.50 - 1.03 mg/dL EGFR 87 > OR = 60 mL/min/1.73m2 BUN/CREATININE RATIO SEE NOTE: 6 - 22 (calc) SODIUM 142 135 - 146 mmol/L POTASSIUM 3.9 3.5 - 5.3 mmol/L CHLORIDE 107 98 - 110 mmol/L CARBON DIOXIDE 24 20 - 32 mmol/L ELECTROLYTE BALANCE 11 7 - 17 mmol/L (calc) CALCIUM 9.3 8.6 - 10.4 mg/dL Hemoglobin A1C Collection Time: 12/18/24 10:55 AM Result Value Ref Range HEMOGLOBIN A1c 6.5 (H) <5.7 % of total Hgb eAG (mg/dL) 140 mg/dL eAG (mmol/L) 7.7 mmol/L Assessment/Plan Problem List Items Addressed This Visit ICD-10-CM Depression, major, single episode, mild (CMS-HCC) F32.0 -Doing well with her current medical regimen and we are providing refills today Relevant Medications escitalopram (Lexapro) 20 mg tablet GERD (gastroesophageal reflux disease) K21.9 -Acid reflux appears to be under adequate control and we are providing refills on medicine today Relevant Medications omeprazole (PriLOSEC) [address] capsule Hyperlipidemia - Primary E78.5 -She will go back on atorvastatin and we will be checking a fasting lipid profile just prior to hernext follow-up visit Relevant Medications atorvastatin (Lipitor) 10 mg tablet Other Relevant Orders Lipid Panel Low back pain M54.50 -As we discussed she has had an x-ray of her low back back in December 2021 which showed mild arthritis -She is going to try home exercises and call if she is not doing better Type 2 diabetes mellitus with hyperglycemia, without long-term current use of insulin E11.65 -Hemoglobin A1c has improved at 6.5 but she has gone off of the Ozempic because of side effects. 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 1 is for the cholesterol medicine known as atorvastatin and the second 1 is for lisinopril. These medicines are considered very important when treating individuals with diabetes and high cholesterol. Please take these as directed and call if you have any problems Please also call if you change your mind about changing your diabetic medications We will see you back in 6 months and please remember to get fasting lab work Please remember to get a urine test today before leaving we will call you with results If your back pain does not improve or gets worse please contact us Erica Sanford DO documented in this [facility] Work Phone: [phone] Instructions* Patient Instructions* Erica Sanford DO - 12/23/2024 8:40 AM EDT Patient instructions As we discussed I have sent 2 new medications to your pharmacy. 1 is for the cholesterol medicine known as atorvastatin and the second 1 is for lisinopril. These medicines are considered very important when treating individuals with diabetes and high cholesterol. Please take these as directed and call if you have any problems Please also call if you change your mind about changing your diabetic medications We will see you back in 6 months and please remember to get fasting lab work Please remember to get a urine test today before leaving we will call you with results If your back pain does not improve or gets worse please contact us documented in this [facility] Work Phone: [phone] Evaluation + Plan note* Assessment & Plan Note - Erica Sanford DO - 09/23/2024 8:13 AM ESTAssociated Problem(s): Type 2 diabetes mellitus with hyperglycemia, without long-term current use of insulin -Doing very well on Ozempic and we are increasing the dose from 0.25 mg up to 0.5 mg weekly -She is tolerating the medicine well and having great success with weight loss -She will call with any questions or concerns and otherwise we will see her back in 3 months with follow-up laboratory [facility] Work Phone: [phone] Miscellaneous Notes* Assessment & Plan Note - Erica Sanford DO - 09/23/2024 8:13 AM ESTAssociated Problem(s): Type 2 diabetes mellitus with hyperglycemia, without long-term current use of insulin -Doing very well on Ozempic and we are increasing the dose from 0.25 mg up to 0.5 mg weekly -She is tolerating the medicine well and having great success with weight loss -She will call with any questions or concerns and otherwise we will see her back in 3 months with follow-up laboratory documented in this [facility] Work Phone: [phone] History of Present illness Narrative* Erica Sanford DO - 09/23/2024 8:00 AM EST Subjective Patient ID: Christine Oakes is a 53 y.o. female who presents for Follow-up (4 week follow up). HPI She is here today for her 1 month follow-up visit after starting Ozempic. Likely we were able to get it approved through her plan and so far so good. She has had little side effects except some constipation and she is increased her fiber intake. So far she is lost over 3 pounds and doing well. We have decided to increase the dose from the 0.25 mg up to the 0.5 mg weekly. She will call with any concerns and otherwise we plan on seeing her back in 3 months for another checkup and laboratory testing. We also briefly discussed her previous diagnosis of rheumatoid arthritis and her last consultation was with Dr. Xander Nunez and after careful thorough workup it was determined that she does not suffer from rheumatoid arthritis. Review of Systems Constitutional: Negative for fatigue. Respiratory: Negative for cough, shortness of breath and wheezing. Cardiovascular: Negative for chest pain, palpitations and leg swelling. Gastrointestinal: Positive for constipation. Negative for abdominal pain, blood in stool, diarrhea,nausea and vomiting. Objective Physical Exam Vitals and nursing note reviewed. Constitutional: General: She is not in acute distress. Appearance: Normal appearance. HENT: Head: Normocephalic and atraumatic. Eyes: Conjunctiva/sclera: Conjunctivae normal. Cardiovascular: Rate and Rhythm: Normal rate and regular rhythm. Heart sounds: Normal heart sounds. Pulmonary: Effort: No respiratory distress. Breath sounds: No wheezing. Abdominal: Palpations: Abdomen is soft. Tenderness: There is no abdominal tenderness. There is no guarding. Musculoskeletal: General: No swelling. Normal range of motion. Skin: General: Skin is warm and dry. Neurological: General: No focal deficit present. Mental Status: She is alert and oriented to person, place, and time. Psychiatric: Behavior: Behavior normal. Assessment/Plan Problem List Items Addressed This Visit ICD-10-CM Hyperlipidemia - Primary E78.5 Relevant Orders Lipid Panel Type 2 diabetes mellitus with hyperglycemia, without long-term current use of insulin E11.65 -Doing very well on Ozempic and we are increasing the dose from 0.25 mg up to 0.5 mg weekly -She is tolerating the medicine well and having great success with weight loss -She will call with any questions or concerns and otherwise we will see her back in 3 months with follow-up laboratory Relevant Medications semaglutide 0.25 mg or 0.5 mg (2 mg/3 mL) pen injector Other Relevant Orders Basic Metabolic Panel Hemoglobin A1C Albumin-Creatinine Ratio, Urine Random Patient instructions As we discussed I sent a new prescription in for Ozempic and the instructions will be to take 0.5 mg weekly as opposed to 0.25 mg weekly. Please call if you have any questions or concerns about this medicine or any unusual side effects. Please keep up the great work with eating healthy and also tryto incorporate some form of exercise in your daily routine. If everything goes according to plan alverto see you back in 3 months for another checkup with hemoglobin A1c. okay just just because it get popped up and I am just it is like what is this diagnosis popup binding Erica Sanford DO documented in this [facility] Work Phone: [phone] Instructions* Patient Instructions* Erica Sanford DO - 09/23/2024 8:00 AM EST Patient instructions As we discussed I sent a new prescription in for Ozempic and the instructions will be to take 0.5 mg weekly as opposed to 0.25 mg weekly. Please call if you have any questions or concerns about this medicine or any unusual side effects. Please keep up the great work with eating healthy and also tryto incorporate some form of exercise in your daily routine. If everything goes according to plan weandreall see you back in 3 months for another checkup with hemoglobin A1c. okay just just because it get popped up and I am just it is like what is this diagnosis popup binding documented in this [facility] Work Phone: [phone] Evaluation + Plan note* Assessment & Plan Note - Erica Sanford DO - 07/01/2024 12:17 PM EDTAssociated Problem(s): Type 2 diabetes mellitus with hyperglycemia, without long-term current use of insulin -We will start Ozempic lowest dose weekly and I sent a prescription to her pharmacy -We went over side effects and expectations with the medication -She will call if it is not affordable on her plan -She will call if she has severe side effects -She will keep track of her sugars and we will see her back in 1 month [facility] Work Phone: [phone] 105-390110-03-2024 Evaluation + Plan note* Assessment & Plan Note - Erica Sanford DO - 07/01/2024 12:17 PM EDTAssociated Problem(s): Vitamin D deficiency -She will go for a vitamin D level at her earliest convenience and we will contact her with the results [facility] Work Phone: [phone] 238-282510-03-2024 Miscellaneous Notes* Assessment & Plan Note - Erica Sanford DO - 07/01/2024 12:17 PM EDTAssociated Problem(s): Type 2 diabetes mellitus with hyperglycemia, without long-term current use of insulin -We will start Ozempic lowest dose weekly and I sent a prescription to her pharmacy -We went over side effects and expectations with the medication -She will call if it is not affordable on her plan -She will call if she has severe side effects -She will keep track of her sugars and we will see her back in 1 month * Assessment & Plan Note - Erica Sanford DO - 07/01/2024 12:17 PM EDT Associated Problem(s): Vitamin D deficiency -She will go for a vitamin D level at her earliest convenience and we will contact her with the results documented in this [facility] Work Phone: [phone] History of Present illness Narrative* Erica Sanford DO - 07/01/2024 11:40 AM EDT Subjective Patient ID: Christine Oakes is a 53 y.o. female who presents for Pains in their hands and legs. Been going on for a year now. Comes and goes. Patient states when she is on their feet all day long. Patient states it also hurts behind their knees. Needs a refill on on Escitalopram as well. Would like todiscuss weight loss options. HPI She is here today for evaluation. She explains that she still experiences discomfort in her extremities and joints from time to time. She has had the symptoms on and off for many years. She states she simply does not feel that well and she is very discouraged about her weight gain. We are reminded that she was seen by rheumatology and had a thorough workup including multiple labs. At the end he was not impressed that she had an inflammatory polyarthropathy. She did have a low vitamin D and I told her that low vitamin D can cause achiness and fatigue. We will check a vitamin D level and I am telling her today that she will need to stay on vitamin D supplementation indefinitely. We also discussed the weight issues and the fact that she is diabetic. I told her it was preferablywilling to prescribe the semaglutide's for her situation and we will try low-dose Ozempic. She willlet me know if this is not covered well on her plan. We talked about how to use the medicine and what to expect in the way of side effects. I do want to see her back in 1 month but she knows to call if she is not doing well on this medication. We also discovered that she is due for the mammogram this month Review of Systems Constitutional: Positive for fatigue. Respiratory: Negative for cough, shortness of breath and wheezing. Cardiovascular: Negative for chest pain, palpitations and leg swelling. Gastrointestinal: Negative for diarrhea, nausea and vomiting. Musculoskeletal: Positive for arthralgias. Objective There were no vitals taken for this visit. Physical Exam Vitals and nursing note reviewed. Constitutional: General: She is not in acute distress. Appearance: Normal appearance. HENT: Head: Normocephalic and atraumatic. Eyes: Conjunctiva/sclera: Conjunctivae normal. Cardiovascular: Rate and Rhythm: Normal rate and regular rhythm. Heart sounds: Normal heart sounds. Pulmonary: Effort: No respiratory distress. Breath sounds: No wheezing. Abdominal: Palpations: Abdomen is soft. Tenderness: There is no abdominal tenderness. There is no guarding. Musculoskeletal: General: No swelling. Normal range of motion. Skin: General: Skin is warm and dry. Neurological: General: No focal deficit present. Mental Status: She is alert and oriented to person, place, and time. Psychiatric: Behavior: Behavior normal. Assessment/Plan Problem List Items Addressed This Visit ICD-10-CM Type 2 diabetes mellitus with hyperglycemia, without long-term current use of insulin E11.65 -We will start Ozempic lowest dose weekly and I sent a prescription to her pharmacy -We went over side effects and expectations with the medication -She will call if it is not affordable on her plan -She will call if she has severe side effects -She will keep track of her sugars and we will see her back in 1 month Relevant Medications semaglutide 0.25 mg or 0.5 mg (2 mg/3 mL) pen injector Encounter for screening mammogram for malignant neoplasm of breast Z12.31 Relevant Orders BI mammo bilateral screening tomosynthesis Vitamin D deficiency - Primary E55.9 -She will go for a vitamin D level at her earliest convenience and we will contact her with the results Relevant Orders Vitamin D 25-Hydroxy,Total (for eval of Vitamin D levels) PT INSTRUCTIONS As we discussed you will need to stay on vitamin D supplementation indefinitely I have ordered a vitamin D level to be checked and please go at your earliest convenience. This labdoes not require fasting. Please remember that low vitamin D can cause aching and fatigue I sent a prescription to your pharmacy for the drug called Ozempic and please follow the directionsclosely. Please call me if you are having any serious side effects from this medicine and I do wantto see you back in 1 month. Please keep track of your blood glucose readings and write them down and bring them with you The staff will be helping to schedule your screening mammogram documented in this [facility] Work Phone: 1([phone] Instructions* Patient Instructions* Erica Sanford DO - 07/01/2024 11:40 AM EDT As we discussed you will need to stay on vitamin D supplementation indefinitely I have ordered a vitamin D level to be checked and please go at your earliest convenience. This labdoes not require fasting. Please remember that low vitamin D can cause aching and fatigue I sent a prescription to your pharmacy for the drug called Ozempic and please follow the directionsclosely. Please call me if you are having any serious side effects from this medicine and I do wantto see you back in 1 month. Please keep track of your blood glucose readings and write them down and bring them with you The staff will be helping to schedule your screening mammogram documented in this [facility]Louis [facility] Work Phone: [phone] History of Present illness Narrative* Xander Nunez Jr., - 12/08/2023 4:30 PM EDT Subjective History of Present Illness Presence of Pain: denies pain/discomfort. Total time spent in this encounter was 27 minutes. [employer]nergyle[employer] is had a cold the past week. GERD is about the same. Nausea past month. Joint pain is no. Back pain is no. Not on a regular. Patient is here for 3 week Follow-up. Patient states has been feeling better. States while sleeping does not have hardly any pain. Objective Review of Systems Constitutional: Positive for fatigue. HENT: Negative. Eyes: Negative. Respiratory: Negative. Cardiovascular: Negative. Gastrointestinal: Positive for nausea. GERD Endocrine: Negative. Genitourinary: Negative. Musculoskeletal: Positive for back pain. Skin: Negative. Allergic/Immunologic: Negative. Neurological: Negative. Hematological: Negative. Psych Review of Symptoms: Depressive Symptoms: Fatigue. Vitals: Blood pressure 128/80, pulse 69, temperature 98.7 F (37.1 C), temperature source Temporal, height 1.727 m (5' 8), weight 104.8 kg (231 lb 0.7 oz), SpO2 98%. Physical Exam Vitals and nursing note reviewed. Constitutional: Appearance: Normal appearance. She is obese. HENT: Head: Normocephalic and atraumatic. Right Ear: External ear normal. Left Ear: External ear normal. Nose: Nose normal. Mouth/Throat: Mouth: Mucous membranes are moist. Pharynx: Oropharynx is clear. Eyes: Extraocular Movements: Extraocular movements intact. Conjunctiva/sclera: Conjunctivae normal. Pupils: Pupils are equal, round, and reactive to light. Cardiovascular: Rate and Rhythm: Normal rate and regular rhythm. Pulses: Radial pulses are 2+ on the right side and 2+ on the left side. Heart sounds: Normal heart sounds. Pulmonary: Effort: Pulmonary effort is normal. Breath sounds: Normal breath sounds. Abdominal: General: Bowel sounds are normal. Palpations: Abdomen is soft. Comments: obese Musculoskeletal: Right shoulder: Normal. Left shoulder: Normal. Right upper arm: Normal. Left upper arm: Normal. Right elbow: Normal. Left elbow: Normal. Right forearm: Normal. Left forearm: Normal. Right wrist: Normal. Left wrist: Tenderness and bony tenderness present. Right hand: Deformity present. Decreased range of motion. Left hand: Deformity present. Decreased range of motion. Cervical back: Neck supple. Right upper leg: Normal. Left upper leg: Normal. Right knee: Crepitus present. Tenderness present. Left knee: Crepitus present. Tenderness present. Right lower leg: Normal. Left lower leg: Normal. Right ankle: Normal. Left ankle: Normal. Skin: General: Skin is warm and dry. Neurological: Mental Status: She is alert and oriented to person, place, and time. Cranial Nerves: Cranial nerves 2-12 are intact. Sensory: Sensation is intact. Motor: Motor function is intact. Gait: Gait is intact. Psychiatric: Mood and Affect: Mood normal. Behavior: Behavior normal. Thought Content: Thought content normal. Judgment: Judgment normal. Neurological Exam Mental Status Alert. Oriented to person, place, and time. Cranial Nerves CN III, IV, : Extraocular movements intact bilaterally. Pupils equal round and reactive to light bilaterally. Sensory Normal sensation. Gait Normal gait. Assessment and Plan: No evidence of active CTD/CVD/Inflammatory arthritis/RA I return patient to your care. There appears to be no need to start high dose steroids or immune modulating medications. Encounter Diagnoses Name Primary? 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 A complete H&P&ROS was obtained and is either in this note or in the EHR. Please do not hesitate to contact me with any questions or concerns re: this patient. Past History: Past medical, surgical, family, and social histories have been reviewed and updated with the patient today and are located elsewhere in the medical record. No evidence of active CTD/CVD/Inflammatory arthritis/RA AMANDA level is normal at 35 Hgb A1c is elevated at 6.7 and patient is going to Follow-up with PCP Monitor CBC/LFT/Renal func every 6-12 months as long as patient is on daily NSAID 25 hydroxy Vit D level at 21 with normal at 1,25 dihydroxy Vit D level Methotrexate caused mouth ulcers. ESR was normal at 8 and still is at 7 CRP was negative at 0.17 and still is at 0.24 Negative RF, POLO, HLA-B27, SPEP/SIF, Celiac, ANCA, Lyme, CCP, Hep A&B&C serology Hgb was low at 11.9 and still is at 11.6 Normal TSH If knee and wrist and hand problems continue rec: ortho eval Rx given for DosoKap 1 pill a day Rx given for PT: patient has been and is not doing HEP. Monitor Vit D level every 6 -12 months if remains low rec: eval by endo At patient's request will set up with Dr. Lepe: patient did not see Rx given for OT: patient has been and is doing HEP 19. Ortho Follow-up per Dr. Jacobo 20. Patient is taking Vit C and airborn. 21. Glucose is elevated at 138 and patient is going to Follow-up with PCP 22. ALT is elevated at 56 and patient is going to Follow-up with PCP 23. Uric acid is normal at 5.2 24. I return patient to your care. 25. There appears to be no need to start high dose steroids or immune modulating medications. [facility] + Plan note * Assessment & Plan Note - Erica Sanford DO - 12/04/2023 8:31 AM EST Associated Problem(s): Depression, major, single episode, mild (CMS/HCC) -Doing okay right now on her Lexapro edicine [facility] Work Phone: [phone] 323-200003-07-2024 Evaluation + Plan note* Assessment & Plan Note - Erica Sanford DO - 12/04/2023 8:31 AM ESTAssociated Problem(s): GERD (gastroesophageal reflux disease) -Well-controlled on the medication [facility] Work Phone: [phone] Evaluation + Plan note* Assessment & Plan Note - Erica Sanford DO - 12/04/2023 8:31 AM ESTAssociated Problem(s): Type 2 diabetes mellitus with hyperglycemia, without long-term current use of insulin ([facility]) -She stopped the metformin a couple of months ago because she thought it might be causing gastrointestinal symptoms -Her most recent hemoglobin A1c is satisfactory at 6.7 -She will be checking her sugars twice daily before breakfast and supper and give me an update as we may need to substitute another medicine for the metformin [facility] Work Phone: [phone] 449-490603-07-2024 Evaluation + Plan note* Assessment & Plan Note - Erica Sanford DO - 12/04/2023 8:31 AM ESTAssociated Problem(s): Shortness of breath on exertion -She describes her shortness of breath as being severe and not well explained -She will get an EKG at the hospital -She will have an echocardiogram performed -She will go for chest x-ray -We will check a CBC -We are reminded that she had a coronary calcium scan in the recent past with composite score 0 -I will see her back in follow-up [facility] Work Phone: [phone] Miscellaneous Notes* Assessment & Plan Note - Erica Sanford DO - 12/04/2023 8:31 AM ESTAssociated Problem(s): Depression, major, single episode, mild (CMS/HCC) -Doing okay right now on her Lexapro * Assessment & Plan Note - Erica Sanford DO - 12/04/2023 8:31 AM EST Associated Problem(s): GERD (gastroesophageal reflux disease) -Well-controlled on the medication * Assessment & Plan Note - Erica Sanford DO - 12/04/2023 8:31 AM EST Associated Problem(s): Type 2 diabetes mellitus with hyperglycemia, without long-term current use of insulin ([facility]) -She stopped the metformin a couple of months ago because she thought it might be causing gastrointestinal symptoms -Her most recent hemoglobin A1c is satisfactory at 6.7 -She will be checking her sugars twice daily before breakfast and supper and give me an update as we may need to substitute another medicine for the metformin * Assessment & Plan Note - Erica Sanford DO - 12/04/2023 8:31 AM EST Associated Problem(s): Shortness of breath on exertion -She describes her shortness of breath as being severe and not well explained -She will get an EKG at the hospital -She will have an echocardiogram performed -She will go for chest x-ray -We will check a CBC -We are reminded that she had a coronary calcium scan in the recent past with composite score 0 -I will see her back in follow-up * Assessment & Plan Note - Erica Sanford DO - 12/04/2023 8:30 AM EST Associated Problem(s): Prehypertension -Her blood pressure was excellent today we will continue to monitor -She is currently on no antihypertensive documented in this [facility] Work Phone: [phone] Evaluation + Plan note* Assessment & Plan Note - Erica Sanford DO - 12/04/2023 8:30 AM ESTAssociated Problem(s): Prehypertension -Her blood pressure was excellent today we will continue to monitor -She is currently on no antihypertensive [facility] Work Phone: [phone] History of Present illness Narrative* Erica Sanford DO - 12/04/2023 8:00 AM EST Subjective Patient ID: Christine Oakes is a 53 y.o. female who presents for Follow-up (6 mos), Bladder Problem, and Diarrhea. Diarrhea Pertinent negatives include no abdominal pain, arthralgias, coughing, fever or vomiting. She is here today for a routine checkup and she went on to explain that she really has not been doing very well at all in recent times. She states her bowel patterns have changed significantly over the past month. She is having more loose stools and sometimes diarrhea. She also has generalized abdominal discomfort but she does not describe it as pain. She has not had any black or bloody stools. She denies anything new in the way of medications and she has not been on antibiotics recently. She also denies anything new in the way of her diet. We are reminded that back in the summer 2022 she developed an bowel obstruction and ended up in the hospital for several days. Her CT scans preliminarily showed possible signs of inflammatory bowel disease. She was seen and evaluated by Dr. Monge and had a colonoscopy which looked okay. She states she just has not felt well and she feels like something is brewing. I decided to have her get back into see Dr. Monge for evaluation. She states she did stop her metformin recently because she thought perhaps it was contributing and really has not made a big difference. She continues to check her blood sugars and her most recent hemoglobin A1c was satisfactory at 6.7. I told her she could stay off the metformin for now but to really keep track of his blood sugars because she might need another medicine to keep things under control. She also states that her shortness of breath with exertion has been the worst its ever been. Simply walking in here from the parking lot was a challenge. She has had the symptoms on and off for probably years and we have done a workup in the past. We determined that it was likely secondary to her weight but I amgoing to launch a new investigation. She has had a coronary calcium scan with composite score 0 butI will be ordering an echocardiogram, chest x-ray, and CBC as well as EKG. I will see her back to go the results and we will go from there. She also follows closely with Dr. Nunez and had several labs performed on November 18. Her vitamin D was low at 21 so we started her on a vitamin D supplement. She states the bowel changes have been way before she started taking vitamin D. Review of Systems Constitutional: Positive for fatigue. Negative for fever. Respiratory: Positive for shortness of breath. Negative for cough and wheezing. Cardiovascular: Negative for chest pain, palpitations and leg swelling. Gastrointestinal: Positive for diarrhea and nausea. Negative for abdominal pain, blood in stool andvomiting. Musculoskeletal: Negative for arthralgias and back pain. Objective Physical Exam Vitals and nursing note reviewed. Constitutional: General: She is not in acute distress. Appearance: Normal appearance. HENT: Head: Normocephalic and atraumatic. Eyes: Conjunctiva/sclera: Conjunctivae normal. Cardiovascular: Rate and Rhythm: Normal rate and regular rhythm. Heart sounds: Normal heart sounds. Pulmonary: Effort: No respiratory distress. Breath sounds: No wheezing. Abdominal: Palpations: Abdomen is soft. Tenderness: There is no abdominal tenderness. There is no guarding. Musculoskeletal: General: No swelling. Normal range of motion. Skin: General: Skin is warm and dry. Neurological: General: No focal deficit present. Mental Status: She is alert and oriented to person, place, and time. Psychiatric: Behavior: Behavior normal. Recent Results (from the past 672 hour(s)) Hemoglobin A1C Collection Time: 11/18/23 7:55 AM Result Value Ref Range Hemoglobin A1C 6.7 (H) see below % Estimated Average Glucose 146 Not Established mg/dL Tissue Transglutaminase IgA Collection Time: 11/18/23 7:55 AM Result Value Ref Range Tissue Transglutaminase, IgA <1.0 <15.0 U/mL HLAB27 Typing Collection Time: 11/18/23 7:55 AM Result Value Ref Range HLAB27 Typing Negative Citrulline Antibody, IgG Collection Time: 11/18/23 7:55 AM Result Value Ref Range Citrulline Antibody, IgG <1 <3 U/mL Angiotensin Converting Enzyme Collection Time: 11/18/23 7:55 AM Result Value Ref Range Angio Converting Enzyme 35 16 - 85 U/L ANCA-Associated Vasculitis Profile (ANCA,MPO,PR3) Collection Time: 11/18/23 7:55 AM Result Value Ref Range Myeloperoxidase (MPO) Ab, IgG 0 0 - 19 AU/mL Serine Proteinase 3 (PR3) Ab, IgG 0 0 - 19 AU/mL ANCA IFA Titer <1:20 <1:20 ANCA IFA Pattern None Detected None Detected Vitamin D 1,25 Dihydroxy (for eval of hypercalcemia) Collection Time: 11/18/23 7:55 AM Result Value Ref Range Vit D, 1,25-Dihydroxy 55.5 19.9 - 79.3 pg/mL Vitamin D 25-Hydroxy,Total (for eval of Vitamin D levels) Collection Time: 11/18/23 7:55 AM Result Value Ref Range Vitamin D, 25-Hydroxy, Total 21 (L) 30 - 100 ng/mL Vitamin B6 Collection Time: 11/18/23 7:55 AM Result Value Ref Range Vitamin B6 41.9 20.0 - 125.0 nmol/L Vitamin B12 Collection Time: 11/18/23 7:55 AM Result Value Ref Range Vitamin B12 347 211 - 911 pg/mL Vitamin B1, Whole Blood Collection Time: 11/18/23 7:55 AM Result Value Ref Range Vitamin B1, Whole Blood 98 70 - 180 nmol/L RED CELL FOLATE; ARUP; [id number] - Miscellaneous Test Collection Time: 11/18/23 7:55 AM Result Value Ref Range Scan Result See Scanned Result Magnesium Collection Time: 11/18/23 7:55 AM Result Value Ref Range Magnesium 1.74 1.60 - 2.40 mg/dL Comprehensive Metabolic Panel Collection Time: 11/18/23 7:55 AM Result Value Ref Range Glucose 138 (H) 74 - 99 mg/dL Sodium 139 136 - 145 mmol/L Potassium 3.8 3.5 - 5.3 mmol/L Chloride 107 98 - 107 mmol/L Bicarbonate 25 21 - 32 mmol/L Anion Gap 11 10 - 20 mmol/L Urea Nitrogen 17 6 - 23 mg/dL Creatinine 0.71 0.50 - 1.05 mg/dL eGFR >90 >60 mL/min/1.73m*2 Calcium 8.8 8.6 - 10.3 mg/dL Albumin 4.0 3.4 - 5.0 g/dL Alkaline Phosphatase 64 33 - 110 U/L Total Protein 6.5 6.4 - 8.2 g/dL AST 39 9 - 39 U/L Bilirubin, Total 0.5 0.0 - 1.2 mg/dL ALT 56 (H) 7 - 45 U/L Uric Acid Collection Time: 11/18/23 7:55 AM Result Value Ref Range Uric Acid 5.2 2.3 - 6.7 mg/dL Sedimentation Rate Collection Time: 11/18/23 7:55 AM Result Value Ref Range Sedimentation Rate 7 0 - 30 mm/h C-Reactive Protein Collection Time: 11/18/23 7:55 AM Result Value Ref Range C-Reactive Protein 0.24 <1.00 mg/dL Creatine Kinase Collection Time: 11/18/23 7:55 AM Result Value Ref Range Creatine Kinase 103 0 - 215 U/L Lyme AB Modified 2-Tier Testing, 1st Tier Collection Time: 11/18/23 7:55 AM Result Value Ref Range B. burgdorferi VlsE1/pepC10 Abs, JACOB 0.58 <=0.90 IV Hepatitis Panel, Acute Collection Time: 11/18/23 7:55 AM Result Value Ref Range Hepatitis B Surface AG Nonreactive Nonreactive Hepatitis A AB- IgM Nonreactive Nonreactive Hepatitis B Core AB; IgM Nonreactive Nonreactive Hepatitis C AB Nonreactive Nonreactive CBC and Auto Differential Collection Time: 11/18/23 7:55 AM Result Value Ref Range WBC 4.4 4.4 - 11.3 x10*3/uL nRBC 0.0 0.0 - 0.0 /100 WBCs RBC 4.11 4.00 - 5.20 x10*6/uL Hemoglobin 11.6 (L) 12.0 - 16.0 g/dL Hematocrit 35.7 (L) 36.0 - 46.0 % MCV 87 80 - 100 fL MCH 28.2 26.0 - 34.0 pg MCHC 32.5 32.0 - 36.0 g/dL RDW 13.2 11.5 - 14.5 % Platelets 159 150 - 450 x10*3/uL Neutrophils % 50.7 40.0 - 80.0 % Immature Granulocytes %, Automated 0.2 0.0 - 0.9 % Lymphocytes % 40.1 13.0 - 44.0 % Monocytes % 7.2 2.0 - 10.0 % Eosinophils % 1.8 0.0 - 6.0 % Basophils % 0.0 0.0 - 2.0 % Neutrophils Absolute 2.25 1.20 - 7.70 x10*3/uL Immature Granulocytes Absolute, Automated 0.01 0.00 - 0.70 x10*3/uL Lymphocytes Absolute 1.78 1.20 - 4.80 x10*3/uL Monocytes Absolute 0.32 0.10 - 1.00 x10*3/uL Eosinophils Absolute 0.08 0.00 - 0.70 x10*3/uL Basophils Absolute 0.00 0.00 - 0.10 x10*3/uL Protein, Total Collection Time: 11/18/23 7:55 AM Result Value Ref Range Total Protein 6.5 6.4 - 8.2 g/dL Serum Protein Electrophoresis + Immunofixation Collection Time: 11/18/23 7:55 AM Result Value Ref Range Albumin 4.0 3.4 - 5.0 g/dL Alpha 1 Globulin 0.2 0.2 - 0.6 g/dL Alpha 2 Globulin 0.6 0.4 - 1.1 g/dL Beta Globulin 0.8 0.5 - 1.2 g/dL Gamma 0.9 0.5 - 1.4 g/dL Protein Electrophoresis Comment Normal. Immunofixation Comment No monoclonal protein detected by immunofixation. Path Review - Serum Protein Electrophoresis Reviewed and approved by SUSAN ALCANTAR on 11/25/23 at 8:38 AM. Path Review - Serum Immunofixation Reviewed and approved by SUSAN ALCANTAR on 11/25/23 at 8:38 AM. Assessment/Plan Problem List Items Addressed This Visit ICD-10-CM Depression, major, single episode, mild (CMS/HCC) F32.0 -Doing okay right now on her Lexapro Relevant Medications escitalopram (Lexapro) 20 mg tablet GERD (gastroesophageal reflux disease) K21.9 -Well-controlled on the medication Relevant Medications omeprazole (PriLOSEC) [address] capsule Prehypertension R03.0 -Her blood pressure was excellent today we will continue to monitor -She is currently on no antihypertensive Shortness of breath on exertion R06.02 -She describes her shortness of breath as being severe and not well explained -She will get an EKG at the hospital -She will have an echocardiogram performed -She will go for chest x-ray -We will check a CBC -We are reminded that she had a coronary calcium scan in the recent past with composite score 0 -I will see her back in follow-up Type 2 diabetes mellitus with hyperglycemia, without long-term current use of insulin ([facility]) E11.65 -She stopped the metformin a couple of months ago because she thought it might be causing gastrointestinal symptoms -Her most recent hemoglobin A1c is satisfactory at 6.7 -She will be checking her sugars twice daily before breakfast and supper and give me an update as we may need to substitute another medicine for the metformin Other Visit Diagnoses Codes Bowel habit changes - Primary R19.4 Relevant Orders Referral to Gastroenterology LOMELI (dyspnea on exertion) R06.09 Relevant Orders XR chest 2 views ECG 12 lead (Ancillary Performed) Transthoracic Echo (TTE) Complete CBC and Auto Differential Erica Sanford DO [facility] Work Phone: [phone]) [phone] Instructions* Patient Instructions* Erica Sanford DO - 12/04/2023 8:00 AM EST As we discussed I am asking the staff to make an appointment with Dr. Monge to discuss your digestive issues since you have had a history of bowel obstruction and a suggestion of possible inflammatory bowel disease. Please call if you develop fevers, abdominal pain, or if your diarrhea becomes severe or you see black or bloody stools Because of your worsening shortness of breath on exertion I have ordered several tests including EKG, echocardiogram, chest x-ray which she will go and get on your own at your earliest convenience. Will also have you get a CBC today before leaving If you ever develop severe shortness of breath at rest or chest pain go to the emergency room As we discussed since you stopped your metformin your blood sugars may go up significantly and I amasking that you check your sugars twice a day before breakfast and supper. Please give me an updatein the next few weeks to make sure we are on track. It is possible you may need another medicine toreplace the metformin so we can control your sugars well documented in this encounterLouis [facility] Work Phone: [phone]) 364-130502-19-2024 History of Present illness Narrative* Xander Nunez Jr., DO - 11/17/2023 7:30 AM EST Subjective History of Present Illness Presence of Pain: complains of pain/discomfort Pain Location: knee, right (Everywhere) Select Pain Scale: DVPRS (Defense and Veterans Pain Rating Scale) (Adult- Cognitively Intact) DVPRS: Rest: 2- mild pain DVPRS: Activity: 2- mild pain Select Pain Scale: DVPRS (Defense and Veterans Pain Rating Scale) (Adult- Cognitively Intact) Pain Frequency: constant Pain Quality: aching. Total time spent in this encounter was 46 minutes. Patient is being evaluatedfor an unstable chronic illness that increase morbidity and mortality. Due to patient's coexisting health problems and co-morbidities treatment is and will be very difficult. Patient was referred by Dr. Sanford for severe joint pain. Patient states she previously see Dr. Serrato and [place]. Patient states she has joint pain, worse in right knee left wrist. Patient states her morning stiffness for 1 hour. I am her number three to help her. Joint pain for Objective Review of Systems Constitutional: Positive for fatigue. HENT: Negative. Eyes: Negative. Respiratory: Negative. Cardiovascular: Negative. Gastrointestinal: GERD Endocrine: Negative. Genitourinary: Negative. Musculoskeletal: Positive for arthralgias and back pain. Skin: Negative. Allergic/Immunologic: Negative. Neurological: Negative. Hematological: Negative. Psychiatric/Behavioral: The patient is nervous/anxious. Psych Review of Symptoms: Depressive Symptoms: Fatigue. Vitals: There were no vitals taken for this visit. Physical Exam Vitals and nursing note reviewed. Constitutional: Appearance: Normal appearance. She is obese. HENT: Head: Normocephalic and atraumatic. Right Ear: External ear normal. Left Ear: External ear normal. Nose: Nose normal. Mouth/Throat: Mouth: Mucous membranes are moist. Pharynx: Oropharynx is clear. Eyes: Extraocular Movements: Extraocular movements intact. Conjunctiva/sclera: Conjunctivae normal. Pupils: Pupils are equal, round, and reactive to light. Cardiovascular: Rate and Rhythm: Normal rate and regular rhythm. Pulses: Carotid pulses are 2+ on the right side and 2+ on the left side. Radial pulses are 2+ on the right side and 2+ on the left side. Dorsalis pedis pulses are 2+ on the right side and 2+ on the left side. Posterior tibial pulses are 2+ on the right side and 2+ on the left side. Heart sounds: Normal heart sounds. Comments: No subclavian or carotid bruits. Pulmonary: Effort: Pulmonary effort is normal. Breath sounds: Normal breath sounds. Abdominal: General: Bowel sounds are normal. Palpations: Abdomen is soft. Comments: obese Musculoskeletal: Right shoulder: Normal. Left shoulder: Normal. Right upper arm: Normal. Left upper arm: Normal. Right elbow: Normal. Left elbow: Normal. Right forearm: Normal. Left forearm: Normal. Right wrist: Normal. Left wrist: Tenderness and bony tenderness present. Right hand: Deformity present. Decreased range of motion. Left hand: Deformity present. Decreased range of motion. Cervical back: Normal, normal range of motion and neck supple. Thoracic back: Normal. Lumbar back: Decreased range of motion. Right hip: Decreased range of motion. Left hip: Decreased range of motion. Right upper leg: Normal. Left upper leg: Normal. Right knee: Crepitus present. Tenderness present. Left knee: Crepitus present. Tenderness present. Right lower leg: Normal. Left lower leg: Normal. Right ankle: Normal. Left ankle: Normal. Right foot: Decreased range of motion. Deformity present. Left foot: Decreased range of motion. Deformity present. Skin: General: Skin is warm and dry. Neurological: Mental Status: She is alert and oriented to person, place, and time. Cranial Nerves: Cranial nerves 2-12 are intact. Sensory: Sensation is intact. Motor: Motor function is intact. Gait: Gait is intact. Deep Tendon Reflexes: Reflex Scores: Tricep reflexes are 2+ on the right side and 2+ on the left side. Bicep reflexes are 2+ on the right side and 2+ on the left side. Brachioradialis reflexes are 2+ on the right side and 2+ on the left side. Patellar reflexes are 2+ on the right side and 2+ on the left side. Achilles reflexes are 0 on the right side and 0 on the left side. Psychiatric: Mood and Affect: Mood normal. Behavior: Behavior normal. Thought Content: Thought content normal. Judgment: Judgment normal. Neurological Exam Mental Status Alert. Oriented to person, place, and time. Cranial Nerves CN III, IV, : Extraocular movements intact bilaterally. Pupils equal round and reactive to light bilaterally. Sensory Normal sensation. Reflexes Right Left Brachioradialis 2+ 2+ Biceps 2+ 2+ Triceps 2+ 2+ Patellar 2+ 2+ Achilles 0 0 Gait Normal gait. Assessment and Plan: Encounter Diagnoses Name Primary? Dorsalgia Yes Bilateral chronic knee pain Abnormal reflexes of lower extremity Wrist pain, left Primary osteoarthritis of both wrists Primary osteoarthritis of both knees Primary osteoarthritis of both hands Primary osteoarthritis of both feet Osteoarthritis of carpometacarpal (CMC) joint of both thumbs Lumbar degenerative disc disease Disorder of bone and cartilage FDC current use of non-steroidal anti-inflammatories (NSAID) History of rheumatoid arthritis Fatigue, unspecified type Family history of rheumatoid arthritis Hepatomegaly Hepatic steatosis Time was spent with the patient today in education in re: to all their medical conditions. A complete H&P&ROS was obtained and is either in this note or in the EHR. Please do not hesitate to contact me with any questions or concerns re: this patient. Past History: Past medical, surgical, family, and social histories have been reviewed and updated with the patient today and are located elsewhere in the medical record. Thank you for allowing me to participate in the care of your patient. With your permission I would like to F/U with your patient. Differenetial Diagnosis includes but is not limited to Autoimmune Disease, Connective Tissue Disease, Collagen Vascular Disorder, Infection, and Neoplasm. Lab and Follow-up with me in 3 weeks Monitor CBC/LFT/Renal func every 6-12 months as long as patient is on daily NSAID Patient was given educational material on RA. Different treatment options were discussed with the patient today. Patient should get the Shingrix vaccine if not already done Methotrexate caused mouth ulcers. ESR is normal at 8 CRP is negative at 0.17 Negative RF, POLO, Hgb is low at 11.9 Normal TSH If knee and wrist and hand problems continue rec: ortho eval Patient given educational material on OA in the from of a pamphlet from the arthritis foundation. Patient told that PT and keeping ideal body wt would be the cornerstone of treatment Rx given for PT: patient has been and is not doing HEP. Patient was given educational material on RA. Different treatment options were discussed with the patient today. Patient should get the Shingrix vaccine if not already done At patient's request will set up with Dr. Lepe Rx given for OT 19. Ortho Follow-up per Dr. Jacobo [facility] + Plan note * Assessment & Plan Note - Erica Sanford DO - 05/30/2023 8:38 AM EDT Associated Problem(s): Polyarthropathy -She will stop the atorvastatin and let me know if symptoms dissipate or resolve -She has had 2 differing opinions from 2 different rheumatologists indicating whether she has an inflammatory arthritis -We are going to have her see Dr. Nunez at [facility] and we will take some time to get in. If her symptoms completely resolve then she will cancel the appointment -We also briefly discussed the possibility of fibromyalgia and we briefly discussed the drug Lyrica -I am also sending her a handout explaining fibromyalgia via [employer] [facility] Work Phone: [phone]) 252-783509-01-2023 Miscellaneous Notes* Assessment & Plan Note - Erica Sanford DO - 05/30/2023 8:38 AM EDTAssociated Problem(s): Polyarthropathy -She will stop the atorvastatin and let me know if symptoms dissipate or resolve -She has had 2 differing opinions from 2 different rheumatologists indicating whether she has an inflammatory arthritis -We are going to have her see Dr. Nunez at [facility] and we will take some time to get in. If her symptoms completely resolve then she will cancel the appointment -We also briefly discussed the possibility of fibromyalgia and we briefly discussed the drug Lyrica -I am also sending her a handout explaining fibromyalgia via [employer] * Assessment & Plan Note - Erica Sanford DO - 05/30/2023 8:37 AM EDT Associated Problem(s): Depression, major, single episode, mild (CMS/HCC) -Symptoms are well controlled at this time * Assessment & Plan Note - Erica Sanford DO - 05/30/2023 8:37 AM EDT Associated Problem(s): Type 2 diabetes mellitus with hyperglycemia, without long-term current use of insulin (CMS/HCC) -Under good control -She will continue with metformin XR 500 mg daily * Assessment & Plan Note - Erica Sanford DO - 05/30/2023 8:37 AM EDT Associated Problem(s): Prehypertension -Blood pressure is well within desirable range today -She is on lisinopril 10 mg daily documented [facility] this [facility] Work Phone: [phone] 437-790209-01-2023 Evaluation + Plan note* Assessment & Plan Note - Erica Sanford DO - 05/30/2023 8:37 AM EDTAssociated Problem(s): Depression, major, single episode, mild ([facility]) -Symptoms are well controlled at this time [facility] Work Phone: [phone] 150-192009-01-2023 Evaluation + Plan note* Assessment & Plan Note - Erica Sanford DO - 05/30/2023 8:37 AM EDTAssociated Problem(s): Type 2 diabetes mellitus with hyperglycemia, without long-term current use of insulin ([facility]) -Under good control -She will continue with metformin XR 500 mg daily [facility] Work Phone: [phone] 950-962309-01-2023 Evaluation + Plan note* Assessment & Plan Note - Erica Sanford DO - 05/30/2023 8:37 AM EDTAssociated Problem(s): Prehypertension -Blood pressure is well within desirable range today -She is on lisinopril 10 mg daily [facility] Work Phone: [phone] History of Present illness Narrative* Micah Unger MA - 05/30/2023 8:20 AM EDT Pt is here today for a follow up, C/O increased joint pain. Review labs. * Erica Sanford DO - 05/30/2023 8:20 AM EDT Subjective Patient ID: Christine Oakes is a 52 y.o. female who presents for No chief complaint on file.. HPI She is here today for follow-up. We discussed her joint aches and pains which seem to travel and change locations sometimes. We also discussed her history of previous rheumatologic consultations. Long ago she saw Dr. Serrato in [place] and it was felt that she was suffering from rheumatoid arthritis. She was prescribed medications but she was concerned about side effects so decided not to take them. She then saw another back winder Dr. Swanson, in [place] and she was advised that she probably did not have rheumatoid arthritis even though she had a mildly elevated CRP level. She states she continues to have the symptoms. She is on atorvastatin which she has been taking for approximately 24 months. We decided to have her discontinue the medication and see him symptoms resolved. In the meantime we talked about treatment for her current symptoms and after further discussion we decided to have her see another back winder since she got to differing opinions. I told her of courseif her symptoms completely resolve after stopping the atorvastatin then she does not need to keep the appointment with rheumatology. She will keep me apprised of her symptoms. We also conducted a review of systems and we are providing refills on several medications today. Her blood pressure remainsunder good control. She is doing well with the escitalopram. We are also giving her a refill on her metformin and her diabetes has been under good control. Review of Systems Constitutional: Improved fatigue Respiratory: Negative for cough, shortness of breath and wheezing. Cardiovascular: Negative for chest pain, palpitations and leg swelling. Gastrointestinal: Negative for abdominal pain, blood in stool, diarrhea, nausea and vomiting. Objective Physical Exam Vitals and nursing note reviewed. Constitutional: General: She is not in acute distress. Appearance: Normal appearance. HENT: Head: Normocephalic and atraumatic. Eyes: Conjunctiva/sclera: Conjunctivae normal. Cardiovascular: Rate and Rhythm: Normal rate and regular rhythm. Heart sounds: Normal heart sounds. Pulmonary: Effort: No respiratory distress. Breath sounds: No wheezing. Abdominal: Palpations: Abdomen is soft. Tenderness: There is no abdominal tenderness. There is no guarding. Musculoskeletal: General: No swelling. Normal range of motion. Skin: General: Skin is warm and dry. Neurological: General: No focal deficit present. Mental Status: She is alert and oriented to person, place, and time. Psychiatric: Behavior: Behavior normal. Recent Results (from the past 672 hour(s)) Albumin , Urine Random Collection Time: 05/08/23 8:27 AM Result Value Ref Range ALBUMIN (MG/L) IN URINE 10.7 Not Established mg/L Albumin/Creatine Ratio 6.5 0.0 - 30.0 ug/mg brokerage purchase and sale clerk Creatinine, Urine 165.0 20.0 - 320.0 mg/dL Lipid Panel Collection Time: 05/08/23 8:27 AM Result Value Ref Range Cholesterol 172 0 - 199 mg/dL HDL 41.0 mg/dL Cholesterol/HDL Ratio 4.2 LDL 100 (H) 0 - 99 mg/dL VLDL 31 0 - 40 mg/dL Triglycerides 153 (H) 0 - 149 mg/dL Hemoglobin A1C Collection Time: 05/08/23 8:27 AM Result Value Ref Range Hemoglobin A1C 6.6 (A) % Estimated Average Glucose 143 MG/DL Sedimentation Rate Collection Time: 05/15/23 8:36 AM Result Value Ref Range Sedimentation Rate 8 0 - 20 mm/h C-reactive protein Collection Time: 05/15/23 8:36 AM Result Value Ref Range CRP 0.17 mg/dL Rheumatoid factor Collection Time: 05/15/23 8:36 AM Result Value Ref Range Rheumatoid Factor <10 0 - 15 IU/mL POLO Collection Time: 05/15/23 8:36 AM Result Value Ref Range ANTI-NUCLEAR ANTIBODY (POLO) NEGATIVE NEGATIVE CBC and Auto Differential Collection Time: 05/15/23 8:36 AM Result Value Ref Range WBC 4.6 4.4 - 11.3 x10E9/L RBC 4.15 4.00 - 5.20 x10E12/L Hemoglobin 11.9 (L) 12.0 - 16.0 g/dL Hematocrit 37.5 36.0 - 46.0 % MCV 90 80 - 100 fL MCHC 31.7 (L) 32.0 - 36.0 g/dL Platelets 177 150 - 450 x10E9/L RDW 13.4 11.5 - 14.5 % Neutrophils % 54.9 40.0 - 80.0 % Immature Granulocytes %, Automated 0.2 0.0 - 0.9 % Lymphocytes % 36.2 13.0 - 44.0 % Monocytes % 7.0 2.0 - 10.0 % Eosinophils % 1.5 0.0 - 6.0 % Basophils % 0.2 0.0 - 2.0 % Neutrophils Absolute 2.52 1.20 - 7.70 x10E9/L Lymphocytes Absolute 1.66 1.20 - 4.80 x10E9/L Monocytes Absolute 0.32 0.10 - 1.00 x10E9/L Eosinophils Absolute 0.07 0.00 - 0.70 x10E9/L Basophils Absolute 0.01 0.00 - 0.10 x10E9/L TSH Collection Time: 05/15/23 8:36 AM Result Value Ref Range TSH 2.14 0.44 - 3.98 mIU/L Assessment/Plan Problem List Items Addressed This Visit Depression, major, single episode, mild (CMS/HCC) -Symptoms are well controlled at this time Relevant Medications escitalopram (Lexapro) 20 mg tablet Prehypertension -Blood pressure is well within desirable range today -She is on lisinopril 10 mg daily Type 2 diabetes mellitus with hyperglycemia, without long-term current use of insulin (CMS/HCC) -Under good control -She will continue with metformin XR 500 mg daily Relevant Medications metFORMIN XR 500 mg 24 hr tablet Other Relevant Orders Hemoglobin A1C Polyarthropathy - Primary -She will stop the atorvastatin and let me know if symptoms dissipate or resolve -She has had 2 differing opinions from 2 different rheumatologists indicating whether she has an inflammatory arthritis -We are going to have her see Dr. Nunez at [facility] and we will take some time to get in. If her symptoms completely resolve then she will cancel the appointment -We also briefly discussed the possibility of fibromyalgia and we briefly discussed the drug Lyrica -I am also sending her a handout explaining fibromyalgia via [employer] Relevant Orders Referral to Rheumatology Other Visit Diagnoses Hypertension, unspecified type Relevant Medications lisinopril 10 mg tablet Other Relevant Orders Basic Metabolic Panel Encounter for screening mammogram for malignant neoplasm of breast Relevant Orders BI mammo bilateral screening tomosynthesis Erica Sanford DO documented in this encounterLouis [facility] Work Phone: [phone] Instructions* Patient Instructions* Erica Sanford DO - 05/30/2023 8:20 AM EDT As we discussed please stop taking your atorvastatin for now. Do not discard the medication but simply set it aside. Please allow 4 to 6 weeks to see if your symptoms resolve. Please let me know either way. If your symptoms do not resolve then I will think is not likely a side effect from the medication and we would have you keep your appointment with rheumatology I also sent you a handout via [employer] explaining the symptoms of fibromyalgia and its treatment I am very pleased that you are having a colonoscopy soon The staff will be helping you to schedule your screening mammogram If everything goes according to plan we will see you back in about 6 months and please remember to get fasting lab work done prior to that visit documented in this encounterLouis [facility] Work Phone: [phone] Evaluation + Plan note* Assessment & Plan Note - Erica Sanford DO - 05/15/2023 8:25 AM EDTAssociated Problem(s): Type 2 diabetes mellitus with hyperglycemia, without long-term current use of insulin (CMS/HCC) -Her hemoglobin A1c is quite satisfactory at 6.6 -She will continue with metformin XR 500 mg daily [facility] Work Phone: [phone] 748-262608-17-2023 Miscellaneous Notes* Assessment & Plan Note - Erica Sanford DO - 05/15/2023 8:25 AM EDTAssociated Problem(s): Type 2 diabetes mellitus with hyperglycemia, without long-term current use of insulin (CMS/HCC) -Her hemoglobin A1c is quite satisfactory at 6.6 -She will continue with metformin XR 500 mg daily * Assessment & Plan Note - Erica Sanford DO - 05/15/2023 8:24 AM EDT Associated Problem(s): Hyperlipidemia Her values are close to the acceptable range-she will continue with atorvastatin 10 mg daily * Assessment & Plan Note - Erica Sanford DO - 05/15/2023 8:24 AM EDT Associated Problem(s): Fatty liver -I am sending her a handout on liver health * Assessment & Plan Note - Erica Sanford DO - 05/15/2023 8:23 AM EDT Associated Problem(s): Other fatigue -We discussed the likelihood of sleep apnea and we will discuss it again at her next visit -We are checking a CBC and thyroid blood test -We suspect that she may be suffering from an inflammatory polyarthropathy so she will get some biomarkers of inflammation- documented [facility] Work Phone: [phone] Evaluation + Plan note* Assessment & Plan Note - Erica Sanford DO - 05/15/2023 8:24 AM EDTAssociated Problem(s): Hyperlipidemia Her values are close to the acceptable range-she will continue with atorvastatin 10 mg daily [facility] Work Phone: [phone] Evaluation + Plan note* Assessment & Plan Note - Erica Sanford DO - 05/15/2023 8:24 AM EDTAssociated Problem(s): Fatty liver -I am sending her a handout on liver health T [facility] Work Phone: [phone] Evaluation + Plan note* Assessment & Plan Note - Erica Sanford DO - 05/15/2023 8:23 AM EDTAssociated Problem(s): Other fatigue -We discussed the likelihood of sleep apnea and we will discuss it again at her next visit -We are checking a CBC and thyroid blood test -We suspect that she may be suffering from an inflammatory polyarthropathy so she will get some biomarkers of inflammation- [facility] Work Phone: [phone] 911-410508-17-2023 History of Present illness Narrative* Erica Sanford DO - 05/15/2023 8:00 AM EDT Subjective Patient ID: Christine Oakes is a 52 y.o. female who presents for 6 MO F/U. HPI She is here today for follow-up. She had a CT scan of her abdomen pelvis on May 08 as a follow-up to her previous scan from May 11. The good news is the radiologist is reporting that she has had resolution of the abnormalities identified before. They do comment that she has fatty liver and we discussed fatty liver in general. She understands that eating a healthy diet along with weight loss can improve liver health significantly. I am sending her a handout that explains fatty liver via [employer]. She also states she just feels really tired. We talked about the possibility of sleep apnea and when she comes back we can talk about it again. I told her the best way to see if she has it would be to do a formal sleep study and she will talk to her family about observe symptoms such as snoring and so forth. She states oftentimes when she wakes up in the morning she is just tired. We also willbe doing tired labs including a CBC and thyroid blood test. She has aches and pains all over including her left wrist and her knees and elbows. In the past it was question whether she might be suffering from rheumatoid arthritis. I will be ordering biomarkers of inflammation and we are refilling her meloxicam prescription. We also reviewed her most recent laboratory test results and her hemoglobin A1c is quite satisfactory at 6.6. Her cholesterol was close to being within acceptable range. She is scheduled to have her screening colonoscopy on June [address] Pena Review of Systems Constitutional: Positive for fatigue. Respiratory: Negative for cough, chest tightness, shortness of breath and wheezing. Cardiovascular: Negative for chest pain, palpitations and leg swelling. Gastrointestinal: Negative for abdominal pain, blood in stool, diarrhea, nausea and vomiting. Musculoskeletal: Negative for arthralgias and back pain. Knee pain, elbows, wrist pain Objective Physical Exam Vitals and nursing note reviewed. Constitutional: General: She is not in acute distress. Appearance: Normal appearance. HENT: Head: Normocephalic and atraumatic. Eyes: Conjunctiva/sclera: Conjunctivae normal. Cardiovascular: Rate and Rhythm: Normal rate and regular rhythm. Heart sounds: Normal heart sounds. Pulmonary: Effort: No respiratory distress. Breath sounds: No wheezing. Abdominal: Palpations: Abdomen is soft. Tenderness: There is no abdominal tenderness. There is no guarding. Musculoskeletal: General: No swelling. Normal range of motion. Skin: General: Skin is warm and dry. Neurological: General: No focal deficit present. Mental Status: She is alert and oriented to person, place, and time. Psychiatric: Behavior: Behavior normal. 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 Creatinine, Urine 165.0 20.0 - 320.0 mg/dL Lipid Panel Collection Time: 05/08/23 8:27 AM Result Value Ref Range Cholesterol 172 0 - 199 mg/dL HDL 41.0 mg/dL Cholesterol/HDL Ratio 4.2 LDL 100 (H) 0 - 99 mg/dL VLDL 31 0 - 40 mg/dL Triglycerides 153 (H) 0 - 149 mg/dL Hemoglobin A1C Collection Time: 05/08/23 8:27 AM Result Value Ref Range Hemoglobin A1C 6.6 (A) % Estimated Average Glucose 143 MG/DL Assessment/Plan Problem List Items Addressed This Visit Fatty liver -I am sending her a handout on liver health Hyperlipidemia Her values are close to the acceptable range-she will continue with atorvastatin 10 mg daily Prehypertension - Primary Type 2 diabetes mellitus with hyperglycemia, without long-term current use of insulin ([facility]) -Her hemoglobin A1c is quite satisfactory at 6.6 -She will continue with metformin XR 500 mg daily Other fatigue -We discussed the likelihood of sleep apnea and we will discuss it again at her next visit -We are checking a CBC and thyroid blood test -We suspect that she may be suffering from an inflammatory polyarthropathy so she will get some biomarkers of inflammation- Polyarthropathy Relevant Medications meloxicam (Mobic) 15 mg tablet Other Relevant Orders Sedimentation Rate C-reactive protein Rheumatoid factor POLO CBC and Auto Differential TSH Erica Sanford DO documented in this [facility] Work Phone: [phone] Instructions* Patient Instructions* Erica Sanford DO - 05/15/2023 8:00 AM EDT As we discussed I have ordered several labs to assess your symptoms that we discussed today. I am checking biomarkers of inflammation and I am also checking you for anemia and thyroid condition. Please try to go to the lab at your earliest convenience and when you come back we will discuss the results We discussed the likelihood of sleep apnea or some sleep disturbance and please be thinking about the possibility of having a formal sleep study I refilled your prescription for meloxicam If you would like to see your internet specialist for your left wrist then we would be happy to do a formal referral Please read the handout I sent you today via [employer] on fatty liver I think your blood glucose levels are quite satisfactory with a hemoglobin A1c of 6.6 and we will check this twice a year documented in this encounterLouis [facility] Work Phone: [phone]) 347-722305-17-2023 Telephone encounter Note* Telephone Encounter - Dionne Escobar DPM - 02/12/2023 9:47 AM EDT Unable to refill medication. Patient has not been seen 02/05/2022. The medication has since been refilled twice. Please have the patient make an appointment for evaluation. [id number] Miscellaneous Notes* Telephone Encounter - Dionne Escobar DPM - 02/12/2023 9:47 AM EDT Unable to refill medication. Patient has not been seen 02/05/2022. The medication has since been refilled twice. Please have the patient make an appointment for evaluation. documented in this [id number] Summary: Discharge Summary Providers: Provider RoleProvider Name Cortez Nguyen Note Recipients: Erica Sanford DO - [id number] [PREFERRED] Discharge: Summary: Admission Date: .05-Feb-2023 21:44:00 Discharge Date: 09-Feb-2023 Attending Physician at Discharge: Cortez Armendariz Admission Reason: SBO(1) Final Discharge Diagnoses: Small bowel obstruction Procedures: 1. CT abdomen and pelvis with IV contrast 02/06/2023 2. General surgical consultation Condition at Discharge: Satisfactory Disposition at Discharge: .Home Vital Signs: T PRBPMAPSpO2 [id number]% Date/Time02/09 7: 7: 7: 7: 7: 7:21 Range(36.3C - 37.1C ) (60 - 69 ) (16 - 18 ) (118 - 131 )/ (62 - 86 ) (87 - 101 ) (97% - 99% ) Highest temp of 37.1 C was recorded at 02/08 22:00 Date: Weight/Scale Type:Height: 06-Feb-2023 14:23825.4 kg / pmw072.6 cm Physical Exam: Constitutional: Awake and alert; oriented x3 with no apparent distress or respiratory distress Head/Neck: Neck supple with no palpable lymphadenopathy, bruits or masses; trachea midline Respiratory/Thorax: Clear to auscultation bilaterally no active wheezes or rhonchi noted Cardiovascular: Regular rate and rhythm; normal S1-S2 with no murmur; no pitting edema 2+ pulses bilaterally Gastrointestinal: Soft, nontender, nondistended, positive bowel sounds; obese Neurological: Nonfocal; cranial nerves II through XII appear intact Psychological: Pleasant affect Hospital Course: Please refer to history and physical details of admission. Patient presented to the emergency room on February 05 because of abdominal pain with nausea and vomiting 2 days prior to presentation. No fevers, chills or sweats. She has not been able to pass gas since the pain started. In the ER imaging was consistent with a small bowel obstruction. An NG tube was placed to low intermittent suction and surgery was notified. Patient was admitted to the medical service for further evaluation. Surgery saw the patient in the ER and was more worried about possible inflammatory reaction than a bowel obstruction. As mentioned she was placed on the medical service with surgical consultation. NG was in place and she was hooked up to low intermittent suction. Her hospital course was uncomplicated. Abdominal x-ray showed no obstruction. Inadvertently the NG was removed after she sneezed a couple times yesterday . It was decided to keep the NG out and we started on clears and advance her diet which she tolerated. She had a bowel movement this morning and is without any abdominal pain. She will be discharged home today. She will follow-up with her PCP. Discharge Information: and Continuing Care: Lab Results - Pending: None Radiology Results - Pending: Xray Abdomen AP View at 08-Feb-2023 06:34:00 Xray Chest/Abdomen Radiograph for OG/NG Placement at 06-Feb-2023 04:43:00 Discharge Instructions: Activity: activity as tolerated. Nutrition/Diet: diabetic/carbohydrate counted Diabetic/Carbohydrate Counted: 75gram/Carb meal, 45gram/Carb snack (1999-) Follow Up Appointments: Follow-Up Appointment 01: Physician/Dept/Service: Dr. Sanford 2-4 weeks Discharge Medications: Home Medication omeprazole 40 mg oral delayed release capsule - 1 cap(s) orally once a day meloxicam 15 mg oral tablet - 1 tab(s) orally once a day lisinopril 10 mg oral tablet - 1 tab(s) orally once a day escitalopram 20 mg oral tablet - 1 tab(s) orally once a day atorvastatin 10 mg oral tablet - 1 tab(s) orally once a day METFORMIN HCL ER 500 MG TABLET - 1 tab(s) orally once a day PRN Medication DICLOFENAC SODIUM 1% GEL - Apply topically to affected area 4 times a day, As Needed DNR Status: Code StatusCode Status order at time of discharge: Full Code Electronic Signatures: Cortez Armendariz () (Signed 09-Feb-2023 09:09) Authored: Send Summary, Summary Content, Ongoing Care, DNR Status, Note Completion Last Updated: 09-Feb-2023 09:09 by Cortez Armendariz () References: 1. Data Referenced From Consult-Surgery 06-Feb-2023 06:[address] [place], [place] [address]38905-14-2023 Hospital Discharge instructions* Activity:activity as tolerated. * Follow Up Appointment 1:Physician/Dept/Service: Dr. Sanford 2-4 weeksLocation: [facility]. [place]wn: She will call and make her own appointment. [facility]05-11-2023 NoteHistory of Present Illness: /Lactating: Are You no (1) Are You Currently Breastfeedingno (1) HPI: VIOLETTE CHRISTINE Dupree is a 52 year old Female with history of obesity/type 2 diabetes mellitus/hypertension and hyperlipidemia who presented to the hospital due to abdominal pain associated with nausea and vomiting that started about 48 hours prior to presentation Patient also stated that she has not been able to pass gas since the pain started, on presentation vital signs were within normal limits/blood work was normal, imaging was consistent with small bowel obstruction, an NG tube was placed to suction with improvement in his symptoms, surgery has been contacted by the ER provider and the patient will be admitted to the hospital for further evaluation Comorbidities: Comorbidites: Comorbid Conditionsdiabetes, hypertension Diabetes TypeType 2 Insulin Dependentno DM Acuity or Statuscontrolled DM Complicationsnone Social History: Social History: Smoking Statusnever smoker (2) Alcohol Usedenies(2) Drug Usedenies (2) Allergies: penicillin: Unknown Medications Prior to Admission: omeprazole 40 mg oral delayed release capsule: 1 cap(s) orally once a day meloxicam 15 mg oral tablet: 1 tab(s) orally once a day lisinopril 10 mg oral tablet: 1 tab(s) orally once a day escitalopram 20 mg oral tablet: 1 tab(s) orally once a day atorvastatin 10 mg oral tablet: 1 tab(s) orally once a day metFORMIN 500 mg oral tablet: 1 tab(s) orally once a day. Review of Systems: Constitutional: NEGATIVE: Fever, Chills, Anorexia, Weight Loss, Malaise Eyes: NEGATIVE: Blurry Vision, Drainage, Diploplia, Redness, Vision Loss/ Change ENMT: NEGATIVE: Nasal Discharge, Nasal Congestion, Ear Pain, Mouth Pain, Throat Pain Respiratory: NEGATIVE: Dry Cough, Productive Cough, Hemoptysis, Wheezing, Shortness of Breath Cardiac: NEGATIVE: Chest Pain, Dyspnea on Exertion, Orthopnea, Palpitations, Syncope Gastrointestinal: POSITIVE: Nausea, Vomiting, Abdominal Pain Genitourinary: NEGATIVE: Discharge, Dysuria, Flank Pain, Frequency, Hematuria Musculoskeletal: NEGATIVE: Decreased ROM, Pain, Swelling, Stiffness, Weakness Neurological: NEGATIVE: Dizziness, Confusion, Headache, Seizures, Syncope Objective: Objective Information: T PRBPMAPSpO2 [id number]/8091% Date/Time02/05 21:465/11 5: 5:005 5:005 5:00 Range(36.6C - 36.6C ) (65 - 84 ) (18 - 20 ) (122 - 151 )/ (74 - 95 ) (91% - 100% ) Pain reported at 02/06 2:00: 2 = Mild Physical Exam by System: Constitutional: Well developed, awake/alert/oriented x3, no distress, alert and cooperative Eyes: PERRL, EOMI, clear sclera ENMT: mucous membranes moist, no apparent injury, no lesions seen Head/Neck: Neck supple, no apparent injury, thyroid without mass or tenderness, No JVD, trachea midline, no bruits Respiratory/Thorax: Patent airways, CTAB, normal breath sounds with good chest expansion, thorax symmetric Cardiovascular: Regular, rate and rhythm, no murmurs, 2+ equal pulses of the extremities, normal S 1and S 2 Gastrointestinal: Decreased bowel sounds/mild distention/soft Musculoskeletal: ROM intact, no joint swelling, normal strength Extremities: normal extremities, no cyanosis edema, contusions or wounds, no clubbing Neurological: alert and oriented x3, intact senses, motor, response and reflexes, normal strength Skin: Warm and dry, no lesions, no rashes Recent Lab Results: Results: CBC: 02/05/2023 22:18 \ Hgb / \ 13.6 / WBC Plt 12.9 H 254 / Hct \ / 41.5 \ RBC: 4.81 MCV: 86 Neutrophil %: 65.3 BMP: 02/05/2023 22:18 NA+ Cl- BUN / 136 100 23 / Glucose 150 H K+ HCO3- Creat \ 3.8 22 0.89 \ Calcium : 10.3 Anion Gap : 18 Assessment and Plan: Assessment: Assessment and plan *Small bowel obstruction Admit to the floor Status post NGT placement done in the ERWe will continue to suction We will keep the patient n.p.o. Zofran as needed Normal saline at 100 mill an hour We will repeat abdominal x-rays in the morning General surgery has been contacted by the ER provider *Chronic medical issues 1. Hypertension 2. Hyperlipidemia 3. Depression 4. Type 2 diabetes mellitus We will continue her home medications once p.o. is established *DVT prophylaxis with Lovenox Electronic Signatures: Samir Davis) (Signed 06-Feb-2023 06:00) Authored: History of Present Illness, Comorbidities, Social History, Allergies, Medications Prior to Admission, Review of Systems, Objective, Assessment and Plan, Note Completion Last Updated: 06-Feb-2023 06:00 by Samir Davis) References: 1. Data Referenced From Triage - ED 05-Feb-2023 22:04 2. Data Referenced From Risk Screen - Adult Emergency (more content not included)...[facility]04-17-2023 History of Present illness [id number] yo with right knee pain. 01/13/23 xrays show varus OA changes. No acute trauma reported.[facility] [address] Work Phone: [phone]) 187-112304-17-2023 History of Present illness Lywe[age]vhj47 yo with right knee pain. 01/13/23 xrays show varus OA changes. No acute trauma reported.[facility] [address] Work Phone: [phone]) [phone] Evaluation + Plan note* Assessment & Plan Note - Erica Sanford DO - 01/07/2023 10:32 AM EDTAssociated Problem(s): Depression, major, single episode, mild (CMS/HCC) -She is doing well on her escitalopram 10 mg daily [facility] Work Phone: [phone]) 801-339604-11-2023 Evaluation + Plan note* Assessment & Plan Note - Erica Sanford DO - 01/07/2023 10:32 AM EDTAssociated Problem(s): Type 2 diabetes mellitus with hyperglycemia, without long-term current use of insulin (CMS/HCC) -Her blood sugars have been under excellent control as evidenced by her hemoglobin A1c of 5.9 back on October 24 -She will continue with metformin XR 500 mg 1 tablet daily [facility] Work Phone: [phone] Evaluation + Plan note* Assessment & Plan Note - Erica Sanford DO - 01/07/2023 10:32 AM EDTAssociated Problem(s): Chronic pain of right knee -I am sending her for an x-ray of her right knee and she will go at her earliest convenience -We discussed physical therapy -We are referring her to orthopedics per her request [facility] Work Phone: [phone]) 379-625504-11-2023 Miscellaneous Notes* Assessment & Plan Note - Erica Sanford DO - 01/07/2023 10:32 AM EDTAssociated Problem(s): Depression, major, single episode, mild (CMS/HCC) -She is doing well on her escitalopram 10 mg daily * Assessment & Plan Note - Erica Sanford DO - 01/07/2023 10:32 AM EDT Associated Problem(s): Type 2 diabetes mellitus with hyperglycemia, without long-term current use of insulin (CMS/HCC) -Her blood sugars have been under excellent control as evidenced by her hemoglobin A1c of 5.9 back on October 24 -She will continue with metformin XR 500 mg 1 tablet daily * Assessment & Plan Note - Erica Sanford DO - 01/07/2023 10:32 AM EDT Associated Problem(s): Chronic pain of right knee -I am sending her for an x-ray of her right knee and she will go at her earliest convenience -We discussed physical therapy -We are referring her to orthopedics per her request * Assessment & Plan Note - Erica Sanford DO - 01/07/2023 10:31 AM EDT Associated Problem(s): Bilateral carpal tunnel syndrome -Her symptoms appear to be most consistent with carpal tunnel syndrome -I am giving her a handout that explains this condition and its treatment -We discussed wearing splints both day and night for conservative treatment and if she does not getbetter we will do additional evaluation documented in this encounterLouis [facility] Work Phone: [phone] Evaluation + Plan note* Assessment & Plan Note - Erica Sanford DO - 01/07/2023 10:31 AM EDTAssociated Problem(s): Bilateral carpal tunnel syndrome -Her symptoms appear to be most consistent with carpal tunnel syndrome -I am giving her a handout that explains this condition and its treatment -We discussed wearing splints both day and night for conservative treatment and if she does not getbetter we will do additional evaluation [facility] Work Phone: [phone] History of Present illness Narrative* Erica Sanford DO - 01/07/2023 10:00 AM EDT Subjective Patient ID: Christine Oakes is a 52 y.o. female who presents for Follow-up (Wants to discuss referral for R knee. Has had c/o of discomfort x 2-3 months. ). HPI She is here today for reevaluation. Because of suspected inflammatory polyarthropathy I referred her to rheumatology for more extensive evaluation. She had several labs and she was notified that her C-reactive protein level was slightly elevated but otherwise the labs looked okay . She was advised to follow back up in several weeks. It does not appear that she has rheumatoid but I told her thatsometimes the labs can be off early on in the process and I do of course recommend that she follow-up. She states that she is having a lot of problems with her right knee and would like to be referred to orthopedics. We did briefly talk about how physical therapy can be of great benefit but she stat es with her busy schedule she does not see where she could find the time. She is also been having some numbness and tingling in her hands that appear to be pretty classic for carpal tunnel syndrome. We talked about wearing splints both day and night is much as possible and sometimes this does not eradicate the symptoms. I will also give her a handout that explains carpal tunnel syndrome and its treatment. I told her that if her numbness and tingling persist for several weeks we can do a diagnostic study such as an EMG. Also briefly discussed her diabetes and her last hemoglobin A1c in late September was fantastic at 5.9. She seems to be doing okay in the way of depression. Review of Systems Constitutional: Positive for fatigue. Respiratory: Negative for cough, chest tightness, shortness of breath and wheezing. Cardiovascular: Negative for chest pain, palpitations and leg swelling. Gastrointestinal: Negative for abdominal pain, blood in stool, diarrhea, nausea and vomiting. Objective Physical Exam Vitals and nursing note reviewed. Constitutional: General: She is not in acute distress. Appearance: Normal appearance. HENT: Head: Normocephalic and atraumatic. Eyes: Conjunctiva/sclera: Conjunctivae normal. Cardiovascular: Rate and Rhythm: Normal rate and regular rhythm. Heart sounds: Normal heart sounds. Pulmonary: Effort: No respiratory distress. Breath sounds: No wheezing. Abdominal: Palpations: Abdomen is soft. Tenderness: There is no abdominal tenderness. There is no guarding. Musculoskeletal: General: No swelling. Normal range of motion. Skin: General: Skin is warm and dry. Neurological: General: No focal deficit present. Mental Status: She is alert and oriented to person, place, and time. Psychiatric: Behavior: Behavior normal. Assessment/Plan Problem List Items Addressed This Visit Nervous Bilateral carpal tunnel syndrome -Her symptoms appear to be most consistent with carpal tunnel syndrome -I am giving her a handout that explains this condition and its treatment -We discussed wearing splints both day and night for conservative treatment and if she does not getbetter we will do additional evaluation Musculoskeletal Chronic pain of right knee - Primary -I am sending her for an x-ray of her right knee and she will go at her earliest convenience -We discussed physical therapy -We are referring her to orthopedics per her request Endocrine/Metabolic Type 2 diabetes mellitus with hyperglycemia, without long-term current use of insulin ([facility]) -Her blood sugars have been under excellent control as evidenced by her hemoglobin A1c of 5.9 back on October 24 -She will continue with metformin XR 500 mg 1 tablet daily Other Depression, major, single episode, mild (CMS/[facility]) -She is doing well on her escitalopram 10 mg daily RESOLVED: Rheumatoid arthritis ([facility]) Erica Sanford DO documented in this encounterLouis [facility] Work Phone: [phone]) [phone] Instructions* Patient Instructions* Erica Sanford DO - 01/07/2023 10:00 AM EDT -Please read the handout we gave you today for carpal tunnel syndrome -The staff will help you get an appointment with orthopedics -If everything goes according to plan I will see you back as previously planned later this summer for your regular checkup and please remember to get your lab work done prior to that visit -I also do recommend you follow-up with rheumatology documented in this encounterLouis [facility] Work Phone: [phone]) [phone] NoteOrders PAP GENERAL PARTNER, Cytology; Status:In Progress - Specimen/Data Collected,Retrospective Authorization; Done: [id number] Last Menstrual Period (LMP): : 04/15/22 PAP - Site : [facility]ERV[facility] Cytology Order : ThinPrep PAP, Screening, HPV CoTest - Exclude Genotyping Provider Impressions Patient is a 51-year-old woman who comes in for an annual GENERAL PARTNER exam. Exam was benign Pap smear was done. Mammogram was scheduled. Changes in menstrual cycle are consistent with perimenopause. Patient was advised to return for work-up if she starts bleeding progressively more than 2 weeks at a time or her periods become very erratic. Otherwise follow-up in 1 year Chief Complaint Patient is here for yearly exam. Patient does NOT DO self breast exams regularly. LMP 04/15/22 PT HAS NO CONCERNS AT THIS TIME. History of Present IllnessPatient is a 51-year-old woman who comes in for routine GENERAL PARTNER exam. Patientreports that her periods have become very light. She says that in October of last year she had a very heavy period and then no period again for approximately 6 to 9 months. However when her periods return they have become very light lasting approximately 3 days and now instead of every month she is having periods about every 5 weeks. Patient reports she is not due for her mammogram until the fall. Patient has no additional concerns today Review of Systems Constitutional: Denies any change in weight or temperature. Cardiovascular: Denies any chest pain or palpitations. Respiratory: Denies any shortness of breath or cough. Gastrointestinal: Denies any abdominal pain or change in bowel habits. Genitourinary: as noted in HPI. Musculoskeletal: Denies any change in her mobility. Psychiatric: Reports that she has been very stressed and feeling a little overwhelmed with numerousaspects of her life but she is on Celexa and reports she has noticed significant improvement. Active Problems Problems BMI 32.0-32.9,adult (V85.32) (Z68.32) Depression, major, single episode, mild (296.21) (F32.0) Encounter for immunization (V03.89) (Z23) Encounter for screening mammogram for malignant neoplasm of breast (V76.12) (Z12.31) Fatigue (780.79) (R53.83) Fatty liver (571.8) (K76.0) GERD (gastroesophageal reflux disease) (530.81) (K21.9) Hyperlipidemia (272.4) (E78.5) Low back pain (724.2) (M54.50) Nocturnal hypoxemia (327.24) (G47.34) Obesity (278.00) (E66.9) Pain of right heel (729.5) (M79.671) Prehypertension (796.2) (R03.0) Rheumatoid arthritis of other site with negative rheumatoid factor (714.0) (M06.0A) Screening for breast cancer (V76.10) (Z12.39) Screening for heart disease (V81.2) (Z13.6) Shortness of breath on exertion (786.05) (R06.02) Thyroid nodule (241.0) (E04.1) Type 2 diabetes mellitus with hyperglycemia, without long-term current use of insulin (250.00,790.29) (E11.65) Vaginal Pap smear (V76.47) (Z12.72) Past Medical History Problems History of (V13.29) 01/31/1995-40 WEEKS, VAGINAL, MALE, #7 15oz 03/30/1999-40 WEEKS, ,FEMALE, #8 2oz History of Menarche (V21.8) 17 History of Women's annual routine gynecological examination (V72.31) (Z01.419) 09/2020 Surgical History Problems History of section History of Thyroid biopsy History of Tubal ligation Family History Mother Family history of diabetes mellitus (V18.0) (Z83.3) FHx: hypertension (V17.49) (Z82.49) Father Family history of hypertension (V17.49) (Z82.49) FH: ALS (amyotrophic lateral sclerosis) (V17.2) (Z82.0) Sister Family history of asthma (V17.5) (Z82.5) Family history of migraine headaches (V17.2) (Z82.0) Grandparent Family history of malignant neoplasm (V16.9) (Z80.9) Family history of thyroid disease (V18.19) (Z83.49) Social History Problems Daily caffeine consumption, 2-3 servings a day Former smoker (V15.82) (Z87.891) No advance directives (V49.89) (Z78.9) Occasional alcohol use Sexually active Allergies Medication Penicillins Recorded By: Keli Herman; 03/22/2020 2:10:20 PM Current Meds Medication NameInstruction Atorvastatin Calcium 10 MG Oral TabletTAKE 1 TABLET BY MOUTH EVERY DAY B-12 LOZG Escitalopram Oxalate 20 MG Oral TabletTAKE 1 TABLET BY MOUTH EVERY DAY Folic Acid 1 MG Oral TabletTAKE 2 TABLET Daily Lisinopril 10 MG Oral TabletTAKE 1 TABLET BY MOUTH EVERY DAY Magnesium CHEW Meloxicam TABSTAKE 1 TABLET DAILY. Metamucil CAPS metFORMIN HCl ER 500 MG Oral Tablet Extended Release 24 HourTAKE 1 TABLET BY MOUTH EVERY DAY Methotrexate 2.5 MG Oral Tablet Multi-Vitamins TABS Omeprazole 40 MG Oral Capsule Delayed ReleaseTAKE 1 CAPSULE Every morning Vitamin D (Ergocalciferol) 1.25 MG (52146 UT) Oral Capsule Vitals Vital Signs Recorded: 29Apr2022 09:47AM [id number] [id number] Height5 ft 8 in Rhabnl863 lb 1.04 oz BMI Vowitoipfe56.55 kg/m2 BSA Calculated2.1 [id number] Physical Exam Constitutional: Healthy-appearing female in no distress (more content not included)... [id number] History of Present illness Narrative* Alecia Esparza RN - 04/11/2022 8:11 PM EDT Pt attended Diabetes Self Management Education Class #4, , at [facility]. The Conversation Map Curriculum was utilized in this ADA Education Recognition Program class. Education materials provided include: Education Record: Diabetes disease process and treatment process. Define diabetes and identify own type of diabetes; list 3 options for treating diabetes. Select one: needs instruction needs review demonstrates competency not covered not applicable Incorporating nutrition management into lifestyle. Describe effect of type, amount and timing of food on blood glucose; list 3 methods for planning meals. Select one: needs instruction needs review demonstrates competency not covered not applicable Incorporating physical activity into lifestyle. State effect of exercise on blood glucose levels. Select one: needs instruction needs review demonstrates competency not covered not applicable Using medications safely. State effect of diabetes medicines on diabetes; name diabetes medication taking, action and side effects. Select one: needs instruction needs review demonstrates competency not covered not applicable Monitoring blood glucose, interpreting and using results. Identify recommended blood glucose targets and personal targets. Select one: needs instruction needs review demonstrates competency not covered not applicable Prevention, detection and treatment of acute complications. List symptoms of hyper- and hypoglycemia; describe how to treat low blood sugar and actions for lowering high blood glucose levels. Select one: needs instruction needs review states understanding not covered not applicable Prevention, detection and treatment of chronic complications. Define the natural course of diabetesand describe the relationship of blood glucose levels to correction complications of diabetes. Select one: needs instruction needs review demonstrates competency not covered not applicable Developing strategies to address psychosocial issues. Describe feelings about living with diabetes;identify support needed and support network. Select one: needs instruction needs review demonstrates competency not covered not applicable Developing strategies to promote health/change behavior. Define the ABCs of diabetes; identify appropriate screenings, schedule and personal plan for screenings. Select one: needs instruction needs review demonstrates competency not covered not applicable Education materials provided include: ADCES AADE7 Self Care Behaviors Reducing Risks ADA Toolkit # 17 Getting the very Best Care for Your Diabetes ADA Diabetes Advisor Taking Care of Your Feet ADA Diabetes Advisor Skin Care and Infections ADA Diabetes Advisor Nerve Damage and Diabetes ADA Toolkit #22 Know the Warning Signs of a Heart Attack ADA Diabetes Advisor Eye Exams for People with Diabetes ADA Diabetes Advisor Diabetes and Oral Health ADA Diabetes Advisor Diabetes and Kidney Disease ADA Toolkit #25 All About Peripheral Arterial Disease ADA Diabetes Advisor All About Stroke ADA Toolkit #27 Managing Your Medicines ADA Insulin Action Times ADA Types of Insulin ADA Diabetes Your Take Control Guide Medications This documentation has been sent to the referring healthcare provider. documented in this [id number] History of Present illness Narrative* Quita Knight RN - 02/20/2022 8:19 AM EDT Pt attended Diabetes Self Management Education Class #3, , at [facility]. The Conversation Map Curriculum was utilized in this ADA Education Recognition Program class. Education materials provided include: Education Record: Diabetes disease process and treatment process. Define diabetes and identify own type of diabetes; list 3 options for treating diabetes. Select one: needs instruction needs review demonstrates competency not covered not applicable Incorporating nutrition management into lifestyle. Describe effect of type, amount and timing of food on blood glucose; list 3 methods for planning meals. Select one: needs instruction needs review demonstrates competency not covered not applicable Incorporating physical activity into lifestyle. State effect of exercise on blood glucose levels. Select one: needs instruction needs review demonstrates competency not covered not applicable Using medications safely. State effect of diabetes medicines on diabetes; name diabetes medication taking, action and side effects. Select one: needs instruction needs review demonstrates competency not covered not applicable Monitoring blood glucose, interpreting and using results. Identify recommended blood glucose targets and personal targets. Select one: needs instruction needs review demonstrates competency not covered not applicable Prevention, detection and treatment of acute complications. List symptoms of hyper- and hypoglycemia; describe how to treat low blood sugar and actions for lowering high blood glucose levels. Select one: needs instruction needs review demonstrates competency not covered not applicable Prevention, detection and treatment of chronic complications. Define the natural course of diabetesand describe the relationship of blood glucose levels to correction complications of diabetes. Select one: needs instruction needs review demonstrates competency not covered not applicable Developing strategies to address psychosocial issues. Describe feelings about living with diabetes;identify support needed and support network. Select one: needs instruction needs review demonstrates competency not covered not applicable Developing strategies to promote health/change behavior. Define the ABCs of diabetes; identify appropriate screenings, schedule and personal plan for screenings. Select one: needs instruction needs review demonstrates competency not covered not applicable Education materials provided include: Sick Day Guidelines (ADA) Carbohydrate Content of Liquids and soft Foods (ADA) DKA (ADCES) Have Diabetes, Will Travel (AADE) My Diabetes Emergency Plan (AACE) Information sent to referring provider. documented in this [id number] History of Present illness Narrative* Quita Knight RN - 02/12/2022 8:21 PM EDT Education materials provided include: Pt attended Diabetes Self Management Education Class #1, , at [facility]. The Conversation Map Curriculum was utilized in this ADA Education Recognition Program class. Education Record: Diabetes disease process and treatment process. Define diabetes and identify own type of diabetes; list 3 options for treating diabetes. Select one: needs instruction needs review demonstrates competency not covered not applicable Incorporating nutrition management into lifestyle. Describe effect of type, amount and timing of food on blood glucose; list 3 methods for planning meals. Select one: needs instruction needs review demonstrates competency not covered not applicable Incorporating physical activity into lifestyle. State effect of exercise on blood glucose levels. Select one: needs instruction needs review demonstrates competency not covered not applicable Using medications safely. State effect of diabetes medicines on diabetes; name diabetes medication taking, action and side effects. Select one: needs instruction needs review demonstrates competency not covered not applicable Monitoring blood glucose, interpreting and using results. Identify recommended blood glucose targets and personal targets. Select one: needs instruction needs review demonstrates competency not covered not applicable Prevention, detection and treatment of acute complications. List symptoms of hyper- and hypoglycemia; describe how to treat low blood sugar and actions for lowering high blood glucose levels. Select one: needs instruction needs review demonstrates competency not covered not applicable Prevention, detection and treatment of chronic complications. Define the natural course of diabetesand describe the relationship of blood glucose levels to intermission coordinator complications of diabetes. Select one: needs instruction needs review demonstrates competency not covered not applicable Developing strategies to address psychosocial issues. Describe feelings about living with diabetes;identify support needed and support network. Select one: needs instruction needs review demonstrates competency not covered not applicable Developing strategies to promote health/change behavior. Define the ABCs of diabetes; identify appropriate screenings, schedule and personal plan for screenings. Select one: needs instruction needs review demonstrates competency not covered not applicable Education materials provided include: ADA Fast Facts Data and Statistics about Diabetes ADA At Risk for Type 2 Diabetes? ADA What is Diabetes? All About Insulin Resistance ADA: The Diabetes Advisor Type 1 Diabetes ADA A1C Cornerstones for Care: High Blood sugar ADA Low Blood Sugar (Hypoglycemia) ADA Checking Blood Glucose The Diabetes Advisor: Tracking Blood Sugar Blood Glucose Target Levels ADA Diabetes Record The Diabetes Advisor: Factors Affecting Blood Glucose The Diabetes Advisor: Physical Activity ADA Calories Spent in Various Activities ADA Sample Activity Snacks ADA: Planning Your Exercise Program ADA Starter Walking Plan ADA: Diabetes and Depression The Diabetes Advisor: Diabetes and Your Emotional Well Being The Diabetes Advisor: Diabetes and Stress Diabetes Advisor: Small Steps for Your Health Going For My Goals [place]: DSM Support Plan documented in this [id number] History of Present illness Narrative* Dionne Escobar DPM - 02/10/2022 8:30 PM EDT Images from the original note were not included. Established Patient Visit Dionne Escobar DPM Patient Name: Christine Oakes. . Date of : 1970, 51 y.o.. Gender: female. Subjective: Patient is a pleasant 50-year-old female who presents to clinic for follow-up of bilateral heel pain bilaterally, left worse than right and left foot extensor tendinitis. Patient is here today to go over her MRI results on her left foot for assessment of plantar fascia. Patient also states that shehas finished her meloxicam and has no refills at this time. No other pedal complaints at this time.Denies any new pedal complaints at this time. Patient denies any fevers, chills, nausea, vomiting, chest pain, shortness of breath or any other constitutional symptoms. Physical Examination: BP 119/78 (BP Location: Right arm, Patient Position: Sitting, BP Cuff Size: Adult) Pulse 74 Temp 97 F (36.1 C) (Infrared) General Appearance: Alert, cooperative, no distress, appears stated age. Podiatric Exam Vascular: DP and PT pulses are palpable 2/4 bilaterally. Capillary refill time is brisk to distal digits. No appreciable edema noted bilaterally. Hair growth present. Skin temperature is warm to warmfrom proximal tibial tuberosity to distal digits. Neuro: Gross sensation intact to bilateral lower extremities. Negative Tinel or Valleix sign with percussion of the tibial nerve Dermatologic: Nails 1 through 10 are within normal limits. No open lesions or ulcerations noted. Interdigital spaces are clean dry and intact. Musculoskeletal: Pain on palpation to the medial calcaneal tubercle of the right and left, left worse than right. No pain with calcaneal heel squeeze. No pain along the medial band of the plantar fascia. No pain along the Achilles tendon. No pain along the lateral aspect of the Achilles tendon on the right foot. Improvement in ankle joint range of motion in dorsiflexion with the knee extended andfull with knee flexion. Pain to the dorsal lateral aspect of the left foot. Muscle strength is 5/5 to all plantar flexors, dorsiflexors, inverters and everters. Compartments are soft and compressible. No calf pain. Moderate tenderness on palpation to the anterior ankle tendons/dorsal right foot. Assessment: 1. Plantar fasciitis, bilateral Miscellaneous DME Equipment 2. Bilateral foot pain Miscellaneous DME Equipment Imaging: Right foot 3 views weightbearing radiographs were reviewed as follows: A plantar calcaneal enthesophyte is noted. No cystic or osseous lesions noted. Joint spaces are within normal limits. Slight increase in the calcaneal inclination angle and a decrease in the talar declination angle. Left foot 3 views weightbearing radiographs were reviewed as follows: A plantar calcaneal enthesophyte is noted. No cystic or osseous lesions noted. Mild decrease in anterior ankle joint joint space No gross deformity noted Left foot MRI was reviewed as follows: Next IMPRESSION: 1. Chronic plantar fasciitis without acute tear. 2. Achilles tendinosis without tear. 3. Mild peroneal tenosynovitis. 4. Probable reactive edema involving the cuboid bone, potentially of altered biomechanics Plan: Patient was seen and evaluated. Discussed clinical findings. I reviewed right and left foot radiographic findings with patient as noted above. Reviewed and discussed patient's left foot MRI results. At this time, patient states that her pain is somewhat well controlled with meloxicam and she wouldlike a refill. Patient is not ready to proceed with surgical intervention at this time. A TENS unit was prescribed and ordered as it is medically necessary to decrease pain and inflammation of the plantar fascia. Recommend the patient continue stretching, icing, meloxicam and wearing good supportive shoes. Meloxicam was refilled for her as well. All questions were answered to patient satisfaction. Patient understands to call with any questionsor concerns. Follow-up in 4 weeks for evaluation. Dionne Escobar DPM, MS Podiatric Physician & Surgeon documented in this [id number] History of Present illness Narrative* Jessica Johnson, JUNE - 01/24/2022 10:19 AM EDT Medical Nutrition Therapy Initial Visit Patient Name: Christine Oakes Patient : 1970 Primary Care Provider: Erica Sanford DO Referred By: Erica Sanford DO Referral Diagnosis: Diabetes Type 2 Start Time: 10:20 AM End Time: 11:30 AM Nutrition Diagnosis: Food and nutrition related knowledge deficit related to lack of exposure to nutrition information as evidenced by patient interview Nutrition Goals: 1. I will try one new fruit or vegetable per week 2. I will limit sweet tea to one small glass per day 3. I will increase physical activity by doing chair exercises 5 days per week for 30 minutes 4. I will consume 45 grams of carb per meal and 15 grams of carb per snack 5. I will reduce salt intake by using less salt and looking for a salt substitute Follow Up: Follow up appointment scheduled by patient Assessment: Pt present for management of T2DM. Pt will be attending DSMES Classes in January (Classes 1&3) and March (Classes 2&4) due to her work schedule. She reported that 6 months ago her A1c was in the prediabetes range, but her most recent labs indicated that her A1c met criteria for T2DM (6.5%). Pt is motivated to make diet and lifestyle changes so that she does not have to take insulinin the future for T2DM. Pt identified barriers to eating healthy as eating out frequently and beingon the go at work. She also does not prefer vegetables, but is open to trying new vegetables. She has been watching portions with sweets and saying no more often, especially when sweets are offered at work. Pt enjoys water, but will still have sweet tea when she goes out to eat and with dinner. Sheusually only snacks in the evening, but may have a snack in the afternoon if available at work. Diet recall indicated that pt is consuming 3 meals/day with 1-2 snacks/day. Diet is high in sodium and low in vegetables. Primary support - family Cultural or Religous Dietary Needs - none identified Pertinent Food/Drug Interactions - avoid grapefruit juice with atorvastatin Height: 68 Current Weight: 223# BMI: 33.9 kg/m2 BMI Classification: Obese Class I (30.0-34.9) Weight History: Pt reported that she gained ~40# due to stress eating during COVID Wt Readings from Last 5 Encounters: 06/19/21 93.9 kg (207 lb) 01/01/21 93.9 kg (207 lb) Past Medical History: Past Medical History: Diagnosis Date Acid reflux Diabetes mellitus (HCC) Hyperlipidemia Kidney stone Obesity Pain, heel 07/19/2020 Plantar fasciitis, bilateral 07/19/2020 Right foot pain 12/04/2020 Swollen feet History From: History obtained from patient and chart review. Current/Pertinent Medications & Supplements: Reviewed Current Outpatient Medications Ordered in [facility] Medication Sig Dispense Refill APPLE CIDER VINEGAR ORAL Take 1 capsule by mouth daily . ASCORBIC ACID ORAL Take by mouth daily . atorvastatin (LIPITOR) 10 MG tablet Take 10 mg by mouth daily . cholecalciferol, vitamin D3, 400 unit Tab Take 1,000 Units by mouth daily . ESCITALOPRAM OXALATE ORAL Take 20 mg by mouth daily . lisinopriL (PRINIVIL,ZESTRIL) 10 MG tablet Take 10 mg by mouth daily . magnesium 30 mg tablet Take 250 mg by mouth daily . meloxicam (MOBIC) 15 MG tablet Take 1 (one) tablet (15 mg total) by mouth daily . 30 tablet 3 metFORMIN (FORTAMET) 500 MG (OSM) 24 hr tablet Take 500 mg by mouth daily with breakfast . multivitamin (THERAGRAN) per tablet Take 1 tablet by mouth daily . MULTIVITAMIN WITH IRON ORAL Take by mouth . multivitamin with minerals tablet Take 1 tablet by mouth daily (Airborne Everyday) . OMEPRAZOLE ORAL Take 40 mg by mouth daily . psyllium seed (PSYLLIUM ORAL) Take by mouth . zinc gluconate 50 mg tablet Take 50 mg by mouth daily . No current [facility]-ordered facility-administered medications on file. Pertinent Labs: BGM Results: not currently checking per doctor recommendations A1c- 6.5% (12/29/21) Nutrition Focused Physical Findings: Dentition: no problems noted GI/food intolerances: none Food Allergies: none Current Activity Level: Lightly Active- activity limited- currently in PT for back pain; foot and knee problems also noted; enjoys walking, but painful currently Diet History/Recall: Food Prep/Grocery Shopping - self Breakfast - strawberries and or banana and 2 hard boiled eggs Lunch - salad with 2 hard boiled eggs, sorto, light Uzbek dressing, cheese, crackers; grilled chicken, home fries, side salad, apple pie, 2 glasses sweet tea; tuna sandwich with fruit; 1/2 &[facility] with toasted ritz crackers Dinner - hot dogs, baked beans, 8 tater tots, cheese, watermelon; roast, potato, noodles, roll, small sweet tea; mac and cheese, popcorn chicken, small sweet tea; tuna noodle casserole; spaghetti; tacos; grilled cheese sandwich Snacks - evening- ice cream sundae, salted caramel ice cream; sugar free caramel nut roll bar; sugar free caramel candy Beverages - sweet tea (10-12 oz/day), decaf tea with sugar, water (2-3 16-oz glasses of water/day) Meals Away From Home - 4x/week Alcohol Use - none Food Insecurity Within the past 12 months, we worried whether our food would run out before we got money to buy more [Multiple Answer] Often True [3.00] Sometimes True [2.00] Rarely True [1.00] Never True [0.00] Within the past 12 months, the food we bought just didn't last and we didn't have the money to get more. [Multiple Answer] Often true [3.00] Sometimes true [2.00] Rarely true [1.00] Never true [0.00] Intervention/Education Provided: Reviewed the plate method to promote a balance of macronutrients at meals and snacks. Discussed howcarbs, protein, and fat affect blood sugars. Emphasized importance of consistent meals and snacks throughout the day to ensure consistent carbohydrate intake. Reviewed the benefits of physical activity. Estimated Nutritional Needs: Calorie Needs: 1700 kcals/day (MSJ x 1.3AF - 500 to promote gradual weight loss) Patient/Family Education: Learner: patient Readiness: action - ready to set action plan and implement goals Barriers to Learning: none Method: explanation and handout Response: verbalizes understanding Expected Adherence: good Education Materials Provided: Healthy Meal Planning handout ([facility]), Goal Sheet, Sodium Free Flavoring Tips ([employer]), Pair Up Snack List, Move Your Way Physical Activity handout ([email or web address]) Monitoring/Evaluation: Labs, BGM results, weight, food recall, meal planning, goal achievement, physical activity, medication management. Incorporating nutrition management into lifestyle. Describe effect of type, amount and timing of food on blood glucose; list 3 methods for planning meals. Select one: needs instruction needs review demonstrates competency not covered not applicable This documentation has been sent to the referring healthcare provider. DINESH Del Rosario, JUNEN, LD Direct Patient Education Office documented in this [id number] History of Present illness Narrative* Dionne Escobar DPM - 01/21/2022 12:30 PM EDT Images from the original note were not included. Established Patient Visit Dionne Escobar DPM Patient Name: Christine Oakes. . Date of : 1970, 51 y.o.. Gender: female. Subjective: Patient is a pleasant 50-year-old female who presents to clinic for follow-up of bilateral heel pain bilaterally, left worse than right and left foot extensor tendinitis. Patient states that her painhas really significantly improved, with physical therapy however she has returned into no pain to the top of the foot. Patient states that she wants to discuss surgical intervention. No other pedal complaints at this time. Denies any new pedal complaints at this time. Patient denies any fevers, chills, nausea, vomiting, chest pain, shortness of breath or any other constitutional symptoms. Physical Examination: BP 122/79 (BP Location: Left arm) Pulse 77 Temp 97.6 F (36.4 C) (Oral) General Appearance: Alert, cooperative, no distress, appears stated age. Podiatric Exam Vascular: DP and PT pulses are palpable 2/4 bilaterally. Capillary refill time is brisk to distal digits. No appreciable edema noted bilaterally. Hair growth present. Skin temperature is warm to warmfrom proximal tibial tuberosity to distal digits. Neuro: Gross sensation intact to bilateral lower extremities. Negative Tinel or Valleix sign with percussion of the tibial nerve Dermatologic: Nails 1 through 10 are within normal limits. No open lesions or ulcerations noted. Interdigital spaces are clean dry and intact. Musculoskeletal: Pain on palpation to the medial calcaneal tubercle of the right and left, left worse than right. No pain with calcaneal heel squeeze. No pain along the medial band of the plantar fascia. No pain along the Achilles tendon. No pain along the lateral aspect of the Achilles tendon on the right foot. Improvement in ankle joint range of motion in dorsiflexion with the knee extended andfull with knee flexion. Pain to the dorsal lateral aspect of the left foot. Muscle strength is 5/5 to all plantar flexors, dorsiflexors, inverters and everters. Compartments are soft and compressible. No calf pain. Moderate tenderness on palpation to the anterior ankle tendons/dorsal right foot. Assessment: 1. Plantar fasciitis of left foot MR Foot Left Without Contrast 2. Tendinitis of left foot 3. Left foot pain Imaging: Right foot 3 views weightbearing radiographs were reviewed as follows: A plantar calcaneal enthesophyte is noted. No cystic or osseous lesions noted. Joint spaces are within normal limits. Slight increase in the calcaneal inclination angle and a decrease in the talar declination angle. Left foot 3 views weightbearing radiographs were reviewed as follows: A plantar calcaneal enthesophyte is noted. No cystic or osseous lesions noted. Mild decrease in anterior ankle joint joint space No gross deformity noted Plan: Patient was seen and evaluated. Discussed clinical findings. I reviewed right and left foot radiographic findings with patient as noted above. Patient's left foot plantar fascial pain has worsened despite physical therapy, stretching, icing and meloxicam. She has also developed new pain, likely related to physical therapy as it manifested itself to tendinitis of the extensor digitorum brevis. At this time, an MRI of the left foot was placed to assess integrity of the plantar fascia and to rule out any soft tissue pathology prior to proceeding with any surgical intervention. In the meantime, patient is to continue stretching, icing, meloxicam and wearing good supportive shoes All questions were answered to patient satisfaction. Patient understands to call with any questionsor concerns. Follow-up after obtaining MRI results to discuss and plan for surgery accordingly. Dionne Escobar DPM, MS Podiatric Physician & Surgeon documented in this [id number] History of Present illness Narrative* Alecia Esparza RN - 01/17/2022 11:10 AM EDT [facility] DIABETES SELF-MANAGEMENT EDUCATION AND SUPPORT PROGRAM Patient Name: Christine Oakes Patient : 1970 Primary Care Provider: Erica Sanford DO Referred By: Erica Sanford DO Referral Diagnosis: Diabetes Type 2 Start Time: 1000 End Time: 1100 Behavior Goals: See Plan of Care Follow Up: Follow up appointment scheduled by patient Unique needs: Hearing impairment requiring sign language:n/a Visual impairment requiring print augmentation:n/a Language barrier requiring interpreters: n/a Low literacy:n/a Transportation issues:n/a Barriers to program access:n/a Barriers w/ technology:n/a Insured/uninsured/lack of insurance coverage/financial barriers:n/a Past Medical History: Past Medical History: Diagnosis Date Acid reflux Diabetes mellitus (HCC) Hyperlipidemia Kidney stone Obesity Pain, heel 07/19/2020 Plantar fasciitis, bilateral 07/19/2020 Right foot pain 12/04/2020 Swollen feet Social History: Social History Socioeconomic History Marital status: Number of children: 2 Highest education level: High school graduate Tobacco Use Smoking status: Former Smoker Quit date: 07/01/2011 Years since quittin.5 Smokeless tobacco: Never Used Vaping Use Vaping Use: Never used Substance and Sexual Activity Alcohol use: Never Drug use: Never Social Determinants of Health Financial Resource Strain: Medium Risk Difficulty of Paying Living Expenses: Somewhat hard Food Insecurity: No Food Insecurity Worried About Running Out of Food in the Last Year: Never true Ran Out of Food in the Last Year: Never true Transportation Needs: No Transportation Needs Lack of Transportation (Medical): No Lack of Transportation (Non-Medical): No Physical Activity: Inactive Days of Exercise per Week: 0 days Minutes of Exercise per Session: 0 min Stress: Stress Concern Present Feeling of Stress : To some extent Social Connections: Moderately Isolated Frequency of Communication with Friends and Family: More than three times a week Frequency of Social Gatherings with Friends and Family: Three times a week Attends Faith Services: Never Active Member of Clubs or Organizations: No Attends Club or Organization Meetings: Never Marital Status: Housing Stability: Low Risk Unable to Pay for Housing in the Last Year: No Number of Places Lived in the Last Year: 1 Unstable Housing in the Last Year: No History From: History obtained from chart review and the patient. Current/Pertinent Medications: Current Outpatient Medications Ordered in [facility] Medication Sig Dispense Refill APPLE CIDER VINEGAR ORAL Take 1 capsule by mouth daily . atorvastatin (LIPITOR) 10 MG tablet Take 10 mg by mouth daily . ESCITALOPRAM OXALATE ORAL Take 20 mg by mouth daily . lisinopriL (PRINIVIL,ZESTRIL) 10 MG tablet Take 10 mg by mouth daily . meloxicam (MOBIC) 15 MG tablet Take 1 (one) tablet (15 mg total) by mouth daily . 30 tablet 3 metFORMIN (FORTAMET) 500 MG (OSM) 24 hr tablet Take 500 mg by mouth daily with breakfast . multivitamin (THERAGRAN) per tablet Take 1 tablet by mouth daily . OMEPRAZOLE ORAL Take 40 mg by mouth daily . ASCORBIC ACID ORAL Take by mouth daily . cholecalciferol, vitamin D3, 400 unit Tab Take 1,000 Units by mouth daily . magnesium 30 mg tablet Take 250 mg by mouth daily . MULTIVITAMIN WITH IRON ORAL Take by mouth . multivitamin with minerals (Daily Multivitamin-Minerals) tablet Take 1 tablet by mouth daily (Airborne Everyday) . psyllium seed (PSYLLIUM ORAL) Take by mouth . zinc gluconate 50 mg tablet Take 50 mg by mouth daily . No current Epic-ordered facility-administered medications on file. SMBG Results: Physician has not instructed to test at this time No results found for: HGBA1C No results found for: CHOL No results found for: TRIG No results found for: HDL No results found for: LDL Intervention/Education Provided: Met with patient for RN initial assessment for comprehensive DSME classes. All wore surgical mask due to COVID 19. Reviewed A1C 6.5%, explained A1C and meaning of results. Explained target glucose range. Discussed diabetes pathophysiology, difference between type 1 and type 2 diabetes, insulin resistance, hypoglycemia symptoms and treatments. Discussed daily footcare, comprehensive foot exam done. Reports she needs to watch her carbohydrates, she knows she eats too many, has appointment with RD schedule for 01/24/22 Explained plate method of eating, eating every 4-5 hours instructed to keep a 3 day food log for appointment with RD. C/O foot, knee and wrist pain keeping her from exercise but is considering getting in the pool at her fitness center, also discussed chair exercises and getting 30 min of exercise 5 days a week. Very receptive to starting exercise program declines [facility] membership due to already having membership elsewhere. Reviewed DSME class schedule and agenda, escorted to classroom. Questions encouraged states understanding. Copy of AVS given Foot Exam: Comprehensive foot exam done. B/L dorsalis pedis and posterior tibialis pulses strong and present. Monofilament test complete with sensation intact. Patient/Family Education: Learner: patient Readiness: action - ready to set action plan and implement Barriers to Learning: none Method: explanation and handout Response: verbalizes understanding Expected Adherence: good Education Record: Diabetes disease process and treatment process. Define diabetes and identify own type of diabetes; list 3 options for treating diabetes. Select one: needs instruction needs review demonstrates competency not covered not applicable Incorporating nutrition management into lifestyle. Describe effect of type, amount and timing of food on blood glucose; list 3 methods for planning meals. Select one: needs instruction needs review demonstrates competency not covered not applicable Incorporating physical activity into lifestyle. State effect of exercise on blood glucose levels. Select one: needs instruction needs review demonstrates competency not covered not applicable Using medications safely. State effect of diabetes medicines on diabetes; name diabetes medication taking, action and side effects. Select one: needs instruction needs review demonstrates competency not covered not applicable Monitoring blood glucose, interpreting and using results. Identify recommended blood glucose targets and personal targets. Select one: needs instruction needs review demonstrates competency not covered not applicable Prevention, detection and treatment of acute complications. List symptoms of hyper- and hypoglycemia; describe how to treat low blood sugar and actions for lowering high blood glucose levels. Select one: needs instruction needs review demonstrates competency not covered not applicable Prevention, detection and treatment of chronic complications. Define the natural course of diabetesand describe the relationship of blood glucose levels to correction complications of diabetes. Select one: needs instruction needs review demonstrates competency not covered not applicable Developing strategies to address psychosocial issues. Describe feelings about living with diabetes;identify support needed and support network. Select one: needs instruction needs review demonstrates competency not covered not applicable Developing strategies to promote health/change behavior. Define the ABCs of diabetes; identify appropriate screenings, schedule and personal plan for screenings. Select one: needs instruction needs review demonstrates competency not covered not applicable Education Materials Provided: Hemoglobin A1C Target Glucose Levels Hypoglycemia Class Schedule Diabetes Self-Management Support Plan This documentation has been sent to the referring healthcare provider. documented in this [id number] History of Present illness NarrativePatient is a 51-year-old woman who comes in for routine [facility] exam. Patient reports that her periods have become very light. She says that in October of last year she had a very heavy period and then no period again for approximately 6 to 9 months. However when her periods return they have become very light lasting approximately 3 days and now instead of every month she is having periods about every 5 weeks. Patient reports she is not due for her mammogram until the fall. [facility] [employer] Phone: [phone] History of Present illness Narrative* Dionne Escobar DPM - 09/25/2021 4:53 PM EST Images from the original note were not included. Patient was not seen by me today. She was scheduled today as a nurse's visit. Patient was prescribed a night splint and therefore patient was seen today by our nurse for proper fitting and dispensing of the night splint. Patient will return to see me in 2 to 3 weeks for evaluation. Dionne Escobar DPM, MS Podiatric Physician & Surgeon documented in this [id number] History of Present illness Narrative* Dionne Escobar DPM - 08/20/2021 7:22 AM EST Images from the original note were not included. Established Patient Visit Dionne Escobar DPM Patient Name: Christine Oakes. . Date of : 1970, 50 y.o.. Gender: female. Subjective: Patient is a pleasant 50-year-old female who presents to clinic for follow-up of bilateral heel pain bilaterally and left foot extensor tendinitis. Patient states that her pain has significantly improved, 95%, with physical therapy. She is very pleased with her results. She states that her residualpain is at a minimum of 1/10. She states that she has been off work in the last 10 days for vacation. No other pedal complaints at this time. Denies any new pedal complaints at this time. Patient denies any fevers, chills, nausea, vomiting, chest pain, shortness of breath or any other constitutional symptoms. Physical Examination: BP 135/88 (BP Location: Left arm, Patient Position: Sitting, BP Cuff Size: Adult) Pulse 71 Temp96.8 F (36 C) (Infrared) General Appearance: Alert, cooperative, no distress, appears stated age. Podiatric Exam Vascular: DP and PT pulses are palpable 2/4 bilaterally. Capillary refill time is brisk to distal digits. No appreciable edema noted bilaterally. Hair growth present. Skin temperature is warm to warmfrom proximal tibial tuberosity to distal digits. Neuro: Gross sensation intact to bilateral lower extremities. Negative Tinel or Valleix sign with percussion of the tibial nerve Dermatologic: Nails 1 through 10 are within normal limits. No open lesions or ulcerations noted. Interdigital spaces are clean dry and intact. Musculoskeletal: No pain on palpation to the medial calcaneal tubercle of the right and left. No pain with calcaneal heel squeeze. No pain along the medial band of the plantar fascia. No pain along the Achilles tendon. No pain along the lateral aspect of the Achilles tendon on the right foot. Improvement in ankle joint range of motion in dorsiflexion with the knee extended and full with knee flexion. Muscle strength is 5/5 to all plantar flexors, dorsiflexors, inverters and everters. Compartments are soft and compressible. No calf pain. Moderate tenderness on palpation to the anterior ankle tendons/dorsal right foot. Assessment: 1. Plantar fasciitis, bilateral 2. Bilateral foot pain 3. Extensor tendinitis of foot Imaging: Right foot 3 views weightbearing radiographs were reviewed as follows: A plantar calcaneal enthesophyte is noted. No cystic or osseous lesions noted. Joint spaces are within normal limits. Slight increase in the calcaneal inclination angle and a decrease in the talar declination angle. Left foot 3 views weightbearing radiographs were reviewed as follows: A plantar calcaneal enthesophyte is noted. No cystic or osseous lesions noted. Mild decrease in anterior ankle joint joint space No gross deformity noted Plan: Patient was seen and evaluated. Discussed clinical findings. I reviewed right and left foot radiographic findings with patient as noted above. Patient is doing well with physical therapy. Recommend the patient continue to physical therapy accordingly and her surgeon can be extended if allowed by her insurance. Patient is to continue stretching, icing, meloxicam and wearing good supportive shoes All questions were answered to patient satisfaction. Patient understands to call with any questionsor concerns. Follow-up in 3 months for evaluation. Dionne Escobar DPM, MS Podiatric Physician & Surgeon documented in this [id number] History of Present illness Narrative* Dionne Escobar DPM - 06/19/2021 9:24 AM EDT Images from the original note were not included. Established Patient Visit Dionne Escobar DPM Patient Name: Christine Oakes. . Date of : 1970, 50 y.o.. Gender: female. Subjective: Patient is a pleasant 50-year-old female who presents to clinic complaining of bilateral heel pain.Patient has had a history of plantar fasciitis and has been doing stretching, taking meloxicam and has completed the course of physical therapy. She states that her pain has not improved and would like to discuss surgical intervention. No other pedal complaints at this time. Denies any new pedal complaints at this time. Patient denies any fevers, chills, nausea, vomiting, chest pain, shortness ofbreath or any other constitutional symptoms. Physical Examination: BP (!) 141/89 (BP Location: Right arm) Pulse 63 Temp (!) 96.1 F (35.6 C) (Infrared) Ht 5' 8 Wt 93.9 kg (207 lb) BMI 31.47 kg/m General Appearance: Alert, cooperative, no distress, appears stated age. Podiatric Exam Vascular: DP and PT pulses are palpable 2/4 bilaterally. Capillary refill time is brisk to distal digits. No appreciable edema noted bilaterally. Hair growth present. Skin temperature is warm to warmfrom proximal tibial tuberosity to distal digits. Neuro: Gross sensation intact to bilateral lower extremities. Negative Tinel or Valleix sign with percussion of the tibial nerve Dermatologic: Nails 1 through 10 are within normal limits. No open lesions or ulcerations noted. Interdigital spaces are clean dry and intact. Musculoskeletal: Pain on palpation to the medial calcaneal tubercle of the right and left. No pain with calcaneal heel squeeze. Pain along the medial band of the plantar fascia. No pain along the Achilles tendon. Decrease in ankle joint range of motion in dorsiflexion with the knee extended and full with knee flexion. Muscle strength is 5/5 to all plantar flexors, dorsiflexors, inverters and everters. Compartments are soft and compressible. No calf pain. Assessment: 1. Plantar fasciitis, bilateral MR Foot Left Without Contrast MR Foot Right Without Contrast 2. Bilateral foot pain Imaging: None obtained at this visit Plan: Patient was seen and evaluated. Discussed clinical findings. Patient's plantar fascial pain has not improved with stretching, icing, offloading, injections or physical therapy. An MRI order was placed for the right and left foot in order to evaluate for the ligamentous integrity of the plantar fascia and to rule out any osseous or soft tissue pathology prior to proceeding with surgical intervention. All questions were answered to patient satisfaction. Patient understands to call with any questionsor concerns. She is to follow-up after obtaining her MRI results and plan for surgery accordingly. Dionne Escobar DPM, MS Podiatric Physician & Surgeon documented in this [id number] Instructions* Patient Instructions* Dionne Escobar DPM - 04/16/2021 7:30 AM EDT Images from the original note were not included. Plantar Fasciitis: Exercises Introduction Here are some examples of exercises for you to try. The exercises may be suggested for a condition or for rehabilitation. Start each exercise slowly. Ease off the exercises if you start to have pain. You will be told when to start these exercises and which ones will work best for you. How to do the exercises Towel stretch 1. Sit with your legs extended and knees straight. 2. Place a towel around your foot just under the toes. 3. Hold each end of the towel in each hand, with your hands above your knees. 4. Pull back with the towel so that your foot stretches toward you. 5. Hold the position for at least 15 to 30 seconds. 6. Repeat 2 to 4 times a session, up to 5 sessions a day. Calf stretch This exercise stretches the muscles at the back of the lower leg (the calf) and the Achilles tendon. Do this exercise 3 or 4 times a day, 5 days a week. 1. Stand facing a wall with your hands on the wall at about eye level. Put the leg you want to stretch about a step behind your other leg. 2. Keeping your back heel on the floor, bend your front knee until you feel a stretch in the back leg. 3. Hold the stretch for 15 to 30 seconds. Repeat 2 to 4 times. Plantar fascia and calf stretch Stretching the plantar fascia and calf muscles can increase flexibility and decrease heel pain. Youcan do this exercise several times each day and before and after activity. 1. Stand on a step as shown above. Be sure to hold on to the banister. 2. Slowly let your heels down over the edge of the step as you relax your calf muscles. You should feel a gentle stretch across the bottom of your foot and up the back of your leg to your knee. 3. Hold the stretch about 15 to 30 seconds, and then tighten your calf muscle a little to bring your heel back up to the level of the step. Repeat 2 to 4 times. Towel curls Make this exercise more challenging by placing a weighted object, such as a soup can, on the other end of the towel. 1. While sitting, place your foot on a towel on the floor and scrunch the towel toward you with your toes. 2. Then, also using your toes, push the towel away from you. Ulysses pickups 1. Put marbles on the floor next to a cup. 2. Using your toes, try to lift the marbles up from the floor and put them in the cup. Follow-up care is a marques part of your treatment and safety. Be sure to make and go to all appointments, and call your doctor if you are having problems. It's also a good idea to know your test resultsand keep a list of the medicines you take. Where can you learn more? Log into your personal health record on?https://[employer]?and enter+X106?in the Education box to learn more about Plantar Fa sciitis: Exercises. Current as of: August 14, 2020 Content Version: 12.9 [employer]. Care instructions adapted under license by your healthcare professional. If you have questions about a medical condition or this instruction, always ask your healthcare professional. [employer] disclaims any warranty or liability for your use of this information. documented in this [id number] History of Present illness Narrative* Dionne Escobar DPM - 04/16/2021 7:00 AM EDT Images from the original note were not included. Established Patient Visit Dionne Escobar DPM Patient Name: Christine Oakes. . Date of : 1970, 50 y.o.. Gender: female. Subjective: Patient is a pleasant 50-year-old female who presents to clinic complaining of bilateral heel pain.Patient has had a history of plantar fasciitis and has been doing stretching, taking meloxicam and has completed the course of physical therapy. Patient states that she has been noticing increased pain to the heels bilaterally, that is sharp and shooting in nature. She also describes a sharp pain with ambulation. Denies any history of low back pain. States that she has gained weight during the Covid pandemic. She has also been trying to exercise on her exercise bike. No other pedal complaints at this time. Denies any new pedal complaints at this time. Patient denies any fevers, chills, nausea, vomiting, chest pain, shortness of breath or any other constitutional symptoms. Physical Examination: BP 127/72 (BP Location: Left arm, Patient Position: Sitting, BP Cuff Size: Adult) Pulse 72 Temp97.3 F (36.3 C) (Infrared) General Appearance: Alert, cooperative, no distress, appears stated age. Podiatric Exam Vascular: DP and PT pulses are palpable 2/4 bilaterally. Capillary refill time is brisk to distal digits. No appreciable edema noted bilaterally. Hair growth present. Skin temperature is warm to warmfrom proximal tibial tuberosity to distal digits. Neuro: Gross sensation intact to bilateral lower extremities. Negative Tinel or Valleix sign with percussion of the tibial nerve Dermatologic: Nails 1 through 10 are within normal limits. No open lesions or ulcerations noted. Interdigital spaces are clean dry and intact. Musculoskeletal: Pain on palpation to the medial calcaneal tubercle of the right and left. No pain with calcaneal heel squeeze. Pain along the medial band of the plantar fascia. No pain along the Achilles tendon. Decrease in ankle joint range of motion in dorsiflexion with the knee extended and full with knee flexion. Muscle strength is 5/5 to all plantar flexors, dorsiflexors, inverters and everters. Compartments are soft and compressible. No calf pain. Assessment: 1. Plantar fasciitis, bilateral 2. Bilateral foot pain Imaging: None obtained at this visit Plan: Patient was seen and evaluated. Discussed clinical findings. Patient has a flareup of plantar fasciitis to bilateral feet. Recommended continued conservative options for plantar fasciitis including stretching, icing, anti-inflammatories, and wearing good supportive shoes. Prescription for meloxicam was sent to her pharmacy. Recommended restarting physical therapy but patient declined at this time. Additionally, I recommended a steroidal injection to help alleviate pain and inflammation with ambulation. Patient agreed to proceed with this. Procedure 1: The right heel medial injection site was prepped with alcohol. Following, an injection consisting of 2 cc of 1: 1 mixture of Kenalog 40 mg and 0.5% Marcaine plain was injected into the plantar fasciaof the medial heel. Patient tolerated procedure well. Procedure 2: The left heel medial injection site was prepped with alcohol. Following, an injection consisting of2 cc of 1: 1 mixture of Kenalog 40 mg and 0.5% Marcaine plain was injected into the plantar fascia of the medial heel. Patient tolerated procedure well. All questions were answered to patient satisfaction. Patient understands to call with any questionsor concerns. Follow-up in 3 months for evaluation Dionne Escobar DPM, MS Podiatric Physician & Surgeon documented in this [id number] History of Present illness Narrative* 52 yo female with knee pain and joint pain. * She was dx plantar fasciitis Jun 2020, MRI showed plantar fasciitis * Last year, she was diagnosed with RA and MTX was started. She had left wrist, right knee and heel pain at that time. She used MTX 17.5 mg weekly between 01/18 to 08/20. She stopped MTX because of oral stomatitis. * She endorses intermittent LBP, but does not look like inflammatory LBP. * Today, she reports only right knee pain. * She denies AM stiffness, malar rash, oral ulcer, dry eyes or dry mouth, psoriasis, * Her nephew and cousin have RA, mother has arthritis? [employer] Work Phone: Evaluation note* Diagnosis Heel pain, unspecified laterality Plantar fasciitis, bilateral Right foot pain Pain in soft tissues of limb Gastroesophageal reflux disease, unspecified whether esophagitis present Obesity, unspecified classification, unspecified obesity type, unspecified whether serious comorbidity present [facility] Plantar fasciitis, bilateral- Primary Bilateral foot pain [facility]* Diagnosis Plantar fasciitis, bilateral- Primary Bilateral foot pain [facility]* Diagnosis Plantar fasciitis, bilateral- Primary Bilateral foot pain Extensor tendinitis of foot [facility]* Diagnosis Plantar fasciitis, bilateral- Primary [facility]* Diagnosis Uncontrolled type 2 diabetes mellitus with hyperglycemia (HCC) [facility]* Diagnosis Plantar fasciitis of left foot- Primary Tendinitis of left foot Left foot pain Pain in soft tissues of limb [facility]* Diagnosis Uncontrolled type 2 diabetes mellitus with hyperglycemia (HCC) [facility]* Diagnosis Plantar fasciitis, bilateral- Primary Bilateral foot pain [facility]* Diagnosis Type 2 diabetes mellitus with hyperglycemia, unspecified whether intermission coordinator insulin use (HCC)- Primary [facility]* Diagnosis Controlled type 2 diabetes mellitus with hyperglycemia, unspecified whether correction insulin use (HCC)- Primary [facility]* Diagnosis Uncontrolled type 2 diabetes mellitus with hyperglycemia (HCC)- Primary [facility] noteNo assessment information availableWSelect [facility] Work Phone: Evaluation note* Diagnosis Chronic pain of right knee- Primary Rheumatoid arthritis with positive rheumatoid factor, involving unspecified site (CMS/HCC) Type 2 diabetes mellitus with hyperglycemia, without long-term current use of insulin (CMS/HCC) Bilateral carpal tunnel syndrome Carpal tunnel syndrome Depression, major, single episode, mild (CMS/HCC) documented in this encounter [facility] Work Phone: Evaluation note* Psychological: Pleasant affectNeurological: Nonfocal; cranial nerves II through XII appear intactGas trointestinal: Soft, nontender, nondistended, positive bowel sounds; obeseCardiovascular: Regular rate and rhythm; normal S1-S2 with no murmur; no pitting edema 2+ pulses bilaterallyRespiratory/Thorax: Clear to auscultation bilaterally no active wheezes or rhonchi notedHead/Neck: Neck supple with no palpable lymphadenopathy, bruits or masses; trachea midlineConstitutional: Awake and alert; oriented x3 with no apparent distress or respiratory distress [facility] Prehypertension- Primary Elevated blood pressure reading without diagnosis of hypertension Polyarthropathy Unspecified polyarthropathy or polyarthritis, site unspecified Other fatigue Fatty liver Other chronic nonalcoholic liver disease Mixed hyperlipidemia Type 2 diabetes mellitus with hyperglycemia, without long-term current use of insulin (CMS/HCC) documented in this encounter [facility] Work Phone: Evaluation note* Diagnosis Polyarthropathy- Primary Unspecified polyarthropathy or polyarthritis, site unspecified Hypertension, unspecified type Type 2 diabetes mellitus with hyperglycemia, without long-term current use of insulin (CMS/HCC) Prehypertension Elevated blood pressure reading without diagnosis of hypertension Depression, major, single episode, mild (CMS/HCC) Encounter for screening mammogram for malignant neoplasm of breast documented in this encounter [facility] Work Phone: Evaluation note* Diagnosis Dorsalgia- Primary Pain in thoracic spine Bilateral chronic knee pain Pain in joint, lower leg Abnormal reflexes of lower extremity Wrist pain, left Pain in joint, forearm Primary osteoarthritis of both wrists Primary osteoarthritis of both knees Primary localized osteoarthrosis, lower leg Primary osteoarthritis of both hands Primary osteoarthritis of both feet Osteoarthritis of carpometacarpal (CMC) joint of both thumbs Lumbar degenerative disc disease Degeneration of lumbar or lumbosacral intervertebral disc Disorder of bone and cartilage Disorder of bone and cartilage, unspecified FDC current use of non-steroidal anti-inflammatories (NSAID) Encounter for long-term (current) use of non-steroidal anti-inflammatories History of rheumatoid arthritis Personal history of arthritis Fatigue, unspecified type Family history of rheumatoid arthritis Family history of arthritis Hepatomegaly Hepatic steatosis Other chronic nonalcoholic liver disease [facility] Bowel habit changes- Primary Other symptoms involving digestive system Type 2 diabetes mellitus with hyperglycemia, without long-term current use of insulin (CMS/HCC) Depression, major, single episode, mild (CMS/HCC) Gastroesophageal reflux disease without esophagitis Esophageal reflux Shortness of breath on exertion Shortness of breath LOMELI (dyspnea on exertion) Other dyspnea and respiratory abnormality Prehypertension Elevated blood pressure reading without diagnosis of hypertension documented in this encounter [facility] Work Phone: Evaluation note* Diagnosis Vitamin D deficiency- Primary Unspecified vitamin D deficiency Hepatomegaly Hepatic steatosis Other chronic nonalcoholic liver disease Hyperglycemia Other abnormal glucose Primary osteoarthritis of both wrists Primary osteoarthritis of both knees Primary localized osteoarthrosis, lower leg Primary osteoarthritis of both hands Primary osteoarthritis of both feet Osteoarthritis of carpometacarpal (CMC) joint of both thumbs Lumbar degenerative disc disease Degeneration of lumbar or lumbosacral intervertebral disc Elevated hemoglobin A1c 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) Encounter for long-term (current) use of non-steroidal anti-inflammatories LFT elevation Other abnormal blood chemistry History of rheumatoid arthritis Personal history of arthritis Family history of rheumatoid arthritis Family history of arthritis [facility] Chronic pain of right knee- Primary Rheumatoid arthritis with positive rheumatoid factor, involving unspecified site (Multi) Type 2 diabetes mellitus with hyperglycemia, without long-term current use of insulin Bilateral carpal tunnel syndrome Carpal tunnel syndrome Depression, major, single episode, mild (CMS-HCC) Small bowel problem- Primary Prehypertension- Primary Elevated blood pressure reading without diagnosis of hypertension Polyarthropathy Unspecified polyarthropathy or polyarthritis, site unspecified Other fatigue Fatty liver Other chronic nonalcoholic liver disease Mixed hyperlipidemia Type 2 diabetes mellitus with hyperglycemia, without long-term current use of insulin Polyarthropathy- Primary Unspecified polyarthropathy or polyarthritis, site unspecified Hypertension, unspecified type Type 2 diabetes mellitus with hyperglycemia, without long-term current use of insulin Prehypertension Elevated blood pressure reading without diagnosis of hypertension Depression, major, single episode, mild (CMS-HCC) Encounter for screening mammogram for malignant neoplasm of breast Left knee pain, unspecified chronicity Localized osteoarthritis of knees, bilateral Bowel habit changes- Primary Other symptoms involving digestive system Type 2 diabetes mellitus with hyperglycemia, without long-term current use of insulin Depression, major, single episode, mild (CMS-HCC) Gastroesophageal reflux disease without esophagitis Esophageal reflux Shortness of breath on exertion Shortness of breath LOMELI (dyspnea on exertion) Other dyspnea and respiratory abnormality Prehypertension Elevated blood pressure reading without diagnosis of hypertension Vitamin D deficiency- Primary Type 2 diabetes mellitus with hyperglycemia, without long-term current use of insulin Encounter for screening mammogram for malignant neoplasm of breast documented in this encounter [facility] Work Phone: Evaluation note* Diagnosis Chronic pain of right knee- Primary Rheumatoid arthritis with positive rheumatoid factor, involving unspecified site (Multi) Type 2 diabetes mellitus with hyperglycemia, without long-term current use of insulin Bilateral carpal tunnel syndrome Carpal tunnel syndrome Depression, major, single episode, mild (CMS-HCC) Small bowel problem- Primary Prehypertension- Primary Elevated blood pressure reading without diagnosis of hypertension Polyarthropathy Unspecified polyarthropathy or polyarthritis, site unspecified Other fatigue Fatty liver Other chronic nonalcoholic liver disease Mixed hyperlipidemia Type 2 diabetes mellitus with hyperglycemia, without long-term current use of insulin Polyarthropathy- Primary Unspecified polyarthropathy or polyarthritis, site unspecified Hypertension, unspecified type Type 2 diabetes mellitus with hyperglycemia, without long-term current use of insulin Prehypertension Elevated blood pressure reading without diagnosis of hypertension Depression, major, single episode, mild (CMS-HCC) Encounter for screening mammogram for malignant neoplasm of breast Left knee pain, unspecified chronicity Localized osteoarthritis of knees, bilateral Bowel habit changes- Primary Other symptoms involving digestive system Type 2 diabetes mellitus with hyperglycemia, without long-term current use of insulin Depression, major, single episode, mild (CMS-HCC) Gastroesophageal reflux disease without esophagitis Esophageal reflux Shortness of breath on exertion Shortness of breath LOMELI (dyspnea on exertion) Other dyspnea and respiratory abnormality Prehypertension Elevated blood pressure reading without diagnosis of hypertension Vitamin D deficiency- Primary Type 2 diabetes mellitus with hyperglycemia, without long-term current use of insulin Encounter for screening mammogram for malignant neoplasm of breast Encounter for screening mammogram for malignant neoplasm of breast documented in this encounter [facility] Work Phone: Evaluation note* Diagnosis Chronic pain of right knee- Primary Rheumatoid arthritis with positive rheumatoid factor, involving unspecified site (Multi) Type 2 diabetes mellitus with hyperglycemia, without long-term current use of insulin Bilateral carpal tunnel syndrome Carpal tunnel syndrome Depression, major, single episode, mild (CMS-HCC) Small bowel problem- Primary Prehypertension- Primary Elevated blood pressure reading without diagnosis of hypertension Polyarthropathy Unspecified polyarthropathy or polyarthritis, site unspecified Other fatigue Fatty liver Other chronic nonalcoholic liver disease Mixed hyperlipidemia Type 2 diabetes mellitus with hyperglycemia, without long-term current use of insulin Polyarthropathy- Primary Unspecified polyarthropathy or polyarthritis, site unspecified Hypertension, unspecified type Type 2 diabetes mellitus with hyperglycemia, without long-term current use of insulin Prehypertension Elevated blood pressure reading without diagnosis of hypertension Depression, major, single episode, mild ([facility]-HCC) Encounter for screening mammogram for malignant neoplasm of breast Left knee pain, unspecified chronicity Localized osteoarthritis of knees, bilateral Bowel habit changes- Primary Other symptoms involving digestive system Type 2 diabetes mellitus with hyperglycemia, without long-term current use of insulin Depression, major, single episode, mild ([facility]-HCC) Gastroesophageal reflux disease without esophagitis Esophageal reflux Shortness of breath on exertion Shortness of breath LOMELI (dyspnea on exertion) Other dyspnea and respiratory abnormality Prehypertension Elevated blood pressure reading without diagnosis of hypertension Vitamin D deficiency- Primary Type 2 diabetes mellitus with hyperglycemia, without long-term current use of insulin Encounter for screening mammogram for malignant neoplasm of breast Mixed hyperlipidemia- Primary Type 2 diabetes mellitus with hyperglycemia, without long-term current use of insulin documented in this encounter [facility] Work Phone: Evaluation note* Diagnosis Chronic pain of right knee- Primary Rheumatoid arthritis with positive rheumatoid factor, involving unspecified site (Multi) Type 2 diabetes mellitus with hyperglycemia, without long-term current use of insulin Bilateral carpal tunnel syndrome Carpal tunnel syndrome Depression, major, single episode, mild ([facility]) Small bowel problem- Primary Prehypertension- Primary Elevated blood pressure reading without diagnosis of hypertension Polyarthropathy Unspecified polyarthropathy or polyarthritis, site unspecified Other fatigue Fatty liver Other chronic nonalcoholic liver disease Mixed hyperlipidemia Type 2 diabetes mellitus with hyperglycemia, without long-term current use of insulin Polyarthropathy- Primary Unspecified polyarthropathy or polyarthritis, site unspecified Hypertension, unspecified type Type 2 diabetes mellitus with hyperglycemia, without long-term current use of insulin Prehypertension Elevated blood pressure reading without diagnosis of hypertension Depression, major, single episode, mild ([facility]-HCC) Encounter for screening mammogram for malignant neoplasm of breast Left knee pain, unspecified chronicity Localized osteoarthritis of knees, bilateral Bowel habit changes- Primary Other symptoms involving digestive system Type 2 diabetes mellitus with hyperglycemia, without long-term current use of insulin Depression, major, single episode, mild (CMS-HCC) Gastroesophageal reflux disease without esophagitis Esophageal reflux Shortness of breath on exertion Shortness of breath LOMELI (dyspnea on exertion) Other dyspnea and respiratory abnormality Prehypertension Elevated blood pressure reading without diagnosis of hypertension Vitamin D deficiency- Primary Type 2 diabetes mellitus with hyperglycemia, without long-term current use of insulin Encounter for screening mammogram for malignant neoplasm of breast Mixed hyperlipidemia- Primary Type 2 diabetes mellitus with hyperglycemia, without long-term current use of insulin Mixed hyperlipidemia- Primary Depression, major, single episode, mild (CMS-HCC) Polyarthropathy Unspecified polyarthropathy or polyarthritis, site unspecified Gastroesophageal reflux disease without esophagitis Esophageal reflux Type 2 diabetes mellitus with hyperglycemia, without long-term current use of insulin Chronic midline low back pain without sciatica documented in this encounter [facility] Work Phone: History of Present illness NarrativeChristine zhang a pleasant 52-year-old female was hospitalized in January with partial small bowel obstruction. CT scan showed inflammatory stranding throughout the ascending and transverse colon concerning forunderlying inflammatory bowel disease. Patient improved with NG decompression there is no true transition point in the small bowel appeared to be edematous throughout the mid to distal small bowel. No prior history of bowel obstruction. No family history of inflammatory bowel disease. Has been asymptomatic since returning home. Denies diarrhea no rectal bleeding. No mucoid stools.[facility] [address] Work Phone: History of Present illness Edelmira zhang a pleasant 52-year-old female was hospitalized in January with partial small bowel obstruction. CT scan showed inflammatory stranding throughout the ascending and transverse colon concerning forunderlying inflammatory bowel disease. Patient improved with NG decompression there is no true transition point in the small bowel appeared to be edematous throughout the mid to distal small bowel. No prior history of bowel obstruction. No family history of inflammatory bowel disease. Has been asymptomatic since returning home. Denies diarrhea no rectal bleeding. No mucoid stools.[facility] Work Phone: History of Present illness Edelmira is a pleasant 52-year-old female was hospitalized in January with partial small bowel obstruction. CT scan showed inflammatory stranding throughout the ascending and transverse colon concerning forunderlying inflammatory bowel disease. Patient improved with NG decompression there is no true transition point in the small bowel appeared to be edematous throughout the mid to distal small bowel. No prior history of bowel obstruction. No family history of inflammatory bowel disease. Has been asymptomatic since returning home. Denies diarrhea no rectal bleeding. No mucoid stools.[facility] Work Phone: reason for referral (narrative)* Consultation (Routine) - Authorized Specialty Diagnoses / Procedures Referred By Contac t Referred To Contact Primary Care Procedures Follow Up In Primary Care Erica Sanford DO [address] [facility] [address] Referral ID Status Reason Start Date Expiration Date V isits Requested Visits Authorized [id number] Authorized 05/15/2023 11/11/2023 1 1 [facility] Work Phone: [place] for referral (narrative)* Consultation (Routine) - Authorized Specialty Diagnoses / Procedures Referred By Contac t Referred To Contact Primary Care Procedures Follow Up In Primary Care Eriac Sanford DO [address] [place] [address] Referral ID Status Reason Start Date Expiration Date V isits Requested Visits Authorized [id number] Authorized 12/04/2023 12/03/2024 1 1 * CV Imaging (Routine) - Pending Review Specialty Diagnoses / Procedures Referred By Contac t Referred To Contact Cardiology Diagnoses LOMELI (dyspnea on exertion) Procedures Transthoracic Echo (TTE) Complete ID ECHO TTHRC R-T 2D W/WOM-MODE COMPL SPEC&COLR D Erica Sanford DO [address] [place] [address] Referral ID Status Reason Start Date Expiration Date Visits Requested Visits Authorized [id number] Pending Review Perform Procedure 12/04/2023 12/03/2024 1 1 * Cardiovascular (Routine) - Authorized Specialty Diagnoses / Procedures Referred By Contac t Referred To Contact Diagnoses LOMELI (dyspnea on exertion) Procedures ECG 12 lead (Ancillary Performed) Erica Sanford DO [address] [place] [address] Referral ID Status Reason Start Date Expiration Date V isits Requested Visits Authorized [id number] Authorized 12/04/2023 12/03/2024 1 1 * Imaging (Routine) - Authorized Specialty Diagnoses / Procedures Referred By Contac t Referred To Contact Radiology Diagnoses LOMELI (dyspnea on exertion) Procedures XR chest 2 views Erica Sanford DO [address] [place] [address] Referral ID Status Reason Start Date Expiration Date Visits Requested Visits Authorized [id number] Authorized Perform Procedure 12/04/2023 12/03/2024 1 1 * Consultation (Routine) - Authorized Specialty Diagnoses / Procedures Referred By Contac t Referred To Contact Primary Care Procedures Follow Up In Primary Care Erica Sanford DO [address] [place] [address] Referral ID Status Reason Start Date Expiration Date V isits Requested Visits Authorized [id number] Authorized 12/04/2023 12/03/2024 1 1 * Consultation (Routine) - Authorized Specialty Diagnoses / Procedures Referred By Contac t Referred To Contact Gastroenterology Diagnoses Bowel habit changes Erica Sanford DO [address] [place] [address] Referral ID Status Reason Start Date Expiration Date Visits Requested Visits Authorized [id number] Authorized Specialty Services Required 12/04/2023 12/03/2024 1 1 [facility] Work Phone: Reason for referral (narrative)No reason for [facility] Work [facility]: Reason for visit Narrative* Consultation (Routine) - Authorized Specialty Diagnoses / Procedures Referred By Gurwinder rey Referred To Contact Primary Care Procedures Follow Up In Primary Care Erica Sanford DO [address] [facility] [place] [address] Referral ID Status Reason Start Date Expiration Date V isits Requested Visits Authorized [id number] Authorized 05/15/2023 11/11/2023 1 1 [facility] Work Phone: Reason for visit Narrative* Imaging (Routine) - Authorized Specialty Diagnoses / Procedures Referred By Gurwinder rey Referred To Contact Radiology Diagnoses Encounter for screening mammogram for malignant neoplasm of breast Procedures BI mammo bilateral screening tomosynthesis Erica Sanford DO [address] [place] [address] Phone: tel: fax: Referral ID Status Reason Start Date Expiration Date Visits Requested Visits Authorized [id number] Authorized Perform Procedure 07/01/2024 07/01/2025 1 1 [facility] Work Phone: Summary Purpose Family History No Family History Records Found Mother Name Dates Details FHx: hypertension(V17.49, Z8 2.49) Status:Active Father Name Dates Details FH: ALS (amyotrophic lateral sclerosis)(V17.2, Z82.0) Status:Active Mother Name Dates Details FHx: hypertension(V17.49, Z8 2.49) Status:Active Father Name Dates Details FH: ALS (amyotrophic lateral sclerosis)(V17.2, Z82.0) Status:Active Mother Name Dates Details FHx: hypertension(V17.49, Z8 2.49) Status:Active Father Name Dates Details FH: ALS (amyotrophic lateral sclerosis)(V17.2, Z82.0) Status:Active Grandparent Name Dates Details Family history of malignant neoplasm(V16.9, Z80.9) Status:Active Family history of thyroid di sease(V18.19, Z83.49) Status:Active Mother Name Dates Details FHx: hypertension(V17.49, Z8 2.49) Status:Active Family history of diabetes m ellitus(V18.0, Z83.3) Status:Active Father Name Dates Details Family history of hypertensi on(V17.49, Z82.49) Status:Active FH: ALS (amyotrophic lateral sclerosis)(V17.2, Z82.0) Status:Active Sister Name Dates Details Family history of asthma(V17 .5, Z82.5) Status:Active Family history of migraine h eadaches(V17.2, Z82.0) Status:Active Grandparent Name Dates Details Family history of malignant neoplasm(V16.9, Z80.9) Status:Active Family history of thyroid di sease(V18.19, Z83.49) Status:Active Mother Name Dates Details FHx: hypertension(V17.49, Z8 2.49) Status:Active Family history of diabetes m ellitus(V18.0, Z83.3) Status:Active Father Name Dates Details FH: ALS (amyotrophic lateral sclerosis)(V17.2, Z82.0) Status:Active Family history of hypertensi on(V17.49, Z82.49) Status:Active Sister Name Dates Details Family history of asthma(V17 .5, Z82.5) Status:Active Family history of migraine h eadaches(V17.2, Z82.0) Status:Active Unknown Family Member Name Dates Details FHx: hypertension: Mother(V1 7.49, Z82.49) Status:Active FH: ALS (amyotrophic lateral sclerosis): Father(V17.2, Z82.0) Status:Active Family history of diabetes m ellitus: Mother(V18.0, Z83.3) Status:Active Family history of hypertensi on: Father(V17.49, Z82.49) Status:Active Family history of malignant neoplasm: Grandparent(V16.9, Z80.9) Status:Active Family history of thyroid di sease: Grandparent(V18.19, Z83.49) Status:Active Family history of asthma: Si ster(V17.5, Z82.5) Status:Active Family history of migraine h eadaches: Sister(V17.2, Z82.0) Status:Active Unknown Family Member Name Dates Details FHx: hypertension: Mother(V1 7.49, Z82.49) Status:Active FH: ALS (amyotrophic lateral sclerosis): Father(V17.2, Z82.0) Status:Active Family history of diabetes m ellitus: Mother(V18.0, Z83.3) Status:Active Family history of hypertensi on: Father(V17.49, Z82.49) Status:Active Family history of malignant neoplasm: Grandparent(V16.9, Z80.9) Status:Active Family history of thyroid di sease: Grandparent(V18.19, Z83.49) Status:Active Family history of asthma: Si ster(V17.5, Z82.5) Status:Active Family history of migraine h eadaches: Sister(V17.2, Z82.0) Status:Active Unknown Family Member Name Dates Details FHx: hypertension: Mother(V1 7.49, Z82.49) Status:Active FH: ALS (amyotrophic lateral sclerosis): Father(V17.2, Z82.0) Status:Active Family history of diabetes m ellitus: Mother(V18.0, Z83.3) Status:Active Family history of hypertensi on: Father(V17.49, Z82.49) Status:Active Family history of malignant neoplasm: Grandparent(V16.9, Z80.9) Status:Active Family history of thyroid di sease: Grandparent(V18.19, Z83.49) Status:Active Family history of asthma: Si ster(V17.5, Z82.5) Status:Active Family history of migraine h eadaches: Sister(V17.2, Z82.0) Status:Active Unknown Family Member Name Dates Details FHx: hypertension: Mother(V1 7.49, Z82.49) Status:Active FH: ALS (amyotrophic lateral sclerosis): Father(V17.2, Z82.0) Status:Active Family history of diabetes m ellitus: Mother(V18.0, Z83.3) Status:Active Family history of hypertensi on: Father(V17.49, Z82.49) Status:Active Family history of malignant neoplasm: Grandparent(V16.9, Z80.9) Status:Active Family history of thyroid di sease: Grandparent(V18.19, Z83.49) Status:Active Family history of asthma: Si ster(V17.5, Z82.5) Status:Active Family history of migraine h eadaches: Sister(V17.2, Z82.0) Status:Active Unknown Family Member Name Dates Details FHx: hypertension: Mother(V1 7.49, Z82.49) Status:Active FH: ALS (amyotrophic lateral sclerosis): Father(V17.2, Z82.0) Status:Active Family history of diabetes m ellitus: Mother(V18.0, Z83.3) Status:Active Family history of hypertensi on: Father(V17.49, Z82.49) Status:Active Family history of malignant neoplasm: Grandparent(V16.9, Z80.9) Status:Active Family history of thyroid di sease: Grandparent(V18.19, Z83.49) Status:Active Family history of asthma: Si ster(V17.5, Z82.5) Status:Active Family history of migraine h eadaches: Sister(V17.2, Z82.0) Status:Active Unknown Family Member Name Dates Details FHx: hypertension: Mother(V1 7.49, Z82.49) Status:Active FH: ALS (amyotrophic lateral sclerosis): Father(V17.2, Z82.0) Status:Active Family history of diabetes m ellitus: Mother(V18.0, Z83.3) Status:Active Family history of hypertensi on: Father(V17.49, Z82.49) Status:Active Family history of malignant neoplasm: Grandparent(V16.9, Z80.9) Status:Active Family history of thyroid di sease: Grandparent(V18.19, Z83.49) Status:Active Family history of asthma: Si ster(V17.5, Z82.5) Status:Active Family history of migraine h eadaches: Sister(V17.2, Z82.0) Status:Active Unknown Family Member Name Dates Details FHx: hypertension: Mother(V1 7.49, Z82.49) Status:Active FH: ALS (amyotrophic lateral sclerosis): Father(V17.2, Z82.0) Status:Active Family history of diabetes m ellitus: Mother(V18.0, Z83.3) Status:Active Family history of hypertensi on: Father(V17.49, Z82.49) Status:Active Family history of malignant neoplasm: Grandparent(V16.9, Z80.9) Status:Active Family history of thyroid di sease: Grandparent(V18.19, Z83.49) Status:Active Family history of asthma: Si ster(V17.5, Z82.5) Status:Active Family history of migraine h eadaches: Sister(V17.2, Z82.0) Status:Active Unknown Family Member Name Dates Details FHx: hypertension: Mother(V1 7.49, Z82.49) Status:Active FH: ALS (amyotrophic lateral sclerosis): Father(V17.2, Z82.0) Status:Active Family history of diabetes m ellitus: Mother(V18.0, Z83.3) Status:Active Family history of hypertensi on: Father(V17.49, Z82.49) Status:Active Family history of malignant neoplasm: Grandparent(V16.9, Z80.9) Status:Active Family history of thyroid di sease: Grandparent(V18.19, Z83.49) Status:Active Family history of asthma: Si ster(V17.5, Z82.5) Status:Active Family history of migraine h eadaches: Sister(V17.2, Z82.0) Status:Active Unknown Family Member Name Dates Details Family history of diabetes m ellitus: Mother(V18.0, Z83.3) Status:Active Family history of hypertensi on: Father(V17.49, Z82.49) Status:Active Family history of malignant neoplasm: Grandparent(V16.9, Z80.9) Status:Active Family history of thyroid di sease: Grandparent(V18.19, Z83.49) Status:Active Family history of asthma: Si ster(V17.5, Z82.5) Status:Active Family history of migraine h eadaches: Sister(V17.2, Z82.0) Status:Active FH: ALS (amyotrophic lateral sclerosis): Father(V17.2, Z82.0) Status:Active FHx: hypertension: Mother(V1 7.49, Z82.49) Status:Active Unknown Family Member Name Dates Details FHx: hypertension: Mother(V1 7.49, Z82.49) Status:Active FH: ALS (amyotrophic lateral sclerosis): Father(V17.2, Z82.0) Status:Active Family history of diabetes m ellitus: Mother(V18.0, Z83.3) Status:Active Family history of hypertensi on: Father(V17.49, Z82.49) Status:Active Family history of malignant neoplasm: Grandparent(V16.9, Z80.9) Status:Active Family history of thyroid di sease: Grandparent(V18.19, Z83.49) Status:Active Family history of asthma: Si ster(V17.5, Z82.5) Status:Active Family history of migraine h eadaches: Sister(V17.2, Z82.0) Status:Active Unknown Family Member Name Dates Details FHx: hypertension: Mother(V1 7.49, Z82.49) Status:Active FH: ALS (amyotrophic lateral sclerosis): Father(V17.2, Z82.0) Status:Active Family history of diabetes m ellitus: Mother(V18.0, Z83.3) Status:Active Family history of hypertensi on: Father(V17.49, Z82.49) Status:Active Family history of malignant neoplasm: Grandparent(V16.9, Z80.9) Status:Active Family history of thyroid di sease: Grandparent(V18.19, Z83.49) Status:Active Family history of asthma: Si ster(V17.5, Z82.5) Status:Active Family history of migraine h eadaches: Sister(V17.2, Z82.0) Status:Active Unknown Family Member Name Dates Details FHx: hypertension: Mother(V1 7.49, Z82.49) Status:Active FH: ALS (amyotrophic lateral sclerosis): Father(V17.2, Z82.0) Status:Active Family history of diabetes m ellitus: Mother(V18.0, Z83.3) Status:Active Family history of hypertensi on: Father(V17.49, Z82.49) Status:Active Family history of malignant neoplasm: Grandparent(V16.9, Z80.9) Status:Active Family history of thyroid di sease: Grandparent(V18.19, Z83.49) Status:Active Family history of asthma: Si ster(V17.5, Z82.5) Status:Active Family history of migraine h eadaches: Sister(V17.2, Z82.0) Status:Active Unknown Family Member Name Dates Details FHx: hypertension: Mother(V1 7.49, Z82.49) Status:Active FH: ALS (amyotrophic lateral sclerosis): Father(V17.2, Z82.0) Status:Active Family history of diabetes m ellitus: Mother(V18.0, Z83.3) Status:Active Family history of hypertensi on: Father(V17.49, Z82.49) Status:Active Family history of malignant neoplasm: Grandparent(V16.9, Z80.9) Status:Active Family history of thyroid di sease: Grandparent(V18.19, Z83.49) Status:Active Family history of asthma: Si ster(V17.5, Z82.5) Status:Active Family history of migraine h eadaches: Sister(V17.2, Z82.0) Status:Active Unknown Family Member Name Dates Details FHx: hypertension: Mother(V1 7.49, Z82.49) Status:Active FH: ALS (amyotrophic lateral sclerosis): Father(V17.2, Z82.0) Status:Active Family history of diabetes m ellitus: Mother(V18.0, Z83.3) Status:Active Family history of hypertensi on: Father(V17.49, Z82.49) Status:Active Family history of malignant neoplasm: Grandparent(V16.9, Z80.9) Status:Active Family history of thyroid di sease: Grandparent(V18.19, Z83.49) Status:Active Family history of asthma: Si ster(V17.5, Z82.5) Status:Active Family history of migraine h eadaches: Sister(V17.2, Z82.0) Status:Active Unknown Family Member Name Dates Details FHx: hypertension: Mother(V1 7.49, Z82.49) Status:Active FH: ALS (amyotrophic lateral sclerosis): Father(V17.2, Z82.0) Status:Active Family history of diabetes m ellitus: Mother(V18.0, Z83.3) Status:Active Family history of hypertensi on: Father(V17.49, Z82.49) Status:Active Family history of malignant neoplasm: Grandparent(V16.9, Z80.9) Status:Active Family history of thyroid di sease: Grandparent(V18.19, Z83.49) Status:Active Family history of asthma: Si ster(V17.5, Z82.5) Status:Active Family history of migraine h eadaches: Sister(V17.2, Z82.0) Status:Active Unknown Family Member Name Dates Details FHx: hypertension: Mother(V1 7.49, Z82.49) Status:Active FH: ALS (amyotrophic lateral sclerosis): Father(V17.2, Z82.0) Status:Active Family history of diabetes m ellitus: Mother(V18.0, Z83.3) Status:Active Family history of hypertensi on: Father(V17.49, Z82.49) Status:Active Family history of malignant neoplasm: Grandparent(V16.9, Z80.9) Status:Active Family history of thyroid di sease: Grandparent(V18.19, Z83.49) Status:Active Family history of asthma: Si ster(V17.5, Z82.5) Status:Active Family history of migraine h eadaches: Sister(V17.2, Z82.0) Status:Active Unknown Family Member Name Dates Details FHx: hypertension: Mother(V1 7.49, Z82.49) Status:Active FH: ALS (amyotrophic lateral sclerosis): Father(V17.2, Z82.0) Status:Active Family history of diabetes m ellitus: Mother(V18.0, Z83.3) Status:Active Family history of hypertensi on: Father(V17.49, Z82.49) Status:Active Family history of malignant neoplasm: Grandparent(V16.9, Z80.9) Status:Active Family history of thyroid di sease: Grandparent(V18.19, Z83.49) Status:Active Family history of asthma: Si ster(V17.5, Z82.5) Status:Active Family history of migraine h eadaches: Sister(V17.2, Z82.0) Status:Active Unknown Family Member Name Dates Details FHx: hypertension: Mother(V1 7.49, Z82.49) Status:Active FH: ALS (amyotrophic lateral sclerosis): Father(V17.2, Z82.0) Status:Active Family history of migraine h eadaches: Sister(V17.2, Z82.0) Status:Active Family history of asthma: Si ster(V17.5, Z82.5) Status:Active Family history of thyroid di sease: Grandparent(V18.19, Z83.49) Status:Active Family history of malignant neoplasm: Grandparent(V16.9, Z80.9) Status:Active Family history of hypertensi on: Father(V17.49, Z82.49) Status:Active Family history of diabetes m ellitus: Mother(V18.0, Z83.3) Status:Active Unknown Family Member Name Dates Details FHx: hypertension: Mother(V1 7.49, Z82.49) Status:Active FH: ALS (amyotrophic lateral sclerosis): Father(V17.2, Z82.0) Status:Active Family history of diabetes m ellitus: Mother(V18.0, Z83.3) Status:Active Family history of hypertensi on: Father(V17.49, Z82.49) Status:Active Family history of malignant neoplasm: Grandparent(V16.9, Z80.9) Status:Active Family history of thyroid di sease: Grandparent(V18.19, Z83.49) Status:Active Family history of asthma: Si ster(V17.5, Z82.5) Status:Active Family history of migraine h eadaches: Sister(V17.2, Z82.0) Status:Active Unknown Family Member Name Dates Details FHx: hypertension: Mother(V1 7.49, Z82.49) Status:Active FH: ALS (amyotrophic lateral sclerosis): Father(V17.2, Z82.0) Status:Active Family history of diabetes m ellitus: Mother(V18.0, Z83.3) Status:Active Family history of hypertensi on: Father(V17.49, Z82.49) Status:Active Family history of malignant neoplasm: Grandparent(V16.9, Z80.9) Status:Active Family history of thyroid di sease: Grandparent(V18.19, Z83.49) Status:Active Family history of asthma: Si ster(V17.5, Z82.5) Status:Active Family history of migraine h eadaches: Sister(V17.2, Z82.0) Status:Active Unknown Family Member Name Dates Details Family history of diabetes m ellitus: Mother(V18.0, Z83.3) Status:Active Family history of hypertensi on: Father(V17.49, Z82.49) Status:Active Family history of malignant neoplasm: Grandparent(V16.9, Z80.9) Status:Active Family history of thyroid di sease: Grandparent(V18.19, Z83.49) Status:Active Family history of asthma: Si ster(V17.5, Z82.5) Status:Active Family history of migraine h eadaches: Sister(V17.2, Z82.0) Status:Active FH: ALS (amyotrophic lateral sclerosis): Father(V17.2, Z82.0) Status:Active FHx: hypertension: Mother(V1 7.49, Z82.49) Status:Active Unknown Family Member Name Dates Details Family history of migraine h eadaches: Sister(V17.2, Z82.0) Status:Active Family history of asthma: Si ster(V17.5, Z82.5) Status:Active Family history of thyroid di sease: Grandparent(V18.19, Z83.49) Status:Active Family history of malignant neoplasm: Grandparent(V16.9, Z80.9) Status:Active Family history of hypertensi on: Father(V17.49, Z82.49) Status:Active Family history of diabetes m ellitus: Mother(V18.0, Z83.3) Status:Active FH: ALS (amyotrophic lateral sclerosis): Father(V17.2, Z82.0) Status:Active FHx: hypertension: Mother(V1 7.49, Z82.49) Status:Active Unknown Family Member Name Dates Details Family history of diabetes m ellitus: Mother(V18.0, Z83.3) Status:Active Family history of hypertensi on: Father(V17.49, Z82.49) Status:Active Family history of malignant neoplasm: Grandparent(V16.9, Z80.9) Status:Active Family history of thyroid di sease: Grandparent(V18.19, Z83.49) Status:Active Family history of asthma: Si ster(V17.5, Z82.5) Status:Active Family history of migraine h eadaches: Sister(V17.2, Z82.0) Status:Active FH: ALS (amyotrophic lateral sclerosis): Father(V17.2, Z82.0) Status:Active FHx: hypertension: Mother(V1 7.49, Z82.49) Status:Active Unknown Family Member Name Dates Details FHx: hypertension: Mother(V1 7.49, Z82.49) Status:Active FH: ALS (amyotrophic lateral sclerosis): Father(V17.2, Z82.0) Status:Active Family history of diabetes m ellitus: Mother(V18.0, Z83.3) Status:Active Family history of hypertensi on: Father(V17.49, Z82.49) Status:Active Family history of malignant neoplasm: Grandparent(V16.9, Z80.9) Status:Active Family history of thyroid di sease: Grandparent(V18.19, Z83.49) Status:Active Family history of asthma: Si ster(V17.5, Z82.5) Status:Active Family history of migraine h eadaches: Sister(V17.2, Z82.0) Status:Active Unknown Family Member Name Dates Details FHx: hypertension: Mother(V1 7.49, Z82.49) Status:Active FH: ALS (amyotrophic lateral sclerosis): Father(V17.2, Z82.0) Status:Active Family history of diabetes m ellitus: Mother(V18.0, Z83.3) Status:Active Family history of hypertensi on: Father(V17.49, Z82.49) Status:Active Family history of malignant neoplasm: Grandparent(V16.9, Z80.9) Status:Active Family history of thyroid di sease: Grandparent(V18.19, Z83.49) Status:Active Family history of asthma: Si ster(V17.5, Z82.5) Status:Active Family history of migraine h eadaches: Sister(V17.2, Z82.0) Status:Active Unknown Family Member Name Dates Details FHx: hypertension: Mother(V1 7.49, Z82.49) Status:Active FH: ALS (amyotrophic lateral sclerosis): Father(V17.2, Z82.0) Status:Active Family history of diabetes m ellitus: Mother(V18.0, Z83.3) Status:Active Family history of hypertensi on: Father(V17.49, Z82.49) Status:Active Family history of malignant neoplasm: Grandparent(V16.9, Z80.9) Status:Active Family history of thyroid di sease: Grandparent(V18.19, Z83.49) Status:Active Family history of asthma: Si ster(V17.5, Z82.5) Status:Active Family history of migraine h eadaches: Sister(V17.2, Z82.0) Status:Active Unknown Family Member Name Dates Details FHx: hypertension: Mother(V1 7.49, Z82.49) Status:Active FH: ALS (amyotrophic lateral sclerosis): Father(V17.2, Z82.0) Status:Active Family history of diabetes m ellitus: Mother(V18.0, Z83.3) Status:Active Family history of hypertensi on: Father(V17.49, Z82.49) Status:Active Family history of malignant neoplasm: Grandparent(V16.9, Z80.9) Status:Active Family history of thyroid di sease: Grandparent(V18.19, Z83.49) Status:Active Family history of asthma: Si ster(V17.5, Z82.5) Status:Active Family history of migraine h eadaches: Sister(V17.2, Z82.0) Status:Active Unknown Family Member Name Dates Details FHx: hypertension: Mother(V1 7.49, Z82.49) Status:Active FH: ALS (amyotrophic lateral sclerosis): Father(V17.2, Z82.0) Status:Active Family history of diabetes m ellitus: Mother(V18.0, Z83.3) Status:Active Family history of hypertensi on: Father(V17.49, Z82.49) Status:Active Family history of malignant neoplasm: Grandparent(V16.9, Z80.9) Status:Active Family history of thyroid di sease: Grandparent(V18.19, Z83.49) Status:Active Family history of asthma: Si ster(V17.5, Z82.5) Status:Active Family history of migraine h eadaches: Sister(V17.2, Z82.0) Status:Active Unknown Family Member Name Dates Details FHx: hypertension: Mother(V1 7.49, Z82.49) Status:Active FH: ALS (amyotrophic lateral sclerosis): Father(V17.2, Z82.0) Status:Active Family history of diabetes m ellitus: Mother(V18.0, Z83.3) Status:Active Family history of hypertensi on: Father(V17.49, Z82.49) Status:Active Family history of malignant neoplasm: Grandparent(V16.9, Z80.9) Status:Active Family history of thyroid di sease: Grandparent(V18.19, Z83.49) Status:Active Family history of asthma: Si ster(V17.5, Z82.5) Status:Active Family history of migraine h eadaches: Sister(V17.2, Z82.0) Status:Active Unknown Family Member Name Dates Details FHx: hypertension: Mother(V1 7.49, Z82.49) Status:Active FH: ALS (amyotrophic lateral sclerosis): Father(V17.2, Z82.0) Status:Active Family history of diabetes m ellitus: Mother(V18.0, Z83.3) Status:Active Family history of hypertensi on: Father(V17.49, Z82.49) Status:Active Family history of malignant neoplasm: Grandparent(V16.9, Z80.9) Status:Active Family history of thyroid di sease: Grandparent(V18.19, Z83.49) Status:Active Family history of asthma: Si ster(V17.5, Z82.5) Status:Active Family history of migraine h eadaches: Sister(V17.2, Z82.0) Status:Active Unknown Family Member Name Dates Details FHx: hypertension: Mother(V1 7.49, Z82.49) Status:Active FH: ALS (amyotrophic lateral sclerosis): Father(V17.2, Z82.0) Status:Active Family history of diabetes m ellitus: Mother(V18.0, Z83.3) Status:Active Family history of hypertensi on: Father(V17.49, Z82.49) Status:Active Family history of malignant neoplasm: Grandparent(V16.9, Z80.9) Status:Active Family history of thyroid di sease: Grandparent(V18.19, Z83.49) Status:Active Family history of asthma: Si ster(V17.5, Z82.5) Status:Active Family history of migraine h eadaches: Sister(V17.2, Z82.0) Status:Active Unknown Family Member Name Dates Details FHx: hypertension: Mother(V1 7.49, Z82.49) Status:Active FH: ALS (amyotrophic lateral sclerosis): Father(V17.2, Z82.0) Status:Active Family history of diabetes m ellitus: Mother(V18.0, Z83.3) Status:Active Family history of hypertensi on: Father(V17.49, Z82.49) Status:Active Family history of malignant neoplasm: Grandparent(V16.9, Z80.9) Status:Active Family history of thyroid di sease: Grandparent(V18.19, Z83.49) Status:Active Family history of asthma: Si ster(V17.5, Z82.5) Status:Active Family history of migraine h eadaches: Sister(V17.2, Z82.0) Status:Active Relationship Condition Age at Onset Recorded Date/T ashtyn father History of agent [place] exposure Unknown Advance Directives No Advanced Directives Records FoundDocuments on File Type Date Recorded 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 This note was generated by using [employer] software. It may contain errors in wording, punctuate, or spelling. * She is here today for her 6-month checkup. When she arrived her blood pressure was quite a bit generous. This is usually atypical for her. We discussed getting a home monitor and doing some blood pressure readings when she has the opportunity to sit and relax for about 20 minutes. I did recheck herblood pressure after she sat for a while and it did come down a few points. She understands that also blood pressure can go up with weight gain. We did conduct a review of systems and we also reviewed her laboratory test results from her work environment. Her blood glucose was 109 that day. When wechecked it it was 113 and her hemoglobin A1c was 6.1. We discussed the notion of a prediabetic state and ways to calvin off diabetes in the future. I will give her a handout that talks about preventionof diabetes. Her cholesterol is also up slightly but I would not recommend medication at this time but instead lifestyle modifications. She also has received her COVID-19 vaccination series and we are giving her the flu vaccine today. She states that although she continues to have day-to-day stresswith her work environment she is feeling much more calm. She has a wonderful grandbaby and that keeps her happy and she is learn how to do some relaxation techniques at work. She states has been working well and we will continue with the Escitalopram. Goldstein is complaint today is that she is very tired and also often times very sleepy. We talked about doing tired labs and I am going to do a nocturnal pulse oximetry screen to make sure she does not have some hint of some sleeping problem. We a lso discussed her issues with her foot pain and she is seeing a special education bus driver. She states that on occasion she gets numbness in the left groin region but it is intermittent. We talked about a pinched nerve . When she returns we can discuss whether this is something that is lingering or getting worseas we would want to embark on a work-up. * Pt is here today for a 6 month check up, Review labs. This note was generated by using [employer] software. It may contain errors in wording, punctuate, or spelling. * She is here today for her 6-month checkup. When she arrived her blood pressure was quite a bit generous. This is usually atypical for her. We discussed getting a home monitor and doing some blood pressure readings when she has the opportunity to sit and relax for about 20 minutes. I did recheck herblood pressure after she sat for a while and it did come down a few points. She understands that also blood pressure can go up with weight gain. We did conduct a review of systems and we also reviewed her laboratory test results from her work environment. Her blood glucose was 109 that day. When wechecked it it was 113 and her hemoglobin A1c was 6.1. We discussed the notion of a prediabetic state and ways to calvin off diabetes in the future. I will give her a handout that talks about preventionof diabetes. Her cholesterol is also up slightly but I would not recommend medication at this time but instead lifestyle modifications. She also has received her COVID-19 vaccination series and we are giving her the flu vaccine today. She states that although she continues to have day-to-day stresswith her work environment she is feeling much more calm. She has a wonderful grandbaby and that keeps her happy and she is learn how to do some relaxation techniques at work. She states has been working well and we will continue with the Escitalopram. Goldstein is complaint today is that she is very tired and also often times very sleepy. We talked about doing tired labs and I am going to do a nocturnal pulse oximetry screen to make sure she does not have some hint of some sleeping problem. We a lso discussed her issues with her foot pain and she is seeing a special education bus driver. She states that on occasion she gets numbness in the left groin region but it is intermittent. We talked about a pinched nerve . When she returns we can discuss whether this is something that is lingering or getting worseas we would want to embark on a work-up. * Pt is here today for a follow up on her Labs and PFT. This note was generated by using [employer] software. It may contain errors in wording, punctuate, or spelling. * She is here today for follow-up. The blood pressure that we measured today was closer to the desirable range. She brought in an Om[employer] blood pressure cuff and she is getting some different readings athome. They are variable but some of them are significantly elevated. We talked about the diagnosis of prehypertension and decided not to put her on medication today. We discussed how weight loss could improve her overall condition and we would avoid prescription medicine. We also reviewed her nocturnal pulse oximetry screen and she did have some mild oxygen desaturations. She had 27 events whereby her average oxygen level was 90.2% and she had 12 events that lasted more than 3 minutes. We talked about doing a formal sleep study but we also talked about how weight loss might make this condition resolve entirely. She states she would like to work on the weight loss issues and she knows she can call at any time if things are not going well or if she wants to pursue a formal sleep study. We also reviewed her most recent lab which includes a CBC and thyroid blood test. They came back entirely normal. We did conduct a review of systems and we have decided to see her back in approximately 6 months with laboratory checkup and sooner if any problems. * Pt is here today for a follow up on her Labs and PFT. This note was generated by using [employer] software. It may contain errors in wording, punctuate, or spelling. * She is here today for follow-up. The blood pressure that we measured today was closer to the desirable range. She brought in an Omron blood pressure cuff and she is getting some different readings athome. They are variable but some of them are significantly elevated. We talked about the diagnosis of prehypertension and decided not to put her on medication today. We discussed how weight loss could improve her overall condition and we would avoid prescription medicine. We also reviewed her nocturnal pulse oximetry screen and she did have some mild oxygen desaturations. She had 27 events whereby her average oxygen level was 90.2% and she had 12 events that lasted more than 3 minutes. We talked about doing a formal sleep study but we also talked about how weight loss might make this condition resolve entirely. She states she would like to work on the weight loss issues and she knows she can call at any time if things are not going well or if she wants to pursue a formal sleep study. We also reviewed her most recent lab which includes a CBC and thyroid blood test. They came back entirely normal. We did conduct a review of systems and we have decided to see her back in approximately 6 months with laboratory checkup and sooner if any problems. * Pt is here today for a 6 month check up, Review labs. This note was generated by using [employer] software. It may contain errors in wording, punctuate, or spelling. * She is here today for her routine checkup. Her blood pressure is borderline but close to the desirable range. We commented that her weight has remained stable since her last visit. She is frustrated however with her weight and we talked about the challenges of weight loss and maintaining healthy weight. I have specifically recommended weight watchers as a means to get back on track and also to have the tool box for long-term success. She states she had success with weight watchers in the past and will consider getting back to a meeting. We also conducted a review of systems. Unfortunately shecontinues to feel significant fatigue. She states that when she wakes up in the morning she snooze as the alarm and ultimately she does get up but she just does not feel well rested. We are reminded that she has had a positive test for nocturnal hypoxemia and I do feel that she likely suffers from sleep apnea. We talked about how weight loss could remedy the situation and also help improve her christin rgy levels. She states that her work has been good and her schedule also has improved. She has a delightful time babysitting her grandbaby on Fridays. We talked about exercises. She has had problems with her right foot for 2 years. She has seen more than 1 special education bus driver and has been difficult to get to the root of the problem. When she does weightbearing exercises she has discomfort. She has had also some lower back pain. We talked about assessing that condition and I will be ordering an x-ray. Wetalked about trying physical therapy. She has had no weakness but she states she occasionally gets some tingling down the anterior portion of her left thigh. I told her that if the x-ray is okay and she does not respond well to physical therapy we will take the next step in evaluation which typically includes either a pain clinic consultation or MRI. We also discussed her feelings of feeling downand we decided to increase the dose of her Escitalopram. We also went over the results of lab work and unfortunately her hemoglobin A1c came back at 6.5 this time showing that she is diabetic. We talked about medication and the rationale behind the prescriptions. We also discussed seeing a diabeticeducator. She also understands that weight loss will dramatically improve her condition. We also discussed making sure she sees the wind turbine performance engineer once a year for a dilated diabetic eye examination.I told her to be sure and let them know she is now diabetic. We also discussed doing a diabetic foot exam when she returns next time and we will also check a urine test for microalbumin. We decided that we will see her back in 3 months this time and certainly sooner if she is not doing well. ( It is her left foot and not right foot) * Pt is here today for a 3 month check up, Review labs.. This note was generated by using [employer] software. It may contain errors in wording, punctuate, or spelling. * She is here today for her routine 3-month checkup. She is looking well and her blood pressure is fantastic today. She is also managed to lose several pounds since her last visit and she estimates hasbeen a 20 pound weight loss since November. I am extremely pleased with her progress. She also states that she ended up seeing Dr. Hummel, back winder, after referral from her special education bus driver. She states she had several blood tests and even though her rheumatoid factor came back negative she has been diagnosed as having rheumatoid arthritis and is being treated accordingly. She also states she has been feeling tired. We did conduct a full review of systems. We also went over the results of recent lab work and again I am very pleased with her numbers. Her hemoglobin A1c went down to 6.2 and her kidney function and urine test were normal. I am also very pleased with the improvement in her cholest shell profile and I encouraged her to stay on the medication. Her liver tests were normal. We also did a diabetic foot check today and we talked about protecting the feet and monitoring closely. She states she never goes barefoot. We are providing refills on medications today. We discussed cancer screening and we will be ordering her 52-year-old mammogram to be done in October. We talked about her experience with a cervical polyp and agreed that it would be in her best interest to have future Paps with a patrol captain since she has had a polyp in the past. We will see her back in 6 months and c ertainly sooner if any problems. * Patient is here for yearly exam. Patient does NOT DO self breast exams regularly. LMP 04/15/22 * PT HAS NO CONCERNS AT THIS TIME. * Pt is here today for a 6 month check up, review labs. This note was generated by using [employer] software. It may contain errors in wording, punctuate, or spelling. * She is here today for her 6-month checkup. She is accompanied by her 2 grandchildren. She states she quit her job and is happy being at home to care for them and also doing her own business of makingcandies and desserts. She states she is enjoying life now. She states it gets rather hectic howeverand she is going to try to get into routine exercise. Her blood pressure is excellent today. We didconduct a review of systems. We also went over the results of her recent lab test and her hemoglobin A1c came back looking good at 5.9. We talked about her rheumatoid arthritis. She states that she did not make it to her last appointment with rheumatology and she also decided to stop the methotrexate because she was having several side effects including cold sores or canker sores in her mouth. She states that she is now feeling some joint pain and particularly in her right knee. We talked aboutgoing back to rheumatology and she would like to be referred in the system. In the meantime I did give her a short-term refill on meloxicam we talked about taking concomitant Tylenol and also using one of the topical liniments such as IcyHot or Bengay. I also told her not to take any other NSAIDs with this medication. She also states she has been doing well on her medication for depression andwe are providing refills on several meds. We did not do a lot of lab because I assumed that she would have lab work through her back winder and by the time she sees her new back winder I am sure she will have several labs so we will just continue with hemoglobin A1c and we will also check a urine microalbumin and cholesterol profile just prior to her next visit. * Pt is here today for a 6 month check up, review labs. This note was generated by using [employer] software. It may contain errors in wording, punctuate, or spelling. * She is here today for her 6-month checkup. She is accompanied by her 2 grandchildren. She states she quit her job and is happy being at home to care for them and also doing her own business of makingcandies and desserts. She states she is enjoying life now. She states it gets rather hectic howeverand she is going to try to get into routine exercise. Her blood pressure is excellent today. We didconduct a review of systems. We also went over the results of her recent lab test and her hemoglobin A1c came back looking good at 5.9. We talked about her rheumatoid arthritis. She states that she did not make it to her last appointment with rheumatology and she also decided to stop the methotrexate because she was having several side effects including cold sores or canker sores in her mouth. She states that she is now feeling some joint pain and particularly in her right knee. We talked aboutgoing back to rheumatology and she would like to be referred in the system. In the meantime I did give her a short-term refill on meloxicam we talked about taking concomitant Tylenol and also using one of the topical liniments such as IcyHot or Bengay. I also told her not to take any other NSAIDs with this medication. She also states she has been doing well on her medication for depression andwe are providing refills on several meds. We did not do a lot of lab because I assumed that she would have lab work through her back winder and by the time she sees her new back winder I am sure she will have several labs so we will just continue with hemoglobin A1c and we will also check a urine microalbumin and cholesterol profile just prior to her next visit. New patient. C/O R knee pain. RW, VANESSA* Patient is been seen today for right knee pain. OA varus arthritis. * Onset 3 months * Date of injury-no * Pain- 10/08, 06/08 at night * Pain Meds taken - Tylenol and Meloxicam * Ice/Heat applied -heat * Brace worn - OTC AND WEARS NEEDED * Last Xray- today * Last Injection - NONE * Patient is been seen today for right knee pain. OA varus arthritis. * Onset 3 months * Date of injury-no * Pain- 10/08, 06/08 at night * Pain Meds taken - Tylenol and Meloxicam * Ice/Heat applied -heat * Brace worn - OTC AND WEARS NEEDED * Last Xray- today * Last Injection - NONE NPV in office today for ER follow up for a SBO. Patient was seen at the ED for abdominal pain, nausea/ vomiting. Pt is taking Metamucil tablets every other day.NPV in office today for ER follow up for a SBO. Patient was seen at the ED for abdominal pain, nausea/ vomiting. Pt is taking Metamucil tablets every other day.NPV in office today for ER follow up for a SBO. Patient was seen at the ED for abdominal pain, nausea/ vomiting. Pt is taking Metamucil tablets every other day. Reason for Referral Specialty Diagnoses / Procedures Referred By Contac t Referred To Contact Radiology Diagnoses Plantar fasciitis, bilateral Procedures MR Foot Right Without Contrast Reston, Dionne Sabry, DPM [address] [place] [address] Referral ID Status Reason Start Date Expiration Date V isits Requested Visits Authorized [id number] Pending Review 06/25/2021 06/25/2022 1 1 Specialty Diagnoses / Procedures Referred By Contac t Referred To Contact Radiology Diagnoses Plantar fasciitis, bilateral Procedures MR Foot Left Without Contrast Reston, Dionne Sabry, DPM [address] [place] [address] Referral ID Status Reason Start Date Expiration Date V isits Requested Visits Authorized [id number] Pending Review 06/25/2021 06/25/2022 1 1 Specialty Diagnoses / Procedures Referred By Contac t Referred To Contact Radiology Diagnoses Plantar fasciitis of left foot Procedures MR Foot Left Without Contrast Reston, Dionne Sabry, DPM [address] [place] [address] [phone] Referral ID Status Reason Start Date Expiration Date V isits Requested Visits Authorized [id number] New Request 01/21/2022 01/21/2023 1 1 Specialty Diagnoses / Procedures Referred By Contac t Referred To Contact Radiology Diagnoses Chronic pain of right knee Procedures XR knee right 1-2 views Erica Sanford, DO [address] [facility] [place] [address] Referral ID Status Reason Start Date Expiration Date Visits Requested Visits Authorized [id number] Authorized Perform Procedure 01/07/2023 07/06/2023 1 1 Specialty Diagnoses / Procedures Referred By Contac t Referred To Contact Orthopaedic Surgery / Orthopedic Surgery Diagnoses Chronic pain of right knee Erica Sanford, DO [address] [facility] [place] [address] Referral ID Status Reason Start Date Expiration Date Visits Requested Visits Authorized [id number] Authorized Specialty Services Required 01/07/2023 07/06/2023 1 1 Specialty Diagnoses / Procedures Referred By Contac t Referred To Contact Radiology Diagnoses Encounter for screening mammogram for malignant neoplasm of breast Procedures BI mammo bilateral screening tomosynthesis Erica Sanford DO [address] [facility] [place] [address] Referral ID Status Reason Start Date Expiration Date Visits Requested Visits Authorized [id number] Authorized Perform Procedure 05/30/2023 11/26/2023 1 1 Specialty Diagnoses / Procedures Referred By Contac t Referred To Contact Primary Care Procedures Follow Up In Primary Care Erica Sanford DO [address] [facility] [address] Referral ID Status Reason Start Date Expiration Date V isits Requested Visits Authorized [id number] Authorized 05/30/2023 11/26/2023 1 1 Specialty Diagnoses / Procedures Referred By Contac t Referred To Contact Rheumatology Diagnoses Polyarthropathy Procedures ID OFFICE/OUTPATIENT NEW HIGH MDM 60-74 MINUTES Erica Sanford DO [address] [facility] [place] [address] Referral ID Status Reason Start Date Expiration Date Visits Requested Visits Authorized [id number] Authorized Specialty Services Required 05/30/2023 11/26/2023 1 1 Specialty Diagnoses / Procedures Referred By Gurwinder rey Referred To Contact Occupational Therapy Diagnoses Dorsalgia Bilateral chronic knee pain Abnormal reflexes of lower extremity Wrist pain, left Primary osteoarthritis of both wrists Primary osteoarthritis of both knees Primary osteoarthritis of both hands Primary osteoarthritis of both feet Osteoarthritis of carpometacarpal (CMC) joint of both thumbs Lumbar degenerative disc disease 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) History of rheumatoid arthritis Fatigue, unspecified type Family history of rheumatoid arthritis Hepatomegaly Hepatic steatosis Xander Nunez Jr., DO [address] [place] [address] Referral ID Status Reason Start Date Expiration Date V isits Requested Visits Authorized [id number] New Request 11/17/2023 12/11/2024 1 1 Specialty Diagnoses / Procedures Referred By Gurwinder rey Referred To Contact Physical Therapy Diagnoses Dorsalgia Bilateral chronic knee pain Abnormal reflexes of lower extremity Wrist pain, left Primary osteoarthritis of both wrists Primary osteoarthritis of both knees Primary osteoarthritis of both hands Primary osteoarthritis of both feet Osteoarthritis of carpometacarpal (CMC) joint of both thumbs Lumbar degenerative disc disease Disorder of bone and cartilage FDC current use of non-steroidal anti-inflammatories (NSAID) History of rheumatoid arthritis Fatigue, unspecified type Family history of rheumatoid arthritis Hepatomegaly Hepatic steatosis Xander Nunez Jr., DO [address] [place] [address] Referral ID Status Reason Start Date Expiration Date V isits Requested Visits Authorized [id number] New Request 11/17/2023 12/11/2024 1 1 Scheduling Instructions . Specialty Diagnoses / Procedures Referred By Gurwinder rey Referred To Contact Radiology Diagnoses Encounter for screening mammogram for malignant neoplasm of breast Procedures BI mammo bilateral screening tomosynthesis Erica Sanford, DO [address] [facility] [address] [place] [address] Referral ID Status Reason Start Date Expiration Date Visits Requested Visits Authorized [id number] Authorized Perform Procedure 07/01/2024 07/01/2025 1 1 Specialty Diagnoses / Procedures Referred By Contac t Referred To Contact Primary Care Procedures Follow Up In Primary Care Erica Sanford DO [address] [address] Referral ID Status Reason Start Date Expiration Date V isits Requested Visits Authorized [id number] Authorized 07/01/2024 07/01/2025 1 1 Specialty Diagnoses / Procedures Referred By Contac t Referred To Contact Diagnoses Type 2 diabetes mellitus with hyperglycemia, without long-term current use of insulin Shelia Sanfordrambo Mcwilliams, [address] [phone] Referral ID Status Reason Start Date Expiration Date V isits Requested Visits Authorized [id number] Pending Review 07/01/2024 07/01/2025 1 1 Chief Complaint and Reason for Visit Chief Complaint Admit Date Post Menopausal Bleeding March 10, 2025 3:14pm Reason for Visit Admit Date Fatigue March 10, 2025 3:14 pm Post-menopausal bleeding March 10, 2025 3:14pm Additional Source Comments INFORMATION SOURCE (unrecogn ized section and content) DATE CREATED AUTHOR 04/19/2018 [facility] DATE CREATED AUTHOR AUTHOR'S ORGANIZ ATION 06/30/2019 Merged with [facility] DATE CREATED AUTHOR AUTHOR'S ORGANIZ ATION 04/18/2022 [facility] DATE CREATED AUTHOR AUTHOR'S ORGANIZ ATION 11/30/2022 [facility] DATE CREATED AUTHOR AUTHOR'S ORGANIZ ATION 02/22/2023 [facility] DATE CREATED AUTHOR AUTHOR'S ORGANIZ ATION 04/24/2023 [facility] DATE CREATED AUTHOR AUTHOR'S ORGANIZ ATION 05/17/2023 Merged with [facility] DATE CREATED AUTHOR AUTHOR'S ORGANIZ ATION 06/07/2023 [facility] DATE CREATED AUTHOR AUTHOR'S ORGANIZ ATION 12/09/2023 [facility] DATE CREATED AUTHOR AUTHOR'S ORGANIZ ATION 07/18/2024 [facility] DATE CREATED AUTHOR AUTHOR'S ORGANIZ ATION 07/25/2024 [facility] DATE CREATED AUTHOR AUTHOR'S ORGANIZ ATION 12/24/2024 [facility] DATE CREATED AUTHOR AUTHOR'S ORGANIZ ATION 12/26/2024 [facility] DATE CREATED AUTHOR AUTHOR'S ORGANIZ ATION 04/01/2025 [facility] Reason for Visit (unrecogniz ed section and content) Reason Comments Foot Pain Bilateral heel pain. Reason Comments Follow-up bilateral plantar fa sciits - pain has changed- now having burning and pain in R ankle Reason Comments Follow-up Follow up physical t herapy bilateral plantar fascitis. Said it is about 95% better. Has one spot tender to the touch on her left foot. Specialty Diagnoses / Procedures Referred By Gurwinder rey Referred To Contact Nutrition Diagnoses Uncontrolled type 2 diabetes mellitus with hyperglycemia (HCC) Erica Sanford DO [address] [place] [address] [facility] [address] [place] [phone] Referral ID Status Reason Start Date Expiration Date V isits Requested Visits Authorized [id number] Pending Review 01/03/2022 01/03/2023 7 7 Reason Comments Follow-up Bilateral plantar fa sciitis - pt finished with the PT and was doing well until about a month and a half ago and the pain has come back - pt states the pain is on the top lateral side of the foot - tender to the touch Reason Comments Results Patient is here to g o over MRI results. She is out of meloxicam. Reason Comments Follow-up Wants to discuss ref erral for R knee. Has had c/o of discomfort x 2-3 months. Reason Onset Date Comments Medication Refill 02/12/2023 Reason Comments 6 MO F/U Reason Comments New Patient Patient was referred by Dr. Sanford for severe joint pain. Patient states she previously see Dr. Serrato and a Doll Maker in [place]. Patient states she has joint pain, worse in right knee left wrist. Patient states her morning stiffness for 1 hour. Reason Comments Follow-up 6 mos Bladder Problem Diarrhea Specialty Diagnoses / Procedures Referred By Gurwinder rey Referred To Contact Primary Care Procedures Follow Up In Primary Care Erica Sanford DO [address] [facility] [place] [address] Referral ID Status Reason Start Date Expiration Date Visits Re quested Visits Authorized [id number] Closed 05/30/2023 11/26/2023 1 1 Reason Comments Follow-up Patient is here for 3 week Follow-up. Patient states has been feeling better. States while sleeping does not have hardly any pain. Reason Comments Follow-up 4 week follow up Reason Comments Follow-up 3 MO [facility] Specialty Diagnoses / Procedures Referred By Gurwinder rey Referred To Contact Primary Care Procedures Follow Up In Primary Care Chen Sanfordabigail Mcwilliams, DO [address] [address] Phone: tel: fax: Referral ID Status Reason Start Date Expiration Date V isits Requested Visits Authorized [id number] Authorized 09/23/2024 09/23/2025 1 1 Care Teams (unrecognized sec tion and content) Check Processing Clerk Relationship Specialty Start Date End Date Erica Parker, DO [address] [id number] PCP - General Internal Medicine 04/16/21 Check Processing Clerk Relationship Specialty Start Date End Date Chen Sanfordabigail Parker, DO [address] [place] [address] PCP - General Internal Medicine 04/16/21 Check Processing Clerk Relationship Specialty Start Date End Date Erica Parker, DO [address] [place] [address] PCP - General Internal Medicine 04/16/21 Check Processing Clerk Relationship Specialty Start Date End Date Erica Parker, DO [address] [place] [address] PCP - General Internal Medicine 04/16/21 Check Processing Clerk Relationship Specialty Start Date End Date Erica Sanford, DO [address] [place] [address] PCP - General Internal Medicine 04/16/21 Check Processing Clerk Relationship Specialty Start Date End Date Erica Sanford DO [address] [place] [address] PCP - General Internal Medicine 04/16/21 Check Processing Clerk Relationship Specialty Start Date End Date Erica Sanford DO [address] [id number] PCP - General Internal Medicine 04/16/21 Check Processing Clerk Relationship Specialty Start Date End Date Erica Sanford DO [address] [id number] PCP - General Internal Medicine 04/16/21 Check Processing Clerk Relationship Specialty Start Date End Date Erica Sanford DO [address] [id number] PCP - General Internal Medicine 04/16/21 Check Processing Clerk Relationship Specialty Start Date End Date Erica Sanford DO [address] [place] [address] PCP - General 03/23/20 Check Processing Clerk Relationship Specialty Start Date End Date Erica Sanford DO [address] [place], [place] [id number] PCP - General Internal Medicine 04/16/21 Check Processing Clerk Relationship Specialty Start Date End Date Erica Sanford DO [address] [place], [place] [id number] PCP - General 03/23/20 Check Processing Clerk Relationship Specialty Start Date End Date Erica Sanford DO [address] [place] [address] PCP - General 03/23/20 Check Processing Clerk Relationship Specialty Start Date End Date Erica Sanford DO [address] [id number] PCP - General Internal Medicine 11/17/23 Check Processing Clerk Relationship Specialty Start Date End Date Erica Sanford DO [address] [place] [address] PCP - General 03/23/20 Check Processing Clerk Relationship Specialty Start Date End Date Erica Sanford DO [address] [id number] PCP - General Internal Medicine 11/17/23 Check Processing Clerk Relationship Specialty Start Date End Date Erica Sanford DO [address] [address] PCP - General Internal Medicine 07/01/24 Check Processing Clerk Relationship Specialty Start Date End Date Erica Sanford DO [address] [address] PCP - General Internal Medicine 07/01/24 Check Processing Clerk Relationship Specialty Start Date End Date Erica Sanford DO [address] [address] PCP - General Internal Medicine 07/01/24 Check Processing Clerk Relationship Specialty Start Date End Date Erica Sanford DO [address] [address] PCP - General Internal Medicine 07/01/24 Team Status: Active Member Role Status Dates Dr. Erica Sanford MD Primary Care Provider Active Team Status: Inactive Member Role Status Dates Dr. Erica Sanford MD Primary Care Provider Active Start: March 10, 2025 End: March 10, 2025 Dr. Erica Sanford MD Referring Provider Active Start: March 10, 2025 End: March 10, 2025 POOL Mckinnon Attending Provider Active Start: March 10, 2025 End: March 10, 2025 Team Status: Active Member Role Status Dates Dr. Erica Sanford MD Primary Care Provider Active Start: March 10, 2025 POOL Mckinnon Attending Provider Active Start: March 10, 2025 POOL Mckinnon Referring Provider Active Start: March 10, 2025 Team Status: Inactive Member Role Status Dates Dr. Erica Sanford MD Primary Care Provider Active Start: March 10, 2025 End: March 10, 2025 POOL Mckinnon Attending Provider Active Start: March 10, 2025 End: March 10, 2025 POOL Mckinnon Referring Provider Active Start: March 10, 2025 End: March 10, 2025 Goals (unrecognized section and content) Goals may be documented in a n alternate sectionGoals may be documented in an alternate sectionGoals may be documented in an alternate section <item> Privacy Markings (unrecogniz ed section and content) Section Author: Chen Moore PROHIBITION ON REDISCLOSURE OF CONFIDENTIAL INFORMATION This notice accompanies a disclosure of information concerning a client made to you with the consent of such client. FOR RECORDS PERTAINING TO PATIENTS WHO ARE OR HAVE BEEN ENROLLED IN A CHEMICAL DEPENDENCY/SUBSTANCEABUSE PROGRAM, SOME INFORMATION MAY BE OMITTED. This clinical summary was aggregated from multiple sources. Caution should be exercised in using it in the provision of clinical care. This summary normalizes information from multiple sources, and as a consequence, information in this document may materially change the coding, format and clinical context of patient data. In addition, data may be omitted in some cases. CLINICAL DECISIONS SHOULD BE BASED ON THE PRIMARY CLINICAL RECORDS. [employer] [facility]. provides no warranty or guarantee of the accuracy or completeness of information in this document.
--- NOTE | 2025-04-09 10:19 | US_ITS ---
PROCEDURE: PELVIC W/ TRANSVAGINAL 04/09/2025 REASON FOR EXAM: POST MENOPAUSAL BLEEDING TECHNIQUE: PELVIC W/ TRANSVAGINAL COMPARISON: None. FINDINGS: Measurements: Uterus: 7.6 x 3.7 x 5.7 cm for volume of 84.6 mL Endometrial Thickness: 6 mm Right Ovary: Not visualized Left Ovary: 3.6 x 2.0 x 3.0 cm for volume of 11.0 mL. Uterus: Anteverted. Normal contour and slightly heterogeneous myometrial echotexture. Endometrium: Normal echotexture. Right ovary: Not visualized due to shadowing bowel gas Left ovary: Simple cyst measuring up to 2.8 cm in size (O-RADS 2, no follow-up recommended). Cul-de-sac: No free intraperitoneal fluid identified. Color Doppler: Normal color flow doppler signal at the left ovary. US/Pelvic w/ Transvaginal IMPRESSION: 1. Endometrial stripe measures 6 mm in thickness. Consider endometrial sampli ng in a postmenopausal patient. 2. Right ovary not visualized due to shadowing bowel gas. Reading Location: [id number]
== END | disposition home or self-care (01) ==
LOC: US 10:14
PROVIDERS: PCP Internal Medicine; Referring Provider Nurse Practitioner Family; Visit Provider Nurse Practitioner Family
DX: N95.0 Postmenopausal bleeding (principal)
CPT/HCPCS: 76830; 76856

== ENCOUNTER → 2025-05-20 | Outpatient (CLI) | payer OTHER, SELFPAY ==
--- NOTE | 2025-05-20 13:30 | EMB_PTH ---
PATIENT: CHRISTINE OAKES LOC: [facility] U#:[id number] AGE/SX: 54/F ROOM: RE05/20/[address]: Dr. Natalie Olivarez DO : 1970 BED: DIS: 05/20/2025 SPEC #: [id number] RECD: 05/20/25 16:42 STATUS: CHARLES REPortillo #: [id number] JEYSON: 05/20/25 13:[address]: Natalie Olivarez DEPT: SURGICAL PATHOLOGY RECD BY: Ottoniel Santizo ENTERED: 05/23/25 10:42 SP TYPE: ENDOM BX/C HEATHER DR: Dr. Erica Sanford MD Tissues: A - Endometrium, NOS Procedures: Surgery Specimen Level IV HEADER OPERATION: Endometrial biopsy PRE-OP DIAGNOSIS: Post menopausal bleeding TISSUE SUBMITTED: A- Endometrial lining MICROSCOPIC DIAGNOSIS A. Endometrium, biopsy: * Weakly proliferative endometrium * Strips of benign endocervical mucous columnar epithelium and surface endometrial columnar epithelium MICROSCOPIC DESCRIPTION Slides are reviewed. GROSS DESCRIPTION A. Received in formalin labeled with the patient's name and date of is a 1.5 x 1.2 x 1.0 cm aggregate of mucoid material admixed with flecks of simmons tissue. Entirely submitted in 1 cassette. The entirety of the specimen may not survive processing. [place] 05/23/2025 CPT:01072
== END | disposition home or self-care (01) ==
LOC: LABSPEC 15:46
PROVIDERS: PCP Internal Medicine; Referring Provider Obstetrics & Gynecology; Visit Provider Obstetrics & Gynecology
DX: N95.0 Postmenopausal bleeding (principal)
CPT/HCPCS: 88305